=== PATIENT | male | born 1935 | race Caucasian/White ===

== ENCOUNTER → 2020-01-27 | Outpatient (CLI) | payer MEDICARE, OTHER ==
[~2020-01-27] MED LIST: ASPI81TA57 PO; HCT25T PO; HYDR-34 PO; HYDROCHLOROTHIAZIDE PO; METO25TA6 PO; QUIN40TA17 PO; ROSU10TA12 PO
--- NOTE | 2020-01-27 13:43 | Diagnostic Imaging Report ---
EXAMINATION: CT Abdomen/Pelvis without contrast. TECHNIQUE: Multiple contiguous axial images were obtained through the abdomen and pelvis without the use of intravenous contrast. All CT scans use one or more of the following dose optimizing techniques: automated exposure control, MA and/or KvP adjustment based on a patient size and exam type, or iterative reconstruction. HISTORY: Hematuria. COMPARISON: None available. FINDINGS: Limited views of the lower thorax show mitral annular calcifications and dilation of the heart. The liver is normal without focal lesion. There is no biliary ductal dilation. The gallbladder is normal. The pancreas is normal. The spleen is normal. The adrenal glands are normal. The kidneys are normal. There is no hydronephrosis. The urinary bladder is normal. No renal or ureteral stones are seen. The prostate is enlarged. The visualized bowel is normal in caliber without obstruction or inflammation. No free fluid or air. No abdominal or pelvic lymphadenopathy. The aorta is normal in caliber without aneurysm. There are no suspicious osseus lesions. IMPRESSION: No acute abnormality in the abdomen or pelvis. No renal or ureteral calculi. Dictated by: Dictated on workstation # [id number]
--- NOTE | 2020-01-27 13:50 | Diagnostic Imaging Report ---
INDICATION: Hematuria. TIME OF EXAM: 1:34 PM. FINDINGS: The bowel gas pattern is nonobstructed. No pathologic calcifications are seen. Pelvic calcification on the right likely represents a phlebolith. No free air is identified. IMPRESSION: No acute abnormality is detected. Dictated by: Dictated on workstation # [id number]
== END ==
LOC: RAD 13:12
PROVIDERS: ATTEND Urology
DX: R31.0 Gross hematuria (principal)
CPT/HCPCS: 74018; 74176

== ENCOUNTER 2020-08-23 05:32 | Outpatient (RCR) | payer MEDICARE, OTHER ==
[~2020-08-23] VITALS: Ht 175.3 cm; Wt 77.3 kg
[~2020-08-23 05:32] MED LIST changes: +AMLO-504 PO; +ASPI-999 PO; +METO-333 PO; +ROSU10TA28 PO
--- NOTE | 2020-08-23 18:48 | NUR ---
Notified patient of positive COVID test.
== END 2020-08-23 09:12 | disposition home or self-care (01) ==
LOC: PREOP 05:32
PROVIDERS: ATTEND Surgery
DX: Z01.818 Encounter for other preprocedural examination (principal); U07.1 COVID-19
CPT/HCPCS: 87635

== ENCOUNTER 2020-10-11 15:56 | Observation (INO) | payer MEDICARE, OTHER ==
[~2020-10-11] VITALS: Ht 182 cm; Wt 76.8 kg
[~2020-10-11 15:56] MED LIST changes: -AMLO1CAP5 PO; -APIX5TAB PO; -ASCO-262 PO; -BAMLANIVIMAB 700 MG in NS 200 ML IV ONE; -CHOL10007 PO; -DILT240C91 PO; -EPINEPHrine INJECTION 1 MG/ML AMP IM PRN; -FURO20TA4 PO; -diphenhydrAMINE 50 MG/ML INJ (BENADRYL) IV PRN
[2020-10-11] MEDS ORDERED: ACETAMINOPHEN 500 MG TAB (TYLENOL) ONE (16:12)
--- NOTE | 2020-10-11 16:21 | ED General ---
General Stated Complaint: SOB,COVID + Source of Information: Patient Exam Limitations: No Limitations History of Present Illness Date Seen by Provider: Oct 11, 2020 Time Seen by Provider: 16:20 Initial Comments This is an 85-year-old male who presents to the ER via EMS with elevated temperature, new onset afib RVR and shortness of air after receiving Bam lanivimab treatment around 0830 this morning. States he went to for increased swelling in his ankles for two weeks and increasing shortness of breath for two weeks. States he thought it was likely due to COVID, even though he just tested positive. At this time he is denying chest pain, cough, shortness of breath, nausea, vomiting, diarrhea, abdominal pain. Allergies and Home Medications Allergies Coded Allergies: Penicillins (Verified Allergy, Mild, RASH, 09/07/14) Home Medications Amlodipine Bes/Olmesartan Med 1 Each Tablet, 1 EACH PO DAILY, (Reported) Aspirin 81 Mg Tab.chew, 81 MG PO DAILY, (Reported) Metoprolol Tartrate 25 Mg Tablet, 25 MG PO BID, (Reported) Rosuvastatin Calcium 10 Mg Tablet, 10 MG PO HS, (Reported) Patient Home Medication List Home Medication List Reviewed: Yes Review of Systems Review of Systems Constitutional: see HPI EENTM: no symptoms reported Respiratory: see HPI Cardiovascular: see HPI Gastrointestinal: no symptoms reported Genitourinary: no symptoms reported Musculoskeletal: no symptoms reported Skin: no symptoms reported Psychiatric/Neurological: No Symptoms Reported Hematologic/Lymphatic: No Symptoms Reported Immunological/Allergic: no symptoms reported Past Pkfthlc-Jsqnje-Uypntj Hx Patient Social History Former Smoker, Quit: Aug 17, 1985 Recent Hopitalizations: No Immunizations Up To Date Date of Pneumonia Vaccine: Jun 09, 2013 Date of Influenza Vaccine: Jul 07, 2020 Seasonal Allergies Seasonal Allergies: No Past Medical History Surgeries: Yes (mitral value repaired, hammertoe sx, ) Respiratory: No Cardiac: No (mitral valve tear repaired robotic, 10/2013) Hypertension Neurological: No Genitourinary: No Gastrointestinal: No Musculoskeletal: Yes Arthritis Endocrine: No HEENT: Yes (dentures) Cancer: No Psychosocial: No Integumentary: No Blood Disorders: No Physical Exam Vital Signs Vital Signs - First Documented 10/11/20 10/11/20 10/11/20 16:00 20:50 22:50 Temp 39.0 Pulse 112 Resp 33 B/P (MAP) 148/96 (113) Pulse Ox 94 O2 Delivery Room Air FiO2 21 Capillary Refill : Height, Weight, BMI Height: 5'9.50" Weight: 180lbs. oz. 81.959885ly; 25.15 BMI Method: General Appearance: No Apparent Distress, WD/WN Eyes: Bilateral Eye Normal Inspection, Bilateral Eye PERRL, Bilateral Eye EOMI HEENT: PERRL/EOMI, Normal ENT Inspection Respiratory: Lungs Clear Cardiovascular: Normal Peripheral Pulses, Irregularly Irregular Neurologic/Psychiatric: Oriented x3, No Motor/Sensory Deficits, Normal Mood/Affect Skin: Normal Color, Warm/Dry Progress/Results/Core Measures Suspected Sepsis SIRS Temperature: Pulse: Respiratory Rate: Laboratory Tests 10/11/20 16:05: White Blood Count 4.6 Blood Pressure / Mean: Laboratory Tests 10/11/20 16:05: Creatinine 1.47H, Platelet Count 151, Total Bilirubin 0.8 Results/Orders Lab Results Laboratory Tests Test 10/11/20 16:05 10/11/20 16:54 Range/Units White Blood Count 4.6 4.3-11.0 10^3/uL Red Blood Count 3.97 L 4.30-5.52 10^6/uL Hemoglobin 12.2 L 13.3-17.7 g/dL Hematocrit 37 L 40-54 % Mean Corpuscular Volume 93 80-99 fL Mean Corpuscular Hemoglobin 31 25-34 pg Mean Corpuscular Hemoglobin Concent 33 32-36 g/dL Red Cell Distribution Width 12.3 10.0-14.5 % Platelet Count 151 130-400 10^3/uL Mean Platelet Volume 9.8 9.0-12.2 fL Immature Granulocyte % (Auto) 0 % Neutrophils (%) (Auto) 71 42-75 % Lymphocytes (%) (Auto) 16 12-44 % Monocytes (%) (Auto) 12 0-12 % Eosinophils (%) (Auto) 0 0-10 % Basophils (%) (Auto) 0 0-10 % Neutrophils # (Auto) 3.2 1.8-7.8 10^3/uL Lymphocytes # (Auto) 0.7 L 1.0-4.0 10^3/uL Monocytes # (Auto) 0.6 0.0-1.0 10^3/uL Eosinophils # (Auto) 0.0 0.0-0.3 10^3/uL Basophils # (Auto) 0.0 0.0-0.1 10^3/uL Immature Granulocyte # (Auto) 0.0 0.0-0.1 10^3/uL Sodium Level 134 L 135-145 MMOL/L Potassium Level 3.8 3.6-5.0 MMOL/L Chloride Level 102 98-107 MMOL/L Carbon Dioxide Level 20 L 21-32 MMOL/L Anion Gap 12 5-14 MMOL/L Blood Urea Nitrogen 20 H 7-18 MG/DL Creatinine 1.47 H 0.60-1.30 MG/DL Estimat Glomerular Filtration Rate 45 BUN/Creatinine Ratio 14 Glucose Level 109 H 70-105 MG/DL Calcium Level 8.8 8.5-10.1 MG/DL Corrected Calcium 8.9 8.5-10.1 MG/DL Total Bilirubin 0.8 0.1-1.0 MG/DL Aspartate Amino Transf (AST/SGOT) 25 5-34 U/L Alanine Aminotransferase (ALT/SGPT) 20 0-55 U/L Alkaline Phosphatase 90 40-136 U/L Troponin I 0.028 <0.028 NG/ML B-Type Natriuretic Peptide 903.9 H <100.0 PG/ML Total Protein 6.5 6.4-8.2 GM/DL Albumin 3.9 3.2-4.5 GM/DL Blood Gas Puncture Site RAD Blood Gas Patient Temperature 102.1 Arterial Blood pH 7.45 H 7.37-7.43 Arterial Blood Partial Pressure CO2 28 L 35-45 MMHG Arterial Blood Partial Pressure O2 93 79-93 MMHG Arterial Blood HCO3 19 L 23-27 MMOL/L Arterial Blood Total CO2 19.6 L 21.0-31.0 MMOL/L Arterial Blood Oxygen Saturation 97 94-100 % Arterial Blood Base Excess -4.2 L -2.5-2.5 MMOL/L Kevin Test NA Blood Gas Ventilator Setting NO Blood Gas Inspired Oxygen ROOM AIR My Orders Orders - KYLER ORTIZ APRN Acetaminophen Tablet (Tylenol Tablet) (10/11/20 16:12) Acetaminophen Tablet (Tylenol Tablet) (10/11/20 16:30) Cbc With Automated Diff (10/11/20 16:21) Comprehensive Metabolic Panel (10/11/20 16:21) Ekg Tracing (10/11/20 16:21) Troponin I (10/11/20 16:21) Chest 1 View, Ap/Pa Only (10/11/20 16:21) Arterial Blood Gas (10/11/20 16:54) Medications Given in ED Current Medications Medications Dose Ordered Sig/Moose Route Start Time Stop Time Status Last Admin Dose Admin Acetaminophen 1,000 mg ONCE ONCE PO 10/11/20 16:30 10/11/20 16:31 DC 10/11/20 16:20 1,000 MG Vital Signs/I&O 10/11/20 10/11/20 10/11/20 10/11/20 16:00 20:50 21:00 22:50 Temp 39.0 37.0 37.0 Pulse 112 100 100 Resp 33 18 B/P (MAP) 148/96 (113) 130/89 (103) Pulse Ox 94 97 94 94 O2 Delivery Room Air Room Air FiO2 21 Capillary Refill : Progress Note : Progress Note Temperature upon arrival was 102.2. Given Tylenol 1000mg PO x1 now. Telemetry shows A-fib, rate 104. RR 30. Reports increasing shortness of breath and bilateral lower extremity swelling over the past couple weeks. States he does sleep on 2 pillows at night. Elevated temperature could likely be from recent Bamlanivimab infusion. Temperature down to 97.9. Labs reviewed, Hgb stable-12.2, Plt-151, Na-134, K- 3.8, AG-12, BUN-20, Creat-1.47, BNP-903.9, Trop-0.028. CXR shows cardiomegaly with no evidence of failure. Donahue heart failure score 4 (cardiomegaly, orthopnea, ankle edema, and dyspnea on exertion). Plan to admit for observation to cardiac stepdown unit incase patient requires cardizem drip through hospital course. Patient noted to be COVID +, and this could also likely be a cause for his increased SOA. Plan of care discussed with Dr. Adam and Dr. Roberts. Patient to be monitored on telemetry, continue home Metoprolol and start on Eliquis 2.5 mg twice a day. Reviewed plan with patient and he is agreeable with plan. VSS for transfer to cardiac stepdown. ECG Initial ECG Impression Date: Oct 11, 2020 Initial ECG Impression Time: 16:25 Initial ECG Rate: 104 Initial ECG Rhythm: A Fib/Flutter Initial ECG Impression: Atrial Fibrillation Initial ECG Comparisson: Changed Diagnostic Imaging Diagonstic Imaging: Xray Plain Films/CT/US/NM/MRI: chest Comments NAME: [facility] REC#: [id number] PT STATUS: REG ER : 1935 PHYSICIAN: KYLER ORTIZ APRN ADMIT DATE: 10/11/20/ER Signed Date of Exam:10/11/20 CHEST 1 VIEW, AP/PA ONLY INDICATION: Shortness of breath, Covid positive. COMPARISON: None available. TECHNIQUE: Single radiograph of the chest dated October 11, 2020. FINDINGS: The cardiac silhouette is enlarged. Minimal central pulmonary vascular congestion. Patchy opacity is noted within the left upper lung. Otherwise, the lungs appear clear. No significant pleural effusion. No pneumothorax. No acute osseous abnormality. IMPRESSION: Focal opacity within the left upper lung is concerning for infiltrate, likely of an infectious etiology. Radiographic follow-up is recommended to ensure clearance. Mild cardiomegaly with minimal central pulmonary vascular congestion. No significant pleural effusion. Dictated by: Dictated on workstation # [id number] Dict: 10/11/20 1722 Trans: 10/11/20 172 [facility] [id number] Interpreted by: ZAYDA VITAL MD Electronically signed by: ZAYDA VITAL MD 10/11/20 172 Departure Communication (Admissions) Time/Spoke to Admitting Phy: 18:[address] Adam, agreeable with observation admission and cardiology consult. Time/Spoke to Consulting Phy: 18:[address] Roberts, agreeable with observation admission, patient to start Eliquis 2.5 mg twice a day. Impression Primary Impression: New onset a-fib Additional Impressions: Congestive heart failure COVID-19 Disposition: ADMITTED INPATIENT Condition: Stable Admissions Decision to Admit Reason: Admit from ER (General) Decision to Admit/Date: Oct 11, 2020 Time/Decision to Admit Time: 18:00 Departure-Patient Inst. Referrals: WILLIAM REICH MD (PCP/Family) Primary Care Physician KYLER ORTIZ APRN Oct 11, 2020 16:21
[2020-10-11 16:30] LABS: BASOPHILS % (AUTO) 0 % (0-10); EOSINOPHILS % (AUTO) 0 % (0-10); HEMATOCRIT 37 % (40-54); HEMOGLOBIN 12.2 g/dL (13.3-17.7); LYMPHOCYTES # (AUTO) 0.7 10^3/uL (1.0-4.0); LYMPHOCYTES % (AUTO) 16 % (12-44); MEAN CORPUSCULAR HEMOGLOBIN 31 pg (25-34); MEAN CORPUSCULAR HGB CONC 33 g/dL (32-36); MEAN CORPUSCULAR VOLUME 93 fL (80-99); MEAN PLATELET VOLUME 9.8 fL (9.0-12.2); MONOCYTES # (AUTO) 0.6 10^3/uL (0.0-1.0); MONOCYTES % (AUTO) 12 % (0-12); NEUTROPHILS # (AUTO) 3.2 10^3/uL (1.8-7.8); NEUTROPHILS % (AUTO) 71 % (42-75); PLATELET COUNT 151 10^3/uL (130-400); WHITE BLOOD COUNT 4.6 10^3/uL (4.3-11.0)
[2020-10-11] MEDS ORDERED: ACETAMINOPHEN 500 MG TAB (TYLENOL) PO ONE (16:30)
[2020-10-11 16:42] LABS: ALBUMIN 3.9 GM/DL (3.2-4.5); BILIRUBIN,TOTAL 0.8 MG/DL (0.1-1.0); CALCIUM 8.8 MG/DL (8.5-10.1); CREATININE SERUM 1.47 MG/DL (0.60-1.30); POTASSIUM 3.8 MMOL/L (3.6-5.0); TOTAL PROTEIN 6.5 GM/DL (6.4-8.2)
[2020-10-11 17:03] LABS: ABG BASE EXCESS -4.2 MMOL/L (-2.5-2.5); ABG OXYGEN SATURATION 97 % (94-100); ABG PCO2 28 MMHG (35-45); ABG PH 7.45 (7.37-7.43); ABG PO2 93 MMHG (79-93); ABG TCO2 19.6 MMOL/L (21.0-31.0)
[2020-10-11 17:05] LABS: INSPIRED O2 ROOM AIR; PATIENT TEMP 102.1; VENTILATOR NO
--- NOTE | 2020-10-11 17:24 | Diagnostic Imaging Report ---
INDICATION: Shortness of breath, Covid positive. COMPARISON: None available. TECHNIQUE: Single radiograph of the chest dated October 11, 2020. FINDINGS: The cardiac silhouette is enlarged. Minimal central pulmonary vascular congestion. Patchy opacity is noted within the left upper lung. Otherwise, the lungs appear clear. No significant pleural effusion. No pneumothorax. No acute osseous abnormality. IMPRESSION: Focal opacity within the left upper lung is concerning for infiltrate, likely of an infectious etiology. Radiographic follow-up is recommended to ensure clearance. Mild cardiomegaly with minimal central pulmonary vascular congestion. No significant pleural effusion. Dictated by: Dictated on workstation # [id number]
--- NOTE | 2020-10-11 19:22 | NUR ---
REPORT TO DEBORAH ÁLVAREZ
--- NOTE | 2020-10-11 19:35 | NUR ---
CONTACTED PT DAUGHTER, LUNA, REGARDING UPDATE ET ADMISSION TO CARDIAC STEP DOWN, ROOM 512. LUNA VOICES NO FURTHER QUESTIONS OR CONCERNS.
[2020-10-11] MEDS ORDERED: ONDANSETRON 4 MG/2 ML (SDV) Z0FRAN IV PRN (20:30)
[2020-10-11] MEDS ORDERED: ACETAMINOPHEN 325 MG TABLET PO PRN (20:30)
[2020-10-11] MEDS ORDERED: CATHETER FLUSH 10 ML SYR IV PRN (20:30)
--- NOTE | 2020-10-11 20:45 | NUR ---
PT RECEIVED FROM ER STAFF TO RM 512 AT THIS TIME. PT IS A&OX4, ON ROOM AIR, AND VERY PLEASANT. PLEASE SEE ASSESSMENT FOR FULL DETAILS. WILL ASSUME CARE OF PATIENT.
--- NOTE | 2020-10-11 21:30 | NUR ---
SIZE MEDIUM KNEE HIGH JADE HOSE APPLIED BLE.
[2020-10-11 22:50] VITALS: BP 130/89
[2020-10-12] MEDS: CATHETER FLUSH 10 ML SYR IV SCH ×3 (00:17→20:37)
[2020-10-12] MEDS: meTOprolol TARTRATE 25 MG (LOPRESSOR) TABLET PO SCH ×3 (00:17→20:37)
[2020-10-12] MEDS: APIXABAN 2.5 MG (ELIQUIS) TABLET PO SCH ×2 (00:17→08:27)
--- NOTE | 2020-10-12 00:30 | NUR ---
JADE SERRANO REMOVED PER PATIENT REQUEST.
[2020-10-12 03:55] LABS: ALBUMIN 3.4 GM/DL (3.2-4.5)
[2020-10-12 03:56] LABS: POTASSIUM 4.3 MMOL/L (3.6-5.0)
[2020-10-12 03:57] LABS: BASOPHILS % (AUTO) 1 % (0-10); CALCIUM 8.1 MG/DL (8.5-10.1); EOSINOPHILS % (AUTO) 0 % (0-10); HEMATOCRIT 35 % (40-54); HEMOGLOBIN 11.6 g/dL (13.3-17.7); LYMPHOCYTES # (AUTO) 1.4 10^3/uL (1.0-4.0); LYMPHOCYTES % (AUTO) 40 % (12-44); MEAN CORPUSCULAR HEMOGLOBIN 30 pg (25-34); MEAN CORPUSCULAR HGB CONC 33 g/dL (32-36); MEAN CORPUSCULAR VOLUME 93 fL (80-99); MONOCYTES # (AUTO) 0.5 10^3/uL (0.0-1.0); MONOCYTES % (AUTO) 14 % (0-12); NEUTROPHILS # (AUTO) 1.5 10^3/uL (1.8-7.8); NEUTROPHILS % (AUTO) 44 % (42-75); PLATELET COUNT 141 10^3/uL (130-400); WHITE BLOOD COUNT 3.5 10^3/uL (4.3-11.0)
[2020-10-12 03:58] LABS: TOTAL PROTEIN 5.7 GM/DL (6.4-8.2)
[2020-10-12 04:00] LABS: BILIRUBIN,TOTAL 0.8 MG/DL (0.1-1.0)
[2020-10-12 04:02] LABS: CREATININE SERUM 1.29 MG/DL (0.60-1.30)
--- NOTE | 2020-10-12 08:23 | Consultation-Cardiology ---
HPI-Cardiology Cardiology Consultation: Date of Consultation 10/12/20 Time Seen by a Provider: 08:25 Date of Admission 10-11-2020 Attending Physician Mallory Adam MD Admitting Physician Robert Ahumada MD Consulting Physician Sherly Roberts MD HPI: Chief Complaint: New onset a-fib with RVR Mr. Mcclendon is an 85 yr old male admitted to [facility] from the ED with new onset a-fib with RVR. He reports he was diagnosed with COVID earlier this week. He went to Urgent care where he received out pt bamlanivimab tx. He reports they were concerned with LE swelling following treatment and he was found to be in a-fib RVR. He reports SOB with exertion. He states he did feel that his HR maybe was a little fast. He reports starting around 3 weeks ago he began to have LE swelling, but he would go to bed and get up in the morning and the swelling would be gone. He also reports about 2 weeks ago he was climbing stairs at his house and by the time he made to the second step he felt very SOB and weak. He would rest for a few minutes and recover. No report of palpitations at that time. He denies any fever or chills, he was found to have a fever yesterday at time of admission. He denies any n/f/d. He states he follows with Dr. Vargas at [facility] for cardiac care. 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 He reports LE swelling is better today. He does not report any CP. Review of Systems-Cardiology Review of Systems Constitutional: No chills; fever, malaise Eyes: No vision change Ears/Nose/Throat: No epistaxis, No recent hearing loss Respiratory: As described under HPI Cardiovascular: As described under HPI Gastrointestinal: No constipation, No diarrhea, No nausea, No vomiting Genitourinary: No dysuria, No hematuria Musculoskeletal: no symptoms reported Skin: No rash on exposed areas, No ulcerations on exposed areas Psychiatric/Neurological: No anxiety, No depression, No focal weakness, No syncope Hematologic: No bleeding abnormalities NVI-Bsyerm-Yazqyn Hx Patient Social History Alcohol Use: Denies Use Recreational Drug Use: No Smoking Status: Former Smoker Recent Foreign Travel: No Recent Infectious Disease Expo: No Hospitalization with Isolation: Denies Immunizations Up To Date Date of Pneumonia Vaccine: Jul 11, 2020 Date of Influenza Vaccine: Aug 11, 2021 Past Medical History PMH As described under Assessment. Family Medical History Family Medical History: He reports he had a brother who passed from an MS at age 65. He reports his father had CAD. Allergies and Home Medications Allergies Coded Allergies: Penicillins (Verified Allergy, Mild, RASH, 09/07/14) Home Medications Amlodipine Besylate/Benazepril 1 Each Capsule, 1 EACH PO DAILY, (Reported) Ascorbate Calcium 500 Mg Tablet, 500 MG PO DAILY, (Reported) Aspirin 81 Mg Tab.chew, 81 MG PO DAILY, (Reported) Cholecalciferol (Vitamin D3) 25 Mcg Capsule, 25 MCG PO DAILY, (Reported) Furosemide 20 Mg Tablet, 20 MG PO DAILY, (Reported) Metoprolol Tartrate 25 Mg Tablet, 25 MG PO BID, (Reported) Rosuvastatin Calcium 10 Mg Tablet, 10 MG PO HS, (Reported) Patient Home Medication List Home Medication List Reviewed: Yes Physical Exam-Cardiology Physical Exam Vital Signs/I&O 10/12/20 10/12/20 10/12/20 10/12/20 07:02 08:00 08:34 09:00 Temp 36.3 Pulse 82 96 Resp 18 B/P (MAP) 126/73 (90) Pulse Ox 96 94 94 O2 Delivery Room Air Room Air Room Air 10/12/20 10/12/20 10/12/20 10/12/20 12:00 12:00 12:58 13:12 Temp 37.0 37.0 Pulse 63 77 63 Resp 18 18 B/P (MAP) 105/62 (76) 105/62 (76) Pulse Ox 94 94 94 O2 Delivery Room Air Room Air Room Air 10/12/20 15:45 Pulse Ox 93 O2 Delivery Room Air 10/12/20 00:00 Intake Total 0 ml Output Total 0 ml Balance 0 ml Capillary Refill : Less Than 3 Seconds Constitutional: AAO x 3, well-developed, well-nourished HEENT: PERRL, hearing is well preserved, oral hygience is good Neck: No carotid bruit; carotid pulses are 2 + bilaterally Respiratory: No accessory muscle use, No respiratory distress; chest expansion is symmetric, chest is bilaterally symmetric, other (diminished lower lobes) Cardiovascular: irregularly irregular; No JVD; S1 and S2, systolic murmur Gastrointestinal: No tender; soft, round, audible bowel sounds Extremities: no lower extremity edema bilateral Neurologic/Psychiatric: grossly intact (moves all extremities) Skin: No rash on exposed areas, No ulcerations on exposed areas Data Review Labs Laboratory Tests 10/11/20 16:54: Blood Gas Puncture Site RAD, Blood Gas Patient Temperature 102.1, Arterial Blood pH 7.45H, Arterial Blood Partial Pressure CO2 28L, Arterial Blood Partial Pressure O2 93, Arterial Blood HCO3 19L, Arterial Blood Total CO2 19.6L, Arterial Blood Oxygen Saturation 97, Arterial Blood Base Excess -4.2L, Kevin Test NA, Blood Gas Ventilator Setting NO, Blood Gas Inspired Oxygen ROOM AIR 10/12/20 03:40: White Blood Count 3.5L, Red Blood Count 3.81L, Hemoglobin 11.6L, Hematocrit 35L, Mean Corpuscular Volume 93, Mean Corpuscular Hemoglobin 30, Mean Corpuscular Hemoglobin Concent 33, Red Cell Distribution Width 12.4, Platelet Count 141, Mean Platelet Volume 10.0, Immature Granulocyte % (Auto) 0, Neutrophils (%) (Auto) 44, Lymphocytes (%) (Auto) 40, Monocytes (%) (Auto) 14H, Eosinophils (%) (Auto) 0, Basophils (%) (Auto) 1, Neutrophils # (Auto) 1.5L, Lymphocytes # (Auto) 1.4, Monocytes # (Auto) 0.5, Eosinophils # (Auto) 0.0, Basophils # (Auto) 0.0, Immature Granulocyte # (Auto) 0.0, Sodium Level 133L, Potassium Level 4.3, Chloride Level 105, Carbon Dioxide Level 19L, Anion Gap 9, Blood Urea Nitrogen 19H, Creatinine 1.29, Estimat Glomerular Filtration Rate 53, BUN/Creatinine Ratio 15, Glucose Level 91, Calcium Level 8.1L, Corrected Calcium 8.6, Total Bilirubin 0.8, Aspartate Amino Transf (AST/SGOT) 29, Alanine Aminotransferase (ALT/SGPT) 15, Alkaline Phosphatase 78, Total Protein 5.7L, Albumin 3.4, Procalcitonin 0.32H Radiology NAME: MAGO MCCLENDON [facility] REC#: [id number] PT STATUS: REG ER : 1935 PHYSICIAN: KYLER ORTIZ APRN ADMIT DATE: 10/11/20/ER Signed Date of Exam:10/11/20 CHEST 1 VIEW, AP/PA ONLY INDICATION: Shortness of breath, Covid positive. COMPARISON: None available. TECHNIQUE: Single radiograph of the chest dated October 11, 2020. FINDINGS: The cardiac silhouette is enlarged. Minimal central pulmonary vascular congestion. Patchy opacity is noted within the left upper lung. Otherwise, the lungs appear clear. No significant pleural effusion. No pneumothorax. No acute osseous abnormality. IMPRESSION: Focal opacity within the left upper lung is concerning for infiltrate, likely of an infectious etiology. Radiographic follow-up is recommended to ensure clearance. Mild cardiomegaly with minimal central pulmonary vascular congestion. No significant pleural effusion. Dictated by: Dictated on workstation # [id number] Dict: 10/11/201721 Trans: 10/11/20 172 [id number] Interpreted by: ZAYDA VITAL MD Electronically signed by: ZAYDA VITAL MD 10/11/20 172 ECG Impression ECG Initial ECG Impression: Atrial Fibrillation w/RVR A/P-Cardiology Assessment/Admission Diagnosis New onset a-fib with RVR first diagnosed Oct 11, 2019 COVID (+) H/O robotic mitral valve repair at [facility] in [address] Vargas Reports recent echo and stress test at [facility] in Jun 2020, which he reports as normal Cardiac cath of Jun 2013 showed non-obstructive dz. LVEF 60%. Normal LVEDP. Severe mitral regurg (4+). 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 Adam this morning regarding plan of care Management of COVID is per medical services We would like to thank Dr. 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
--- NOTE | 2020-10-12 09:12 | NUR ---
Initial visit; The patient is Oriental Orthodox and demonstrates positive coping through his humor, and compassion for others. He expresses trust is God through uncertainty and the burdens of poor health. This Sausage Cooker invited the patient to share openly by affirming the importance of his thoughts and feeling. The pt expressed relief that his has not been critically ill with COVID, and he expressed appreciation for the opportunity to engage in uplifting visit.
--- NOTE | 2020-10-12 09:24 | Pulmonary Consultation ---
History of Present Illness History of Present Illness Date Seen by Provider: Oct 12, 2020 Time Seen by Provider: 09:19 Date of Admission History of Present Illness 85-year old with recent COVID + testing presented to the ER via [facility] with elevated temperature, new onset afib RVR and shortness of air after receiving Bamlanivimab treatment around 0830 this morning. He has also had increased swelling in his ankles for two weeks and increasing shortness of breath for two weeks. Pt was admitted to cardiac step down. Allergies and Home Medications Allergies Coded Allergies: Penicillins (Verified Allergy, Mild, RASH, 09/07/14) Home Medications Amlodipine Bes/Olmesartan Med 1 Each Tablet, 1 EACH PO DAILY, (Reported) Aspirin 81 Mg Tab.chew, 81 MG PO DAILY, (Reported) Metoprolol Tartrate 25 Mg Tablet, 25 MG PO BID, (Reported) Rosuvastatin Calcium 10 Mg Tablet, 10 MG PO HS, (Reported) Past Kjwqdci-Seswgx-Xcttgf Hx Patient Social History Alcohol Use: Denies Use Recreational Drug Use: No Smoking Status: Former Smoker Former Smoker, Quit: Aug 17, 1985 Recent Foreign Travel: No Contact w/Someone Who Travel: No Recent Infectious Disease Expo: No Recent Hopitalizations: No Immunizations Up To Date Date of Pneumonia Vaccine: Jul 11, 2020 Date of Influenza Vaccine: Aug 11, 2021 Seasonal Allergies Seasonal Allergies: No Past Medical History Surgeries: Yes (mitral value repaired, hammertoe sx, ) Respiratory: No Cardiac: No (mitral valve tear repaired robotic, 10/2013) Hypertension Neurological: No Genitourinary: No Gastrointestinal: No Musculoskeletal: Yes Arthritis Endocrine: No HEENT: Yes (dentures) Cancer: No Psychosocial: No Integumentary: No Blood Disorders: No Review of Systems Time Seen by Provider: 09:24 Sepsis Event Evaluation Height, Weight, BMI Height: 5'9.50" Weight: 180lbs. oz. 81.024133il; 23.33 BMI Method: Exam Exam Vital Signs Date Time Temp Pulse Resp B/P (MAP) Pulse Ox O2 Delivery O2 Flow Rate FiO2 10/12/20 09:00 94 Room Air 10/12/20 08:34 36.3 96 18 126/73 (90) 94 Room Air 10/12/20 08:00 96 Room Air 10/12/20 07:02 82 10/12/20 04:00 93 Room Air 10/12/20 04:00 Room Air 10/12/20 03:51 36.0 90 14 100/52 (68) 93 Room Air 10/12/20 02:42 94 Room Air 10/12/20 01:00 93 10/12/20 00:02 95 Room Air 10/12/20 00:00 Room Air 10/11/20 23:55 36.2 92 18 112/72 (85) 96 Room Air 10/11/20 22:50 37.0 100 94 21 10/11/20 21:00 94 Room Air 10/11/20 21:00 94 Room Air 10/11/20 20:50 37.0 100 18 130/89 (103) 97 Room Air 10/11/20 20:47 95 10/11/20 16:00 39.0 112 33 148/96 (113) 94 I & O 10/12/20 07:00 Intake Total 240 ml Output Total 450 ml Balance -210 ml Height & Weight Height: 5'9.50" Weight: 180lbs. oz. 81.031518qh; 23.33 BMI Method: General Appearance: No Apparent Distress, WD/WN HEENT: PERRL/EOMI, Normal ENT Inspection Respiratory: Lungs Clear Cardiovascular: Normal Peripheral Pulses, Irregularly Irregular Capillary Refill: Less Than 3 Seconds Gastrointestinal: normal bowel sounds, non tender, soft, no organomegaly Extremity: Normal Capillary Refill, Normal Inspection, No Pedal Edema Neurologic/Psychiatric: Alert, Oriented x3, No Motor/Sensory Deficits, Normal Mood/Affect Skin: Normal Color, Warm/Dry Lymphatic: No Adenopathy Results Lab Laboratory Tests 10/11/20 16:05 10/12/20 03:40 Assessment/Plan Assessment/Plan COVID-19 PNA -Currently on RA -Check PCT -Repeat CXR -Pt received BAM infusion yesterday -I do not believe pt needs Remdesivir and he will probably be discharged over the next 24-48hrs. Afib RVR -Cardiology consulted H/O robotic mitral valve repair at [facility] in 2013 Cardiac cath of Jun 2013 showed non-obstructive dz. LVEF 60%. Normal LVEDP. Severe mitral regurg (4+). Mild to mod pulm HTN HTN HLD Pt is doing well will transfer to 4th floor with tele GERI TORRES DO Oct 12, 2020 09:24
--- NOTE | 2020-10-12 09:45 | NUR ---
conformed pt's approval for anointing and contacted Fr Villatoro.
--- NOTE | 2020-10-12 12:20 | Diagnostic Imaging Report ---
INDICATION: Shortness of breath, Covid positive patient. TECHNIQUE/COMPARISON: A frontal chest was obtained at 11:32 AM and compared to yesterday FINDINGS: Cardiomegaly is again noted. There is minimal central vascular prominence. There is no pneumothorax or pleural fluid. There is an ill-defined density in the left upper lobe which may represent an infiltrate or nodule. This appears essentially unchanged from yesterday. The remainder of the lung chow is clear. IMPRESSION: Ill-defined parenchymal opacity in the left upper lobe which may represent infiltrate or nodule. Recommend continued followup or chest CT as clinically warranted. There is cardiomegaly. The report was faxed to Infection Control by [email or web address]@12:20 PM. Dictated by: Dictated on workstation # [id number]
[2020-10-12] MEDS ORDERED: AMLO1CAP5 PO (13:52)
[2020-10-12] MEDS ORDERED: CHOL10007 PO (13:52)
[2020-10-12] MEDS ORDERED: FURO20TA4 PO (13:52)
[2020-10-12] MEDS ORDERED: ASCO-262 PO (13:52)
--- NOTE | 2020-10-12 13:53 | NUR ---
SPOKE WITH THE PT (CALLED THE ROOM PHONE) AND WENT THRU THE EXT MED HISTORY TO COMPLETE THE MED REC PT WAS ABLE TO NAME ALL HIS MEDICATIONS WELL WHEN/HOW HE TAKES EACH FUROSEMIDE 20MG WAS FILLED ON 08-10-2020 #7/7DS, BUT PRIOR TO THIS FILL THE PT DOES NOT REGULARLY TAKE THIS MED OTC MEDS: VIT D VIT C ASPIRIN 81MG
--- NOTE | 2020-10-12 14:26 | NUR ---
CM/SS following patient for discharge planning. CM/SS provided the patient's primary care nurse with the free-30-day trial offer for Eliflor. She verbalized understanding and will provide to patient at time of discharge. CM/SS will continue to follow for further discharge needs.
[2020-10-12] MEDS: RT-ALBUTEROL INHALER HFA (VENTOLIN HFA) 18 GM IH SCH ×2 (15:44→18:31)
--- NOTE | 2020-10-12 17:04 | History & Physical-Hospitalist ---
History of Present Illness HPI/Chief Complaint Oneil Mcclendon is an 85 year old male with PMH HTN, HLD, CAD, severe mitral valve regurgiation s/p repair, who presented with shortness of breath. He was recently diagnosed with COVID and received a BAM infusion as an outpatient. He reports dyspnea on exertion. He denies chest pain and palpitations. He denies fevers and chills. He denies cough. 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 He reports having an echocardiogram a few months ago which was apparently "normal". Source: patient Exam Limitations: no limitations Date Seen 10/12/20 Time Seen by a Provider: 16:00 Attending Physician Mallory Dia MD PCP Robert Ahumada MD Referring Physician Date of Admission Oct 11, 2020 at 18:58 Home Medications & Allergies Home Medications Reviewed patient Home Medication Reconciliation performed by pharmacy medication reconciliations body technician/painter and/or nursing. Patients Allergies have been reviewed. Allergies Allergies Coded Allergies Penicillins (Verified Allergy, Mild, RASH, 09/07/14) Past Tpkrfxf-Foprwa-Uhfzea Hx Past Med/Social Hx: Reviewed Nursing Past Med/Soc Hx Patient Social History Alcohol Use: Denies Use Recreational Drug Use: No Smoking Status: Former Smoker Former Smoker, Quit: Aug 17, 1985 Recent Foreign Travel: No Contact w/other who traveled: No Recent Hopitalizations: No Recent Infectious Disease Expo: No Immunizations Up To Date Date of Pneumonia Vaccine: Jul 11, 2020 Date of Influenza Vaccine: Aug 11, 2021 Seasonal Allergies Seasonal Allergies: No Past Medical History Cardiac: Hypertension Musculoskeletal: Arthritis History of Blood Disorders: No Review of Systems Constitutional: no symptoms reported EENTM: no symptoms reported Respiratory: dyspnea on exertion Cardiovascular: no symptoms reported Gastrointestinal: no symptoms reported Genitourinary: no symptoms reported Musculoskeletal: no symptoms reported Skin: no symptoms reported Psychiatric/Neurological: No Symptoms Reported Physical Exam Physical Exam Vital Signs Vital Signs - First Documented 10/11/20 10/11/20 10/11/20 16:00 20:50 22:50 Temp 39.0 Pulse 112 Resp 33 B/P (MAP) 148/96 (113) Pulse Ox 94 O2 Delivery Room Air FiO2 21 Capillary Refill : Less Than 3 Seconds Height, Weight, BMI Height: 5'9.50" Weight: 180lbs. oz. 81.647900dz; 23.33 BMI Method: General Appearance: No Apparent Distress, WD/WN HEENT: PERRL/EOMI, Pharynx Normal Neck: Normal Inspection, Supple Respiratory: Lungs Clear, Normal Breath Sounds, No Respiratory Distress Cardiovascular: Irregularly Irregular (regular rate) Gastrointestinal: Normal Bowel Sounds, Non Tender, Soft Extremity: Normal Inspection, Non Tender, Pedal Edema Neurologic/Psychiatric: Alert, Oriented x3, No Motor/Sensory Deficits, Normal Mood/Affect Results Results/Procedures Labs Laboratory Tests 10/11/20 16:05 10/12/20 03:40 Patient resulted labs reviewed. Imaging: Reviewed Imaging Report Assessment/Plan Admission Diagnosis New onset atrial fibrillation with rapid ventricular response Admission Status: Observation Assessment and Plan New onset AFib with RVR Cardiology consulted, appreciate assistance Started on Metoprolol Started on Eliquis Cardizem added this morning Echo ordered COVID-19 Received BAM infusion outpatient Asymptomatic No oxygen requirement Diagnosis/Problems Diagnosis/Problems (1) New onset a-fib Status: Acute (2) COVID-19 Status: Acute Clinical Quality Measures DVT/VTE Risk/Contraindication: Risk Factor Score Per Nursin RFS Level Per Nursing on Admit: 1=Low/No VTE PPX MALLORY DIA MD Oct 12, 2020 17:04
[2020-10-12] MEDS: APIXABAN 5 MG (ELIQUIS) TABLET PO SCH (20:37)
[2020-10-13] MEDS: RT-ALBUTEROL INHALER HFA (VENTOLIN HFA) 18 GM IH SCH ×2 (01:57→10:24)
[2020-10-13] MEDS: CATHETER FLUSH 10 ML SYR IV SCH (05:31)
[2020-10-13 08:21] VITALS: BP 116/74
[2020-10-13] MEDS: meTOprolol TARTRATE 25 MG (LOPRESSOR) TABLET PO SCH (08:33)
[2020-10-13] MEDS: APIXABAN 5 MG (ELIQUIS) TABLET PO SCH (08:33)
[2020-10-13] MEDS ORDERED: DILT240C91 PO (09:26)
[2020-10-13] MEDS ORDERED: APIX5TAB PO (09:26)
[2020-10-13] MEDS ORDERED: KCL 10 MEQ TAB (MICRO K) PO ONE (12:45)
[2020-10-13] MEDS ORDERED: FUROSEMIDE 20 MG (LASIX) TAB PO ONE (12:45)
--- NOTE | 2020-10-13 12:49 | Progress Note - Cardiology ---
Cardiology SOAP Progress Note Subjective: Shortness of breath better, but not resolved No cp or syncope Denies palp Leg swelling, mild to mod, for several weeks Denies n/v Objective: I&O/Vital Signs 10/13/20 10/13/20 10/13/20 10/13/20 01:40 01:58 04:02 04:40 Temp 36.6 Pulse 61 72 Resp 22 B/P (MAP) 112/70 (84) Pulse Ox 96 92 O2 Delivery Room Air Room Air Room Air 10/13/20 10/13/20 10/13/20 10/13/20 07:24 08:00 08:21 10:24 Temp 36.7 Pulse 70 84 Resp 22 B/P (MAP) 116/74 (88) Pulse Ox 97 96 O2 Delivery Room Air Room Air Room Air 10/13/20 12:34 B/P (MAP) 10/13/20 00:00 Intake Total 800 ml Output Total 650 ml Balance 150 ml Weight (Pounds): 180 Weight (Calculated Kilograms): 81.333066 Constitutional: AAO x 3, well-developed, well-nourished Respiratory: No accessory muscle use, No respiratory distress; chest expansion is symmetric, chest is bilaterally symmetric, other (diminished lower lobes) Cardiovascular: irregularly irregular; No JVD; S1 and S2, systolic murmur Gastrointestional: No tender; soft, round, audible bowel sounds Extremities: no lower extremity edema bilateral Neurologic/Psychiatric: grossly intact (moves all extremities) Skin: No rash on exposed areas, No ulcerations on exposed areas Results/Procedures: Labs Laboratory Tests 10/11/20 16:05 10/12/20 03:40 A/P: Assessment: New onset a-fib with RVR first diagnosed Oct 11, 2019 Mild, acute, diastolic CHF due to RVR COVID (+) H/O robotic mitral valve repair at [facility] [place] [address] Vargas Reports recent echo and stress test at [facility] in Jun 2020, which he reports as normal Cardiac cath of Jun 2013 showed non-obstructive dz. LVEF 60%. Normal LVEDP. Severe mitral regurg (4+). Mild to mod pulm HTN HTN HLD Plan: Continue bb and ccb and apixaban Add low-dose furosemide and supple K Ok for d/c from cardiac standpoint Close outpt f/u advised RASHEEDA LEMONS MD FACP FAC [facility] Oct 13, 2020 12:49
[2020-10-14] MEDS ORDERED: KCL 10 MEQ TAB (MICRO K) PO SCH (07:00)
[2020-10-14] MEDS ORDERED: FUROSEMIDE 20 MG (LASIX) TAB PO SCH (09:00)
--- NOTE | 2020-10-14 15:23 | NUR ---
Dr. Adam ordered a CT chest without contrast for the patient to be done as an outpatient. He would like it to be done before the patient f/u with Dr. Ahumada on 10/20/20 at 10 a.m. Talked with scheduling and it has been arranged for 10/19/20. F/U with Oneil et his to let them know to be here on 10/19/20 at noon. Order was sent to scheduling. No further interventions noted.
--- NOTE | 2020-10-18 11:58 | Physician Query-Final Dx ---
CINDI SEGURA 10/18/20 1158: Final Diagnosis Give Final Diagnosis Please give Final Diagnosis DEMETRIUS DIA MD 10/27/202025: Final Diagnosis Give Final Diagnosis AFib with RVR CINDI SEGURA Oct 18, 2020 11:58 DEMETRIUS DIA MD Oct 27, 2020 20:26
[2020-10-25] MEDS ORDERED: GUAI-813 PO (13:15)
[2020-10-25] MEDS ORDERED: DILT240C53 PO (13:15)
[2020-10-25] MEDS ORDERED: APIX5TAB PO (13:15)
--- NOTE | 2020-10-26 22:04 | Discharge Summary ---
Discharge Summary Hospital Course Was the Problem List Reviewed?: Yes Problems/Dx: (1) New onset a-fib Status: Acute (2) COVID-19 Status: Acute Hospital Course Date of Admission: Oct 11, 2020 at 20:45 Admission Diagnosis : AFib with RVR Family Physician/Provider: Robert Ahumada MD Date of Discharge: 10/13/20 Discharge Diagnosis: AFib with RVR Hospital Course: Oneil Mcclendon is an 85 year old male who was admitted with new onset AFib with RVR. Cardiology was consulted and assisted with his care. He was started on Metoprolol, Diltiazem, and Eliquis. He was set up with an Eliquis card for one free month. His course was complicated by COVID-19. He did not have any hypoxia. He had received a Bamlanivimab infusion prior to admission. He was discharged home in stable condition. He should follow up with cardiology and his PCP. Labs and Pending Lab Test: Home Meds Active Reported Eliquis (Apixaban) 5 Mg Tablet 5 Mg PO BID Cartia Xt (Diltiazem HCl) 240 Mg Cap.er.24h 240 Mg PO DAILY Virtussin AC Liquid (Guaifenesin/Codeine Phosphate) 118 Ml Liquid 5-10 Ml PO Q8H PRN Vitamin C (Ascorbate Calcium) 500 Mg Tablet 500 Mg PO DAILY Vitamin D3 (Cholecalciferol (Vitamin D3)) 25 Mcg Capsule 25 Mcg PO DAILY Furosemide 20 Mg Tablet 20 Mg PO DAILY Metoprolol Tartrate 25 Mg Tablet 25 Mg PO BID Rosuvastatin Calcium 10 Mg Tablet 10 Mg PO HS Assessment/Pt Instructions Take medications as prescribed. Follow up with your PCP. Discharge Planning: <30 minutes discharge planning Discharge Physical Examination Allergies: Coded Allergies: Penicillins (Verified Allergy, Mild, RASH, 09/07/14) Discharge Summary Date of Admission Oct 11, 2020 at 20:45 Date of Discharge Oct 13, 2020 at 12:34 Discharge Date: Oct 13, 2020 Discharge Time: 12:34 Admission Diagnosis New onset atrial fibrillation with rapid ventricular response Discharge Diagnosis New onset AFib with RVR, COVID-19 (1) New onset a-fib Status: Acute (2) COVID-19 Status: Acute Clinical Quality Measures DVT/VTE Risk/Contraindication: Risk Factor Score Per Nursin RFS Level Per Nursing on Admit: 1=Low/No VTE PPX DEMETRIUS DIA MD Oct 26, 2020 22:04
[2020-10-31] MEDS ORDERED: POTA20TA8 PO (08:37)
[2020-10-31] MEDS ORDERED: APIX2.5T PO (08:37)
[2020-10-31] MEDS ORDERED: DILT-27 PO (08:37)
== END 2020-10-13 12:34 | disposition home or self-care (01) ==
LOC: EDUNIT# 15:56 → ER 15:58 → CSD 18:58 → UNDOADMOB 18:58 → CSD 20:45 → 4TH 10-12 15:09 → UNDODISOB 10-13 13:30
PROVIDERS: ADMIT Internal Medicine; ATTEND Internal Medicine
DX: I48.91 Unspecified atrial fibrillation (principal); U07.1 COVID-19; I10 Essential (primary) hypertension; E78.5 Hyperlipidemia, unspecified; I25.10 Atherosclerotic heart disease of native coronary artery without angina pectoris; I34.0 Nonrheumatic mitral (valve) insufficiency; M19.90 Unspecified osteoarthritis, unspecified site; I27.20 Pulmonary hypertension, unspecified; Z79.01 Long term (current) use of anticoagulants; Z79.899 Other long term (current) drug therapy; Z79.82 Long term (current) use of aspirin; Z88.0 Allergy status to penicillin; Z87.891 Personal history of nicotine dependence
CPT/HCPCS: 71045 ×2; 80053 ×2; 82805; 83880; 84145; 84484; 85025 ×2; 93005; 94640 ×4; 94760 ×2; 99285; G0378; 36415

== ENCOUNTER → 2020-10-11 | Outpatient (CLI) | payer MEDICARE, OTHER ==
[~2020-10-11] VITALS: Ht 175 cm; Wt 78.0 kg
[~2020-10-11] MED LIST changes: +AMLO1CAP5 PO; +APIX5TAB PO; +ASCO-262 PO; +BAMLANIVIMAB 700 MG in NS 200 ML IV ONE; +CHOL10007 PO; +DILT240C91 PO; +EPINEPHrine INJECTION 1 MG/ML AMP IM PRN; +FURO20TA4 PO; +diphenhydrAMINE 50 MG/ML INJ (BENADRYL) IV PRN
[2020-10-11 07:56] VITALS: BP 139/94
[2020-10-11 10:16] VITALS: BP 115/73
== END ==
LOC: INFUSION 07:55
PROVIDERS: ATTEND Nurse Practitioner Family
DX: U07.1 COVID-19 (principal)

== ENCOUNTER → 2020-10-19 | Outpatient (CLI) | payer MEDICARE, OTHER ==
[~2020-10-19] MED LIST changes: +AMLO1CAP5 PO; +APIX5TAB PO; +ASCO-262 PO; +CHOL10007 PO; +DILT240C91 PO; +FURO20TA4 PO
--- NOTE | 2020-10-19 13:43 | Diagnostic Imaging Report ---
PROCEDURE: CT chest without contrast. TECHNIQUE: Multiple contiguous axial images were obtained through the chest without the use of intravenous contrast. Auto Exposure Controls were utilized during the CT exam to meet ALARA standards for radiation dose reduction. INDICATION: Lung nodule. There are no prior CT chest examinations available for comparison. The plain film examination of the chest performed on 10/12/2020 noted ill-defined parenchymal density in the left upper lobe. It is not certain whether this is related to an inflammatory/infectious process or to a neoplastic mass. On this study there is a persistent prominent poorly defined roughly 3.5 x 3.5 cm irregular parenchymal density in the left perihilar region. This would correspond to the finding of the plain film exam. There are a few air bronchograms present within this area of abnormal density and I suspect that this is due to pneumonia/atelectasis as opposed to neoplasm. There is also a similar appearing area of atelectasis/infiltrate in the right lung base. This too is more likely due to pneumonia/atelectasis than to neoplasm. However there are number of poorly defined small pleural and parenchymal nodules in both lungs. These nodules could be neoplastic in nature. They could also be related to an inflammatory/infectious process. I would recommend that a short-term (4-six-week) follow-up CT chest exam be obtained for further study. In addition to the parenchymal and pleural-based abnormalities there are small bilateral pleural effusions. There is also cardiomegaly and coronary artery disease. The aorta is not abnormally dilated. There are a few small nonspecific mediastinal and aorticopulmonary window nodes. The thyroid gland where visualized is unremarkable. There is no obvious breast mass. The sections through the upper abdomen failed to show any sign of an acute abnormality. The bone windows are unremarkable for a fracture or for a destructive lesion. IMPRESSION: 1. The abnormal parenchymal density in the left upper lung seen on the recent plain film exam is most likely due to pneumonia/atelectasis. There is a similar area of pneumonia/atelectasis in the right lung base. 2. The nodular densities in both lungs could be either due to an inflammatory/infectious process or to neoplasm. Recommendations as above. 3. There is cardiomegaly and coronary artery disease. Small bilateral pleural effusions are also noted. Dictated by: Dictated on workstation # [id number]
== END ==
LOC: RAD 12:02
PROVIDERS: ATTEND Internal Medicine
DX: I51.7 Cardiomegaly (principal); I25.10 Atherosclerotic heart disease of native coronary artery without angina pectoris; R91.8 Other nonspecific abnormal finding of lung field
CPT/HCPCS: 71250

== ENCOUNTER 2020-10-27 08:32 | Inpatient (IN) | payer MEDICARE, OTHER ==
[~2020-10-27] VITALS: Ht 152.4 cm; Wt 72.9 kg
[~2020-10-27 08:32] MED LIST changes: +DILT240C53 PO; +GUAI-813 PO; +cefTRIAXone FOR IV USE 1,000 MG in WATER (STERILE) FOR INJECTION 10 ML IV SCH
[2020-10-27] MEDS ORDERED: APIXABAN 5 MG (ELIQUIS) TABLET PO SCH (09:00)
[2020-10-27] MEDS ORDERED: dilTIAZem120 MG (CARDIZEM CD) CAP PO SCH (09:00)
--- NOTE | 2020-10-27 09:00 | NUR ---
RUSSELLMAGO Pruitt admitted to swing bed status to room 409-1, with an admitting diagnosis of SWB , on 10/27/20 from acute inpatient status. Therapy to evaluate patient for activity needs. MAGO WELLS and/or family introduced to surroundings, call light, bed controls, phone, TV, temperature control, lights, meal times, smoking policy, visitor policy, side rail policy, bathrooms, and showers. Patient rights given to patient in the handbook.. MAGO WELLS and/or family member verbalized understanding that [facility] is not responsible for the loss or damage to any personal effects or valuables that are kept in the patients possession during their hospitalization. The following care plans were discussed with MAGO WELLS: Discharge Planning. MAGO WELLS and/or family verbalizes understanding of the Interdisciplinary Patient Education. Patient and/or family were informed about the Rapid Response Team and its purpose. Call light with in reach and patient demonstrates understanding of how to use. MAGO WELLS reports no further needs at this time. This RN, completed physical assessment on other medical record. Please see previous acute inpatient record for this information. Will continue patient care on this medical record at this time.
--- NOTE | 2020-10-27 09:01 | NUR ---
Swing Bed Note: Qualifies for swing bed for continued need of IV abx (Bacterial Pneumonia) and continued strengthening with focus on increasing activity tolerance (S/P COVID 19, suspected PE, Diastolic dysfunction). Physical therapy, Occupational therapy, with continued monitoring and weaning oxygen as appropriate.
--- NOTE | 2020-10-27 09:18 | NUR ---
Admission Drug Regimen Review Completed: Date: 10/27/20 Time: 917 Physician Notified: WILLIAM REICH MD Date: 10/27/20 Time: 917 Issue Identified; Action Plan to Resolve and Any Action Taken: Lasix 40mg IV daily at 1700 did not carry across to the swing bed account. Contacted Dr. Reich and medication reordered on the swing bed account.
--- NOTE | 2020-10-27 09:54 | NUR ---
Pt is Baptism and recently anointed. Event Marketing Manager provided prayer and Communion.
--- NOTE | 2020-10-27 10:08 | Physical Therapy Evaluation ---
PT Evaluation-General Medical Diagnosis Admission Date Oct 27, 2020 at 08:32 Medical Diagnosis: respiratory failure/pneumonia Onset Date: Oct 23, 2020 Therapy Diagnosis Therapy Diagnosis: generalized weakness/debility Height/Weight Height (Feet): 5 Height (Inches): 9.50 Weight (Pounds): 180 Weight Bear Status Right Lower Extremity: Right Weight Bearing/Tolerated Left Lower Extremity: Left Weight Bearing/Tolerated Referral Physician: Brandyn Reason for Referral: Evaluation/Treatment Medical History Pertinent Medical History: Atrial Fib, HTN Additional Medical History 10/07/20 covid (+) Current History SWB status Reviewed History: Yes Social History Home: Single Level Current Living Status: Spouse Entry Into Home: Stairs With Railing PT Steps Into Home: 2 Prior Prior Level of Function SCALE: Activities may be completed with or without assistive devices. 6-Aeljyicsza-ugkfhgq completes the activity by him/herself with no assistance from a helper. 5-Set-up or Clean-up Assistance-helper sets up or cleans up; patient completes activity. [place] assists only prior to or following the activity. 4-Supervision or Touching Assistance-helper provides verbal cues and/or touching/steadying and/or contact guard assistance as patient completes activity. Assistance may be provided throughout the activity or intermittently. 3-Partial/Moderate Assistance-helper does LESS THAN HALF the effort. [place] lifts, holds or supports trunk or limbs, but provides less than half the effort. 2-Substantial/Maximal Assistance-helper does MORE THAN HALF the effort. [place] lifts or holds trunk or limbs and provides more than half the effort. 2-Tnqjihele-eczotw does ALL the effort. Patient does none of the effort to complete the activity. Or, the assistance of 2 or more helpers is required for the patient to complete the activity. If activity was not attempted, code reason: 7-Patient Refused. 9-Not Applicable-not attempted and the patient did not perform the activity before the current illness, exacerbation or injury. 10-Not Attempted due to Environmental Limitations-(lack of equipment, weather restraints, etc.). 88-Not Attempted due to Medical Conditions or Safety Concerns. Bed Mobility: 6 Transfers (B,C,W/C): 6 Gait: 6 Stairs: 6 Indoor Mobility (Ambulation): Independent Stairs: Independent Prior Devices Use: None PT Evaluation-Current Subjective Patient agrees to PT. Currently on 3L O2. Objective Patient Orientation: Normal For Age Attachments: Oxygen (3L) ROM/Strength ROM Lower Extremities bilateral LE wFL Strength Lower Extremities 4/5 grossly bilateral LE all planes Integumentary/Posture Integumentary refer to nursing notes Bowel Incontinence: No Bladder Incontinence: No Posture WFL Neuromuscular (Tone, Coordination, Reflexes) grossly intact with all Sensory Vision: Functional Hearing: Impaired Sensation Right Lower Extremit: Intact Sensation Left Lower Extremity: Intact Transfers Roll Left & Right (QC): 5 Sit to Lying (QC): 5 Lying to Sitting/Side of Bed(Q: 5 Sit to Stand (QC): 5 Chair/Epq-kg-Hplgh Xfer(QC): 5 Toilet Transfer (QC): 5 Car Transfer (QC): 5 Gait Does the Patient Walk?: Yes Mode of Locomotion: Walk Anticipated Mode of Locomotion: Walk Walk 10 feet (QC): 5 Walk 50 ft with 2 Turns(QC): 5 Walk 150 ft (QC): 5 Walking 10ft/uneven surface-QC: 5 Distance: 300' Gait Assistive Device: FWW Comments/Gait Description 3 standing recovery periods due to SOA with quick recovery Wheelchair Training Wheel 50 ft with 2 turns (QC): 9 Wheel 150 ft (QC): 9 Stairs 1 Step (curb) (QC): 5 4 Steps (QC): 88 12 Steps (QC): 88 Balance Sitting Static: Normal Sitting Dynamic: Normal Standing Static: Normal Standing Dynamic: Normal Picking up an Object (QC): 5 (seated position) Treatment Patient ambulated in room and performed negotiation of O2 tubing. Patient is safe to perform PRN in room ambulation to improve pulmonary function. Patient voices understanding and RN notified. Assessment/Needs 85 y.o. male, will benefit from skilled PT to address pulmonary function with functional mobility. Patient does display SOA with minimal activity, however, has quick recovery. Rehab Potential: Fair PT Photography Editor Goals Senior Care Goals PT Photography Editor Goals Time Frame: Nov 12, 2020 Roll Left & Right (QC): 6 Sit to Lying (QC): 6 Lying-Sitting on Side/Bed(QC): 6 Sit to Stand (QC): 6 Chair/Efa-fx-Wbzgv Xfer(QC): 6 Toilet Transfer (QC): 6 Car Transfer (QC): 6 Does the Patient Walk: Yes Walk 10 feet (QC): 6 Walk 50ft with 2 Turns (QC): 6 Walk 150 ft (QC): 6 Walking 10ft on Uneven Surface: 6 1 Step (curb) (QC): 6 4 Steps (QC): 6 12 Steps (QC): 6 Picking up an Object (QC): 6 Wheel 50 feet with 2 turns (QC: 9 Wheel 150 feet: 9 PT Plan Problem List Problem List: Activity Tolerance Treatment/Plan Treatment Plan: Continue Plan of Care Treatment Plan: Education, Functional Activity Carlos A, Functional Strength, Gait, Safety, Therapeutic Exercise, Transfers Treatment Duration: Nov 12, 2020 Frequency: 6 times per week Estimated Hrs Per Day: .25 hour per day Patient and/or Family Agrees t: Yes Discharge Recommendations Therapy Discharge Recommendati: Home & Family Time/GCodes Time In: 841 Time Out: 904 Total Billed Treatment Time: 23 Total Billed Treatment 1 visit EVModC 8 min FA 15 min MISA SUMNER PT Oct 27, 2020 10:08
--- NOTE | 2020-10-27 10:27 | Occupational Therapy Eval ---
OT Evaluation-General/PLF Medical Diagnosis Admission Date Oct 27, 2020 at 08:32 Medical Diagnosis: respiratory failure/pneumonia Onset Date: Oct 23, 2020 Therapy Diagnosis Therapy Diagnosis: decreased ADL status, weakness Height/Weight Height (Feet): 5 Height (Inches): 9.50 Weight (Pounds): 180 Referral Physician: Brandyn Cabrera Reason: Evaluation/Treatment Medical History Pertinent Medical History: Atrial Fib, HTN Current History COVID + 10/07/20. [place] [facility] due to dyspnea, bradycardia (40's), and hypoxia. A fib/ resp failure/ CHF. Social History Home: Single Level Current Living Status: Spouse Entry Into Home: Stairs With Railing Steps Into Home: 2 ADL-Prior Level of Function SCALE: Activities may be completed with or without assistive devices. 4-Irvvysowft-nmnwvji completes the activity by him/herself with no assistance from a helper. 5-Set-up or Clean-up Assistance-helper sets up or cleans up; patient completes activity. [place] assists only prior to or following the activity. 4-Supervision or Touching Assistance-helper provides verbal cues and/or touching/steadying and/or contact guard assistance as patient completes activity. Assistance may be provided throughout the activity or intermittently. 3-Partial/Moderate Assistance-helper does LESS THAN HALF the effort. [place] lifts, holds or supports trunk or limbs, but provides less than half the effort. 2-Substantial/Maximal Assistance-helper does MORE THAN HALF the effort. [place] lifts or holds trunk or limbs and provides more than half the effort. 9-Tiouqyymg-obbklt does ALL the effort. Patient does none of the effort to complete the activity. Or, the assistance of 2 or more helpers is required for the patient to complete the activity. If activity was not attempted, code reason: 7-Patient Refused. 9-Not Applicable-not attempted and the patient did not perform the activity before the current illness, exacerbation or injury. 10-Not Attempted due to Environmental Limitations-(lack of equipment, weather restraints, etc.). 88-Not Attempted due to Medical Conditions or Safety Concerns. ADL PLOF Comments Pt states independent with all ADLs and functional mobility at PLOF, no AD/AE. Pt's cooks dinner/ lunch most days but pt able to complete tasks if needed. Self Care: Independent Functional Cognition: Independent DME/Equipment: Bath Chair, Shower Drive Self: Yes OT Current Status Subjective Pt laying in bed, agreeable to OT Tx. Pt denied pain. Mental Status/Objective Patient Orientation: Person, Place, Time, Situation Attachments: Oxygen Current Hearing Aids: No Dentures/Partials: Yes Hand Dominance: Right Upper Extremity ROM WFL BUE Upper Extremity Coordination WFL BUE Upper Extremity Sensation WFL BUE Upper Extremity Strength grossly 4/5 ADL-Treatment Eating (QC): 6 Oral Hygiene (QC): 6 (IND seated at sink.) Shower/Bathe Self (QC): 3 (Min A with lower legs/feet. Pt able to wash all other parts.) Upper Body Dressing (QC): 5 (set up) Lower Body Dressing (QC): 4 (SBA, pt required verbal cue for O2 tubing while donning pants.) On/Off Footwear (QC): 6 (IND donning/doffing slip on shoes.) Toileting Hygiene (QC): 6 (Pt reports he has been up in room and taking himself to bathroom independently.) Other Treatments Pt laying in bed, transferred supine to sit EOB, then ambulated into bathroom using FWW independently. Pt sat at sink to complete oral care and shaving independently. Pt then completed sponge bath and dressing before returning to bed. Post tx, pt laying in bed, call light in reach and all needs met. Education OT Patient Education: Correct positioning, Energy conservation, Modified ADL techniques, Progress toward Goal/Update tx plan, Purpose of tx/functional activities, Rehab process Teaching Recipient: Patient Teaching Methods: Discussion Response to Teaching: Verbalize Understanding OT Long-Term Goals Long-Term Goals Time Frame: Nov 11, 2020 Eating (QC): 6 Oral Hygiene (QC): 6 Toileting Hygiene (QC): 6 Shower/Bathe Self (QC): 6 Upper Body Dressing (QC): 6 Lower Body Dressing (QC): 6 On/Off Footwear (QC): 6 Additional Goals: 1-Demonstrate ADL Tasks, 2-Verbalize Understanding, 3- ImproveStrength/Carlos A 1=Demonstrate adherence to instructed precautions during ADL tasks. 2=Patient will verbalize/demonstrate understanding of assistive devices/m odifications for ADL. 3=Patient will improve strength/tolerance for activity to enable patient to perform ADL's. OT Education/Plan Problem List/Assessment Assessment: Decreased Activ Tolerance, Decreased UE Strength, Impaired I ADL's, Impaired Self-Care Skills Discharge Recommendations Plan/Recommendations: Continue POC Treatment Plan/Plan of Care Treatment,Training & Education: Yes Patient would benefit from OT for education, treatment and training to promote independence in ADL's, mobility, safety and/or upper extremity function for ADL's. Plan of Care: ADL Retraining, Functional Mobility, UE Funct Exercise/Act Treatment Duration: Nov 11, 2020 Frequency: 5 times per week Estimated Hrs Per Day: .25 hour per day Rehab Potential: Fair Time/GCodes Start Time: 10:05 Stop Time: 10:40 Total Time Billed (hr/min): 35 Billed Treatment Time 1, EVL (15'), ADL (20') REINALDO SANCHEZ OT Oct 27, 2020 10:27
--- NOTE | 2020-10-27 15:37 | Progress Note - Cardiology ---
Cardiology SOAP Progress Note Subjective: Shortness of breath better but not resolved No cp or palp or syncope No leg swelling No n/v/d Objective: I&O/Vital Signs 10/27/20 09:36 O2 Delivery Nasal Cannula O2 Flow Rate 3.00 Weight (Pounds): 180 Weight (Calculated Kilograms): 81.426707 Constitutional: AAO x 3, well-developed, well-nourished Respiratory: No accessory muscle use; other (fair to good bilateral air entry) Cardiovascular: regular rate-rhythm, S1 and S2, systolic murmur (soft YVROSE at card base) Gastrointestional: No tender, No guarding, No rebound; audible bowel sounds Extremities: No clubbing, No cyanosis, No significant edema Neurologic/Psychiatric: oriented x 3, other (moves all limbs equally) Skin: No rash, No ulcerations A/P: Assessment: Multifactorial shortness of breath: pneumonia (possibly COVID-19 pneumonia) and mild, acute, diastolic CHF Suspect recent PE (see echo results below), probably at time of COVID-19 in early Oct 2019 A fib with a controlled ventricular response, first diagnosed Oct 11, 2019 Echo of 10/25/20: LVEF 65-70%, biatrial enlargement, RV enlargement, RV volume overload, PASP 40-45 mmHg Minimal troponin elevation: type 2 MT due mild hypoxemia at presentation CKD - 3 H/o robotic mitral valve repair at [facility] [place] [address] Vargas Reports recent echo and stress test at [facility] in Jun 2020, which he reports as normal Cardiac cath of Jun 2013 showed non-obstructive dz. LVEF 60%. Normal LVEDP. Severe mitral regurg (4+). Mild to mod pulm HTN HTN HLD Plan: Reduce diuretics because or worsening pre-renal azotemia Continue OAC Monitor labs closely RAS[facility]ED[facility]ONS [facility] Oct 27, 2020 15:37
[2020-10-27] MEDS: cefTRIAXone FOR IV USE 1,000 MG in WATER (STERILE) FOR INJECTION 10 ML IV SCH (15:41)
[2020-10-27 16:06] VITALS: BP 123/80
[2020-10-27] MEDS ORDERED: FUROSEMIDE 40 MG/4 ML INJ (LASIX) IVP SCH (17:00)
[2020-10-27 17:11] VITALS: BP 117/72
[2020-10-27] MEDS: KCL 20 MEQ TAB (K-DUR) PO SCH (17:32)
[2020-10-27] MEDS: APIXABAN 5 MG (ELIQUIS) TABLET PO SCH (20:41)
[2020-10-27] MEDS: AZITHROMYCIN 250 MG TAB (ZITHROMAX) PO SCH (20:41)
[2020-10-27] MEDS: guaiFENesin/CODEINE (ROBITUSSIN AC) 10ML UDC PO PRN (20:47)
[2020-10-28 06:00] VITALS: BP 90/63
[2020-10-28] MEDS ORDERED: FUROSEMIDE 40 MG/4 ML INJ (LASIX) IVP SCH (07:00)
--- NOTE | 2020-10-28 09:58 | Physical Therapy Daily Note ---
PT Daily Note-Current Subjective Patient states he up in his room without difficulty. Agrees to PT. Pain Numeric Pain Scale: 0-No Pain Location: No Pain Reported Mental Status Patient Orientation: Normal For Age Attachments: Oxygen (3L) Transfers SCALE: Activities may be completed with or without assistive devices. 8-Imaiexuvvd-hqtxnkf completes the activity by him/herself with no assistance from a helper. 5-Set-up or Clean-up Assistance-helper sets up or cleans up; patient completes activity. [place] assists only prior to or following the activity. 4-Supervision or Touching Assistance-helper provides verbal cues and/or touching/steadying and/or contact guard assistance as patient completes activity. Assistance may be provided throughout the activity or intermittently. 3-Partial/Moderate Assistance-helper does LESS THAN HALF the effort. [place] lifts, holds or supports trunk or limbs, but provides less than half the effort. 2-Substantial/Maximal Assistance-helper does MORE THAN HALF the effort. [place] lifts or holds trunk or limbs and provides more than half the effort. 1-Lykkefflh-hxhkfu does ALL the effort. Patient does none of the effort to complete the activity. Or, the assistance of 2 or more helpers is required for the patient to complete the activity. If activity was not attempted, code reason: 7-Patient Refused. 9-Not Applicable-not attempted and the patient did not perform the activity before the current illness, exacerbation or injury. 10-Not Attempted due to Environmental Limitations-(lack of equipment, weather restraints, etc.). 88-Not Attempted due to Medical Conditions or Safety Concerns. Lying to Sitting/Side of Bed(Q: 6 Sit to Stand (QC): 6 Chair/Opg-py-Cyiyz Xfer(QC): 6 Weight Bearing Right Lower Extremity: Right Weight Bearing/Tolerated Left Lower Extremity: Left Weight Bearing/Tolerated Gait Training Does the Patient Walk?: Yes Distance: 500' Walk 10 feet (QC): 5 Walk 50 ft with 2 Turns(QC): 5 Walk 150 ft (QC): 5 Gait Assistive Device: FWW FWW for energy conservation Assessment Patient pulmonary function improving with patient not requiring standing recovery periods due to SOA. Patient highly motivated with progress and desires to return to home [facility]AAK. PT Care Home Goals Cage Maker Machine Goals PT Cage Maker Machine Goals Time Frame: Nov 12, 2020 Roll Left & Right (QC): 6 Sit to Lying (QC): 6 Lying-Sitting on Side/Bed(QC): 6 Sit to Stand (QC): 6 Chair/Hgi-hy-Sjpxy Xfer(QC): 6 Toilet Transfer (QC): 6 Car Transfer (QC): 6 Does the Patient Walk: Yes Walk 10 feet (QC): 6 Walk 50ft with 2 Turns (QC): 6 Walk 150 ft (QC): 6 Walking 10ft on Uneven Surface: 6 1 Step (curb) (QC): 6 4 Steps (QC): 6 12 Steps (QC): 6 Picking up an Object (QC): 6 Wheel 50 feet with 2 turns (QC: 9 Wheel 150 feet: 9 PT Plan Treatment/Plan Treatment Plan: Continue Plan of Care Treatment Plan: Education, Functional Activity Carlos A, Functional Strength, Gait, Safety, Therapeutic Exercise, Transfers Treatment Duration: Nov 12, 2020 Frequency: 6 times per week Estimated Hrs Per Day: .25 hour per day Patient and/or Family Agrees t: Yes Time/GCodes Time In: 925 Time Out: 941 Total Billed Treatment Time: 16 Total Billed Treatment 1 visit FA 16 min MISA SUMNER PT Oct 28, 2020 09:58
--- NOTE | 2020-10-28 10:13 | NUR ---
provided prayer and Communion.
[2020-10-28] MEDS: KCL 20 MEQ TAB (K-DUR) PO SCH ×2 (10:31→18:37)
[2020-10-28] MEDS: dilTIAZem120 MG (CARDIZEM CD) CAP PO SCH (10:32)
[2020-10-28] MEDS: APIXABAN 5 MG (ELIQUIS) TABLET PO SCH ×2 (10:32→19:49)
--- NOTE | 2020-10-28 11:31 | Progress Note - Cardiology ---
Cardiology SOAP Progress Note Subjective: Gen malaise and poor stamina No shortness of breath at rest No cp or palp or syncope No n/v Objective: I&O/Vital Signs 10/28/20 10/28/20 10/28/20 10/28/20 01:00 06:00 07:00 10:34 Temp 36.3 Pulse 82 80 76 Resp 20 B/P (MAP) 90/63 (72) Pulse Ox 98 92 O2 Delivery Nasal Cannula Nasal Cannula O2 Flow Rate 3.00 3.00 10/28/20 00:00 Intake Total 1090 ml Balance 1090 ml Weight (Pounds): 180 Weight (Calculated Kilograms): 81.030093 Constitutional: AAO x 3, well-developed, well-nourished Respiratory: No accessory muscle use; other (fair to good bilateral air entry) Cardiovascular: regular rate-rhythm, S1 and S2, systolic murmur (soft YVROSE at card base) Gastrointestional: No tender, No guarding, No rebound; audible bowel sounds Extremities: No clubbing, No cyanosis, No significant edema Neurologic/Psychiatric: oriented x 3, other (moves all limbs equally) Skin: No rash, No ulcerations A/P: Assessment: Multifactorial shortness of breath: pneumonia (possibly COVID-19 pneumonia) and mild, acute, diastolic CHF Suspect recent PE (see echo results below), probably at time of COVID-19 in early Oct 2019 A fib with a controlled ventricular response, first diagnosed Oct 11, 2019 Echo of 10/25/20: LVEF 65-70%, biatrial enlargement, RV enlargement, RV volume overload, PASP 40-45 mmHg Minimal troponin elevation: type 2 PA due mild hypoxemia at presentation CKD - 3 H/o robotic mitral valve repair at [facility] [place] [address] Vargas Reports recent echo and stress test at [facility] in Jun 2020, which he reports as normal Cardiac cath of Jun 2013 showed non-obstructive dz. LVEF 60%. Normal LVEDP. Severe mitral regurg (4+). Mild to mod pulm HTN HTN HLD Plan: Reduced diuretics because or worsening pre-renal azotemia Continue OAC Monitor labs closely I spoke with his daughter on the phone in detail and answered her CV-related questions RAS[facility]ED[facility] LEMONS [facility] Oct 28, 2020 11:31
--- NOTE | 2020-10-28 11:31 | NUR ---
Notified Dr. Ahumada of pt report of painful Rt ingrown toenail, pt asked if Dr. Valdez could come look at it. ALso that pt hasn't had bm since Saturday, states not really uncomfortable yet.
--- NOTE | 2020-10-28 13:50 | Occupational Ther Daily Note ---
OT Current Status-Daily Note Subjective Pt AxO. Pt's food in front of pt, pt now in bed, agrees to sit upright in recliner. Pt denies pain, states has been taking self to bathroom/ no issues with wiping/ no nausea or episodes of tachycardia per pt. Mental Status/Objective Patient Orientation: Person, Place, Situation, Normal For Age Attachments: Oxygen ADL-Treatment Therapy Code Descriptions/Definitions Functional [place] Measure: 0=Not Assessed/NA 4=Minimal Assistance 1=Total Assistance 5=Supervision or Setup 2=Maximal Assistance 6=Modified [place] 3=Moderate Assistance 7=Complete IndependenceSCALE: Activities may be completed with or without assistive devices. 0-Fdtiwadlcy-zsavkro completes the activity by him/herself with no assistance from a helper. 5-Set-up or Clean-up Assistance-helper sets up or cleans up; patient completes activity. [place] assists only prior to or following the activity. 4-Supervision or Touching Assistance-helper provides verbal cues and/or touching/steadying and/or contact guard assistance as patient completes activity. Assistance may be provided throughout the activity or intermittently. 3-Partial/Moderate Assistance-helper does LESS THAN HALF the effort. [place] lifts, holds or supports trunk or limbs, but provides less than half the effort. 2-Substantial/Maximal Assistance-helper does MORE THAN HALF the effort. [place] lifts or holds trunk or limbs and provides more than half the effort. 2-Uruziclto-hhleug does ALL the effort. Patient does none of the effort to complete the activity. Or, the assistance of 2 or more helpers is required for the patient to complete the activity. If activity was not attempted, code reason: 7-Patient Refused. 9-Not Applicable-not attempted and the patient did not perform the activity before the current illness, exacerbation or injury. 10-Not Attempted due to Environmental Limitations-(lack of equipment, weather restraints, etc.). 88-Not Attempted due to Medical Conditions or Safety Concerns. Eating (QC): 6 Oral Hygiene (QC): 7 Toileting Hygiene (QC): 6 Toilet Transfer (QC): 6 Other Treatment Pt supine to sit from bed with SBA. Sit to stand and ambulate without walker with SUP. Pt use of 02 throughout. sits in recliner, pt's food placed in front of pt. Pt completes 5/5 exercises with 10 reps bilaterally (pain with elbow flexion in LUE due to picc line placement). Pt is educated to cease activity with increased SOB/ racing HR. Pt agrees, able to modify and adjust through session. Pt denies needs, call light in reach. Education OT Patient Education: Correct positioning, Exercise program, Home exercise program, Purpose of tx/functional activities Teaching Recipient: Patient Teaching Methods: Demonstration, Handout, Discussion Response to Teaching: Verbalize Understanding, Return Demonstration OT Minilab Operator Goals Minilab Operator Goals Time Frame: Nov 11, 2020 Eating (QC): 6 Oral Hygiene (QC): 6 Toileting Hygiene (QC): 6 Shower/Bathe Self (QC): 6 Upper Body Dressing (QC): 6 Lower Body Dressing (QC): 6 On/Off Footwear (QC): 6 Additional Goals: 1-Demonstrate ADL Tasks, 2-Verbalize Understanding, 3- ImproveStrength/Carlos A 1=Demonstrate adherence to instructed precautions during ADL tasks. 2=Patient will verbalize/demonstrate understanding of assistive devices/modifications for ADL. 3=Patient will improve strength/tolerance for activity to enable patient to perform ADL's. OT Education/Plan Problem List/Assessment Assessment: Decreased Activ Tolerance, Impaired I ADL's Discharge Recommendations Plan/Recommendations: Continue POC Therapy Discharge Recommendati: Home & Family Treatment Plan/Plan of Care Patient would benefit from OT for education, treatment and training to promote independence in ADL's, mobility, safety and/or upper extremity function for ADL's. Plan of Care: ADL Retraining, Functional Mobility, UE Funct Exercise/Act Treatment Duration: Nov 11, 2020 Frequency: 5 times per week Estimated Hrs Per Day: .25 hour per day Rehab Potential: Fair Time/GCodes Start Time: 13:15 Stop Time: 13:37 Total Time Billed (hr/min): 22 Billed Treatment Time 1, EX (22) SONIYA BETANCUR OTR Oct 28, 2020 13:50
--- NOTE | 2020-10-28 14:41 | NUR ---
"RD ASSESSMENT PMHx: HTN; PT INTERACTION: Pt was awake and pleasant during nutrition assessment. Pt states current appetite is not good. Note avg PO intake 38% x2meal, per chart review. Pt states following a regular diet at home, and has no issues with chewing/swallowing food. Pt states some recent issues with constipation, and that his last BM was 10/24. Note pt not currently on bowel regimen per chart review. Pt states recent 15# wt loss x6mon, per chart review. Note recent 10# wt loss x2mon, per chart review. Est. kcal needs: 6177-6884 kcal | 20-25 kcal/kg Est. Pro needs: 58-73 g Pro | 0.8-1.0 g Pro/kg PES STATEMENT: Inadequate oral intake (NI-2.1) related to loss of appetite, and constipation, as evidenced by pt interview, and avg PO intake 38% x2meal. INTERVENTION: Continue with current diet order of Heart Healthy diet. Add Ensure Enlive (strawberry) to meals TID, for increased kcal intake. Provides 350 kcal and 20 g Pro per serving. Will continue to follow and reassess as pt needs, intake, and status change. Jona MEDELLIN, MS RD LD [phone] cell"
--- NOTE | 2020-10-28 15:31 | Progress Note ---
Subjective Subjective Date Seen by Provider: Oct 28, 2020 Time Seen by Provider: 15:15 Changed to swb yesterday no overnight events Patient has not had a bowel movement for a few days and would like to have a stool softner. he also says he has an ingrown toenail and would like Dr. Valdez to take care of it. Review of Systems General: No Chills, No Night Sweats HEENT: No Head Aches, No Visual Changes Pulmonary: Dyspnea, Cough Cardiovascular: No: Chest Pain Gastrointestinal: No: Nausea, Vomiting Genitourinary: No Dysuria Neurological: Weakness; No: Confusion Objective Exam Vital Signs Vital Signs Date Time Temp Pulse Resp B/P (MAP) Pulse Ox O2 Delivery O2 Flow Rate FiO2 10/28/20 12:43 121 10/28/20 10:34 92 Nasal Cannula 3.00 10/28/20 07:00 76 10/28/20 06:00 36.3 80 20 90/63 (72) 98 Nasal Cannula 3.00 10/28/20 01:00 82 10/27/20 20:40 Nasal Cannula 2.00 10/27/20 19:00 90 10/27/20 17:11 36.2 89 18 117/72 (87) 98 Nasal Cannula 3.00 10/27/20 16:06 36.6 85 18 123/80 (94) 98 Nasal Cannula 3.00 I & O0 10/28/20 07:00 Intake Total 1340 ml Balance 1340 ml General Appearance: No Apparent Distress HEENT: PERRL/EOMI Neck: Non Tender, Supple Respiratory: Chest Non Tender, Crackles (improved), Decreased Breath Sounds Cardiovascular: Other (afib with regular rate) Gastrointestinal: Normal Bowel Sounds, Non Tender, Soft Extremity: Non Tender, No Calf Tenderness Neurologic/Psychiatric: Alert, Oriented x3 Skin: Warm/Dry Assessment/Plan Assessment/Plan Assessment and Plan Admission Dx acute respiratory failure with hypoxia acute on chronic kidney failure acute on chronic diastolic heart failure. Assessment and Plan 10/24/2020- admitted RT consulted- supplemental oxygen -continue rocephin for pneumonia --bumex 0.5mg iv daily- -rechecking creatinine in AM -Cardiology consult- 2D echocardiogram to be ordered. -holding on IVFs at this time due to diastolic CHF. on eliquis for DVT ppx. 10/25/20- echo to be done. continue bumex. Creatinine improving. -RT did oxygen requirement test- he requires 2L oxygen continuous and 3L with ambulation. -ordering PT- plan on discharging later in the week. PT evaluation will help guide discharge planning. 10/26/20- likely pulmonary embolism given Echo report with pulmonary hypertension- continue eliquis. He is doing better. Mentally he is near baseline. Still on 2L oxygen. on day 3 of rocephin, azithromycin for pneumonia coverage. 10/27/20- changed to swingbed. reduced lasix due to creatinine increase- will recheck Cr tomorrow. 10/28/20- checking Cr. will help with constipation with a stool softner. Continue on Swingbed. He has made progress with PT. Once he is stable enough with self care and ambulating may go home on oxygen- will need a repeat oxygen test- since the last one is only good for 48hours. Creatinine should start improving -if >1.7 tomorrow- need to hold lasix. --also will need to renally dose Eliquis to 2.5mg BID Dispo: slowly improving- reassess daily. He is not stable to go home and is benefitting PT/OT for safer return home. Problems: (1) Pneumonia (2) Atrial fibrillation (3) Acute on chronic kidney failure (4) Acute on chronic diastolic (congestive) heart failure (5) Acute respiratory failure with hypoxia WILLIAM REICH MD Oct 28, 2020 15:31
[2020-10-28] MEDS: cefTRIAXone FOR IV USE 1,000 MG in WATER (STERILE) FOR INJECTION 10 ML IV SCH (15:49)
[2020-10-28 16:19] LABS: ALBUMIN 3.2 GM/DL (3.2-4.5)
[2020-10-28 16:20] LABS: POTASSIUM 4.6 MMOL/L (3.6-5.0)
[2020-10-28 16:21] LABS: CALCIUM 8.9 MG/DL (8.5-10.1)
[2020-10-28 16:25] LABS: CREATININE SERUM 1.75 MG/DL (0.60-1.30)
[2020-10-28 18:00] VITALS: BP 117/77
--- NOTE | 2020-10-28 18:04 | NUR ---
This RN pulled from [facility], & administered prescribed dose of IV Lasix this morning after midline IV was placed. pellet post inspector RN scanned IV Lasix, but was unable to give because pt's IV came out.
[2020-10-28] MEDS: SENNA W/DOCUSATE (SENOKOT S) TABLET PO SCH (19:50)
[2020-10-28] MEDS: AZITHROMYCIN 250 MG TAB (ZITHROMAX) PO SCH (19:50)
[2020-10-28] MEDS: polyethylene glycoL POWDER 17 GM (MIRALAX) PACK PO SCH (19:50)
[2020-10-29] MEDS: ACETAMINOPHEN 325 MG TABLET PO PRN ×2 (03:57→15:11)
[2020-10-29 05:15] VITALS: BP 112/67
[2020-10-29 05:35] LABS: POTASSIUM 4.9 MMOL/L (3.6-5.0)
[2020-10-29 05:36] LABS: CALCIUM 8.9 MG/DL (8.5-10.1)
[2020-10-29 05:40] LABS: CREATININE SERUM 1.63 MG/DL (0.60-1.30)
[2020-10-29 05:42] LABS: MAGNESIUM 1.9 MG/DL (1.6-2.4)
[2020-10-29] MEDS: FUROSEMIDE 40 MG (LASIX) TAB PO SCH (08:01)
[2020-10-29] MEDS: SENNA W/DOCUSATE (SENOKOT S) TABLET PO SCH ×2 (08:01→19:09)
[2020-10-29] MEDS: dilTIAZem120 MG (CARDIZEM CD) CAP PO SCH (08:01)
[2020-10-29] MEDS: APIXABAN 2.5 MG (ELIQUIS) TABLET PO SCH ×2 (08:01→19:10)
[2020-10-29] MEDS: KCL 20 MEQ TAB (K-DUR) PO SCH ×2 (08:01→18:13)
--- NOTE | 2020-10-29 12:14 | Physical Therapy Daily Note ---
PT Daily Note-Current Subjective Pt in bed, agreeable. No c/o, up ad maggie in room. Mental Status Patient Orientation: Person, Place, Time, Situation Attachments: Oxygen Transfers SCALE: Activities may be completed with or without assistive devices. 5-Welwttlcoa-ikicdre completes the activity by him/herself with no assistance from a helper. 5-Set-up or Clean-up Assistance-helper sets up or cleans up; patient completes activity. [place] assists only prior to or following the activity. 4-Supervision or Touching Assistance-helper provides verbal cues and/or touching/steadying and/or contact guard assistance as patient completes activity. Assistance may be provided throughout the activity or intermittently. 3-Partial/Moderate Assistance-helper does LESS THAN HALF the effort. [place] lifts, holds or supports trunk or limbs, but provides less than half the effort. 2-Substantial/Maximal Assistance-helper does MORE THAN HALF the effort. [place] lifts or holds trunk or limbs and provides more than half the effort. 7-Olcrfbjfq-aiapvb does ALL the effort. Patient does none of the effort to complete the activity. Or, the assistance of 2 or more helpers is required for the patient to complete the activity. If activity was not attempted, code reason: 7-Patient Refused. 9-Not Applicable-not attempted and the patient did not perform the activity before the current illness, exacerbation or injury. 10-Not Attempted due to Environmental Limitations-(lack of equipment, weather restraints, etc.). 88-Not Attempted due to Medical Conditions or Safety Concerns. Roll Left & Right (QC): 6 Lying to Sitting/Side of Bed(Q: 6 Sit to Stand (QC): 6 Weight Bearing Right Lower Extremity: Right Weight Bearing/Tolerated Left Lower Extremity: Left Weight Bearing/Tolerated Gait Training Does the Patient Walk?: Yes Distance: 500 Walk 10 feet (QC): 6 Walk 50 ft with 2 Turns(QC): 6 Walk 150 ft (QC): 6 Gait Assistive Device: FWW Pt ambulated 500' x 1 with FWW with mod (I), assist with O2 only. On 3L O2 throughout, sats >90% throughout. Up in chair post treatment, O2 in situ, needs met. Treatments Ambulation with FWW. Assessment Current Status: Excellent Progress Pt maintain O2 sats with activity, safe and mod (I) with FWW PT Safety Inspector Goals Safety Inspector Goals PT Detention Goals Time Frame: Nov 12, 2020 Roll Left & Right (QC): 6 Sit to Lying (QC): 6 Lying-Sitting on Side/Bed(QC): 6 Sit to Stand (QC): 6 Chair/Ffi-xr-Bitpa Xfer(QC): 6 Toilet Transfer (QC): 6 Car Transfer (QC): 6 Does the Patient Walk: Yes Walk 10 feet (QC): 6 Walk 50ft with 2 Turns (QC): 6 Walk 150 ft (QC): 6 Walking 10ft on Uneven Surface: 6 1 Step (curb) (QC): 6 4 Steps (QC): 6 12 Steps (QC): 6 Picking up an Object (QC): 6 Wheel 50 feet with 2 turns (QC: 9 Wheel 150 feet: 9 PT Plan Problem List Problem List: Activity Tolerance, Gait Treatment/Plan Treatment Plan: Continue Plan of Care Treatment Plan: Education, Functional Activity Carlos A, Functional Strength, Gait, Safety, Therapeutic Exercise, Transfers Treatment Duration: Nov 12, 2020 Frequency: 6 times per week Estimated Hrs Per Day: .25 hour per day Patient and/or Family Agrees t: Yes Time/GCodes Time In: 0957 Time Out: 1013 Total Billed Treatment Time: 16 Total Billed Treatment 1, FA x 16' PERCY LOPEZ DPJazzy Oct 29, 2020 12:14
--- NOTE | 2020-10-29 13:52 | Progress Note - Cardiology ---
Cardiology SOAP Progress Note Subjective: Gen malaise and weakness No shortness of breath at rest No cp or palp or syncope No n/v/d Objective: I&O/Vital Signs 10/29/20 10/29/20 10/29/20 10/29/20 05:15 07:00 08:00 12:59 Temp 35.9 Pulse 71 71 80 Resp 18 B/P (MAP) 112/67 (82) Pulse Ox 98 O2 Delivery Nasal Cannula Nasal Cannula O2 Flow Rate 3.00 2.00 10/29/20 00:00 Intake Total 2040 ml Balance 2040 ml Weight (Pounds): 180 Weight (Calculated Kilograms): 81.962705 Constitutional: AAO x 3, well-developed, well-nourished Respiratory: No accessory muscle use; other (fair to good bilateral air entry) Cardiovascular: regular rate-rhythm, S1 and S2, systolic murmur (soft YVROSE at card base) Gastrointestional: No tender, No guarding, No rebound; audible bowel sounds Extremities: No clubbing, No cyanosis, No significant edema Neurologic/Psychiatric: oriented x 3, other (moves all limbs equally) Skin: No rash, No ulcerations Results/Procedures: Labs Laboratory Tests 10/28/20 15:48: Sodium Level 136, Potassium Level 4.6, Chloride Level 101, Carbon Dioxide Level 22, Anion Gap 13, Blood Urea Nitrogen 28H, Creatinine 1.75H, Estimat Glomerular Filtration Rate 37, BUN/Creatinine Ratio 16, Glucose Level 139H, Calcium Level 8.9, Phosphorus Level 3.0, Albumin 3.2 10/29/20 05:15: Sodium Level 135, Potassium Level 4.9, Chloride Level 101, Carbon Dioxide Level 23, Anion Gap 11, Blood Urea Nitrogen 29H, Creatinine 1.63H, Estimat Glomerular Filtration Rate 40, BUN/Creatinine Ratio 18, Glucose Level 91, Calcium Level 8.9, Magnesium Level 1.9 Laboratory Tests 10/28/20 15:48 10/29/20 05:15 A/P: Assessment: Multifactorial shortness of breath: pneumonia (possibly COVID-19 pneumonia) and mild, acute, diastolic CHF Suspect recent PE (see echo results below), probably at time of COVID-19 in early Oct 2019 A fib with a controlled ventricular response, first diagnosed Oct 11, 2019 Echo of 10/25/20: LVEF 65-70%, biatrial enlargement, RV enlargement, RV volume overload, PASP 40-45 mmHg Minimal troponin elevation: type 2 NE due mild hypoxemia at presentation CKD - 3 H/o robotic mitral valve repair at [facility] [place] [address] Vargas Reports recent echo and stress test at [facility] in Jun 2020, which he reports as normal Cardiac cath of Jun 2013 showed non-obstructive dz. LVEF 60%. Normal LVEDP. Severe mitral regurg (4+). Mild to mod pulm HTN HTN HLD Plan: Reduced diuretics because or worsening pre-renal azotemia Continue OAC Continue to monitor labs RASHEEDA LEMONS MD FACP [facility]S Oct 29, 2020 13:52
[2020-10-29] MEDS: cefTRIAXone FOR IV USE 1,000 MG in WATER (STERILE) FOR INJECTION 10 ML IV SCH (15:08)
[2020-10-29 18:00] VITALS: BP 117/78
[2020-10-29] MEDS: polyethylene glycoL POWDER 17 GM (MIRALAX) PACK PO SCH (19:09)
[2020-10-29] MEDS: guaiFENesin/CODEINE (ROBITUSSIN AC) 10ML UDC PO PRN (21:49)
[2020-10-30 08:00] VITALS: BP 139/83
[2020-10-30] MEDS: dilTIAZem120 MG (CARDIZEM CD) CAP PO SCH (08:28)
[2020-10-30] MEDS: FUROSEMIDE 40 MG (LASIX) TAB PO SCH (08:28)
[2020-10-30] MEDS: SENNA W/DOCUSATE (SENOKOT S) TABLET PO SCH ×2 (08:28→19:16)
[2020-10-30] MEDS: APIXABAN 2.5 MG (ELIQUIS) TABLET PO SCH ×2 (08:28→19:16)
[2020-10-30] MEDS: KCL 20 MEQ TAB (K-DUR) PO SCH (08:28)
--- NOTE | 2020-10-30 09:14 | NUR ---
PT STATES HE WOULD LIKE TO GO HOME TODAY IF POSSIBLE. THIS RN CALLS TO NOTIFY DR. REICH. NO ANSWER. WILL TRY AGAIN.
--- NOTE | 2020-10-30 09:20 | Progress Note ---
Subjective Subjective Date Seen by Provider: Oct 30, 2020 Time Seen by Provider: 09:20 MR. WELLS IS AN 85 Y/O MALE WHO IS A CLINIC PATIENT OF DR. REICH FOR WHOM I AM CODING VALIDATOR. HE HAS HX OF COVID 19 INFECTION, WITH POST-COVID PNEUMONIA, ACUTE DIASTOLIC CHF AND CHRONIC ATRIAL FIBRILLATION. TODAY MR. WELLS REPORTS THAT HE IS FEELING BETTER, WOULD LIKE TO BE DISCHARGED TO HOME TODAY OR TOMORROW. HE REPORTS NO PREVIOUS OXYGEN REQUIREMENT. HE DENIES CHEST PAIN, NAUSEA, ABDOMINAL PAIN. HE REPORTS THAT HIS APPETITE IS LOW DUE TO BEING A "PICKY EATER". Review of Systems General: No Chills, No Night Sweats; Fatigue, Appetite (DECREASED) HEENT: No Head Aches, No Visual Changes Pulmonary: Dyspnea, Cough Cardiovascular: No: Chest Pain, Palpitations Gastrointestinal: No: Nausea, Vomiting, Abdominal Pain, Diarrhea, Constipation Genitourinary: No Dysuria Neurological: Weakness; No: Confusion All Other Systems Reviewed All Other Systems Reviewed: Yes Objective Exam Vital Signs Vital Signs - First Documented 10/26/20 10/27/20 15:19 16:06 Temp 36.6 Pulse 85 Resp 18 B/P (MAP) 123/80 (94) Pulse Ox 98 O2 Delivery Nasal Cannula O2 Flow Rate 2.00 Capillary Refill : General Appearance: No Apparent Distress, WD/WN HEENT: PERRL/EOMI, Pharynx Normal Neck: Full Range of Motion, Non Tender, Supple Respiratory: Chest Non Tender, Crackles (FAINT IN BASE ON RIGHT GREATER THAN LEFT), Decreased Breath Sounds Cardiovascular: Irregularly Irregular Gastrointestinal: Normal Bowel Sounds, No Organomegaly, Non Tender, Soft Rectal: Deferred Extremity: Non Tender, No Calf Tenderness Neurologic/Psychiatric: Alert, Oriented x3, Normal Mood/Affect, director industrial II-XII Norm as Tested Skin: Normal Color, Warm/Dry Assessment/Plan Assessment/Plan Assessment and Plan POST-COVID 19 PNEUMONIA DIASTOLIC CHF ATRIAL FIBRILLATION STAGE 3 RENAL FAILURE HYPOXIA HYPERTENSION HYPERLIPIDEMIA ADVANCED AGE WEAKNESS POST-COVID 19 PNEUMONIA - PT ON ROCEPHIN, CONTINUES TO SHOW IMPROVEMENT - PT IS ON 3 LITERS OXYGEN VIA NC - - WILL ORDER AMBULATORY OXYGEN DIASTOLIC CHF - IMPROVED SYMPTOMATICALLY, PT ON 80MG LASIX IV, NOTE FROM YESTERDAY INDICATED NEED TO DECREASE LASIX DOSING, BUT NOT YET ORDERED, THEREFORE I HAVE DECREASED TO 20MG PO FOR 10/31/2020, WILL BE FOLLOW UP BY DR. REICH FOR SYMPTOMATIC IMPROVEMENT. ATRIAL FIBRILLATION - RATE CONTROLLED, CONTINUE WITH DILTIAZEM AND NOAC. STAGE 3 RENAL FAILURE - WITH SLIGHTLY WORSENED FUNCTION OVER BASELINE, WILL THEREFORE DECREASE FROM 80MG LASIX IV TO 20MG DAILY AND MONITOR RENAL FUNCTION AND POTASSIUM WELL. DOSING OF POTASSIUM DECREASED FROM 20MEQ BID TO 20MEQ DAILY. HYPOXIA - PT WITH OXYGEN REQUIREMENT - DID NOT PREVIOUSLY REQUIRE OXYGEN, WILL TH EREFORE HAVE RESPIRATORY THERAPY DO AN AMBULATORY OXYGEN TODAY IN ANTICIPATION OF DISCHARGE IN THE NEXT 48 HOURS. HYPERTENSION - STABLE ON CURRENT REGIMEN. HYPERLIPIDEMIA - CRESTOR CAN BE RESTARTED ON DISCHARGE. ADVANCED AGE AND WEAKNESS - WILL BENEFIT FROM OUTPT THERAPY OR HOME HEALTH ON DISCHARGE. Problems: (1) Pneumonia (2) Atrial fibrillation (3) Acute on chronic kidney failure (4) Acute on chronic diastolic (congestive) heart failure (5) Acute respiratory failure with hypoxia SALMA BLANCHARD MD Oct 30, 2020 09:20
[2020-10-30] MEDS: ACETAMINOPHEN 325 MG TABLET PO PRN (13:12)
[2020-10-30] MEDS: polyethylene glycoL POWDER 17 GM (MIRALAX) PACK PO SCH (19:16)
--- NOTE | 2020-10-30 19:17 | Progress Note - Cardiology ---
Cardiology SOAP Progress Note Subjective: Feels somewhat better than before No cp or palp or syncope or swelling Shortness of breath modestly improved No n/v/d Objective: I&O/Vital Signs 10/30/20 10/30/20 10/30/20 10/30/20 08:00 08:46 12:47 16:07 Temp 35.6 Pulse 84 78 Resp 16 B/P (MAP) 139/83 (101) Pulse Ox 99 O2 Delivery Nasal Cannula Nasal Cannula Nasal Cannula O2 Flow Rate 3.00 2.00 2.00 10/30/20 00:00 Intake Total 1870 ml Balance 1870 ml Weight (Pounds): 180 Weight (Calculated Kilograms): 81.141643 Constitutional: AAO x 3, well-developed, well-nourished Respiratory: No accessory muscle use; other (fair to good bilateral air entry) Cardiovascular: regular rate-rhythm, S1 and S2, systolic murmur (soft YVROSE at card base) Gastrointestional: No tender, No guarding, No rebound; audible bowel sounds Extremities: No clubbing, No cyanosis, No significant edema Neurologic/Psychiatric: oriented x 3, other (moves all limbs equally) Skin: No rash, No ulcerations Results/Procedures: Labs Laboratory Tests 10/29/20 05:15 A/P: Assessment: Multifactorial shortness of breath: pneumonia (possibly COVID-19 pneumonia) and mild, acute, diastolic CHF Suspect recent PE (see echo results below), probably at time of COVID-19 in early Oct 2019 A fib with a controlled ventricular response, first diagnosed Oct 11, 2019 Echo of 10/25/20: LVEF 65-70%, biatrial enlargement, RV enlargement, RV volume overload, PASP 40-45 mmHg Minimal troponin elevation: type 2 CA due mild hypoxemia at presentation CKD - 3 H/o robotic mitral valve repair at [facility] [place] [address] Vargas Reports recent echo and stress test at [facility] in Jun 2020, which he reports as normal Cardiac cath of Jun 2013 showed non-obstructive dz. LVEF 60%. Normal LVEDP. Severe mitral regurg (4+). Mild to mod pulm HTN HTN HLD Plan: We recently reduced diuretics because or worsening pre-renal azotemia Continue OAC Continue to monitor labs RASHEEDA LEMONS MD FACP [facility] CCDS Oct 30, 2020 19:17
[2020-10-30 19:54] VITALS: BP 110/73
[2020-10-31 05:49] LABS: HEMOGLOBIN 11.5 g/dL (13.3-17.7); MEAN PLATELET VOLUME 10.6 fL (9.0-12.2); WHITE BLOOD COUNT 5.9 10^3/uL (4.3-11.0)
[2020-10-31 05:55] LABS: ALBUMIN 3.1 GM/DL (3.2-4.5); POTASSIUM 4.9 MMOL/L (3.6-5.0)
[2020-10-31 05:57] LABS: CALCIUM 9.4 MG/DL (8.5-10.1)
[2020-10-31 05:58] LABS: TOTAL PROTEIN 5.7 GM/DL (6.4-8.2)
[2020-10-31 06:00] LABS: BILIRUBIN,TOTAL 0.7 MG/DL (0.1-1.0)
[2020-10-31 06:01] LABS: CREATININE SERUM 1.59 MG/DL (0.60-1.30)
--- NOTE | 2020-10-31 06:22 | NUR ---
SPO2 DROPPED TO 85% ON ROOM AIR @ REST. REPLACED O2 @ 3 LPM. SPO2 INCREASED TO 94%. Addendum: 10/31/20 at 0734 by RAJEEV ARROYO RT Amended: Links added.
[2020-10-31 08:00] VITALS: BP 134/82
[2020-10-31] MEDS: dilTIAZem120 MG (CARDIZEM CD) CAP PO SCH (08:18)
[2020-10-31] MEDS: SENNA W/DOCUSATE (SENOKOT S) TABLET PO SCH (08:18)
[2020-10-31] MEDS: APIXABAN 2.5 MG (ELIQUIS) TABLET PO SCH (08:18)
[2020-10-31] MEDS ORDERED: POTA20TA8 PO (08:37)
[2020-10-31] MEDS ORDERED: DILT-27 PO (08:37)
[2020-10-31] MEDS ORDERED: APIX2.5T PO (08:37)
--- NOTE | 2020-10-31 08:45 | Discharge Summary ---
Discharge Summary Hospital Course Problems/Dx: (1) Pneumonia Status: Resolved (2) Atrial fibrillation Status: Acute (3) Acute on chronic kidney failure (4) Acute on chronic diastolic (congestive) heart failure Status: Resolved (5) Acute respiratory failure with hypoxia Hospital Course Date of Admission: Oct 27, 2020 at 08:32 Admission Diagnosis : Family Physician/Provider: Robert Reich MD Date of Discharge: 10/31/20 Discharge Diagnosis: [ ] Hospital Course: [ ] Labs and Pending Lab Test: Laboratory Tests 10/31/20 05:30: White Blood Count 5.9, Red Blood Count 3.97L, Hemoglobin 11.5L, Hematocrit 36L, Mean Corpuscular Volume 90, Mean Corpuscular Hemoglobin 29, Mean Corpuscular Hemoglobin Concent 32, Red Cell Distribution Width 12.4, Platelet Count 276, Mean Platelet Volume 10.6, Sodium Level 136, Potassium Level 4.9, Chloride Level 100, Carbon Dioxide Level 26, Anion Gap 10, Blood Urea Nitrogen 37H, Creatinine 1.59H, Estimat Glomerular Filtration Rate 41, BUN/Creatinine Ratio 23, Glucose Level 88, Calcium Level 9.4, Corrected Calcium 10.1, Total Bilirubin 0.7, Aspartate Amino Transf (AST/SGOT) 31, Alanine Aminotransferase (ALT/SGPT) 14, Alkaline Phosphatase 80, Total Protein 5.7L, Albumin 3.1L Home Meds Active Eliquis (Apixaban) 2.5 Mg Tablet 2.5 Mg PO BID Diltiazem 24Hr ER (Diltiazem HCl) 120 Mg Cap.er.24h 120 Mg PO DAILY@0900 Klor-Con M20 (Potassium Chloride) 20 Meq Tab.er.prt 20 Meq PO DAILY@0900 Reported Eliquis (Apixaban) 5 Mg Tablet 5 Mg PO BID Cartia Xt (Diltiazem HCl) 240 Mg Cap.er.24h 240 Mg PO DAILY Virtussin AC Liquid (Guaifenesin/Codeine Phosphate) 118 Ml Liquid 5-10 Ml PO Q8H PRN Vitamin C (Ascorbate Calcium) 500 Mg Tablet 500 Mg PO DAILY Vitamin D3 (Cholecalciferol (Vitamin D3)) 25 Mcg Capsule 25 Mcg PO DAILY Furosemide 20 Mg Tablet 20 Mg PO DAILY Metoprolol Tartrate 25 Mg Tablet 25 Mg PO BID Rosuvastatin Calcium 10 Mg Tablet 10 Mg PO HS Assessment/Pt Instructions ---The remaining Eliquis 5mg break in half and take 2.5mg [id number]. --- Will plan on you being on Eliquis for 3 more months to treat your pulmonary embolism. -Follow up with Dr. Roberts in regards to your atrial fibrillation. Eliquis will also help manage your a.fib. ---Your diltiazem was changed from 240mg to 120mg daily. ---Continue metoprolol. ---You will be on lasix 20mg daily along with Potassium 20mEq daily- If we stop the lasix in the future you will be able to stop the potassium. -- You have completed your antibiotics and your pneumonia is treated. --- Your oxygen requirement is 3L- we will check your oxygen level in 10 days at [facility]. --Goal of treating the suspected clot in your lungs and allow your lungs to heal from the pneumonia. --Advance your daily routine as tolerated. Discharge Planning: >30 minutes discharge planning Discharge Instructions Discharge Diet: Eat Small Frequent Meals Activity as Tolerated: Yes Discharge Physical Examination Vital Signs Vital Signs Date Time Temp Pulse Resp B/P (MAP) Pulse Ox O2 Delivery O2 Flow Rate FiO2 10/31/20 07:15 96 Nasal Cannula 3.00 10/31/20 01:00 71 10/30/20 19:54 36.2 16 110/73 (85) General Appearance: No Apparent Distress HEENT: PERRL/EOMI Respiratory: Chest Non Tender, Lungs Clear, Normal Breath Sounds Cardiovascular: Other (regular rate, irregular rhythm (afib)) Gastrointestinal: Non Tender, Soft Extremity: Non Tender, No Calf Tenderness Skin: Warm/Dry Neurologic/Psychiatric: Alert, Oriented x3 Allergies: Coded Allergies: Penicillins (Verified Allergy, Mild, RASH, 09/07/14) Discharge Summary Date of Admission Oct 27, 2020 at 08:32 Date of Discharge Oct 31, 2020 Discharge Diagnosis (1) Pneumonia Status: Resolved (2) Atrial fibrillation Status: Acute (3) Acute on chronic kidney failure (4) Acute on chronic diastolic (congestive) heart failure Status: Resolved (5) Acute respiratory failure with hypoxia ROBERT REICH MD Oct 31, 2020 08:43
--- NOTE | 2020-10-31 08:53 | D/C HH Face to Face Order ---
D/C Face to Face Orders Instructions for Patient Via [facility], Patient Instructions/FollowUp: ---The remaining Eliquis 5mg break in half and take 2.5mg [id number]. --- Will plan on you being on Eliquis for 3 more months to treat your pulmonary embolism. -Follow up with Dr. Roberts in regards to your atrial fibrillation. Eliquis will also help manage your a.fib. ---Your diltiazem was changed from 240mg to 120mg daily. ---Continue metoprolol. ---You will be on lasix 20mg daily along with Potassium 20mEq daily- If we stop the lasix in the future you will be able to stop the potassium. -- You have completed your antibiotics and your pneumonia is treated. --- Your oxygen requirement is 3L- we will check your oxygen level in 10 days at [facility]. --Goal of treating the suspected clot in your lungs and allow your lungs to heal from the pneumonia. --Advance your daily routine as tolerated. Physician to follow Patient: Robert Reich MD Discharge Diet for Home: Regular Diet Patient Data-Allergies,Ht & Wt Patient Allergies: Coded Allergies: Penicillins (Verified Allergy, Mild, RASH, 09/07/14) Height (Feet): 5 Height (Inches): 9.50 Weight (Pounds): 180 Home Health Need/Face to Face Date of Face to Face: Oct 31, 2020 Clinical Findings: Shortness of breath I have seen Pt [id number]: Yes Discharged To: Home Diagnosis/Conditions: acute respiratory failure due to pneumonia history of COVID-19 October 07, 2020 acute on chronic diastolic heart failure Patient is Homebound due to: Shortness of breath/distress high fall risk- should not be getting out of his house much. Homebound Status Due to the above stated illness, injury or surgical procedure (medical condition or diagnosis) and associated clinical findings, the patient is homebound because of his/her inability to leave home except with aid of a supportive device and/or person AND leaving the home requires a considerable and taxing effort or is medically contraindicated. Pt req the following assistanc: [facility] Nursing Orders Home Health Services Order: Nursing Services monitor oxygen levels for 1 week he is to have follow up in 10 days at [facility] Home Health Infusion Therapy Line Start Date: Oct 28, 2020 Certify Stmt I certify that this patient is under my care and that I, a nurse practitioner or a physician; a reading assistant working with me, had a face to face encounter that - meets the physician face to face encounter requirements with this patient as dated. ROBERT REICH MD Oct 31, 2020 08:53
[2020-10-31] MEDS ORDERED: KCL 20 MEQ TAB (K-DUR) PO SCH (09:00)
[2020-10-31] MEDS ORDERED: FUROSEMIDE 20 MG (LASIX) TAB PO SCH (09:00)
--- NOTE | 2020-10-31 09:24 | NUR ---
provided prayer and Communion.
--- NOTE | 2020-10-31 10:01 | Therapy Team Discharge Summary ---
Therapy Discharge Summary Discharge Recommendations Date of Discharge Physical Therapy Patient dismissing to home on this date per physician. Patient is currently independent with all gross motor skills and has not concerns for home. Patient ambulates >500' with FWW in hallway with assist for O2. Per RT, patient qualifies for home O2 due to desaturation. Patient has attained checked functional goals set upon initial evaluation. Occupational Therapy Decreased Activ Tolerance, Impaired I ADL's PT [employer] Goals [facility] Goals PT [employer] Goals Time Frame: Nov 12, 2020 (goals checked met 10/29/20) Roll Left to Right (QC): 6 (met) Sit to Lying (QC): 6 (met) Lying-Sitting on Side/Bed(QC): 6 (met) Sit to Stand (QC): 6 (met) Chair/Tlm-hs-Ggxcs Xfer(QC): 6 (met) Car Transfer (QC): 6 Does the Patient Walk: Yes Walk 10 feet (QC): 6 (met) Walk 10ft-Uneven Surface(QC): 6 (met) Walk 50ft with 2 Turns (QC): 6 (met) Walk 150 ft (QC): 6 (met) Wheel 50 feet with 2 turns (QC: 9 1 Step (curb) (QC): 6 4 Steps (QC): 6 12 Steps (QC): 6 Picking up an Object (QC): 6 OT [facility] Goals [facility] Goals Time Frame: Nov 11, 2020 Eating (QC): 6 Oral Hygiene (QC): 6 Shower/Bathe Self (QC): 6 Upper Body Dressing (QC): 6 Lower Body Dressing (QC): 6 On/Off Footwear (QC): 6 Toileting Hygiene (QC): 6 Toilet/Commode Transfer (QC): 6 Additional Goals: 1-Demonstrate ADL Tasks, 2-Verbalize Understanding, 3- ImproveStrength/Carlos A 1=Demonstrate adherence to instructed precautions during ADL tasks. 2=Patient will verbalize/demonstrate understanding of assistive devices/modifications for ADL. 3=Patient will improve strength/tolerance for activity to enable patient to perform ADL's. MISA SUMNER PT Oct 31, 2020 10:01
--- NOTE | 2020-10-31 10:23 | NUR ---
CM FINALIZED DISCHARGE PLAN: Patient discharging to home today with new need of oxygen and home health care. Choices for medical equipment companies and home health care agencies presented to Sheree and he selected [facility] for his oxygen needs and [facility] for his home health care provider. [facility] indicated that they have a superintendent drivers in [place] that will be able to quickly deliver oxygen once they process his orders. He will need o2 at 3LPM continuous. Called and spoke with Rosibel at [facility] and spoke with Michelle at [facility]. ELIZABETH Carolina provided Eliquis discount information earlier in stay. No further interventions noted at this time.
--- NOTE | 2020-10-31 11:05 | Cardiology Progress Note ---
Subjective Date Seen by Provider: Oct 31, 2020 Time Seen by Provider: 10:00 Subjective/Events-last exam Patient sitting up at bedside, reports dyspnea has improved. Denies any chest pain Objective-Cardiology Exam Last Set of Vital Signs Vital Signs 10/31/20 08:00 Temp 35.5 Pulse 83 Resp 16 B/P (MAP) 134/82 (99) Pulse Ox 93 O2 Delivery Nasal Cannula O2 Flow Rate 3.00 Capillary Refill : I&O Intake and Output 10/31/20 00:00 Intake Total 1980 ml Balance 1980 ml Intake Oral 1970 ml IV Total 10 ml # Voids 10 # Bowel Movements 1 General: Alert, Oriented X3, Cooperative HEENT: Atraumatic, PERRLA Neck: Supple, No JVD, No Thyromegaly Lungs: Clear to Auscultation, Normal Air Movement Heart: Regular Rate, Normal S1, Normal S2, No Murmurs Abdomen: Normal Bowel Sounds, Soft, No Tenderness, No Hepatosplenomegaly, No Masses Extremities: No Clubbing, No Cyanosis, No Edema, Normal Pulses, No Tenderness/S welling Skin: No Rashes, No Breakdown, No Significant Lesion Neuro: Normal Gait, Normal Speech, Strength at 5/5 X4 Ext, Normal Tone, Sensation Intact Psych/Mental Status: Mental Status NL, Mood NL Results Lab Laboratory Tests 10/31/20 05:30 A/P-Cardiology Assessment/Plan Multifactorial shortness of breath: pneumonia (possibly COVID-19 pneumonia) and mild, acute, diastolic CHF Suspect recent PE (see echo results below), probably at time of COVID-19 in early Oct 2019 A fib with a controlled ventricular response, first diagnosed Oct 11, 2019, maintained on OAC Echo of 10/25/20: LVEF 65-70%, biatrial enlargement, RV enlargement, RV volume overload, PASP 40-45 mmHg Minimal troponin elevation: type 2 MD due mild hypoxemia at presentation CKD - 3 H/o robotic mitral valve repair at [facility] [address] Vargas Reports recent echo and stress test at [facility] in Jun 2020, which he reports as normal Cardiac cath of Jun 2013 showed non-obstructive dz. LVEF 60%. Normal LVEDP. Severe mitral regurg (4+). Mild to mod pulm HTN HTN, controlled HLD, continue to monitor as outpatient. OK for discharge from cardiology standpoint. F/u with Dr. Roberts next week EMMANUELLE HAIR Oct 31, 2020 11:05
--- NOTE | 2020-10-31 13:15 | NUR ---
Notice of Medicare Non Coverage presented, reviewed, signed and placed in patient chart. Patient voiced no intention to appeal and deny any needs or further questions at this time.
--- NOTE | 2020-11-01 15:22 | Therapy Team Discharge Summary ---
Therapy Discharge Summary Discharge Recommendations Date of Discharge Oct 31, 2020 at 14:55 Occupational Therapy At [facility], pt independent with all ADLS and functional mobility without AD/AE. Upon initial evaluation, pt was independent with eating and oral care, min A showering, set up upper body dressing, SBA lower body dressing, and independent with footwear and toileting. OT txs focus on increasing independence with ADLs and functional mobility as well as increasing BUE strength and functional endurance. Pt received 1 follow up visit prior to discharge where he was again independent with eating and toileting. Pt met LTGs of independent level with eating, oral care, footwear and toileting. Other LTGs not met. Pt discharged from facility, thus d/c from OT. Decreased Activ Tolerance, Impaired I ADL's PT End User Support Specialist Goals [facility] Goals PT End User Support Specialist Goals Time Frame: Nov 12, 2020 (goals checked met 10/29/20) Roll Left to Right (QC): 6 (met) Sit to Lying (QC): 6 (met) Lying-Sitting on Side/Bed(QC): 6 (met) Sit to Stand (QC): 6 (met) Chair/Usw-fe-Ajgfg Xfer(QC): 6 (met) Car Transfer (QC): 6 Does the Patient Walk: Yes Walk 10 feet (QC): 6 (met) Walk 10ft-Uneven Surface(QC): 6 (met) Walk 50ft with 2 Turns (QC): 6 (met) Walk 150 ft (QC): 6 (met) Wheel 50 feet with 2 turns (QC: 9 1 Step (curb) (QC): 6 4 Steps (QC): 6 12 Steps (QC): 6 Picking up an Object (QC): 6 OT [facility] Goals [facility] Goals Time Frame: Nov 11, 2020 Eating (QC): 6 (met) Oral Hygiene (QC): 6 (met) Shower/Bathe Self (QC): 6 (not met) Upper Body Dressing (QC): 6 (not met) Lower Body Dressing (QC): 6 (not met) On/Off Footwear (QC): 6 (met) Toileting Hygiene (QC): 6 (met) Toilet/Commode Transfer (QC): 6 (met) Additional Goals: 1-Demonstrate ADL Tasks, 2-Verbalize Understanding, 3- ImproveStrength/Carlos A 1=Demonstrate adherence to instructed precautions during ADL tasks. 2=Patient will verbalize/demonstrate understanding of assistive devices/modifications for ADL. 3=Patient will improve strength/tolerance for activity to enable patient to perform ADL's. REINALDO SANCHEZ OT Nov 01, 2020 15:22
--- NOTE | 2020-11-02 15:25 | Therapy Team Discharge Summary ---
Therapy Discharge Summary Discharge Recommendations Date of Discharge Oct 31, 2020 at 14:55 Physical Therapy This patient admitted to [facility] status post acute hospital stay due to respiratory failure/pneumonia post COVID. He was indep at [facility] and very active in the community. Upon initial evaluation, he was setup/supervision with bed mobility , transfers and gait with decreased functional activity tolerance. Treatment focused on functional strength and mobility and at discharge he was mod indep with all mobility and able to walk long distances. He made excellent progress and has achieved all goals set at evaluation. DC from PT. Occupational Therapy Decreased Activ Tolerance, Impaired I ADL's PT Aquatics Director Goals Aquatics Director Goals PT Aquatics Director Goals Time Frame: Nov 12, 2020 (goals checked met 10/29/20) Roll Left to Right (QC): 6 (met) Sit to Lying (QC): 6 (met) Lying-Sitting on Side/Bed(QC): 6 (met) Sit to Stand (QC): 6 (met) Chair/Qwo-ee-Avghr Xfer(QC): 6 (met) Car Transfer (QC): 6 Does the Patient Walk: Yes Walk 10 feet (QC): 6 (met) Walk 10ft-Uneven Surface(QC): 6 (met) Walk 50ft with 2 Turns (QC): 6 (met) Walk 150 ft (QC): 6 (met) Wheel 50 feet with 2 turns (QC: 9 1 Step (curb) (QC): 6 4 Steps (QC): 6 12 Steps (QC): 6 Picking up an Object (QC): 6 All goals met to a satisfactory level. OT Half-Way Goals Aquatics Director Goals Time Frame: Nov 11, 2020 Eating (QC): 6 (met) Oral Hygiene (QC): 6 (met) Shower/Bathe Self (QC): 6 (not met) Upper Body Dressing (QC): 6 (not met) Lower Body Dressing (QC): 6 (not met) On/Off Footwear (QC): 6 (met) Toileting Hygiene (QC): 6 (met) Toilet/Commode Transfer (QC): 6 (met) Additional Goals: 1-Demonstrate ADL Tasks, 2-Verbalize Understanding, 3-Improv eStrength/Carlos A 1=Demonstrate adherence to instructed precautions during ADL tasks. 2=Patient will verbalize/demonstrate understanding of assistive devices/modifications for ADL. 3=Patient will improve strength/tolerance for activity to enable patient to p erform ADL's. LUIS ENRIQUE LINO PT Nov 02, 2020 15:25
== END 2020-10-31 14:55 | disposition home health service (06) | DRG 175 ==
LOC: 4TH 08:32
PROVIDERS: ADMIT Family Medicine; ATTEND Family Medicine
DX: I26.99 Other pulmonary embolism without acute cor pulmonale (principal); I50.33 Acute on chronic diastolic (congestive) heart failure; I21.A1 Myocardial infarction type 2; J96.01 Acute respiratory failure with hypoxia; I13.0 Hypertensive heart and chronic kidney disease with heart failure and stage 1 through stage 4 chronic kidney disease, or unspecified chronic kidney disease; N17.9 Acute kidney failure, unspecified; I48.20 Chronic atrial fibrillation, unspecified; B94.8 Sequelae of other specified infectious and parasitic diseases; N18.30 Chronic kidney disease, stage 3 unspecified; I34.0 Nonrheumatic mitral (valve) insufficiency; I27.20 Pulmonary hypertension, unspecified; K59.00 Constipation, unspecified; Z79.01 Long term (current) use of anticoagulants
CPT/HCPCS: 36415; 76937; 80048; 80053; 80069; 83735; 85027; 94761

== ENCOUNTER 2021-01-26 05:30 | Outpatient (CLI) | payer MEDICARE, OTHER ==
[~2021-01-26] VITALS: Ht 175.3 cm; Wt 75.5 kg
[~2021-01-26 05:30] MED LIST changes: +APIX2.5T PO; +DILT-27 PO; +POTA20TA8 PO; -cefTRIAXone FOR IV USE 1,000 MG in WATER (STERILE) FOR INJECTION 10 ML IV SCH
[2021-01-26] MEDS ORDERED: APIX2.5T PO (11:03)
[2021-01-26] MEDS ORDERED: POTA-51 PO (11:03)
== END 2021-01-26 11:10 | disposition home or self-care (01) ==
LOC: PREOP 05:30
PROVIDERS: ATTEND Surgery
DX: Z01.818 Encounter for other preprocedural examination (principal)

== ENCOUNTER → 2021-02-13 | Outpatient (CLI) | payer MEDICARE, OTHER ==
[~2021-02-13] MED LIST changes: +POTA-51 PO
[2021-02-13 12:05] LABS: ALBUMIN 4.3 GM/DL (3.2-4.5)
[2021-02-13 12:06] LABS: POTASSIUM 4.9 MMOL/L (3.6-5.0)
[2021-02-13 12:07] LABS: CALCIUM 9.6 MG/DL (8.5-10.1)
[2021-02-13 12:08] LABS: TOTAL PROTEIN 7.2 GM/DL (6.4-8.2)
[2021-02-13 12:10] LABS: BILIRUBIN,TOTAL 1.2 MG/DL (0.1-1.0)
[2021-02-13 12:12] LABS: CREATININE SERUM 1.72 MG/DL (0.60-1.30)
[2021-02-13 12:37] LABS: FREE T4 (FREE THYROXINE) 1.02 NG/DL (0.70-1.48)
--- NOTE | 2021-02-13 12:47 | Diagnostic Imaging Report ---
INDICATION: Monitoring amiodarone therapy. TIME OF EXAM: 12:00 p.m. Correlation is made with prior study from 10/24/2020. FINDINGS: Heart size is stable. The areas of density left upper lobe and right upper and lower lobe have resolved since prior exam. No new opacities are seen. No definite interstitial lung disease is detected. Lungs do show some hyperinflation consistent with COPD. There is no effusion. No pneumothorax is identified. IMPRESSION: Resolution of previously noted opacities in both lungs when compared with exam from 10/24/2020. No new abnormality is detected. Dictated by: Dictated on workstation # [id number]
== END ==
LOC: RAD 11:34
PROVIDERS: ATTEND Internal Medicine Cardiovascular Disease
DX: Z51.81 Encounter for therapeutic drug level monitoring (principal); Z79.899 Other long term (current) drug therapy
CPT/HCPCS: 36415; 71046; 80053; 84439; 84443

== ENCOUNTER → 2021-02-24 | Outpatient (CLI) | payer MEDICARE, OTHER | LOC: RT 12:45 | PROVIDERS: ATTEND Internal Medicine Cardiovascular Disease | DX: Z51.81 Encounter for therapeutic drug level monitoring (principal); Z79.899 Other long term (current) drug therapy | CPT/HCPCS: 94010; 94726; 94729 ==

== ENCOUNTER → 2021-07-18 | Outpatient (CLI) | payer MEDICARE, OTHER ==
[~2021-07-18] MED LIST changes: +AMIO200T50 PO; +AMIO200T65 PO; +AMLO-250 PO; +POTA-169 PO; +POTA-179 PO; -POTA20TA8 PO
== END ==
LOC: CARD 14:45
PROVIDERS: ATTEND Internal Medicine Cardiovascular Disease
DX: I48.21 Permanent atrial fibrillation (principal); I08.0 Rheumatic disorders of both mitral and aortic valves; Z98.890 Other specified postprocedural states
CPT/HCPCS: 93306

== ENCOUNTER 2021-07-25 18:37 | Inpatient (IN) | payer MEDICARE, OTHER ==
[~2021-07-25] VITALS: Ht 175 cm; Wt 73.8 kg
[2021-07-25] VITALS (10 sets, daily range): BP systolic 147–181; BP diastolic 57–86
[~2021-07-25 18:37] MED LIST changes: -AMIO200T50 PO; -AMIO200T65 PO; -AMLO-250 PO; -POTA-169 PO; -POTA-179 PO; +POTA20TA8 PO
[2021-07-25] MEDS ORDERED: ASPIRIN 81 MG CHEW (CHILDREN'S ASA) PO ONE (18:45)
[2021-07-25] MEDS ORDERED: ASPIRIN 81 MG CHEW (CHILDREN'S ASA) ONE (18:46)
[2021-07-25 18:54] LABS: BASOPHILS # (AUTO) 0.1 10^3/uL (0.0-0.1); BASOPHILS % (AUTO) 1 % (0-10); EOSINOPHILS # (AUTO) 0.2 10^3/uL (0.0-0.3); EOSINOPHILS % (AUTO) 2 % (0-10); HEMATOCRIT 34 % (40-54); HEMOGLOBIN 10.4 g/dL (13.3-17.7); LYMPHOCYTES # (AUTO) 2.6 10^3/uL (1.0-4.0); LYMPHOCYTES % (AUTO) 24 % (12-44); MEAN CORPUSCULAR HEMOGLOBIN 33 pg (25-34); MEAN CORPUSCULAR HGB CONC 31 g/dL (32-36); MEAN CORPUSCULAR VOLUME 106 fL (80-99); MEAN PLATELET VOLUME 10.5 fL (9.0-12.2); MONOCYTES # (AUTO) 1.1 10^3/uL (0.0-1.0); MONOCYTES % (AUTO) 10 % (0-12); NEUTROPHILS # (AUTO) 6.9 10^3/uL (1.8-7.8); NEUTROPHILS % (AUTO) 63 % (42-75); PLATELET COUNT 207 10^3/uL (130-400)
[2021-07-25 19:04] LABS: ALBUMIN 4.3 GM/DL (3.2-4.5)
[2021-07-25 19:05] LABS: POTASSIUM 5.5 MMOL/L (3.6-5.0)
[2021-07-25 19:06] LABS: CALCIUM 9.6 MG/DL (8.5-10.1)
[2021-07-25 19:07] LABS: TOTAL PROTEIN 6.8 GM/DL (6.4-8.2)
[2021-07-25 19:08] LABS: INR 1.7 (0.8-1.4); PROTHROMBIN TIME PATIENT 19.9 SEC (12.2-14.7)
[2021-07-25 19:09] LABS: BILIRUBIN,TOTAL 2.1 MG/DL (0.1-1.0)
[2021-07-25 19:11] LABS: CREATININE SERUM 2.59 MG/DL (0.60-1.30)
[2021-07-25 19:13] LABS: MAGNESIUM 1.9 MG/DL (1.6-2.4)
--- NOTE | 2021-07-25 19:14 | ED Cardiac General ---
History of Present Illness General Chief Complaint: Cardiac/General Problems Stated Complaint: SOB/PULSE IN 30'S Nursing Triage Note: PT ARRIVES AMBULATORY TO ER WITH C/O LOW PULSE AFTER TAKING A BLOOD PRESSURE AT HOME. PTS DAUGHTER MANUALLY COUNTED PULSE AT HOME AT 31. PT IS NOT COMPLAINING OF ANY PAIN AT THIS TIME Source: patient Exam Limitations: no limitations History of Present Illness Date Seen by Provider: Jul 25, 2021 Time Seen by Provider: 18:44 Initial Comments Patient to the ER by private conveyance with daughter and chief complaint that the patient was having some shortness of air today even while sitting. He noted his pulse to be in the 30s consistently. He did recently restart some metoprolol for his atrial fibrillation with history of using amiodarone and Eliquis. He has a history of a mitral valve replacement at . Dr. Reid and Dr. Robert Reich are his primary care providers. He says he been having diff iculty with sleep and was started on Ambien and only take it for a couple days but quit it because he was having sleepwalking episodes. He has not had any falls or traumas. Is not having any chest pain. He did have Covid in October 2020 and did receive monoclonal antibodies. He did spend a total of about 11 days in the hospital and had a slow recovery with using oxygen for several weeks afterwards. Is not having any persistent lung problems or supplemental oxygen requirements. He does not smoke cigarettes. He has stage IV kidney disease and is following with Dr. Sabrina Kemp Nephrology at [place]. Echocardiogram from [address] Reid demonstrates an EF of 55 to 65% with mild to moderate mitral valve regurgitation. Cardiac catheterization 2013 de monstrated nonobstructive disease and an EF of 60% with severe mitral regurgitation. History of hypertension, hyperlipidemia. Echocardiogram in October 2020 showed a left ventricular ejection fraction of 65 to 70%. Allergies and Home Medications Allergies Coded Allergies: Penicillins (Verified Allergy, Mild, RASH, 09/07/14) Patient Home Medication List Home Medication List Reviewed: Yes Apixaban (Eliquis) 2.5 Mg Tablet, 2.5 MG PO BID, (Reported) Entered as Reported by: JUDY HARRY on 01/26/21 1103 Ascorbate Calcium (Vitamin C) 500 Mg Tablet, 500 MG PO DAILY, (Reported) Entered as Reported by: RAMA PATEL on 10/12/20 1352 Cholecalciferol (Vitamin D3) (Vitamin D3) 25 Mcg Capsule, 25 MCG PO DAILY, (Reported) Entered as Reported by: RAMA PATEL on 10/12/20 1352 Furosemide (Furosemide) 20 Mg Tablet, 20 MG PO DAILY, (Reported) Entered as Reported by: RAMA PATEL on 10/12/20 1352 Metoprolol Tartrate (Metoprolol Tartrate) 25 Mg Tablet, 25 MG PO BID, (Reported) Entered as Reported by: JUDY HARRY on 08/17/20 1437 Potassium Chloride (Potassium Chloride) 20 Meq Tablet.er, 20 MEQ PO DAILY, (Re ported) Entered as Reported by: JUDY HARRY on 01/26/21 1103 Rosuvastatin Calcium (Rosuvastatin Calcium) 10 Mg Tablet, 10 MG PO HS, (Reported) Entered as Reported by: JUDY HARRY on 08/17/20 1437 Review of Systems Review of Systems Constitutional: No chills, No diaphoresis EENTM: No Blurred Vision Respiratory: Denies Cough; Shortness of Air, SOA at Rest Cardiovascular: Denies Chest Pain; Irregular Heart Rate; Denies Lightheadedness, Denies Palpitations, Denies Syncope Gastrointestinal: Denies Constipated, Denies Diarrhea, Denies Nausea Genitourinary: Denies Burning, Denies Discharge Musculoskeletal: No back pain, No joint pain All Other Systems Reviewed Negative Unless Noted: Yes Past Efcamxw-Nehjkb-Kvyuzz Hx Patient Social History Tobacco Use?: No Substance use?: No Alcohol Use?: No Pt feels they are or have been: No Immunizations Up To Date Influenza Vaccine Up-to-Date: No; Not Current First/Initial COVID19 Vaccinat: JANUARY 2021 Second COVID19 Vaccination Marco Antonio: FEBRUARY 2021 COVID19 Vaccine Quilting Supervisor: MODERNSonal Seasonal Allergies Seasonal Allergies: No Past Medical History Surgeries: Yes (mitral value repaired 10/2013, angelique sx, ) Respiratory: No Cardiac: Yes (mitral valve tear repaired robotic, 10/2013) Atrial Fibrillation, Hypertension Neurological: No Genitourinary: No Gastrointestinal: No Musculoskeletal: Yes Arthritis Endocrine: No HEENT: Yes (dentures) Cancer: No Psychosocial: No Integumentary: No Blood Disorders: No Physical Exam Vital Signs Vital Signs - First Documented 07/25/21 18:40 Temp 36.5 Pulse 32 Resp 20 B/P (MAP) 158/72 (100) Pulse Ox 97 O2 Delivery Room Air Capillary Refill : Less Than 3 Seconds Height, Weight, BMI Height: 5'9.50" Weight: 180lbs. oz. 81.240886tb; 23.00 BMI Method: General Appearance: Chronically ill, Mild Distress HEENT: PERRL/EOMI, Pharynx Normal, Moist Mucous Membranes Neck: Full Range of Motion, Normal Inspection Respiratory: Chest Non Tender, Lungs Clear, Normal Breath Sounds, No Accessory Muscle Use, No Respiratory Distress Cardiovascular: Regular Rate, Rhythm, Bradycardia (30 bpm), Systolic Murmur Gastrointestinal: Non Tender, Soft Extremity: Normal Capillary Refill, Normal Inspection, Pedal Edema (Slight) Neurologic/Psychiatric: Alert, Oriented x3 Skin: Normal Color, Warm/Dry Progress/Results/Core Measures Results/Orders Lab Results Laboratory Tests Test 07/25/21 18:45 Range/Units White Blood Count 11.0 4.3-11.0 10^3/uL Red Blood Count 3.18 L 4.30-5.52 10^6/uL Hemoglobin 10.4 L 13.3-17.7 g/dL Hematocrit 34 L 40-54 % Mean Corpuscular Volume 106 H 80-99 fL Mean Corpuscular Hemoglobin 33 25-34 pg Mean Corpuscular Hemoglobin Concent 31 L 32-36 g/dL Red Cell Distribution Width 14.5 10.0-14.5 % Platelet Count 207 130-400 10^3/uL Mean Platelet Volume 10.5 9.0-12.2 fL Immature Granulocyte % (Auto) 1 % Neutrophils (%) (Auto) 63 42-75 % Lymphocytes (%) (Auto) 24 12-44 % Monocytes (%) (Auto) 10 0-12 % Eosinophils (%) (Auto) 2 0-10 % Basophils (%) (Auto) 1 0-10 % Neutrophils # (Auto) 6.9 1.8-7.8 10^3/uL Lymphocytes # (Auto) 2.6 1.0-4.0 10^3/uL Monocytes # (Auto) 1.1 H 0.0-1.0 10^3/uL Eosinophils # (Auto) 0.2 0.0-0.3 10^3/uL Basophils # (Auto) 0.1 0.0-0.1 10^3/uL Immature Granulocyte # (Auto) 0.1 0.0-0.1 10^3/uL Prothrombin Time 19.9 H 12.2-14.7 SEC INR Comment 1.7 H 0.8-1.4 Activated Partial Thromboplast Time 44 H 24-35 SEC Sodium Level 136 135-145 MMOL/L Potassium Level 5.5 H 3.6-5.0 MMOL/L Chloride Level 106 98-107 MMOL/L Carbon Dioxide Level 20 L 21-32 MMOL/L Anion Gap 10 5-14 MMOL/L Blood Urea Nitrogen 41 H 7-18 MG/DL Creatinine 2.59 H 0.60-1.30 MG/DL Estimat Glomerular Filtration Rate 24 BUN/Creatinine Ratio 16 Glucose Level 117 H 70-105 MG/DL Calcium Level 9.6 8.5-10.1 MG/DL Corrected Calcium 9.4 8.5-10.1 MG/DL Magnesium Level 1.9 1.6-2.4 MG/DL Total Bilirubin 2.1 H 0.1-1.0 MG/DL Aspartate Amino Transf (AST/SGOT) 60 H 5-34 U/L Alanine Aminotransferase (ALT/SGPT) 40 0-55 U/L Alkaline Phosphatase 123 40-136 U/L Myoglobin 81.8 10.0-92.0 NG/ML Troponin I 0.050 H <0.028 NG/ML B-Type Natriuretic Peptide 2947.4 H <100.0 PG/ML Total Protein 6.8 6.4-8.2 GM/DL Albumin 4.3 3.2-4.5 GM/DL My Orders Orders - ZAIN MALONE Aspirin Chewable Tablet (Baby Aspirin Ch (07/25/21 18:45) Cbc With Automated Diff (07/25/21 18:45) Magnesium (07/25/21 18:45) Chest 1 View, Ap/Pa Only (07/25/21 18:45) Ekg Tracing (07/25/21 18:45) Comprehensive Metabolic Panel (07/25/21 18:45) Myoglobin Serum (07/25/21 18:45) Protime With Inr (07/25/21 18:45) Partial Thromboplastin Time (07/25/21 18:45) O2 (07/25/21 18:45) Monitor-Rhythm Ecg Trace Only (07/25/21 18:45) Lipid Panel (07/26/21 06:00) Ed Iv/Invasive Line Start (07/25/21 18:45) BNP (07/25/21 18:45) Troponin I (07/25/21 18:45) Aspirin Chewable Tablet (Baby Aspirin Ch (07/25/21 18:46) Furosemide Injection (Lasix Injection) (07/25/21 19:45) Medications Given in ED Current Medications Medications Dose Ordered Sig/Moose Route Start Time Stop Time Status Last Admin Dose Admin Aspirin 324 mg ONCE ONCE PO 07/25/21 18:45 07/25/21 18:47 DC 07/25/21 18:48 324 MG Vital Signs/I&O 07/25/21 18:40 Temp 36.5 Pulse 32 Resp 20 B/P (MAP) 158/72 (100) Pulse Ox 97 O2 Delivery Room Air Blood Pressure Mean: 100 Progress Progress Note : Time: 19:15 Progress Note 324 mg aspirin chew and swallow. Possibility of a silent CO the took out his pacemaker versus iatrogenic from beta-blockers and amiodarone versus heart failure related to his kidney failure and history of heart failure and valvular disease. BNP ordered. We have discussed an observation with consultation to cardiology with the patient and he is okay with this plan if would not discover anything eminently pressing. Initial ECG Impression Date: Jul 25, 2021 Initial ECG Impression Time: 18:39 Initial ECG Rate: 35 Initial ECG Rhythm: S.Anurag Initial ECG Intervals: WY (249) Initial ECG Impression: Normal, Nonspecific Changes Initial ECG Comparisson: Changed Comment Sinus bradycardia with prolonged [place] interval. Diagnostic Imaging Diagonstic Imaging: Xray Plain Films/CT/US/NM/MRI: chest Comments [facility] [place] NAME: MAGO [facility]S [facility] REC#: [id number] PT STATUS: REG ER : 1935 PHYSICIAN: ZAIN MALONE MD ADMIT DATE: 07/25/21/ER Signed Date of Exam:07/25/21 CHEST 1 VIEW, AP/PA ONLY INDICATION: Shortness of breath and bradycardia. COMPARISON is made with a prior study from February 132020. FINDINGS: There are chronic interstitial changes present within the lungs as demonstrated on the previous examination. There is prior diaphragmatic flattening. The prominence of the basilar interstitial markings on today's examination slightly increased with some minimal blunting of the costophrenic angles. The findings suggest some possible mild interstitial edema and trace effusions. There is no dense alveolar consolidation or evidence of a pneumothorax. Enlargement of the cardiac silhouette is unchanged. There has been prior mitral valve annuloplasty. IMPRESSION: Enlarged cardiac silhouette with prior mitral valve repair. There is increased prominence of the basilar interstitial markings and new blunting of the costophrenic angles compared to the previous exam which suggests mild interstitial edema and possible trace effusions. No dense alveolar consolidation or air bronchograms evident. Dictated by: Dictated on workstation # [id number] Dict: 07/25/211915 Trans: 07/25/211932 [facility] [id number] Interpreted by: ROBINSON MACE MD Electronically signed by: ROBINSON MACE MD 07/25/211932 Reviewed: Reviewed by Me Departure Communication (Admissions) Time/Spoke to Admitting Phy: 19:55 Discussed the case, lab results and treatment plan with Dr. Reich and he agrees with consultation with cardiology. Time/Spoke to Consulting Phy: 19:45 Discussed the case with Dr. Baugh and he agrees with Lasix 40 twice daily and will consult on the case. Impression Primary Impression: Acute on chronic diastolic (congestive) heart failure Additional Impression: Symptomatic sinus bradycardia Disposition: ADMITTED INPATIENT Condition: Stable Admissions Decision to Admit Reason: Admit from ER (General) Decision to Admit/Date: Jul 25, 2021 Time/Decision to Admit Time: 19:42 Departure-Patient Inst. Referrals: ROBERT REICH MD (PCP/Family) Primary Care Physician ZAIN MALONE Jul 25, 2021 19:14
--- NOTE | 2021-07-25 19:30 | Diagnostic Imaging Report ---
INDICATION: Shortness of breath and bradycardia. COMPARISON is made with a prior study from February 132020. FINDINGS: There are chronic interstitial changes present within the lungs as demonstrated on the previous examination. There is prior diaphragmatic flattening. The prominence of the basilar interstitial markings on today's examination slightly increased with some minimal blunting of the costophrenic angles. The findings suggest some possible mild interstitial edema and trace effusions. There is no dense alveolar consolidation or evidence of a pneumothorax. Enlargement of the cardiac silhouette is unchanged. There has been prior mitral valve annuloplasty. IMPRESSION: Enlarged cardiac silhouette with prior mitral valve repair. There is increased prominence of the basilar interstitial markings and new blunting of the costophrenic angles compared to the previous exam which suggests mild interstitial edema and possible trace effusions. No dense alveolar consolidation or air bronchograms evident. Dictated by: Dictated on workstation # [id number]
[2021-07-25] MEDS ORDERED: FUROSEMIDE 40 MG/4 ML INJ (LASIX) IVP ONE (19:45)
[2021-07-25] MEDS: ROSUVASTATIN 10 MG (CRESTOR) TABLET PO SCH (21:37)
[2021-07-25] MEDS: APIXABAN 2.5 MG (ELIQUIS) TABLET PO SCH (21:37)
[2021-07-25] MEDS ORDERED: ACETAMINOPHEN 325 MG TABLET ONE (21:40)
[2021-07-25] MEDS ORDERED: CATHETER FLUSH 10 ML SYR IV PRN (21:45)
[2021-07-25] MEDS ORDERED: ACETAMINOPHEN 325 MG TABLET PO PRN (21:45)
[2021-07-25] MEDS: CATHETER FLUSH 10 ML SYR IV SCH (22:13)
[2021-07-26 04:11] VITALS: BP 129/66
[2021-07-26 05:22] LABS: BASOPHILS # (AUTO) 0.1 10^3/uL (0.0-0.1); BASOPHILS % (AUTO) 1 % (0-10); EOSINOPHILS # (AUTO) 0.3 10^3/uL (0.0-0.3); EOSINOPHILS % (AUTO) 3 % (0-10); HEMATOCRIT 30 % (40-54); HEMOGLOBIN 9.7 g/dL (13.3-17.7); LYMPHOCYTES # (AUTO) 2.5 10^3/uL (1.0-4.0); LYMPHOCYTES % (AUTO) 30 % (12-44); MEAN CORPUSCULAR HEMOGLOBIN 33 pg (25-34); MEAN CORPUSCULAR HGB CONC 32 g/dL (32-36); MEAN CORPUSCULAR VOLUME 103 fL (80-99); MEAN PLATELET VOLUME 10.2 fL (9.0-12.2); MONOCYTES # (AUTO) 0.8 10^3/uL (0.0-1.0); MONOCYTES % (AUTO) 9 % (0-12); NEUTROPHILS # (AUTO) 4.8 10^3/uL (1.8-7.8); NEUTROPHILS % (AUTO) 57 % (42-75); PLATELET COUNT 169 10^3/uL (130-400); WHITE BLOOD COUNT 8.4 10^3/uL (4.3-11.0)
[2021-07-26] MEDS: CATHETER FLUSH 10 ML SYR IV SCH ×3 (05:26→21:09)
[2021-07-26 05:41] LABS: POTASSIUM 4.2 MMOL/L (3.6-5.0)
[2021-07-26 05:42] LABS: CALCIUM 9.2 MG/DL (8.5-10.1)
[2021-07-26 05:46] LABS: CREATININE SERUM 2.48 MG/DL (0.60-1.30)
--- NOTE | 2021-07-26 06:57 | Diagnostic Imaging Report ---
INDICATION: Heart failure Upright portable chest shows cardiomegaly with no failure. The lungs are clear. There is no effusion or pneumothorax. IMPRESSION: There is cardiomegaly with no failure. The vascularity is decreased slightly since the 07/25/2021 study. Dictated by: Dictated on workstation # [id number]
[2021-07-26] MEDS ORDERED: FLU QUAD HIGH DOSE 240 MCG/0.7 ML 2021-22 (FLUZONE) IM ONE (07:15)
[2021-07-26 07:45] VITALS: BP 132/68
[2021-07-26] MEDS: FUROSEMIDE 40 MG/4 ML INJ (LASIX) IV SCH ×2 (08:31→15:52)
[2021-07-26] MEDS: APIXABAN 2.5 MG (ELIQUIS) TABLET PO SCH ×2 (08:31→21:09)
--- NOTE | 2021-07-26 10:13 | History & Physical ---
History of Present Illness History of Present Illness Reason for visit/HPI 86 yo M admitted for acute on chronic kidney failure, acute on chronic diastolic heart failure, and bradycardia. Patient came to ER because of low pulse rate. He was restarted on metoprolol. He has had weakness, shortness of breath that has been going on for about a month or so. He is taking 2.5mg eliquis BID for history of atrial fibrillation. I had him hold his lasix 2 weeks ago and use as needed for increased swelling in his legs. BNP >2000. Cr elevated. eGFR 20s. He has not been able to sleep well since having COVID October 2020. He feels like this has made his fatigue and shortness of breath with exertion worse. He has tried OTC medications including melatonin to no avail. He tried ambien 5mg a couple times recently but it did not help actually just made him loopy, goofy, weird acting. Patient this am reports feeling much better- urinating alot. He would like to see how he does when he gets up to walk and see if his shortness of breath occurs. Date of Admission Jul 25, 2021 at 20:00 Date Seen by a Provider: Jul 26, 2021 Time Seen by a Provider: 09:00 I consulted on this patient on 07/26/21 10:06 Attending Physician Robert Reich MD Admitting Physician Robert Reich MD Consult Allergies and Home Medications Allergies Coded Allergies: Penicillins (Verified Allergy, Mild, RASH, 09/07/14) Patient Home Medication List Home Medication List Reviewed: Yes Amiodarone HCl (Amiodarone HCl) 200 Mg Tablet, 100 MG PO DAILY Prescribed by: ROBERT REICH on 07/27/21 1252 Amlodipine Besylate (Amlodipine Besylate) 5 Mg Tablet, 5 MG PO DAILY Prescribed by: ROBERT REICH on 07/27/21 1252 Apixaban (Eliquis) 5 Mg Tablet, 2.5 MG PO BID, (Reported) Entered as Reported by: RAMA PATEL on 07/26/21 1109 Last Action: Held Cholecalciferol (Vitamin D3) (Vitamin D3) 25 Mcg Capsule, 25 MCG PO DAILY, (Reported) Entered as Reported by: RAMA PATEL on 10/12/20 1352 Last Action: Held Furosemide (Furosemide) 20 Mg Tablet, 20 MG PO DAILY, (Reported) Entered as Reported by: RAMA PATEL on 10/12/20 1352 Last Action: Held Potassium Chloride (Potassium Chloride) 20 Meq Tab.er.prt, 20 MEQ PO DAILY, (Reported) Entered as Reported by: RAMA PATEL on 07/26/211108 Last Action: Held Rosuvastatin Calcium (Rosuvastatin Calcium) 10 Mg Tablet, 10 MG PO DAILY, (Reported) Entered as Reported by: JUDY HARRY on 08/17/20 143 Last Action: Held Discontinued Medications Amiodarone HCl (Pacerone) 200 Mg Tablet, 200 MG PO DAILY, (Reported) Entered as Reported by: RAMA PATEL on 07/26/211108 Last Action: Held Apixaban (Eliquis) 2.5 Mg Tablet, 2.5 MG PO BID, (Reported) Discontinued Reason: Duplicate Order Entered as Reported by: JUDY HARRY on 01/26/211102 Last Action: Discontinued Ascorbate Calcium (Vitamin C) 500 Mg Tablet, 500 MG PO DAILY, (Reported) Discontinued Reason: No Longer Taking Entered as Reported by: RAMA PATEL on 10/12/20 135 Last Action: Discontinued Metoprolol Tartrate (Metoprolol Tartrate) 25 Mg Tablet, 25 MG PO BID, (Reported) Entered as Reported by: JUDY HARRY on 08/17/201436 Last Action: Held Potassium Chloride (Potassium Chloride) 20 Meq Tablet.er, 20 MEQ PO DAILY, ( Reported) Discontinued Reason: Duplicate Order Entered as Reported by: JUDY HARRY on 01/26/211102 Last Action: Discontinued Past Utpoyiv-Nascxh-Oghequ Hx Patient Social History Tobacco Use?: No Substance use?: No Alcohol Use?: No Pt feels they are or have been: No Immunizations Up To Date Date of Influenza Vaccine: Aug 08, 2020 First/Initial COVID19 Vaccinat: JANUARY 2021 Second COVID19 Vaccination Marco Antonio: FEBRUARY 2021 Tetanus Booster (TDap): Unknown Date of Pneumonia Vaccine: Jul 11, 2020 Seasonal Allergies Seasonal Allergies: No Current Status Communicates: Verbally Primary Language: Surinamese Preferred Spoken Language: Surinamese Is interpretation needed?: No Implanted or Applied Medical D: Heart mechanical device Past Medical History Atrial Fibrillation, Hypertension Arthritis Blood Disorders: No Review of Systems Review of Systems General: No Chills, No Night Sweats HEENT: No Head Aches, No Visual Changes Pulmonary: Dyspnea; No Cough Cardiovascular: No: Chest Pain, Palpitations Gastrointestinal: No: Nausea, Vomiting, Abdominal Pain Genitourinary: No Dysuria Musculoskeletal: back pain; No: neck pain Neurological: Weakness All Other Systems Reviewed All Other Systems Reviewed: Yes Physical Exam Vital Signs Vital Signs - First Documented 07/27/21 00:00 Temp 36.9 Pulse 54 Resp 22 B/P (MAP) 132/68 (89) Pulse Ox 98 O2 Delivery Room Air Capillary Refill : Less Than 3 Seconds Height, Weight, BMI Height: 5'9.50" Weight: 180lbs. oz. [id number]; 24.09 BMI Method: General Appearance: No Apparent Distress HEENT: PERRL/EOMI Neck: Normal Inspection, Non Tender, Supple Respiratory: Chest Non Tender, Lungs Clear, Normal Breath Sounds Cardiovascular: Other (trace edema in legs.) Gastrointestinal: Non Tender, Soft Rectal: Deferred Extremity: Normal Range of Motion, Non Tender, No Calf Tenderness Neurologic/Psychiatric: Alert, Oriented x3 Skin: Warm/Dry Assessment/Plan Assessment/Plan Admission Dx acute diastolic CHF acute on chronic renal failure Admission Status: Inpatient Order (span 2 midnights) Reason for Inpatient Admission: acute diastolic CHF acute on chronic renal failure He will require over 2 midnights to improve his congestive heart failure and renal failure enough to safely return home. Assessment and Plan - recommend stopping Eliquis as it is likely culprit in his anemia (slow gi trickle)- which with a hemoglobin of 9 his heart is having to work harder. -I did discuss stopping the eliquis with the patient and he did not give an answer - so we will let cardiology weigh in. -will order PT to assess his weakness/gait and likelihood he returns home in the next couple days. -continue diuresiing with lasix- monitor Cr trend and electrolytes. -echocardiogram ordered but cancelled because Dr. Roberts did one recently. -keep nephrology appt Saturday07/31/21. Dispo: plan to d/c to home in the next couple days if his kidneys and heart failure improve. Problems: (1) CKD (chronic kidney disease), stage IV (2) Paroxysmal A-fib (3) Acute on chronic kidney failure (4) Symptomatic sinus bradycardia (5) Acute on chronic diastolic (congestive) heart failure Clinical Quality Measures AMI/AHF: ASA po Prior to arrival: ROBERT Raymond MD Jul 26, 2021 10:13
[2021-07-26] MEDS: KCL 20 MEQ TAB (K-DUR) PO SCH (10:53)
[2021-07-26] MEDS ORDERED: APIX5TAB PO (11:09)
[2021-07-26] MEDS ORDERED: POTA20TA15 PO (11:09)
[2021-07-26] MEDS ORDERED: AMIO200T50 PO (11:09)
[2021-07-26 11:30] VITALS: BP 136/73
--- NOTE | 2021-07-26 15:28 | Physical Therapy Progress Note ---
Therapy Progress Note PT evaluation order received, attempted PT eval. Patient walking around the room sans Assistive device upon PT arrival. Reports he has been walking around the room without any physical help or assistive device. Patient able to safely pick object off the floor, get into and out of bed and go to the bathroom without any assistance. Patient I with all bed mobility, transfers, gait and ADLs. No PT needed at this time. Due to patients report of weakness from kendall HODGE in October 2020, patient may benefit from outpatient PT to improve overall function and strength. RICO FOSTER PT Jul 26, 2021 15:27
--- NOTE | 2021-07-26 15:53 | Consultation-Cardiology ---
HPI-Cardiology Cardiology Consultation: Date of Consultation 07/26/2021 Date of Admission 07/25/2021 Attending Physician Robert Ahumada MD Admitting Physician Robert Ahumada MD Consulting Physician ARLETTE ESPINOZA JR, MD HPI: Time Seen by a Provider: 15:53 Chief Complaint: Reason for consultation: Heart failure, acute, diastolic. I had the pleasure of seeing Oneil on a cardiac stepdown unit at [facility] in [place], [place] this afternoon. He has a history of paroxysmal atrial fibrillation, mild regurgitation status post robotic repair around 2013, hypertension, and hyperlipidemia. He had Covid earlier this year. Ever since having Covid, he feels as though his breathing has never completely recovered from the infection. Yesterday he noticed that his heart rate was going in the 30s and he was also somewhat dizzy and unsteady on his feet. He became concerned and came to the hospital for further evaluation. He was evaluated in the emergency room and felt to be in heart failure and was admitted for further treatment and evaluation. He has received 2 doses of intravenous Lasix and is breathing is starting to feel better but not completely back to normal. He denies chest discomfort, paroxysmal nocturnal dyspnea, apnea, palpitations, syncope, or ankle edema. Ever since he has Covid, he had also been having insomnia and he feels like this is contributing to his fatigue. Certain portions of this document may have been dictated utilizing voice recog nition technology. Inherent to this technology, typographical and grammatical errors may exist. As much as I am diligent to identify and correct these mistakes, some errors may remain in the document. Review of Systems-Cardiology Review of Systems Other comments Review of 10 organ systems is as per the history of present illness, otherwise negative. All Other Systems Reviewed Negative Unless Noted: Yes RGO-Ftarfd-Mvcchr Hx Patient Social History Marrital Status: 2nd Hand Smoke Exposure: No Have you traveled recently?: No Alcohol Use?: No Pt feels they are or have been: No Immunizations Up To Date Date of Pneumonia Vaccine: Jul 11, 2020 Date of Influenza Vaccine: Aug 08, 2020 Past Medical History PMH As described under Assessment. Family Medical History Family Medical History: He reports he had a brother who passed from an SC at age 65. He reports his father had CAD. Allergies and Home Medications Allergies Coded Allergies: Penicillins (Verified Allergy, Mild, RASH, 09/07/14) Patient Home Medication List Home Medication List Reviewed: Yes Amiodarone HCl (Pacerone) 200 Mg Tablet, 200 MG PO DAILY, (Reported) Entered as Reported by: RAMA PATEL on 07/26/211108 Last Action: Held Apixaban (Eliquis) 5 Mg Tablet, 2.5 MG PO BID, (Reported) Entered as Reported by: RAMA PATEL on 07/26/211108 Last Action: Held Cholecalciferol (Vitamin D3) (Vitamin D3) 25 Mcg Capsule, 25 MCG PO DAILY, (Reported) Entered as Reported by: RAMA PATEL on 10/12/201351 Last Action: Held Furosemide (Furosemide) 20 Mg Tablet, 20 MG PO DAILY, (Reported) Entered as Reported by: RAMA PTAEL on 10/12/201351 Last Action: Held Metoprolol Tartrate (Metoprolol Tartrate) 25 Mg Tablet, 25 MG PO BID, (Reported) Entered as Reported by: JUDY HARRY on 08/17/201436 Last Action: Held Potassium Chloride (Potassium Chloride) 20 Meq Tab.er.prt, 20 MEQ PO DAILY, (Reported) Entered as Reported by: RAMA PATEL on 07/26/211108 Last Action: Held Rosuvastatin Calcium (Rosuvastatin Calcium) 10 Mg Tablet, 10 MG PO DAILY, (Reported) Entered as Reported by: JUDY HARRY on 08/17/201436 Last Action: Held Discontinued Medications Apixaban (Eliquis) 2.5 Mg Tablet, 2.5 MG PO BID, (Reported) Discontinued Reason: Duplicate Order Entered as Reported by: JUDY HARRY on 01/26/211102 Last Action: Discontinued Ascorbate Calcium (Vitamin C) 500 Mg Tablet, 500 MG PO DAILY, (Reported) Discontinued Reason: No Longer Taking Entered as Reported by: RAMA PATEL on 10/12/201351 Last Action: Discontinued Potassium Chloride (Potassium Chloride) 20 Meq Tablet.er, 20 MEQ PO DAILY, (Reported) Discontinued Reason: Duplicate Order Entered as Reported by: JUDY HARRY on 01/26/211102 Last Action: Discontinued Exam Vital Signs Vital Signs Date Time Temp Pulse Resp B/P (MAP) Pulse Ox O2 Delivery O2 Flow Rate FiO2 07/26/21 15:56 36.5 59 18 136/73 (94) 95 Room Air 07/25/21 23:30 2.00 Physical Exam General: Alert. No acute distress. Well nourished and appears stated age. Eye: Extraocular movements are intact. Conjunctivae are clear. There are no xanthelasma. HENT: Normocephalic. Atraumatic. Carotid pulsations 2/2 without bruits. Neck: Jugular venous pressure does not appear elevated. No thyromegaly appreciated. Respiratory: Lungs are clear to auscultation. Respirations are non-labored. Breath sounds are equal. Symmetrical chest wall expansion. Cardiovascular: Normal rate. Regular rhythm. No murmur. No gallop. Point of maximal impulse is not appear displaced. Good pulses equal in all extremities. No edema. Gastrointestinal: Soft. Normal bowel sounds. Skin: Skin turgor is normal. There is no pallor. Musculoskeletal: No kyphosis or scoliosis appreciated. Neurologic: Alert and oriented to person, place, time. Cranial nerves 3-12 appear grossly intact. The patient has good motor tone strength in the upper and lower extremities bilaterally. Psychiatric: Cooperative. Appropriate mood & affect. Labs Laboratory Tests Test 07/25/21 18:45 07/25/21 23:59 07/26/21 05:14 Range/Units White Blood Count 11.0 8.4 4.3-11.0 10^3/uL Red Blood Count 3.18 L 2.91 L 4.30-5.52 10^6/uL Hemoglobin 10.4 L 9.7 L 13.3-17.7 g/dL Hematocrit 34 L 30 L 40-54 % Mean Corpuscular Volume 106 H 103 H 80-99 fL Mean Corpuscular Hemoglobin 33 33 25-34 pg Mean Corpuscular Hemoglobin Concent 31 L 32 32-36 g/dL Red Cell Distribution Width 14.5 14.3 10.0-14.5 % Platelet Count 207 169 130-400 10^3/uL Mean Platelet Volume 10.5 10.2 9.0-12.2 fL Immature Granulocyte % (Auto) 1 1 % Neutrophils (%) (Auto) 63 57 42-75 % Lymphocytes (%) (Auto) 24 30 12-44 % Monocytes (%) (Auto) 10 9 0-12 % Eosinophils (%) (Auto) 2 3 0-10 % Basophils (%) (Auto) 1 1 0-10 % Neutrophils # (Auto) 6.9 4.8 1.8-7.8 10^3/uL Lymphocytes # (Auto) 2.6 2.5 1.0-4.0 10^3/uL Monocytes # (Auto) 1.1 H 0.8 0.0-1.0 10^3/uL Eosinophils # (Auto) 0.2 0.3 0.0-0.3 10^3/uL Basophils # (Auto) 0.1 0.1 0.0-0.1 10^3/uL Immature Granulocyte # (Auto) 0.1 0.0 0.0-0.1 10^3/uL Prothrombin Time 19.9 H 12.2-14.7 SEC INR Comment 1.7 H 0.8-1.4 Activated Partial Thromboplast Time 44 H 24-35 SEC Sodium Level 136 136 135-145 MMOL/L Potassium Level 5.5 H 4.2 3.6-5.0 MMOL/L Chloride Level 106 106 98-107 MMOL/L Carbon Dioxide Level 20 L 17 L 21-32 MMOL/L Anion Gap 10 13 5-14 MMOL/L Blood Urea Nitrogen 41 H 41 H 7-18 MG/DL Creatinine 2.59 H 2.48 H 0.60-1.30 MG/DL Estimat Glomerular Filtration Rate 24 25 BUN/Creatinine Ratio 16 17 Glucose Level 117 H 122 H 70-105 MG/DL Calcium Level 9.6 9.2 8.5-10.1 MG/DL Corrected Calcium 9.4 8.5-10.1 MG/DL Magnesium Level 1.9 1.6-2.4 MG/DL Total Bilirubin 2.1 H 0.1-1.0 MG/DL Aspartate Amino Transf (AST/SGOT) 60 H 5-34 U/L Alanine Aminotransferase (ALT/SGPT) 40 0-55 U/L Alkaline Phosphatase 123 40-136 U/L Myoglobin 81.8 10.0-92.0 NG/ML Troponin I 0.050 H 0.049 H 0.050 H <0.028 NG/ML B-Type Natriuretic Peptide 2947.4 H <100.0 PG/ML Total Protein 6.8 6.4-8.2 GM/DL Albumin 4.3 3.2-4.5 GM/DL Triglycerides Level 55 <150 MG/DL Cholesterol Level 93 < 200 MG/DL LDL Cholesterol Direct 32 1-129 MG/DL VLDL Cholesterol 11 5-40 MG/DL HDL Cholesterol 49 40-60 MG/DL Diagnosis/Problems Diagnosis/Problems (1) Acute diastolic congestive heart failure Status: Acute Assessment & Plan: He appeared to be having shortness of breath and his BNP was elevated and also had evidence of pulmonary congestion on his chest x-ray. His breathing is improving with intravenous Lasix. We will need to watch his renal function closely. From what he tells me, this is his first diagnosis of heart failure. (2) Paroxysmal atrial fibrillation Assessment & Plan: He is on Eliquis for stroke prophylaxis. He is on the lower dose due to age over 79 and creatinine above 1.5. He is on beta-mars for rate control and amiodarone for rhythm management. His amiodarone is currently on hold. This may need to be resumed at some point in the future. If we do resume the amiodarone, I would suggest decreasing the dose to 100 mg daily to help reduce the risk of long-term side effects. (3) Mitral regurgitation Assessment & Plan: He had a recent echocardiogram showing normal left ventricular function with mild to moderate mitral regurgitation. This should not be causing symptoms but will need to be followed longitudinally. (4) Troponin level elevated Assessment & Plan: His troponin levels are elevated but flat. I suspect this is related to his stage IV chronic kidney disease and does not represent an acute myocardial infarction. (5) Primary hypertension Assessment & Plan: His blood pressure is reasonably well controlled with present medications. (6) Mixed hyperlipidemia Assessment & Plan: Continue statin medication. ARLETTE ESPINOZA JR, MD Jul 26, 2021 15:53
[2021-07-26 15:56] VITALS: BP 136/73
[2021-07-26 20:00] VITALS: BP 146/88
[2021-07-26] MEDS ORDERED: KCL 20 MEQ TAB (K-DUR) PO SCH (21:00)
[2021-07-26] MEDS: ROSUVASTATIN 10 MG (CRESTOR) TABLET PO SCH (21:09)
[2021-07-27] VITALS: BP 132/68
[2021-07-27 04:00] VITALS: BP 152/76
[2021-07-27 04:46] LABS: BASOPHILS # (AUTO) 0.1 10^3/uL (0.0-0.1); BASOPHILS % (AUTO) 1 % (0-10); EOSINOPHILS # (AUTO) 0.5 10^3/uL (0.0-0.3); EOSINOPHILS % (AUTO) 5 % (0-10); HEMATOCRIT 33 % (40-54); HEMOGLOBIN 10.8 g/dL (13.3-17.7); LYMPHOCYTES # (AUTO) 2.7 10^3/uL (1.0-4.0); LYMPHOCYTES % (AUTO) 29 % (12-44); MEAN CORPUSCULAR HEMOGLOBIN 33 pg (25-34); MEAN CORPUSCULAR HGB CONC 32 g/dL (32-36); MEAN CORPUSCULAR VOLUME 103 fL (80-99); MEAN PLATELET VOLUME 10.7 fL (9.0-12.2); MONOCYTES # (AUTO) 0.8 10^3/uL (0.0-1.0); MONOCYTES % (AUTO) 9 % (0-12); NEUTROPHILS # (AUTO) 5.1 10^3/uL (1.8-7.8); NEUTROPHILS % (AUTO) 56 % (42-75); PLATELET COUNT 198 10^3/uL (130-400); WHITE BLOOD COUNT 9.1 10^3/uL (4.3-11.0)
[2021-07-27 04:58] LABS: POTASSIUM 4.1 MMOL/L (3.6-5.0)
[2021-07-27 04:59] LABS: CALCIUM 9.1 MG/DL (8.5-10.1)
[2021-07-27 05:03] LABS: CREATININE SERUM 2.53 MG/DL (0.60-1.30)
[2021-07-27] MEDS: CATHETER FLUSH 10 ML SYR IV SCH (06:21)
[2021-07-27 08:00] VITALS: BP 143/85
[2021-07-27] MEDS: APIXABAN 2.5 MG (ELIQUIS) TABLET PO SCH (08:04)
[2021-07-27] MEDS: KCL 20 MEQ TAB (K-DUR) PO SCH (08:04)
[2021-07-27] MEDS: FUROSEMIDE 40 MG/4 ML INJ (LASIX) IV SCH (08:04)
[2021-07-27] MEDS ORDERED: AMIODARONE 200 MG (CORDARONE) TAB PO SCH (11:15)
[2021-07-27] MEDS ORDERED: amLODIPine 5 MG (NORVASC) TAB PO NR (11:20)
--- NOTE | 2021-07-27 11:24 | Cardiology Progress Note ---
Progress Note-Cardiology Events since last exam Date Seen by Provider: Jul 27, 2021 Time Seen by Provider: 11:19 Events since last exam I am following him due to heart failure and atrial fibrillation. He denies chest discomfort, dyspnea, palpitations, syncope, or ankle edema. The main reason he came in is because he noticed his heart rate was in the 30s but he seemed to be asymptomatic with this. He has had ongoing fatigue ever since having Covid infection in the first part of this year. He would like to go home today. Certain portions of this document may have been dictated utilizing voice recognition technology. Inherent to this technology, typographical and grammatical errors may exist. As much as I am diligent to identify and correct these mistakes, some errors may remain in the document. Vitals Last set of Vitals Signs Vital Signs 07/25/21 23:30 O2 Flow Rate 2.00 Labs Labs Laboratory Tests 07/27/21 04:33 Exam Vital Signs Vital Signs Date Time Temp Pulse Resp B/P (MAP) Pulse Ox O2 Delivery O2 Flow Rate FiO2 07/27/21 08:00 37.0 60 18 143/85 (104) 97 Room Air 07/25/21 23:30 2.00 Physical Exam General: Alert. No acute distress. Eye: No xanthelasma. HENT: Normocephalic. Neck: Jugular venous pressure does not appear elevated. Respiratory: Lungs are clear to auscultation. Respirations are non-labored. Breath sounds are equal. Symmetrical chest wall expansion. Cardiovascular: Normal rate. Regular rhythm. No murmur. No gallop. No edema. Gastrointestinal: Soft. Normal bowel sounds. Skin: Warm. Dry. Neurologic: Alert and oriented to person, place, time. Cranial nerves 3-11 grossly intact. Psychiatric: Cooperative. Appropriate mood & affect. Labs Laboratory Tests Test 07/27/21 04:33 Range/Units White Blood Count 9.1 4.3-11.0 10^3/uL Red Blood Count 3.26 L 4.30-5.52 10^6/uL Hemoglobin 10.8 L 13.3-17.7 g/dL Hematocrit 33 L 40-54 % Mean Corpuscular Volume 103 H 80-99 fL Mean Corpuscular Hemoglobin 33 25-34 pg Mean Corpuscular Hemoglobin Concent 32 32-36 g/dL Red Cell Distribution Width 14.2 10.0-14.5 % Platelet Count 198 130-400 10^3/uL Mean Platelet Volume 10.7 9.0-12.2 fL Immature Granulocyte % (Auto) 0 % Neutrophils (%) (Auto) 56 42-75 % Lymphocytes (%) (Auto) 29 12-44 % Monocytes (%) (Auto) 9 0-12 % Eosinophils (%) (Auto) 5 0-10 % Basophils (%) (Auto) 1 0-10 % Neutrophils # (Auto) 5.1 1.8-7.8 10^3/uL Lymphocytes # (Auto) 2.7 1.0-4.0 10^3/uL Monocytes # (Auto) 0.8 0.0-1.0 10^3/uL Eosinophils # (Auto) 0.5 H 0.0-0.3 10^3/uL Basophils # (Auto) 0.1 0.0-0.1 10^3/uL Immature Granulocyte # (Auto) 0.0 0.0-0.1 10^3/uL Sodium Level 140 135-145 MMOL/L Potassium Level 4.1 3.6-5.0 MMOL/L Chloride Level 106 98-107 MMOL/L Carbon Dioxide Level 19 L 21-32 MMOL/L Anion Gap 15 H 5-14 MMOL/L Blood Urea Nitrogen 42 H 7-18 MG/DL Creatinine 2.53 H 0.60-1.30 MG/DL Estimat Glomerular Filtration Rate 24 BUN/Creatinine Ratio 17 Glucose Level 83 70-105 MG/DL Calcium Level 9.1 8.5-10.1 MG/DL Diagnosis/Problems Diagnosis/Problems (1) Acute diastolic congestive heart failure Status: Acute Assessment & Plan: He appeared to be having shortness of breath and his BNP was elevated and also had evidence of pulmonary congestion on his chest x-ray. He denies any previous history of heart failure. His breathing is improving with intravenous Lasix. At this point, I would recommend stopping the intravenous Lasix and he is probably ready to discharged home. I would be hesitant to send him home with oral Lasix due to his poor renal function. He will be seeing a braider tender next week and we can wait and see what is their opinion. He is scheduled to see his regular felting machine operator, Dr. Roberts, in the near future. (2) Paroxysmal atrial fibrillation Assessment & Plan: He is on Eliquis for stroke prophylaxis. He is on the lower dose due to age over 79 and creatinine above 1.5. His beta-mars was held due to bradycardia. For the same reason, the amiodarone was held. For the most p art, he seems to be remaining in sinus rhythm here in the hospital but I did see some atrial fibrillation on his telemetry when I was speaking with him yesterday. I recommend we resume amiodarone but at a lower dose of 100 mg daily. This will help reduce the risk of potential long-term serious side effects. (3) Mitral regurgitation Assessment & Plan: He had a recent echocardiogram showing normal left ventricular function with mild to moderate mitral regurgitation. He had a previous mitral valve repair. This should not be causing symptoms but will need to be followed longitudinally. (4) Anemia Assessment & Plan: He has mild anemia but his hemoglobin has been essentially stable here in the hospital. This is not necessarily a contraindication to continue apixaban. However, this may need further evaluation as an outpatient. His primary provider is aware of the anemia. (5) Troponin level elevated Assessment & Plan: His troponin levels are elevated but flat. I suspect this is related to his stage IV chronic kidney disease and does not represent an ac nakul myocardial infarction. (6) Primary hypertension Assessment & Plan: His antihypertensive medications were held due to bradycardia and worsening renal function. I would suggest we start him on amlodipine 5 mg once a day with the first dose now. I would not resume metoprolol or he may have recurrent bradycardia. I would not resume losartan until he sees a braider tender next week. (7) Mixed hyperlipidemia Assessment & Plan: Continue statin medication. ARLETTE ESPINOZA JR, MD Jul 27, 2021 11:24
[2021-07-27 12:11] VITALS: BP 133/66
[2021-07-27] MEDS ORDERED: AMIO200T6 PO (12:52)
[2021-07-27] MEDS ORDERED: AMLO-250 PO (12:52)
--- NOTE | 2021-07-27 12:56 | Discharge Summary ---
Discharge Summary Hospital Course Problems/Dx: (1) Acute diastolic congestive heart failure Status: Acute (2) Paroxysmal atrial fibrillation (3) Mitral regurgitation (4) Anemia (5) Troponin level elevated (6) Primary hypertension (7) Mixed hyperlipidemia Hospital Course Date of Admission: Jul 25, 2021 at 20:00 Admission Diagnosis : (1) CKD (chronic kidney disease), stage IV (2) Paroxysmal A-fib (3) Acute on chronic kidney failure (4) Symptomatic sinus bradycardia (5) Acute on chronic diastolic (congestive) heart failure Family Physician/Provider: Robert Ahumada MD Date of Discharge: 07/27/21 Discharge Diagnosis: (1) CKD (chronic kidney disease), stage IV (2) Paroxysmal A-fib (3) Acute on chronic kidney failure (4) Symptomatic sinus bradycardia (5) Acute on chronic diastolic (congestive) heart failure Hospital Course: 86 yo M admitted for acute on chronic kidney failure, acute on chronic diastolic heart failure, and bradycardia. Patient came to ER because of low pulse rate. He was restarted on metoprolol. He has had weakness, shortness of breath that has been going on for about a month or so. He is taking 2.5mg eliquis BID for history of atrial fibrillation. I had him hold his lasix 2 weeks ago and use as needed for increased swelling in his legs. BNP >2000. Cr elevated. eGFR 20s. He has not been able to sleep well since having COVID October 2020. He feels like this has made his fatigue and shortness of breath with exertion worse. He has tried OTC medications including melatonin to no avail. He tried ambien 5mg a couple times recently but it did not help actually just made him loopy, goofy, weird acting. Patient this am reports feeling much better- urinating alot. He would like to see how he does when he gets up to walk and see if his shortness of breath occurs. The following morning he felt better; he was up and walking in the hallway- not having much issues. Hgb was stable. Cr remained around 2.5 which is likely his new baseline. Discharged to home on low dose lasix. He will follow up with cardiology and establish care with nephrology next week. Labs and Pending Lab Test: Laboratory Tests 07/27/21 04:33: White Blood Count 9.1, Red Blood Count 3.26L, Hemoglobin 10.8L, Hematocrit 33L, Mean Corpuscular Volume 103H, Mean Corpuscular Hemoglobin 33, Mean Corpuscular Hemoglobin Concent 32, Red Cell Distribution Width 14.2, Platelet Count 198, Mean Platelet Volume 10.7, Immature Granulocyte % (Auto) 0, Neutrophils (%) (Auto) 56, Lymphocytes (%) (Auto) 29, Monocytes (%) (Auto) 9, Eosinophils (%) (Auto) 5, Basophils (%) (Auto) 1, Neutrophils # (Auto) 5.1, Lymphocytes # (Auto) 2.7, Monocytes # (Auto) 0.8, Eosinophils # (Auto) 0.5H, Basophils # (Auto) 0.1, Immature Granulocyte # (Auto) 0.0, Sodium Level 140, Potassium Level 4.1, Chloride Level 106, Carbon Dioxide Level 19L, Anion Gap 15H, Blood Urea Nitrogen 42H, Creatinine 2.53H, Estimat Glomerular Filtration Rate 24, BUN/Creatinine Ratio 17, Glucose Level 83, Calcium Level 9.1 Home Meds Active Reported Pacerone (Amiodarone HCl) 200 Mg Tablet 200 Mg PO DAILY Eliquis (Apixaban) 5 Mg Tablet 2.5 Mg PO BID TAKES OF A 5MG TAB Potassium Chloride 20 Meq Tab.er.prt 20 Meq PO DAILY Vitamin D3 (Cholecalciferol (Vitamin D3)) 25 Mcg Capsule 25 Mcg PO DAILY Furosemide 20 Mg Tablet 20 Mg PO DAILY Metoprolol Tartrate 25 Mg Tablet 25 Mg PO BID Rosuvastatin Calcium 10 Mg Tablet 10 Mg PO DAILY Assessment/Pt Instructions Keep your nephrology appointment next week. -things to address with nephrology and cardiology 1. continue furosemide or switch to bumex for diuresis regarding congestive heart failure. 2. Discuss discontinuing Eliquis as your hemoglobin has went down from 15 last year to 10. Cardiology wants to continue Eliquis; See what the nephrology thinks. 3. stop metoprolol. 4. Start amlodipine 5. stop amiodarone 200mg; start amiodarone 100mg. Discharge Planning: >30 minutes discharge planning Discharge Physical Examination Vital Signs Vital Signs Date Time Temp Pulse Resp B/P (MAP) Pulse Ox O2 Delivery O2 Flow Rate FiO2 07/27/21 12:11 37.0 57 18 133/66 (88) 97 Room Air 07/25/21 23:30 2.00 General Appearance: No Apparent Distress HEENT: PERRL/EOMI Respiratory: Lungs Clear, Normal Breath Sounds Cardiovascular: Regular Rate, Rhythm Gastrointestinal: Non Tender Skin: Normal Color, Warm/Dry Neurologic/Psychiatric: Alert, Oriented x3 Allergies: Coded Allergies: Penicillins (Verified Allergy, Mild, RASH, 09/07/14) Discharge Summary Date of Admission Jul 25, 2021 at 20:00 Date of Discharge Discharge Diagnosis (1) Acute diastolic congestive heart failure Status: Acute Assessment & Plan: He appeared to be having shortness of breath and his BNP was elevated and also had evidence of pulmonary congestion on his chest x-ray. He denies any previous history of heart failure. His breathing is improving with intravenous Lasix. At this point, I would recommend stopping the intravenous Lasix and he is probably ready to discharged home. I would be hesitant to send him home with oral Lasix due to his poor renal function. He will be seeing a [facility] tm[facility] developer next week and we can wait and see what is their opinion. He is scheduled to see his regular weight loss sales consultant, Dr. Roberts, in the near future. (2) Paroxysmal atrial fibrillation Assessment & Plan: He is on Eliquis for stroke prophylaxis. He is on the lower dose due to age over 80 and creatinine above 1.5. His beta-mars was held due to bradycardia. For the same reason, the amiodarone was held. For the most part, he seems to be remaining in sinus rhythm here in the hospital but I did see some atrial fibrillation on his telemetry when I was speaking with him yesterday. I recommend we resume amiodarone but at a lower dose of 100 mg daily. This will help reduce the risk of potential long-term serious side effects. (3) Mitral regurgitation Assessment & Plan: He had a recent echocardiogram showing normal left ventricular function with mild to moderate mitral regurgitation. He had a previous mitral valve repair. This should not be causing symptoms but will need to be followed longitudinally. (4) Anemia Assessment & Plan: He has mild anemia but his hemoglobin has been essentially stable here in the hospital. This is not necessarily a contraindication to continue apixaban. However, this may need further evaluation as an outpatient. His primary provider is aware of the anemia. (5) Troponin level elevated Assessment & Plan: His troponin levels are elevated but flat. I suspect this is related to his stage IV chronic kidney disease and does not represent an acute myocardial infarction. (6) Primary hypertension Assessment & Plan: His antihypertensive medications were held due to bradycardia and worsening renal function. I would suggest we start him on amlodipine 5 mg once a day with the first dose now. I would not resume metoprolol or he may have recurrent bradycardia. I would not resume losartan until he sees a [facility] tm[facility] developer next week. (7) Mixed hyperlipidemia Assessment & Plan: Continue statin medication. Clinical Quality Measures AMI/AHF: ASA po Prior to arrival: ROBERT Raymond MD Jul 27, 2021 12:56
[2021-07-28] MEDS ORDERED: amLODIPine 5 MG (NORVASC) TAB PO SCH (09:00)
== END 2021-07-27 13:56 | disposition home or self-care (01) | DRG 291 ==
LOC: EDUNIT# 18:37 → ER 18:39 → CSD 20:00
PROVIDERS: ADMIT Family Medicine; ATTEND Family Medicine
DX: I13.0 Hypertensive heart and chronic kidney disease with heart failure and stage 1 through stage 4 chronic kidney disease, or unspecified chronic kidney disease (principal); I50.33 Acute on chronic diastolic (congestive) heart failure; N17.9 Acute kidney failure, unspecified; N18.4 Chronic kidney disease, stage 4 (severe); Z95.2 Presence of prosthetic heart valve; Z79.01 Long term (current) use of anticoagulants; Z79.899 Other long term (current) drug therapy; I48.0 Paroxysmal atrial fibrillation; M19.90 Unspecified osteoarthritis, unspecified site; I34.0 Nonrheumatic mitral (valve) insufficiency; D64.9 Anemia, unspecified; E78.2 Mixed hyperlipidemia; Z86.16 Personal history of COVID-19
CPT/HCPCS: 36415; 71045; 80048; 80053; 80061; 83735; 83874; 83880; 84484; 85025; 85610; 85730; 93005; 93041; 96374

== ENCOUNTER → 2021-08-07 | Outpatient (CLI) | payer MEDICARE, OTHER ==
[~2021-08-07] MED LIST changes: +AMIO200T50 PO; +AMIO200T6 PO; +AMLO-250 PO; +POTA20TA15 PO
--- NOTE | 2021-08-07 12:01 | Diagnostic Imaging Report ---
PROCEDURE: US Renal Bilateral. TECHNIQUE: Multiple real-time grayscale images were obtained over the kidneys in various projections bilaterally. INDICATION: Renal failure. COMPARISON: None. FINDINGS: Kidneys are borderline small in size, but are otherwise normal in shape and echogenicity. The right kidney measures 8.4 cm in length and the left is 9 cm. The cortical thickness and the cortical medullary differentiation is well maintained. There is no evidence of calculi, focal mass or hydronephrosis. Limited views of the pelvis demonstrate mildly distended urinary bladder. Prevoid bladder volume measures 87 mL. There is minimal post void residual measuring 10 mm. Bilateral ureteral jets are identified. No large intraluminal masses or calculi are present. There is no ascites. IMPRESSION: 1. Both kidneys are small or borderline small for size. Exam is otherwise unremarkable. 2. Mild residual bladder volume. Dictated by: Dictated on workstation # [id number]
== END ==
LOC: RAD 09:00
PROVIDERS: ATTEND Internal Medicine Nephrology
DX: N27.1 Small kidney, bilateral (principal); N17.9 Acute kidney failure, unspecified; N18.4 Chronic kidney disease, stage 4 (severe)
CPT/HCPCS: 76770

== ENCOUNTER → 2021-08-10 | Outpatient (CLI) | payer MEDICARE, OTHER | LOC: CARD 07-18 15:17 | PROVIDERS: ATTEND Internal Medicine Cardiovascular Disease | DX: I48.21 Permanent atrial fibrillation (principal); I08.0 Rheumatic disorders of both mitral and aortic valves; Z98.890 Other specified postprocedural states | CPT/HCPCS: 93225; 93226; 93306 ==

== ENCOUNTER → 2021-08-16 | Outpatient (CLI) | payer MEDICARE, OTHER ==
--- NOTE | 2021-08-16 10:59 | Diagnostic Imaging Report ---
PROCEDURE: CT head without contrast. TECHNIQUE: Multiple contiguous axial images were obtained through the brain without the use of intravenous contrast. Auto Exposure Controls were utilized during the CT exam to meet ALARA standards for radiation dose reduction. INDICATION: Left eye visual disturbance. No prior studies are available for comparison. FINDINGS: Ventricles and sulci are prominent consistent with cerebral atrophy. Moderate periventricular hypodensity is noted consistent with changes of chronic microvascular ischemia. There is low density left posterior parietal-occipital lobe which may be secondary to prior infarct. No sulcal effacement or midline shift is identified. No acute intra-axial or extra-axial hemorrhage is detected. Cisterns are patent. Bilateral orbits and globes are unremarkable. The visualized paranasal sinuses are clear. IMPRESSION: Cerebral atrophy and chronic changes, as described. No acute intracranial process is detected. Dictated by: Dictated on workstation # [id number]
== END ==
LOC: RAD 10:45
DX: G31.9 Degenerative disease of nervous system, unspecified (principal); H47.20 Unspecified optic atrophy
CPT/HCPCS: 70450

== ENCOUNTER → 2021-12-01 | Outpatient (CLI) | payer MEDICARE, OTHER ==
[~2021-12-01] MED LIST changes: -AMIO200T6 PO; +AMIO200T65 PO; +POTA-169 PO; +POTA-179 PO; -POTA20TA15 PO; -POTA20TA8 PO
--- NOTE | 2021-12-01 12:15 | Diagnostic Imaging Report ---
PROCEDURE: CT orbit without contrast. TECHNIQUE: Multiple contiguous axial images were obtained through the facial bones without the use of intravenous contrast. Auto Exposure Controls were utilized during the CT exam to meet ALARA standards for radiation dose reduction. INDICATION: Loss of vision left eye. Both globes appear to be symmetric. Extraocular muscles appear to be symmetric bilaterally. No intraconal or extraconal mass or fluid collection is identified. No orbital or periorbital inflammation is seen. Optic nerves appear to be symmetric. The visualized paranasal sinuses are clear. IMPRESSION: Unremarkable noncontrast CT of the orbits. Dictated by: Dictated on workstation # [id number]
== END ==
LOC: RAD 11:45
DX: H47.212 Primary optic atrophy, left eye (principal)
CPT/HCPCS: 70480

== ENCOUNTER 2022-04-16 20:58 | Inpatient (IN) | payer MEDICARE, OTHER ==
[~2022-04-16] VITALS: Ht 176 cm; Wt 71.9 kg
[~2022-04-16 20:58] MED LIST changes: +CODE118L3 PO; -GUAI-813 PO
--- NOTE | 2022-04-16 21:37 | ED Fall/Injury ---
General Chief Complaint: Trauma-Non Activation Stated Complaint: FALL/R HIP AND RIB PAIN Source: patient History of Present Illness Date Seen by Provider: Apr 16, 2022 Time Seen by Provider: 21:30 Initial Comments PT ARRIVES VIA POV FROM HOME, NEEDS WHEELCHAIR ON ARRIVAL STATES AROUND 1930 TONIGHT, HE LOST HIS BALANCE AND FELL ONTO CONCRETE, LANDING ON HIS RIGHT SIDE DID NOT HIT HIS HEAD AND NO LOSS OF CONSCIOUSNESS NO NECK OR BACK PAIN C/O RIGHT RIB PAIN C/O RIGHT HIP PAIN NO PARESTHESIAS OR MOTOR DEFICITS NO SHORTNESS OF BREATH NO ABDOMINAL PAIN NO NAUSEA/VOMITING NO HEADACHE OR DIZZINESS OR VISION CHANGES PT IS ON XARELTO FOR CHRONIC ATRIAL FIBRILLATION NO BLEEDING FROM ANYWHERE HAS NOT TAKEN ANYTHING FOR PAIN PT LIVES AT HOME WITH HIS . 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 DOES NOT NORMALLY REQUIRE ANY ASSISTIVE DEVICES FOR AMBULATION PCP: DR. WILLIAM REICH Allergies and Home Medications Allergies Coded Allergies: Penicillins (Verified Allergy, Mild, RASH, 09/07/14) Patient Home Medication List Home Medication List Reviewed: Yes Amiodarone HCl (Amiodarone HCl) 200 Mg Tablet, 100 MG PO DAILY Prescribed by: WILLIAM REICH on 07/27/21 1252 Amlodipine Besylate (Amlodipine Besylate) 5 Mg Tablet, 5 MG PO DAILY Prescribed by: WILLIAM REICH on 07/27/21 1252 Apixaban (Eliquis) 5 Mg Tablet, 2.5 MG PO BID, (Reported) Entered as Reported by: RAMA PATEL on 07/26/21 1109 Cholecalciferol (Vitamin D3) (Vitamin D3) 25 Mcg Capsule, 25 MCG PO DAILY, (Reported) Entered as Reported by: RAMA PATEL on 10/12/20 1352 Furosemide (Furosemide) 20 Mg Tablet, 20 MG PO DAILY, (Reported) Entered as Reported by: RAMA PATEL on 10/12/20 1352 Potassium Chloride (Potassium Chloride) 20 Meq Tab.er.prt, 20 MEQ PO DAILY, (Reported) Entered as Reported by: RAMA PATEL on 07/26/21 1109 Rosuvastatin Calcium (Rosuvastatin Calcium) 10 Mg Tablet, 10 MG PO DAILY, (Reported) Entered as Reported by: JUDY HARRY on 08/17/20 6587 Review of Systems Review of Systems Constitutional: no symptoms reported Eyes: No Symptoms Reported Ears, Nose, Mouth, Throat: no symptoms reported Respiratory: no symptoms reported; No short of breath Cardiovascular: see HPI Gastrointestinal: no symptoms reported; No abdominal pain Genitourinary: no symptoms reported Musculoskeletal: see HPI Skin: no symptoms reported Psychiatric/Neurological: No Symptoms Reported Past [id number]-[id number]-Vdjlzs Hx Patient Social History Tobacco Use?: No Substance use?: No Alcohol Use?: No Immunizations Up To Date First/Initial COVID19 Vaccinat: JANUARY 2021 Second COVID19 Vaccination Marco Antonio: FEBRUARY 2021 Third COVID19 Vaccination Date: JANUARY 2021 Seasonal Allergies Seasonal Allergies: No Past Medical History Surgeries: Yes (mitral value repaired 10/2013, hammertoe sx, ) Cardiac, Orthopedic Respiratory: No Cardiac: Yes (mitral valve tear repaired robotic, 10/2013) Atrial Fibrillation, High Cholesterol, Hypertension, Valvular Heart Disease Neurological: No Genitourinary: Yes (CHRONIC RENAL INSUFFICIENCY, NO DIALYSIS) Renal Failure Gastrointestinal: No Musculoskeletal: Yes Arthritis Endocrine: No HEENT: Yes (dentures) Cancer: No Psychosocial: No Integumentary: No Blood Disorders: No Physical Exam Vital Signs Vital Signs - First Documented 04/16/22 21:30 Temp 36.5 Pulse 57 Resp 16 B/P (MAP) 158/77 (104) Pulse Ox 97 Capillary Refill : Height, Weight, BMI Height: 5'9.50" Weight: 180lbs. oz. 81.878420ih; 24.09 BMI Method: General Appearance: WD/WN, no apparent distress HEENT: PERRL/EOMI, normal ENT inspection, TMs normal, other (NO EXTERNAL EVIDENCE OF TRAUMA TO HEAD) Neck: non-tender, full range of motion, supple, normal inspection Cardiovascular: no edema, no JVD, no murmur, systolic murmur (1-2/6 ), irregularly irregular Respiratory: normal breath sounds, no respiratory distress, no accessory muscle use, other (RIGHT MID AND LOWER ANTERIOR/POSTERIOR/LATERAL CHEST TENDERNESS, BUT NO EXTERNAL EVIDENCE OF TRAUMA, NO CREPITANCE OR SUB Q AIR. ) Gastrointestinal: normal bowel sounds, soft, no organomegaly, no pulsatile mass, tenderness (RIGHT CVA AND FLANK TENDERNESS, MILD RUQ TENDERNESS) Back: no vertebral tenderness, CVA tenderness (R) Extremities: no pedal edema, pelvis stable, other (NO TENDERNESS TO RIGHT HIP, BUT HAS MUCH PAIN TO HIP AND GROIN AREA ON WEIGHT BEARING ON RIGHT. NO EXTERNAL EVIDENCE OF TRAUMA TO RIGHT HIP AREA. ) Neurologic/Psychiatric: information services manager II-XII nml as tested, no motor/sensory deficits, alert, normal mood/affect, oriented x 3 Skin: normal color, warm/dry; No ecchymosis Buckley Coma Score Best Eye Response: (4) Open Spontaneously Best Verbal Response: (5) Oriented Best Motor Response: (6) Obeys Commands Fani Total: 15 Progress/Results/Core Measures Results/Orders Lab Results Laboratory Tests Test 04/16/22 21:45 04/16/22 22:04 Range/Units White Blood Count 9.6 4.3-11.0 10^3/uL Red Blood Count 3.94 L 4.30-5.52 10^6/uL Hemoglobin 12.3 L 13.3-17.7 g/dL Hematocrit 39 L 40-54 % Mean Corpuscular Volume 98 80-99 fL Mean Corpuscular Hemoglobin 31 25-34 pg Mean Corpuscular Hemoglobin Concent 32 32-36 g/dL Red Cell Distribution Width 14.1 10.0-14.5 % Platelet Count 194 130-400 10^3/uL Mean Platelet Volume 10.1 9.0-12.2 fL Immature Granulocyte % (Auto) 1 % Neutrophils (%) (Auto) 77 H 42-75 % Lymphocytes (%) (Auto) 13 12-44 % Monocytes (%) (Auto) 7 0-12 % Eosinophils (%) (Auto) 2 0-10 % Basophils (%) (Auto) 1 0-10 % Neutrophils # (Auto) 7.4 1.8-7.8 10^3/uL Lymphocytes # (Auto) 1.2 1.0-4.0 10^3/uL Monocytes # (Auto) 0.7 0.0-1.0 10^3/uL Eosinophils # (Auto) 0.1 0.0-0.3 10^3/uL Basophils # (Auto) 0.1 0.0-0.1 10^3/uL Immature Granulocyte # (Auto) 0.1 0.0-0.1 10^3/uL Prothrombin Time 18.6 H 12.2-14.7 SEC INR Comment 1.5 H 0.8-1.4 Activated Partial Thromboplast Time 49 H 24-35 SEC Sodium Level 138 135-145 MMOL/L Potassium Level 3.9 3.6-5.0 MMOL/L Chloride Level 104 98-107 MMOL/L Carbon Dioxide Level 22 21-32 MMOL/L Anion Gap 12 5-14 MMOL/L Blood Urea Nitrogen 32 H 7-18 MG/DL Creatinine 3.17 H 0.60-1.30 MG/DL Estimat Glomerular Filtration Rate 18 BUN/Creatinine Ratio 10 Glucose Level 114 H 70-105 MG/DL Calcium Level 9.7 8.5-10.1 MG/DL Corrected Calcium 8.5-10.1 MG/DL Total Bilirubin 1.3 H 0.1-1.0 MG/DL Aspartate Amino Transf (AST/SGOT) 45 H 5-34 U/L Alanine Aminotransferase (ALT/SGPT) 28 0-55 U/L Alkaline Phosphatase 90 40-136 U/L Total Protein 7.4 6.4-8.2 GM/DL Albumin 4.6 H 3.2-4.5 GM/DL Urine Color YELLOW Urine Clarity CLEAR Urine pH 5.5 5-9 Urine Specific Edison 1.025 H 1.016-1.022 Urine Protein TRACE H NEGATIVE Urine Glucose (UA) NEGATIVE NEGATIVE Urine Ketones TRACE H NEGATIVE Urine Nitrite NEGATIVE NEGATIVE Urine Bilirubin NEGATIVE NEGATIVE Urine Urobilinogen 1.0 < = 1.0 MG/DL Urine Leukocyte Esterase NEGATIVE NEGATIVE Urine RBC (Auto) TRACE-I H NEGATIVE Urine RBC 0-2 /HPF Urine WBC 2-5 /HPF Urine Squamous Epithelial Cells 0-2 /HPF Urine Crystals NONE /LPF Urine Bacteria MODERATE H /HPF Urine Casts PRESENT /LPF Urine Hyaline Casts >50 H /LPF Urine Granular Casts 0-2 H /LPF Urine Waxy Casts 2-5 H /LPF Urine Mucus NEGATIVE /LPF Urine Culture Indicated YES My Orders Orders - OFE ESTRADA DO Ed Iv/Invasive Line Start (04/16/22 21:32) Cbc With Automated Diff (04/16/22 21:32) Comprehensive Metabolic Panel (04/16/22 21:32) Protime With Inr (04/16/22 21:32) Partial Thromboplastin Time (04/16/22 21:32) Ua Culture If Indicated (04/16/22 21:32) Chest 1 View, Ap/Pa Only (04/16/22 21:32) Pelvis With Right Hip 2-3views (04/16/22 21:32) Ct Chest/Abdomen/Pelvis Wo (04/16/22 22:17) Urine Culture (04/16/22 22:04) Fentanyl Inj (Sublimaze Injection) (04/16/22 22:30) Medications Given in ED Current Medications Medications Dose Ordered Sig/Moose Route Start Time Stop Time Status Last Admin Dose Admin Fentanyl Citrate 50 mcg ONCE ONCE IVP 04/16/22 22:30 04/16/22 22:31 DC 04/16/22 22:28 50 MCG Vital Signs/I&O 04/16/22 21:30 Temp 36.5 Pulse 57 Resp 16 B/P (MAP) 158/77 (104) Pulse Ox 97 Progress Progress Note : Progress Note GIVEN FENTANYL WITH MUCH IMPROVEMENT IN PAIN NO DETERIORATION IN PT'S CONDITION DURING ER STAY Diagnostic Imaging Comments ALL PER RADIOLOGIST REPORTS AT 2323: CXR--FINDINGS: The lung volumes are normal. No focal consolidation is seen. No large pleural effusion or pneumothorax is seen. The cardiomediastinal silhouette is enlarged. No acute osseous abnormality is seen. IMPRESSION: 1. Cardiomegaly, similar to the prior exam. No overt pulmonary edema. PELVIS WITH RIGHT HIP--FINDINGS: There is subtle deformity of the superior and inferior pubic rami on the right. The pubic symphysis is intact. No evidence of fracture involving the right hip. IMPRESSION: 1. Likely nondisplaced fractures involving the right superior and inferior pubic rami. 2. No acute fractures identified in the right hip. CT CHEST/ABDOMEN/PELVIS-- CT chest: The heart size is enlarged. No pericardial effusion is present. There is calcified aortic and coronary atherosclerotic plaque. There is no mediastinal, hilar, or axillary lymphadenopathy. Stable nodule in the right lung apex. Dependent opacities are seen in the lung bases. No new suspicious pulmonary nodules. There are no focal areas of consolidation. No pneumothoraces are present. No central endobronchial obstructing lesions are identified. There are no pleural effusions. The osseous structures demonstrate degenerative changes without focal lytic or blastic lesions. CT abdomen and pelvis: The liver is dense, measuring 80 Hounsfield units. No focal hepatic lesion is seen. Dense material is layering within the gallbladder lumen. The spleen, pancreas, adrenal glands, and kidneys have a normal noncontrast CT appearance. There is no pathologically enlarged mesenteric or retroperitoneal adenopathy. The bowel loops are nondilated. The appendix is visualized in the right lower quadrant and has a normal appearance. There is no free fluid or free air. Acute minimally displaced fractures are seen involving the superior and inferior pubic rami on the right. Associated inflammatory changes are seen adjacent to the fracture. No acute fracture is seen in the lumbar spine. The bilateral hip joints demonstrate normal alignment. There is calcified aortic and iliac atherosclerotic plaque without aneurysm. The urinary bladder is decompressed with concentric bladder wall thickening. There is no free air, loculated collection, or adenopathy in the pelvis. IMPRESSION: 1. Acute minimally displaced fractures involving the superior and inferior pubic rami on the right. 2. Cardiomegaly. 3. Dense liver, which can be seen with amiodarone toxicity, hemosiderosis, Chris's disease, and glycogen storage diseases. Recommend correlation with patient history and LFTs. 4. Layering dense material within the gallbladder lumen, which may represent gallstones/gallbladder sludge. No CT evidence of acute cholecystitis. 5. Marked bladder wall thickening, which may be due to inadequate distention versus cystitis. Recommend correlation with UA. 6. Stable small nodule in the right lung apex. No new suspicious pulmonary nodules. Reviewed: Reviewed by Me Departure Communication (Admissions) [id number]--CALLED DIET CLERK FOR BED. WILL LIKELY HOLD PT IN ER UNTIL BED BECOMES AVAILABLE. SHE WILL CALL BACK [id number]--SPOKE WITH DR. DEJESUS, HOSPITALIST, ACCEPTS PT FOR ADMIT Impression Primary Impression: Fall from standing Additional Impressions: Fracture of right pelvis Contusion of right chest wall CHRONIC ATRIAL FIBRILLATION ON XARELTO Chronic kidney disease Disposition: ADMITTED INPATIENT Condition: Stable Admissions Decision to Admit Reason: Admit from ER (Trauma) Decision to Admit/Date: Apr 17, 2022 Time/Decision to Admit Time: 00:15 Departure-Patient Inst. Referrals: WILLIAM REICH MD (PCP/Family) Primary Care Physician OFE ESTRADA DO Apr 16, 2022 21:37
[2022-04-16 21:56] LABS: BASOPHILS # (AUTO) 0.1 10^3/uL (0.0-0.1); BASOPHILS % (AUTO) 1 % (0-10); EOSINOPHILS # (AUTO) 0.1 10^3/uL (0.0-0.3); EOSINOPHILS % (AUTO) 2 % (0-10); HEMATOCRIT 39 % (40-54); HEMOGLOBIN 12.3 g/dL (13.3-17.7); LYMPHOCYTES # (AUTO) 1.2 10^3/uL (1.0-4.0); LYMPHOCYTES % (AUTO) 13 % (12-44); MEAN CORPUSCULAR HEMOGLOBIN 31 pg (25-34); MEAN CORPUSCULAR HGB CONC 32 g/dL (32-36); MEAN CORPUSCULAR VOLUME 98 fL (80-99); MEAN PLATELET VOLUME 10.1 fL (9.0-12.2); MONOCYTES # (AUTO) 0.7 10^3/uL (0.0-1.0); MONOCYTES % (AUTO) 7 % (0-12); NEUTROPHILS # (AUTO) 7.4 10^3/uL (1.8-7.8); NEUTROPHILS % (AUTO) 77 % (42-75); PLATELET COUNT 194 10^3/uL (130-400); WHITE BLOOD COUNT 9.6 10^3/uL (4.3-11.0)
[2022-04-16 22:03] LABS: ALBUMIN 4.6 GM/DL (3.2-4.5); CHLORIDE 104 MMOL/L (98-107); POTASSIUM 3.9 MMOL/L (3.6-5.0); SODIUM 138 MMOL/L (135-145)
[2022-04-16 22:04] LABS: CALCIUM 9.7 MG/DL (8.5-10.1); INR 1.5 (0.8-1.4); PROTHROMBIN TIME PATIENT 18.6 SEC (12.2-14.7)
[2022-04-16 22:05] LABS: GLUCOSE 114 MG/DL (70-105); TOTAL PROTEIN 7.4 GM/DL (6.4-8.2)
[2022-04-16 22:07] LABS: BILIRUBIN,TOTAL 1.3 MG/DL (0.1-1.0); CARBON DIOXIDE 22 MMOL/L (21-32)
[2022-04-16 22:09] LABS: ALKALINE PHOSPHATASE 90 U/L (40-136); CREATININE SERUM 3.17 MG/DL (0.60-1.30); GFR ESTIMATED 18
[2022-04-16 22:10] LABS: BUN/CREATININE RATIO 10
[2022-04-16 22:11] LABS: BILIRUBIN,URINE NEGATIVE (NEGATIVE); CLARITY,URINE CLEAR; COLOR,URINE YELLOW; GLUCOSE, URINE (UA) NEGATIVE (NEGATIVE); KETONES,URINE TRACE (NEGATIVE); LEUKOCYTE ESTERASE ,URINE NEGATIVE (NEGATIVE); NITRITE,URINE NEGATIVE (NEGATIVE); PH,URINE 5.5 (5-9); PROTEIN,URINE TRACE (NEGATIVE)
[2022-04-16 22:12] LABS: ALANINE AMINOTRANSFERASE 28 U/L (0-55)
[2022-04-16 22:20] LABS: BACTERIA,URINE MODERATE /HPF; HYALINE CASTS, URINE >50 /LPF; RBC,URINE 0-2 /HPF; SQUAMOUS EPITHELIAL CELL,UR 0-2 /HPF
[2022-04-16 22:21] LABS: GRANULAR CASTS,URINE 0-2 /LPF
[2022-04-16] MEDS ORDERED: fentaNYL INJ 100 MCG/2 ML AMP IVP ONE (22:30)
--- NOTE | 2022-04-16 23:03 | Diagnostic Imaging Report ---
CLINICAL HISTORY: Fall. Pelvic and right hip pain. COMPARISON: None. TECHNIQUE: 3 views of the pelvis and right hip. FINDINGS: There is subtle deformity of the superior and inferior pubic rami on the right. The pubic symphysis is intact. No evidence of fracture involving the right hip. IMPRESSION: 1. Likely nondisplaced fractures involving the right superior and inferior pubic rami. 2. No acute fractures identified in the right hip. Dictated by: Dictated on workstation # [id number]
--- NOTE | 2022-04-16 23:04 | Diagnostic Imaging Report ---
EXAMINATION: Chest 1 view HISTORY: Fall. Chest pain. COMPARISON: 07/26/2021. FINDINGS: The lung volumes are normal. No focal consolidation is seen. No large pleural effusion or pneumothorax is seen. The cardiomediastinal silhouette is enlarged. No acute osseous abnormality is seen. IMPRESSION: 1. Cardiomegaly, similar to the prior exam. No overt pulmonary edema. Dictated by: Dictated on workstation # [id number]
--- NOTE | 2022-04-16 23:08 | Diagnostic Imaging Report ---
PROCEDURE: CT chest, abdomen, and pelvis without contrast. TECHNIQUE: Multiple contiguous axial images were obtained through the chest, abdomen, and pelvis without the use of intravenous contrast. Auto Exposure Controls were utilized during the CT exam to meet ALARA standards for radiation dose reduction. INDICATION: Fall. Chest and abdominal pain. Torso bruising. COMPARISON: 10/19/2020. CT chest: The heart size is enlarged. No pericardial effusion is present. There is calcified aortic and coronary atherosclerotic plaque. There is no mediastinal, hilar, or axillary lymphadenopathy. Stable nodule in the right lung apex. Dependent opacities are seen in the lung bases. No new suspicious pulmonary nodules. There are no focal areas of consolidation. No pneumothoraces are present. No central endobronchial obstructing lesions are identified. There are no pleural effusions. The osseous structures demonstrate degenerative changes without focal lytic or blastic lesions. CT abdomen and pelvis: The liver is dense, measuring 80 Hounsfield units. No focal hepatic lesion is seen. Dense material is layering within the gallbladder lumen. The spleen, pancreas, adrenal glands, and kidneys have a normal noncontrast CT appearance. There is no pathologically enlarged mesenteric or retroperitoneal adenopathy. The bowel loops are nondilated. The appendix is visualized in the right lower quadrant and has a normal appearance. There is no free fluid or free air. Acute minimally displaced fractures are seen involving the superior and inferior pubic rami on the right. Associated inflammatory changes are seen adjacent to the fracture. No acute fracture is seen in the lumbar spine. The bilateral hip joints demonstrate normal alignment. There is calcified aortic and iliac atherosclerotic plaque without aneurysm. The urinary bladder is decompressed with concentric bladder wall thickening. There is no free air, loculated collection, or adenopathy in the pelvis. IMPRESSION: 1. Acute minimally displaced fractures involving the superior and inferior pubic rami on the right. 2. Cardiomegaly. 3. Dense liver, which can be seen with amiodarone toxicity, hemosiderosis, Chris's disease, and glycogen storage diseases. Recommend correlation with patient history and LFTs. 4. Layering dense material within the gallbladder lumen, which may represent gallstones/gallbladder sludge. No CT evidence of acute cholecystitis. 5. Marked bladder wall thickening, which may be due to inadequate distention versus cystitis. Recommend correlation with UA. 6. Stable small nodule in the right lung apex. No new suspicious pulmonary nodules. Dictated by: Dictated on workstation # [id number]
[2022-04-17] VITALS (8 sets, daily range): BP systolic 124–171; BP diastolic 66–87
[2022-04-17] MEDS ORDERED: fentaNYL INJ 100 MCG/2 ML AMP IV PRN (01:15)
[2022-04-17] MEDS ORDERED: CATHETER FLUSH 10 ML SYR IVP PRN (01:15)
[2022-04-17] MEDS ORDERED: RT-ALBUTEROL SULF 2.5 MG/3 ML PRE-MIX VIAL INH PRN (03:15)
[2022-04-17] MEDS: CATHETER FLUSH 10 ML SYR IVP SCH ×3 (06:08→22:01)
--- NOTE | 2022-04-17 09:42 | Physical Therapy Evaluation ---
PT Evaluation-General Medical Diagnosis Admission Date Apr 17, 2022 at 00:15 Medical Diagnosis: pelvic fracture right Onset Date: Apr 16, 2022 Therapy Diagnosis Therapy Diagnosis: debility/weakness Height/Weight Height (Feet): 5 Height (Inches): 9.50 Weight (Pounds): 180 Precautions Precautions/Isolations: Fall Prevention, Standard Precautions Weight Bear Status Right Lower Extremity: Right Weight Bearing/Tolerated Left Lower Extremity: Left Full Weight Bearing Referral Physician: Savannah Reason for Referral: Evaluation/Treatment Medical History Pertinent Medical History: Atrial Fib, HTN Current History tripped over parking curb, falling resulting in right pelvic and rib fractures Reviewed History: Yes Social History Home: Single Level Current Living Status: Spouse Entry Into Home: Ramp Prior Prior Level of Function SCALE: Activities may be completed with or without assistive devices. 2-Kdkhcdvrel-dgbdsba completes the activity by him/herself with no assistance from a helper. 5-Set-up or Clean-up Assistance-helper sets up or cleans up; patient completes activity. Elizabeth assists only prior to or following the activity. 4-Supervision or Touching Assistance-helper provides verbal cues and/or touching/steadying and/or contact guard assistance as patient completes activity. Assistance may be provided throughout the activity or intermittently. 3-Partial/Moderate Assistance-helper does LESS THAN HALF the effort. Elizabeth lifts, holds or supports trunk or limbs, but provides less than half the effort. 2-Substantial/Maximal Assistance-helper does MORE THAN HALF the effort. Elizabeth lifts or holds trunk or limbs and provides more than half the effort. 8-Vpuvaxkjm-hgzwra does ALL the effort. Patient does none of the effort to com plete the activity. Or, the assistance of 2 or more helpers is required for the patient to complete the activity. If activity was not attempted, code reason: 7-Patient Refused. 9-Not Applicable-not attempted and the patient did not perform the activity before the current illness, exacerbation or injury. 10-Not Attempted due to Environmental Limitations-(lack of equipment, weather restraints, etc.). 88-Not Attempted due to Medical Conditions or Safety Concerns. Bed Mobility: 6 Transfers (B,C,W/C): 6 Gait: 6 Stairs: 6 Indoor Mobility (Ambulation): Independent Stairs: Independent Prior Devices Use: None PT Evaluation-Current Subjective Patient agrees to PT. Dr. Herr in room consulting on POC. Pain Numeric Pain Scale: 8 Location: Right Location Body Site: Pelvic Pain Description: Acute Comment: meds requested Objective Patient Orientation: Normal For Age ROM/Strength ROM Lower Extremities bilateral LE WFL Strength Lower Extremities left LE 4/5; right LE NT due to pain Integumentary/Posture Bowel Incontinence: No Bladder Incontinence: No Posture WFL Neuromuscular (Tone, Coordination, Reflexes) grossly intact Sensory Vision: Functional Hearing: Functional Sensation Right Lower Extremit: Intact Sensation Left Lower Extremity: Intact Transfers Lying to Sitting/Side of Bed(Q: 3 Sit to Stand (QC): 3 Chair/Fgh-fg-Unauf Xfer(QC): 3 Gait Does the Patient Walk?: Yes Mode of Locomotion: Walk Anticipated Mode of Locomotion: Walk Walk 10 feet (QC): 3 Walk 50 ft with 2 Turns(QC): 3 Walk 150 ft (QC): 88 Distance: 75' Gait Assistive Device: FWW Comments/Gait Description slow, step to/antalgic gait sequence Balance Sitting Static: Normal Sitting Dynamic: Normal Standing Static: Fair Standing Dynamic: Fair Assessment/Needs 87 y.o. male, will benefit from skilled PT to address functional strength and mobility to improve current LOF to safely return to home with spouse at maximum LOF. Rehab Potential: Fair PT Half-Way Goals Half-Way Goals PT Skin Piler Goals Time Frame: Apr 28, 2022 Roll Left & Right (QC): 6 Sit to Lying (QC): 6 Lying-Sitting on Side/Bed(QC): 6 Sit to Stand (QC): 6 Chair/Lbs-jg-Ccqds Xfer(QC): 6 Toilet Transfer (QC): 6 Walk 10 feet (QC): 6 Walk 50ft with 2 Turns (QC): 6 Walk 150 ft (QC): 6 PT Plan Problem List Problem List: Activity Tolerance, Functional Strength, Balance, Gait, Transfer, Bed Mobility, ROM Treatment/Plan Treatment Plan: Continue Plan of Care Treatment Plan: Bed Mobility, Education, Functional Activity Carlos A, Functional Strength, Gait, Safety, Therapeutic Exercise, Transfers Treatment Duration: Apr 28, 2022 Frequency: 11 times per week Estimated Hrs Per Day: .5 hour per day Patient and/or Family Agrees t: Yes Time/GCodes Time In: 811 Time Out: 826 Total Billed Treatment Time: 15 Total Billed Treatment 1 visit EVModC 15 min TAISHA,MISA PT Apr 17, 2022 09:42
--- NOTE | 2022-04-17 11:53 | Consultation-Cardiology ---
HPI-Cardiology Cardiology Consultation: Date of Consultation 04/17/22 Time Seen by a Provider: 11:50 Date of Admission 04-16-22 Attending Physician Robert Reich MD Admitting Physician Admitting Physician: Cristobal Nuñez MD Attending Physician: Mallory Adam MD Consulting Physician Sherly Roberts MD HPI: Chief Complaint: S/P non-syncopal fall Mr. Mcclendon is an 87 yr old male admitted to 425 from the ED. He reports he was on his way to a meeting when he tripped over a parking block resulting in a fall. He has a pelvic fracture. He denies any syncope, near syncope. No c/o p alpitations, CP, SOB. He denies hitting his head. He reports he is bruised on his right side. He does report some discomfort with movement. Review of Systems-Cardiology Review of Systems Constitutional: No chills, No fever, No lightheadedness, No malaise Eyes: No vision change Ears/Nose/Throat: No epistaxis, No recent hearing loss Respiratory: As described under HPI Cardiovascular: As described under HPI Gastrointestinal: No constipation, No diarrhea, No nausea, No vomiting Genitourinary: No dysuria, No hematuria Skin: other (bruising to right side of hip/thigh); No rash on exposed areas, No ulcerations on exposed areas Psychiatric/Neurological: No anxiety, No depression, No seizure, No focal weakness, No syncope Hematologic: easy bruising; No bleeding abnormalities WPI-Lnxwzv-Dzgwoa Hx Patient Social History Smoking Status: Former Smoker 2nd Hand Smoke Exposure: No Have you traveled recently?: No Alcohol Use?: No Pt feels they are or have been: No Immunizations Up To Date Date of Pneumonia Vaccine: Jul 11, 2020 Date of Influenza Vaccine: Aug 08, 2020 Past Medical History PMH As described under Assessment. Family Medical History Family Medical History: He reports he had a brother who passed from an MA at age 65. He reports his father had CAD. Allergies and Home Medications Allergies Coded Allergies: Penicillins (Verified Allergy, Mild, RASH, 09/07/14) Patient Home Medication List Amiodarone HCl (Amiodarone HCl) 200 Mg Tablet, 100 MG PO DAILY Prescribed by: ROBERT REICH on 07/27/21 1252 Amlodipine Besylate (Amlodipine Besylate) 5 Mg Tablet, 5 MG PO DAILY Prescribed by: ROBERT REICH on 07/27/21 1252 Apixaban (Eliquis) 5 Mg Tablet, 2.5 MG PO BID, (Reported) Entered as Reported by: RAMA PATEL on 07/26/21 1109 Cholecalciferol (Vitamin D3) (Vitamin D3) 25 Mcg Capsule, 25 MCG PO DAILY, (Reported) Entered as Reported by: RAMA PATEL on 10/12/20 1352 Furosemide (Furosemide) 20 Mg Tablet, 20 MG PO DAILY, (Reported) Entered as Reported by: RAMA PATEL on 10/12/20 1352 Potassium Chloride (Potassium Chloride) 20 Meq Tab.er.prt, 20 MEQ PO DAILY, (Reported) Entered as Reported by: RAMA PATEL on 07/26/21 1109 Rosuvastatin Calcium (Rosuvastatin Calcium) 10 Mg Tablet, 10 MG PO DAILY, (Reported) Entered as Reported by: JUDY HARRY on 08/17/20 1437 Physical Exam-Cardiology Physical Exam Vital Signs/I&O 04/17/22 04/17/22 04/17/22 04/17/22 00:48 00:55 00:55 02:53 Temp 36.8 36.8 Pulse 59 75 75 Resp 20 B/P (MAP) 151/77 170/84 (112) Pulse Ox 96 99 95 99 O2 Delivery Room Air Room Air FiO2 21 04/17/22 04/17/22 04/17/22 03:40 08:10 08:19 Temp 36.4 37.1 Pulse 54 74 Resp 18 17 B/P (MAP) 124/66 (85) 168/87 (114) Pulse Ox 97 95 96 O2 Delivery Room Air Room Air Room Air Capillary Refill : Constitutional: AAO x 3, well-developed, well-nourished HEENT: PERRL, hearing is well preserved, oral hygience is good Neck: No carotid bruit; carotid pulses are 2 + bilaterally Respiratory: No accessory muscle use, No respiratory distress; chest expansion is symmetric, chest is bilaterally symmetric, lungs clear to auscultation Cardiovascular: regular rate-rhythm; No JVD; S1 and S2, systolic murmur Gastrointestinal: No tender; soft, round, audible bowel sounds Extremities: no lower extremity edema bilateral Neurologic/Psychiatric: grossly intact (moves all extremities) Skin: other (bruising to right hip/pelvis) Data Review Labs Laboratory Tests 04/16/22 21:45: White Blood Count 9.6, Red Blood Count 3.94L, Hemoglobin 12.3L, Hematocrit 39L, Mean Corpuscular Volume 98, Mean Corpuscular Hemoglobin 31, Mean Corpuscular Hemoglobin Concent 32, Red Cell Distribution Width 14.1, Platelet Count 194, Mean Platelet Volume 10.1, Immature Granulocyte % (Auto) 1, Neutrophils (%) (Auto) 77H, Lymphocytes (%) (Auto) 13, Monocytes (%) (Auto) 7, Eosinophils (%) (Auto) 2, Basophils (%) (Auto) 1, Neutrophils # (Auto) 7.4, Lymphocytes # (Auto) 1.2, Monocytes # (Auto) 0.7, Eosinophils # (Auto) 0.1, Basophils # (Auto) 0.1, Immature Granulocyte # (Auto) 0.1, Prothrombin Time 18.6H, INR Comment 1.5H, Activated Partial Thromboplast Time 49H, Sodium Level 138, Potassium Level 3.9, Chloride Level 104, Carbon Dioxide Level 22, Anion Gap 12, Blood Urea Nitrogen 32H, Creatinine 3.17H, Estimat Glomerular Filtration Rate 18, BUN/Creatinine Ratio 10, Glucose Level 114H, Calcium Level 9.7, Corrected Calcium , Total Bilirubin 1.3H, Aspartate Amino Transf (AST/SGOT) 45H, Alanine Aminotransferase (ALT/SGPT) 28, Alkaline Phosphatase 90, Total Protein 7.4, Albumin 4.6H 04/16/22 22:04: Urine Color YELLOW, Urine Clarity CLEAR, Urine pH 5.5, Urine Specific [place] 1.025H, Urine Protein TRACEH, Urine Glucose (UA) NEGATIVE, Urine Ketones TRACEH, Urine Nitrite NEGATIVE, Urine Bilirubin NEGATIVE, Urine Urobilinogen 1.0, Urine Leukocyte Esterase NEGATIVE, Urine RBC (Auto) TRACE-IH, Urine RBC 0-2, Urine WBC 2-5, Urine Squamous Epithelial Cells 0-2, Urine Crystals NONE, Urine Bacteria MODERATEH, Urine Casts PRESENT, Urine Hyaline Casts >50H, Urine Granular Casts 0-2H, Urine Waxy Casts 2-5H, Urine Mucus NEGATIVE, Urine Culture Indicated YES Radiology NAME: MAGO MCCLENDON Sonal [facility] REC#: [id number] PT STATUS: REG ER : 1935 PHYSICIAN: OFE ESTRADA DO ADMIT DATE: 04/16/22/ER Signed Date of Exam:04/16/22 CHEST 1 VIEW, AP/PA ONLY EXAMINATION: Chest 1 view HISTORY: Fall. Chest pain. COMPARISON: 07/26/2021. FINDINGS: The lung volumes are normal. No focal consolidation is seen. No large pleural effusion or pneumothorax is seen. The cardiomediastinal silhouette is enlarged. No acute osseous abnormality is seen. IMPRESSION: 1. Cardiomegaly, similar to the prior exam. No overt pulmonary edema. Dictated by: Dictated on workstation # [id number] Dict: 04/16/222301 Trans: 04/16/222302 ELVIA [id number] Interpreted by: ALLYSSA SUBRAMANIAN DO Electronically signed by: ALLYSSA SUBRAMANIAN DO 04/16/222302 NAME: MAGO MCCLENDON MED REC#: [id number] PT STATUS: REG ER : 1935 PHYSICIAN: OFE ESTRADA DO ADMIT DATE: 04/16/22/ER Signed Date of Exam:04/16/22 PELVIS WITH RIGHT HIP 2-3VIEWS CLINICAL HISTORY: Fall. Pelvic and right hip pain. COMPARISON: None. TECHNIQUE: 3 views of the pelvis and right hip. FINDINGS: There is subtle deformity of the superior and inferior pubic rami on the right. The pubic symphysis is intact. No evidence of fracture involving the right hip. IMPRESSION: 1. Likely nondisplaced fractures involving the right superior and inferior pubic rami. 2. No acute fractures identified in the right hip. Dictated by: Dictated on workstation # [id number] Dict: 04/16/222299 Trans: 04/16/222302 ELVIA [id number] Interpreted by: ALLYSSA SUBRAMANIAN DO Electronically signed by: ALLYSSA SUBRAMANIAN DO 04/16/222302 NAME: MAGO MCCLENDON MED REC#: [id number] PT STATUS: REG ER : 1935 PHYSICIAN: OFE ESTRADA DO ADMIT DATE: 04/16/22/ER Signed Date of Exam:04/16/22 CT CHEST/ABDOMEN/PELVIS WO PROCEDURE: CT chest, abdomen, and pelvis without contrast. TECHNIQUE: Multiple contiguous axial images were obtained through the chest, abdomen, and pelvis without the use of intravenous contrast. Auto Exposure Controls were utilized during the CT exam to meet ALARA standards for radiation dose reduction. INDICATION: Fall. Chest and abdominal pain. Torso bruising. COMPARISON: 10/19/2020. CT chest: The heart size is enlarged. No pericardial effusion is present. There is calcified aortic and coronary atherosclerotic plaque. There is no mediastinal, hilar, or axillary lymphadenopathy. Stable nodule in the right lung apex. Dependent opacities are seen in the lung bases. No new suspicious pulmonary nodules. There are no focal areas of consolidation. No pneumothoraces are present. No central endobronchial obstructing lesions are identified. There are no pleural effusions. The osseous structures demonstrate degenerative changes without focal lytic or blastic lesions. CT abdomen and pelvis: The liver is dense, measuring 80 Hounsfield units. No focal hepatic lesion is seen. Dense material is layering within the gallbladder lumen. The spleen, pancreas, adrenal glands, and kidneys have a normal noncontrast CT appearance. There is no pathologically enlarged mesenteric or retroperitoneal adenopathy. The bowel loops are nondilated. The appendix is visualized in the right lower quadrant and has a normal appearance. There is no free fluid or free air. Acute minimally displaced fractures are seen involving the superior and inferior pubic rami on the right. Associated inflammatory changes are seen adjacent to the fracture. No acute fracture is seen in the lumbar spine. The bilateral hip joints demonstrate normal alignment. There is calcified aortic and iliac atherosclerotic plaque without aneurysm. The urinary bladder is decompressed with concentric bladder wall thickening. There is no free air, loculated collection, or adenopathy in the pelvis. IMPRESSION: 1. Acute minimally displaced fractures involving the superior and inferior pubic rami on the right. 2. Cardiomegaly. 3. Dense liver, which can be seen with amiodarone toxicity, hemosiderosis, Chris's disease, and glycogen storage diseases. Recommend correlation with patient history and LFTs. 4. Layering dense material within the gallbladder lumen, which may represent gallstones/gallbladder sludge. No CT evidence of acute cholecystitis. 5. Marked bladder wall thickening, which may be due to inadequate distention versus cystitis. Recommend correlation with UA. 6. Stable small nodule in the right lung apex. No new suspicious pulmonary nodules. Dictated by: Dictated on workstation # [id number] Dict: 04/16/222251 Trans: 04/16/222309 ELVIA [id number] Interpreted by: ALLYSSA SUBRAMANIAN DO Electronically signed by: ALLYSSA SUBRAMANIAN DO 04/16/221 A/P-Cardiology Assessment/Admission Diagnosis S/P non-syncopal fall - Likely nondisplaced fractures involving the right superior and inferior pubic rami. Per hip and pelvis x-ray on 04-16-22 - managed by orthopedic services ?Amiodarone toxicity - CT of abd/pelvis on 04-16-22: Dense liver, which can be seen with amiodarone toxicity, hemosiderosis, Chris's disease, and glycogen storage diseases. Recommend correlation with patient history and LFTs. H/O multifactorial shortness of breath, currently stable: - pneumonia (possibly COVID-19 pneumonia) and mild, acute, diastolic CHF in early 2020 and probable PE at time of COVID-19 in early Oct 2020 - Reports echo and stress test at [facility] in Jun 2020 were normal - Echocardiogram of 07-18-21 showed LVEF 55-65%. LA and RA mildly dilated. Mod calcification of mitral valve with mild to mod regurg. Mild to mod AoV regurg. PASP 50-55 mmHg A fib - with a controlled ventricular response, first diagnosed Oct 11, 2019 - maintained on Amiodarone - OAC with Eliquis - Sinus marlon on ECG of 07/06/21 - 24 HR Holter of 08-10-21 showed NSR with av HR 52 bpm. One 3.5 sec pause without symptoms. 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 LVEF 60%. Normal LVEDP. Severe mitral regurg (4+). 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
--- NOTE | 2022-04-17 11:55 | Occupational Therapy Eval ---
OT Evaluation-General/PLF Medical Diagnosis Admission Date Apr 17, 2022 at 00:15 Medical Diagnosis: pelvic fracture right Onset Date: Apr 16, 2022 Therapy Diagnosis Therapy Diagnosis: decreased ADL status and weakness Height/Weight Height (Feet): 5 Height (Inches): 9.50 Weight (Pounds): 180 Precautions Precautions/Isolations: Fall Prevention, Standard Precautions Referral Physician: [place] Referral Reason: Evaluation/Treatment Medical History Pertinent Medical History: Atrial Fib, HTN Additional Medical History A-fib, high cholesterol, HTN, valvular heart disease, and renal failure Current History Pt tripped on the curb, lost balance, fell on concrete, and landed on R side. Social History Home: Single Level Current Living Status: Spouse Entry Into Home: Ramp ADL-Prior Level of Function SCALE: Activities may be completed with or without assistive devices. 1-Tmvqttjxnx-ivxpfnh completes the activity by him/herself with no assistance from a helper. 5-Set-up or Clean-up Assistance-helper sets up or cleans up; patient completes activity. [place] assists only prior to or following the activity. 4-Supervision or Touching Assistance-helper provides verbal cues and/or to uching/steadying and/or contact guard assistance as patient completes activity. Assistance may be provided throughout the activity or intermittently. 3-Partial/Moderate Assistance-helper does LESS THAN HALF the effort. [place] lifts, holds or supports trunk or limbs, but provides less than half the effort. 2-Substantial/Maximal Assistance-helper does MORE THAN HALF the effort. [place] lifts or holds trunk or limbs and provides more than half the effort. 8-Bsrqyjptb-yqoklz does ALL the effort. Patient does none of the effort to complete the activity. Or, the assistance of 2 or more helpers is required for the patient to complete the activity. If activity was not attempted, code reason: 7-Patient Refused. 9-Not Applicable-not attempted and the patient did not perform the activity before the current illness, exacerbation or injury. 10-Not Attempted due to Environmental Limitations-(lack of equipment, weather restraints, etc.). 88-Not Attempted due to Medical Conditions or Safety Concerns. ADL PLOF Comments Pt reports being IND in all ADLs without DME, AE, or AD at PLOF. He says that he "has always enjoyed good health until now." His uses a 4WW, so he already has a SC and grab bars in place for her, but he can also use them upon d/c. Pt also has choice between tub/shower and walk-in shower at home. Self Care: Independent Functional Cognition: Independent DME/Equipment: Bath Bench, Grab Bars, Shower (walk-in), Tub/Shower Occupation: Part-time at [email or web address] [address] Self: Yes OT Current Status Subjective Pt seated in recliner upon OT arrival, agreeable to eval/tx. Pt politely insinuated that he is not medically ready for therapy, OT assured him that therapy received orders from and his is medically appropriate for therapy. Mental Status/Objective Patient Orientation: Person, Place, Situation Current Hand Dominance: Right Upper Extremity ROM ~100 degrees of shoulder flexion in RUE; ~150 degrees in LUE Upper Extremity Sensation Pt reports no numbness or tingling in BUE ADL-Treatment Eating (QC): 6 (Per nursing report) Upper Body Dressing (QC): 3 (Min A to thread R side and don over back per clinical judgement due to rib pain) Lower Body Dressing (QC): 3 (Min A to thread R leg per clinical judgement) On/Off Footwear (QC): 3 (Min A to hike R gripper sock) Other Treatments Pt remained in recliner throughout duration of tx. He provided information about PLOF and living situation, participated in BUE screen, and demonstrated footwear. Pt was self-limiting d/t pain and required mod encouragement to attempt footwear. Pt declined any further ADLs at this time. He was educated on the purpose and benefits of skilled OT services, and he was agreeable to receive services. Post tx, pt left in recliner with call light in reach and all needs met. Education OT Patient Education: Correct positioning, Energy conservation, Exercise program, Modified ADL techniques, Progress toward Goal/Update tx plan, Purpose of tx/functional activities, Rehab process, Safety issues Teaching Recipient: Patient Teaching Methods: Discussion Response to Teaching: Verbalize Understanding OT Washery Boss Goals Detention Goals Time Frame: May 04, 2022 Upper Body Dressing (QC): 6 Lower Body Dressing (QC): 6 On/Off Footwear (QC): 6 Additional Goals: 1-Demonstrate ADL Tasks, 2-Verbalize Understanding, 3-Impro veStrength/Carlos A 1=Demonstrate adherence to instructed precautions during ADL tasks. 2=Patient will verbalize/demonstrate understanding of assistive devices/modifications for ADL. 3=Patient will improve strength/tolerance for activity to enable patient to perform ADL's. OT Education/Plan Problem List/Assessment Assessment: Decreased Activ Tolerance, Decreased UE Strength, Impaired I ADL's, Impaired Self-Care Skills, Restricted Funct UE ROM Discharge Recommendations Plan/Recommendations: Continue POC Treatment Plan/Plan of Care Patient would benefit from OT for education, treatment and training to promote independence in ADL's, mobility, safety and/or upper extremity function for ADL's. Plan of Care: ADL Retraining, Functional Mobility, Group Exercise/Act as Ind, UE Funct Exercise/Act Treatment Duration: May 04, 2022 Frequency: 3 times per week (3-5x/wk) Estimated Hrs Per Day: .25 hour per day Rehab Potential: Fair Time/GCodes Start Time: 11:01 Stop Time: 11:12 Total Time Billed (hr/min): 11 Billed Treatment Time 1, REINALDO FORD OT Apr 17, 2022 11:55
--- NOTE | 2022-04-17 12:55 | Consultation - Ortho ---
Consult - Ortho Subjective Date of Exam 04/17/22 Chief Complaint Fall on right side HPI/Events since last exam had fall from standing height, seen in ER and diagnosed with right sided pelvic ring injury, I was asked to evaluate the injury Medical, Surgical History not obtained Social History not obtained Family History not obtained Review of Systems - Allergies: Coded Allergies: Penicillins (Verified Allergy, Mild, RASH, 09/07/14) Home Meds Active Scripts Amlodipine Besylate (Amlodipine Besylate) 5 Mg Tablet, 5 MG PO DAILY, #30 TAB 6 Refills Prov:WILLIAM REICH MD 07/27/21 Amiodarone HCl (Amiodarone HCl) 200 Mg Tablet, 100 MG PO DAILY, #30 TAB 6 Refills Prov:WILLIAM REICH MD 07/27/21 Reported Medications Apixaban (Eliquis) 5 Mg Tablet, 2.5 MG PO BID, TAB TAKES OF A 5MG TAB 07/26/21 Potassium Chloride (Potassium Chloride) 20 Meq Tab.er.prt, 20 MEQ PO DAILY, TAB 07/26/21 Cholecalciferol (Vitamin D3) (Vitamin D3) 25 Mcg Capsule, 25 MCG PO DAILY, CAP 10/12/20 Furosemide (Furosemide) 20 Mg Tablet, 20 MG PO DAILY, TAB 10/12/20 Rosuvastatin Calcium (Rosuvastatin Calcium) 10 Mg Tablet, 10 MG PO DAILY, TAB 08/17/20 Objective Exam Awake, alert Vital Signs Vital Signs Date Time Temp Pulse Resp B/P (MAP) Pulse Ox O2 Delivery O2 Flow Rate FiO2 04/17/22 11:57 36.4 52 19 137/73 (94) 98 Room Air 04/17/22 08:19 37.1 74 17 168/87 (114) 96 Room Air 04/17/22 08:10 95 Room Air 04/17/22 03:40 36.4 54 18 124/66 (85) 97 Room Air 04/17/22 02:53 36.8 75 99 21 04/17/22 00:55 95 Room Air 04/17/22 00:55 36.8 75 20 170/84 (112) 99 Room Air 04/17/22 00:48 59 151/77 96 04/16/22 21:30 36.5 57 16 158/77 (104) 97 I & O 04/17/22 07:00 Intake Total 100 ml Output Total 425 ml Balance -325 ml Lab Results Laboratory Tests 04/16/22 21:45: White Blood Count 9.6, Red Blood Count 3.94L, Hemoglobin 12.3L, Hematocrit 39L, Mean Corpuscular Volume 98, Mean Corpuscular Hemoglobin 31, Mean Corpuscular Hemoglobin Concent 32, Red Cell Distribution Width 14.1, Platelet Count 194, Mean Platelet Volume 10.1, Immature Granulocyte % (Auto) 1, Neutrophils (%) (Auto) 77H, Lymphocytes (%) (Auto) 13, Monocytes (%) (Auto) 7, Eosinophils (%) (Auto) 2, Basophils (%) (Auto) 1, Neutrophils # (Auto) 7.4, Lymphocytes # (Auto) 1.2, Monocytes # (Auto) 0.7, Eosinophils # (Auto) 0.1, Basophils # (Auto) 0.1, Immature Granulocyte # (Auto) 0.1, Prothrombin Time 18.6H, INR Comment 1.5H, Activated Partial Thromboplast Time 49H, Sodium Level 138, Potassium Level 3.9, Chloride Level 104, Carbon Dioxide Level 22, Anion Gap 12, Blood Urea Nitrogen 32H, Creatinine 3.17H, Estimat Glomerular Filtration Rate 18, BUN/Creatinine Ratio 10, Glucose Level 114H, Calcium Level 9.7, Corrected Calcium , Total Bilirubin 1.3H, Aspartate Amino Transf (AST/SGOT) 45H, Alanine Aminotransferase (ALT/SGPT) 28, Alkaline Phosphatase 90, Total Protein 7.4, Albumin 4.6H 04/16/22 22:04: Urine Color YELLOW, Urine Clarity CLEAR, Urine pH 5.5, Urine Specific [place] 1.025H, Urine Protein TRACEH, Urine Glucose (UA) NEGATIVE, Urine Ketones TRACEH, Urine Nitrite NEGATIVE, Urine Bilirubin NEGATIVE, Urine Urobilinogen 1.0, Urine Leukocyte Esterase NEGATIVE, Urine RBC (Auto) TRACE-IH, Urine RBC 0-2, Urine WBC 2-5, Urine Squamous Epithelial Cells 0-2, Urine Crystals NONE, Urine Bacteria MODERATEH, Urine Casts PRESENT, Urine Hyaline Casts >50H, Urine Granular Casts 0-2H, Urine Waxy Casts 2-5H, Urine Mucus NEGATIVE, Urine Culture Indicated YES Imaging Plain radiographs and CT reviewed and demonstrated minimally displaced right r ami fractures Assessment and Plan Assessment Right Superior and Inferior Pubic Rami Fractures Problem List Right Superior and Inferior Pubic Rami Fractures Plan WBAT PT Recommend repeat x-ray with follow up in 1 month in my office Final Diagonsis Right Superior and Inferior Pubic Rami Fractures Level of the visit: Level 3 GEORGIE ARCHER MD Apr 17, 2022 12:55
[2022-04-17] MEDS ORDERED: ONDANSETRON 4 MG/2 ML (SDV) Z0FRAN IVP PRN (13:15)
[2022-04-17] MEDS ORDERED: TMSL.4C PO (13:52)
[2022-04-17] MEDS ORDERED: CALC0.253 PO (13:52)
[2022-04-17] MEDS ORDERED: AMIO200T65 PO (13:52)
[2022-04-17] MEDS ORDERED: AMLO-250 PO (13:52)
[2022-04-17] MEDS ORDERED: LATA2.5D19 OU (13:52)
--- NOTE | 2022-04-17 14:04 | Physical Therapy Daily Note ---
PT Daily Note-Current Subjective Patient rates pain 10/10 with activity with meds issued. Pain Numeric Pain Scale: 10-Worst Possible Pain Location: Right Location Body Site: Pelvic Pain Description: Acute, Sharp Mental Status Patient Orientation: Normal For Age Transfers SCALE: Activities may be completed with or without assistive devices. 7-Wjeonrwwsj-zrfexcm completes the activity by him/herself with no assistance from a helper. 5-Set-up or Clean-up Assistance-helper sets up or cleans up; patient completes activity. [place] assists only prior to or following the activity. 4-Supervision or Touching Assistance-helper provides verbal cues and/or touching/steadying and/or contact guard assistance as patient completes activity. Assistance may be provided throughout the activity or intermittently. 3-Partial/Moderate Assistance-helper does LESS THAN HALF the effort. [place] lifts, holds or supports trunk or limbs, but provides less than half the effort. 2-Substantial/Maximal Assistance-helper does MORE THAN HALF the effort. [place] lifts or holds trunk or limbs and provides more than half the effort. 4-Jwgcntfdx-psuuvl does ALL the effort. Patient does none of the effort to complete the activity. Or, the assistance of 2 or more helpers is required for the patient to complete the activity. If activity was not attempted, code reason: 7-Patient Refused. 9-Not Applicable-not attempted and the patient did not perform the activity before the current illness, exacerbation or injury. 10-Not Attempted due to Environmental Limitations-(lack of equipment, weather restraints, etc.). 88-Not Attempted due to Medical Conditions or Safety Concerns. Sit to Lying (QC): 3 Sit to Stand (QC): 3 Chair/Cxi-nl-Karet Xfer(QC): 3 Weight Bearing Right Lower Extremity: Right Weight Bearing/Tolerated Left Lower Extremity: Left Full Weight Bearing Gait Training Distance: 20' Walk 10 feet (QC): 3 Gait Assistive Device: FWW step to gait sequence Assessment Patient had episode of nausea and lightheadedness requiring assist to sit and recover. Patient tolerates minimal activity due to uncontrolled pain. PT Latex Caster Goals [facility] Goals PT [facility] Goals Time Frame: Apr 28, 2022 Roll Left & Right (QC): 6 Sit to Lying (QC): 6 Lying-Sitting on Side/Bed(QC): 6 Sit to Stand (QC): 6 Chair/Ivr-hp-Pswcl Xfer(QC): 6 Toilet Transfer (QC): 6 Walk 10 feet (QC): 6 Walk 50ft with 2 Turns (QC): 6 Walk 150 ft (QC): 6 PT Plan Treatment/Plan Treatment Plan: Continue Plan of Care Treatment Plan: Bed Mobility, Education, Functional Activity Carlos A, Functional Strength, Gait, Safety, Therapeutic Exercise, Transfers Treatment Duration: Apr 28, 2022 Frequency: 11 times per week Estimated Hrs Per Day: .5 hour per day Patient and/or Family Agrees t: Yes Time/GCodes Time In: 1300 Time Out: 1318 Total Billed Treatment Time: 18 Total Billed Treatment 1 visit FA 18 min MISA SUMNER PT Apr 17, 2022 14:04
[2022-04-17] MEDS ORDERED: RIVA15TA PO (14:10)
--- NOTE | 2022-04-17 17:27 | History & Physical-Hospitalist ---
History of Present Illness HPI/Chief Complaint Oneil Mcclendon is an 87 year old male with PMH HTN, HLD, CKD4, AFib, who presented after a ground level fall. He was found to have a pelvic fracture. He is having some right sided rib pain from his fall. He denies fevers and chills. He denies chest pain and shortness of breath. He denies abdominal pain, nausea, vomiting, and diarrhea. Source: patient Exam Limitations: no limitations Date Seen 04/17/22 Time Seen by a Provider: 11:30 Attending Physician Robert Ahumada MD PCP Admitting Physician: Cristobal Nuñez MD Attending Physician: Demetrius Dia MD Referring Physician Date of Admission Apr 17, 2022 at 00:15 Home Medications & Allergies Home Medications Reviewed patient Home Medication Reconciliation performed by pharmacy medication reconciliations biometrics technician and/or nursing. Patients Allergies have been reviewed. Allergies Allergies Coded Allergies Penicillins (Verified Allergy, Mild, RASH, 09/07/14) Past Xnpccws-Tordup-Jabqae Hx Patient Social History Tobacco Use?: No Smoking Status: Former Smoker Use of E-Cig and/or Vaping dev: No Substance use?: No Alcohol Use?: No Pt feels they are or have been: No Immunizations Up To Date Date of Influenza Vaccine: Aug 08, 2020 First/Initial COVID19 Vaccinat: JANUARY 2021 Second COVID19 Vaccination Marco Antonio: FEBRUARY 2021 Tetanus Booster (TDap): Unknown Date of Pneumonia Vaccine: Jul 11, 2020 Seasonal Allergies Seasonal Allergies: No Current Status Advance Directives: Yes Advance Directive Location: Home Communicates: Verbally Primary Language: [place] Preferred Spoken Language: [place] Is interpretation needed?: No Past Medical History Surgeries: Cardiac, Orthopedic Atrial Fibrillation, High Cholesterol, Hypertension, Valvular Heart Disease Renal Failure Arthritis Blood Disorders: No Family Medical History No Pertinent Family Hx Review of Systems Constitutional: no symptoms reported EENTM: no symptoms reported Respiratory: no symptoms reported Cardiovascular: no symptoms reported Gastrointestinal: no symptoms reported Physical Exam Physical Exam Vital Signs Vital Signs - First Documented 04/16/22 04/17/22 21:30 02:53 Temp 36.5 Pulse 57 Resp 16 B/P (MAP) 158/77 (104) Pulse Ox 97 FiO2 21 Capillary Refill : Height, Weight, BMI Height: 5'9.50" Weight: 180lbs. oz. 81.724924kl; 23.21 BMI Method: General Appearance: No Apparent Distress, WD/WN HEENT: PERRL/EOMI, Pharynx Normal Neck: Normal Inspection, Supple Respiratory: No Chest Non Tender (rib pain); Lungs Clear, Normal Breath Sounds, No Respiratory Distress Cardiovascular: Regular Rate, Rhythm, No Murmur Gastrointestinal: Normal Bowel Sounds, Non Tender, Soft Extremity: Normal Inspection, Non Tender, No Pedal Edema Neurologic/Psychiatric: Alert, Oriented x3, Normal Mood/Affect Skin: Normal Color, Warm/Dry Results Results/Procedures Labs Laboratory Tests 04/16/22 21:45 04/17/22 17:20 Patient resulted labs reviewed. 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 Hold amiodarone Continue Xarelto Cardiology consulted HTN HLD Continue home meds Diagnosis/Problems Diagnosis/Problems (1) Fracture of right pelvis Status: Acute Qualifiers: Encounter type: initial encounter Pelvic bone location: pubis Fracture type: closed Fracture alignment: nondisplaced Qualified Codes: S32.501A - Unspecified fracture of right pubis, initial encounter for closed fracture (2) Fall from standing Status: Acute (3) Primary hypertension Status: Chronic (4) Mixed hyperlipidemia Status: Chronic (5) Paroxysmal atrial fibrillation Status: Chronic (6) Acute on chronic kidney failure Status: Acute Qualifiers: Acute renal failure type: unspecified Chronic kidney disease stage: stage 4 (severe) Qualified Codes: N17.9 - Acute kidney failure, unspecified; N18.4 - Chronic kidney disease, stage 4 (severe) DEMETRIUS DIA MD Apr 17, 2022 17:27
[2022-04-17 17:28] LABS: BASOPHILS % (AUTO) 0 % (0-10); EOSINOPHILS # (AUTO) 0.1 10^3/uL (0.0-0.3); EOSINOPHILS % (AUTO) 1 % (0-10); HEMATOCRIT 38 % (40-54); HEMOGLOBIN 12.6 g/dL (13.3-17.7); LYMPHOCYTES # (AUTO) 1.4 10^3/uL (1.0-4.0); LYMPHOCYTES % (AUTO) 14 % (12-44); MEAN CORPUSCULAR HEMOGLOBIN 31 pg (25-34); MEAN CORPUSCULAR HGB CONC 33 g/dL (32-36); MEAN CORPUSCULAR VOLUME 95 fL (80-99); MEAN PLATELET VOLUME 10.4 fL (9.0-12.2); MONOCYTES # (AUTO) 0.9 10^3/uL (0.0-1.0); MONOCYTES % (AUTO) 9 % (0-12); NEUTROPHILS # (AUTO) 7.5 10^3/uL (1.8-7.8); NEUTROPHILS % (AUTO) 76 % (42-75); PLATELET COUNT 157 10^3/uL (130-400)
[2022-04-17 17:53] LABS: BILIRUBIN,TOTAL 1.7 MG/DL (0.1-1.0); CALCIUM 9.3 MG/DL (8.5-10.1); CREATININE SERUM 2.56 MG/DL (0.60-1.30); POTASSIUM 4.6 MMOL/L (3.6-5.0); TOTAL PROTEIN 6.3 GM/DL (6.4-8.2)
--- NOTE | 2022-04-17 19:24 | Consultation-Cardiology ---
HPI-Cardiology Cardiology Consultation: Date of Consultation 04/17/22 Time Seen by a Provider: 19:00 Date of Admission Attending Physician Robert Reich MD Admitting Physician Admitting Physician: Cristobal Nuñez MD Attending Physician: Mallory Adam MD Consulting Physician RASHEEDA LEMONS MD, MA, FACP, FACC, FSCAI, CCDS HPI: Chief Complaint: S/P non-syncopal fall Mr. Mcclendon is an 87 yr old male admitted to [facility] from the ED. He reports he was on his way to a meeting when he tripped over a parking block resulting in a fall. He has a pelvic fracture. He denies any syncope, near syncope. No c/o palpitations, CP, SOB. He denies hitting his head. He reports he is bruised on his right side. He does report some discomfort with movement. Review of Systems-Cardiology Review of Systems Constitutional: No chills, No fever, No lightheadedness, No malaise Eyes: No vision change Ears/Nose/Throat: No epistaxis, No recent hearing loss Respiratory: As described under HPI Cardiovascular: As described under HPI Gastrointestinal: No constipation, No diarrhea, No nausea, No vomiting Genitourinary: No dysuria, No hematuria Skin: other (bruising to right side of hip/thigh); No rash on exposed areas, No ulcerations on exposed areas Psychiatric/Neurological: No anxiety, No depression, No seizure, No focal weakness, No syncope Hematologic: easy bruising; No bleeding abnormalities ONH-Dpunat-Jwivpn Hx Patient Social History Smoking Status: Former Smoker 2nd Hand Smoke Exposure: No Have you traveled recently?: No Alcohol Use?: No Pt feels they are or have been: No Immunizations Up To Date Date of Pneumonia Vaccine: Jul 11, 2020 Date of Influenza Vaccine: Aug 08, 2020 Past Medical History PMH As described under Assessment. Family Medical History Family Medical History: He reports he had a brother who passed from an UT at age 65. He reports his father had CAD. Allergies and Home Medications Allergies Coded Allergies: Penicillins (Verified Allergy, Mild, RASH, 09/07/14) Patient Home Medication List Home Medication List Reviewed: Yes Amiodarone HCl (Amiodarone HCl) 200 Mg Tablet, 200 MG PO DAILY, (Reported) Entered as Reported by: RAMA PATEL on 7/09/27 1352 Last Action: Reviewed Amlodipine Besylate (Amlodipine Besylate) 5 Mg Tablet, 5 MG PO DAILY, (Reported) Entered as Reported by: RAMA PATEL on 04/17/22 135 Last Action: Reviewed Calcitriol (Calcitriol) 0.25 Mcg Capsule, 0.25 MCG PO HS, (Reported) Entered as Reported by: RAMA PATEL on 04/17/221351 Last Action: Reviewed Furosemide (Furosemide) 20 Mg Tablet, 20 MG PO DAILY, (Reported) Entered as Reported by: RAMA PATEL on 10/12/20 135 Last Action: Reviewed Latanoprost (Xalatan) 0.005 % Drops, 1 DROP OU HS, (Reported) Entered as Reported by: RAMA PATEL on 04/17/221351 Last Action: Reviewed Rivaroxaban (Xarelto) 15 Mg Tablet, 15 MG PO HS, (Reported) Entered as Reported by: RAMA PATEL on 04/17/22 1410 Last Action: Reviewed Rosuvastatin Calcium (Rosuvastatin Calcium) 10 Mg Tablet, 10 MG PO HS, (Reported) Entered as Reported by: JUDY HARRY on 08/17/20 1437 Last Action: Reviewed Tamsulosin HCl (Flomax) 0.4 Mg Cap, 0.4 MG PO HS, (Reported) Entered as Reported by: RAMA PATEL on 04/17/221351 Last Action: Reviewed Discontinued Medications Amiodarone HCl (Amiodarone HCl) 200 Mg Tablet, 100 MG PO DAILY Discontinued Reason: Duplicate Order Prescribed by: ROBERT REICH on 07/27/21 125 Last Action: Discontinued Amlodipine Besylate (Amlodipine Besylate) 5 Mg Tablet, 5 MG PO DAILY Discontinued Reason: Duplicate Order Prescribed by: ROBERT REICH on 07/27/21 125 Last Action: Discontinued Apixaban (Eliquis) 5 Mg Tablet, 2.5 MG PO BID, (Reported) Discontinued Reason: Duplicate Order Entered as Reported by: RAMA PATEL on 07/26/21 1109 Last Action: Discontinued Cholecalciferol (Vitamin D3) (Vitamin D3) 25 Mcg Capsule, 25 MCG PO DAILY, (Reported) Discontinued Reason: No Longer Taking Entered as Reported by: RAMA PATEL on 10/12/20 135 Last Action: Discontinued Potassium Chloride (Potassium Chloride) 20 Meq Tab.er.prt, 20 MEQ PO DAILY, (Reported) Discontinued Reason: No Longer Taking Entered as Reported by: RAMA PATEL on 07/26/21 110 Last Action: Discontinued Physical Exam-Cardiology Physical Exam Vital Signs/I&O 04/17/22 04/17/22 04/17/22 04/17/22 08:10 08:19 11:57 15:49 Temp 37.1 36.4 37.0 Pulse 74 52 59 Resp 17 19 18 B/P (MAP) 168/87 (114) 137/73 (94) 171/74 (106) Pulse Ox 95 96 98 97 O2 Delivery Room Air Room Air Room Air Room Air Capillary Refill : Constitutional: AAO x 3, well-developed, well-nourished HEENT: PERRL, hearing is well preserved, oral hygience is good Neck: No carotid bruit; carotid pulses are 2 + bilaterally Respiratory: No accessory muscle use, No respiratory distress; chest expansion is symmetric, chest is bilaterally symmetric, lungs clear to auscultation Cardiovascular: regular rate-rhythm; No JVD; S1 and S2, systolic murmur Gastrointestinal: No tender; soft, round, audible bowel sounds Extremities: no lower extremity edema bilateral Neurologic/Psychiatric: grossly intact (moves all extremities) Skin: other (bruising to right hip/pelvis) Data Review Labs Laboratory Tests 04/16/22 21:45: White Blood Count 9.6, Red Blood Count 3.94L, Hemoglobin 12.3L, Hematocrit 39L, Mean Corpuscular Volume 98, Mean Corpuscular Hemoglobin 31, Mean Corpuscular Hemoglobin Concent 32, Red Cell Distribution Width 14.1, Platelet Count 194, Mean Platelet Volume 10.1, Immature Granulocyte % (Auto) 1, Neutrophils (%) (Auto) 77H, Lymphocytes (%) (Auto) 13, Monocytes (%) (Auto) 7, Eosinophils (%) (Auto) 2, Basophils (%) (Auto) 1, Neutrophils # (Auto) 7.4, Lymphocytes # (Auto) 1.2, Monocytes # (Auto) 0.7, Eosinophils # (Auto) 0.1, Basophils # (Auto) 0.1, Immature Granulocyte # (Auto) 0.1, Prothrombin Time 18.6H, INR Comment 1.5H, Activated Partial Thromboplast Time 49H, Sodium Level 138, Potassium Level 3.9, Chloride Level 104, Carbon Dioxide Level 22, Anion Gap 12, Blood Urea Nitrogen 32H, Creatinine 3.17H, Estimat Glomerular Filtration Rate 18, BUN/Creatinine Ra aileen 10, Glucose Level 114H, Calcium Level 9.7, Corrected Calcium , Total Bilirubin 1.3H, Aspartate Amino Transf (AST/SGOT) 45H, Alanine Aminotransferase (ALT/SGPT) 28, Alkaline Phosphatase 90, Total Protein 7.4, Albumin 4.6H 04/16/22 22:04: Urine Color YELLOW, Urine Clarity CLEAR, Urine pH 5.5, Urine Specific [place] 1.025H, Urine Protein TRACEH, Urine Glucose (UA) NEGATIVE, Urine Ketones TRACEH, Urine Nitrite NEGATIVE, Urine Bilirubin NEGATIVE, Urine Urobilinogen 1.0, Urine Leukocyte Esterase NEGATIVE, Urine RBC (Auto) TRACE-IH, Urine RBC 0-2, Urine WBC 2-5, Urine Squamous Epithelial Cells 0-2, Urine Crystals NONE, Urine Bacteria MODERATEH, Urine Casts PRESENT, Urine Hyaline Casts >50H, Urine Granular Casts 0-2H, Urine Waxy Casts 2-5H, Urine Mucus NEGATIVE, Urine Culture Indicated YES 04/17/22 17:20: White Blood Count 10.0, Red Blood Count 4.03L, Hemoglobin 12.6L, Hematocrit 38L, Mean Corpuscular Volume 95, Mean Corpuscular Hemoglobin 31, Mean Corpuscular Hemoglobin Concent 33, Red Cell Distribution Width 13.9, Platelet Count 157, Mean Platelet Volume 10.4, Immature Granulocyte % (Auto) 0, Neutrophils (%) (Auto) 76H, Lymphocytes (%) (Auto) 14, Monocytes (%) (Auto) 9, Eosinophils (%) (Auto) 1, Basophils (%) (Auto) 0, Neutrophils # (Auto) 7.5, Lymphocytes # (Auto) 1.4, Monocytes # (Auto) 0.9, Eosinophils # (Auto) 0.1, Basophils # (Auto) 0.0, Immature Granulocyte # (Auto) 0.0, Sodium Level 139, Potassium Level 4.6, Chloride Level 106, Carbon Dioxide Level 17L, Anion Gap 16H, Blood Urea Nitrogen 29H, Creatinine 2.56#H, Estimat Glomerular Filtration Rate 23, BUN/Creatinine Ratio 11, Glucose Level 111H, Calcium Level 9.3, Corrected Calcium 9.3, Total Bilirubin 1.7H, Aspartate Amino Transf (AST/SGOT) 46H, Alanine Aminotransferase (ALT/SGPT) 31, Alkaline Phosphatase 80, Total Protein 6.3L, Albumin 4.0 Microbiology 04/16/22 Urine Culture - Preliminary, Resulted NO GROWTH A/P-Cardiology Assessment/Admission Diagnosis S/P non-syncopal fall - Likely nondisplaced fractures involving the right superior and inferior pubic rami. Per hip and pelvis x-ray on 04-16-22 - managed by orthopedic services ?Amiodarone toxicity - CT of abd/pelvis on 04-16-22: Dense liver, which can be seen with amiodarone toxicity, hemosiderosis, Chris's disease, and glycogen storage diseases. Recommend correlation with patient history and LFTs. H/O multifactorial shortness of breath, currently stable: - pneumonia (possibly COVID-19 pneumonia) and mild, acute, diastolic CHF in early 2020 and probable PE at time of COVID-19 in early Oct 2020 - Reports echo and stress test at [facility] in Jun 2020 were normal - Echocardiogram of 07-18-21 showed LVEF 55-65%. LA and RA mildly dilated. Mod calcification of mitral valve with mild to mod regurg. Mild to mod AoV regurg. PASP 50-55 mmHg A fib - with a controlled ventricular response, first diagnosed Oct 11, 2019 - maintained on Amiodarone - OAC with Eliquis - Sinus marlon on ECG of 07/06/21 - 24 HR Holter of 08-10-21 showed NSR with av HR 52 bpm. One 3.5 sec pause without symptoms. 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 LVEF 60%. Normal LVEDP. Severe mitral regurg (4+). 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
[2022-04-17] MEDS ORDERED: ROSUVASTATIN 10 MG (CRESTOR) TABLET PO SCH (21:00)
[2022-04-17] MEDS ORDERED: RIVAROXABAN 15 MG TABLET (XARELTO) PO SCH (21:00)
[2022-04-17] MEDS ORDERED: amLODIPine 5 MG (NORVASC) TAB ONE (21:55)
[2022-04-17] MEDS: amLODIPine 5 MG (NORVASC) TAB PO SCH (22:00)
[2022-04-18 04:06] VITALS: BP 148/72
[2022-04-18] MEDS: CATHETER FLUSH 10 ML SYR IVP SCH (05:16)
[2022-04-18 07:08] LABS: BASOPHILS # (AUTO) 0.1 10^3/uL (0.0-0.1); BASOPHILS % (AUTO) 1 % (0-10); EOSINOPHILS # (AUTO) 0.2 10^3/uL (0.0-0.3); EOSINOPHILS % (AUTO) 3 % (0-10); HEMATOCRIT 37 % (40-54); LYMPHOCYTES # (AUTO) 1.6 10^3/uL (1.0-4.0); LYMPHOCYTES % (AUTO) 17 % (12-44); MEAN CORPUSCULAR HEMOGLOBIN 31 pg (25-34); MEAN CORPUSCULAR HGB CONC 32 g/dL (32-36); MEAN CORPUSCULAR VOLUME 96 fL (80-99); MONOCYTES # (AUTO) 0.9 10^3/uL (0.0-1.0); MONOCYTES % (AUTO) 10 % (0-12); NEUTROPHILS # (AUTO) 6.5 10^3/uL (1.8-7.8); NEUTROPHILS % (AUTO) 70 % (42-75); PLATELET COUNT 169 10^3/uL (130-400); WHITE BLOOD COUNT 9.3 10^3/uL (4.3-11.0)
[2022-04-18 07:37] LABS: ALBUMIN 3.6 GM/DL (3.2-4.5); BILIRUBIN,TOTAL 1.5 MG/DL (0.1-1.0); CREATININE SERUM 2.34 MG/DL (0.60-1.30); TOTAL PROTEIN 6.2 GM/DL (6.4-8.2)
[2022-04-18 08:08] VITALS: BP 156/86
[2022-04-18] MEDS: amLODIPine 5 MG (NORVASC) TAB PO SCH (09:51)
--- NOTE | 2022-04-18 22:12 | Discharge Summary ---
Discharge Summary Hospital Course Problems/Dx: (1) Fracture of right pelvis Status: Acute Qualifiers: Qualified Codes: S32.501A - Unspecified fracture of right pubis, initial encounter for closed fracture (2) Fall from standing Status: Acute (3) Primary hypertension Status: Chronic (4) Mixed hyperlipidemia Status: Chronic (5) Paroxysmal atrial fibrillation Status: Chronic (6) Acute on chronic kidney failure Status: Acute Qualifiers: Qualified Codes: N17.9 - Acute kidney failure, unspecified; N18.4 - Chronic kidney disease, stage 4 (severe) Hospital Course Date of Admission: Apr 17, 2022 at 00:15 Admission Diagnosis: Pelvic fracture Family Physician/Provider: Robert Reich MD Date of Discharge: 04/18/22 Discharge Diagnosis: Pelvic fracture, fall, debility Hospital Course: Oneil Mcclendon is an 87 year old male who was admitted after a fall with a pelvic fracture. His fracture did not require surgical intervention but it did cause some acute debility. 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 Cardiology was consulted. His amiodarone was discontinued. He also had a lung nodule which was stable from previous imaging. He worked with PT/OT and was evaluated by inpatient rehab and subsequently transferred down for ongoing therapy needs. Labs and Pending Lab Test: Laboratory Tests 04/18/22 05:52: White Blood Count 9.3, Red Blood Count 3.87L, Hemoglobin 12.0L, Hematocrit 37L, Mean Corpuscular Volume 96, Mean Corpuscular Hemoglobin 31, Mean Corpuscular Hemoglobin Concent 32, Red Cell Distribution Width 13.9, Platelet Count 169, Mean Platelet Volume 11.0, Immature Granulocyte % (Auto) 0, Neutrophils (%) (Auto) 70, Lymphocytes (%) (Auto) 17, Monocytes (%) (Auto) 10, Eosinophils (%) (Auto) 3, Basophils (%) (Auto) 1, Neutrophils # (Auto) 6.5, Lymphocytes # (Auto) 1.6, Monocytes # (Auto) 0.9, Eosinophils # (Auto) 0.2, Basophils # (Auto) 0.1, Immature Granulocyte # (Auto) 0.0, Sodium Level 138, Potassium Level 4.0, Chloride Level 105, Carbon Dioxide Level 20L, Anion Gap 13, Blood Urea Nitrogen 28H, Creatinine 2.34H, Estimat Glomerular Filtration Rate 26, BUN/Creatinine Ratio 12, Glucose Level 109H, Calcium Level 9.0, Corrected Calcium 9.3, Total Bilirubin 1.5H, Aspartate Amino Transf (AST/SGOT) 42H, Alanine Aminotransferase (ALT/SGPT) 28, Alkaline Phosphatase 87, Total Protein 6.2L, Albumin 3.6 Microbiology 04/16/22 Urine Culture - Final, Complete NO GROWTH Home Meds Active Reported Xarelto (Rivaroxaban) 15 Mg Tablet 15 Mg PO HS Flomax (Tamsulosin HCl) 0.4 Mg Cap 0.4 Mg PO HS Calcitriol 0.25 Mcg Capsule 0.25 Mcg PO HS Amiodarone HCl 200 Mg Tablet 200 Mg PO DAILY Xalatan (Latanoprost) 0.005 % Drops 1 Drop OU HS Amlodipine Besylate 5 Mg Tablet 5 Mg PO DAILY Furosemide 20 Mg Tablet 20 Mg PO DAILY Rosuvastatin Calcium 10 Mg Tablet 10 Mg PO HS Assessment/Pt Instructions Transferred to inpatient rehab unit Discharge Planning: >30 minutes discharge planning Discharge Instructions Discharge Diet: Low Sodium Diet Activity as Tolerated: Yes Consultations CArdiology Discharge Physical Examination Vital Signs Vital Signs Date Time Temp Pulse Resp B/P (MAP) Pulse Ox O2 Delivery O2 Flow Rate FiO2 04/18/22 08:22 Room Air 04/18/22 08:08 37.2 79 17 156/86 (109) 95 04/17/22 02:53 21 General Appearance: No Apparent Distress, WD/WN Respiratory: Lungs Clear, No Respiratory Distress Cardiovascular: Regular Rate, Rhythm, No Murmur Gastrointestinal: Normal Bowel Sounds, Soft Extremity: Normal Inspection, No Pedal Edema Skin: Normal Color, Warm/Dry Neurologic/Psychiatric: Alert, Normal Mood/Affect Allergies: Coded Allergies: Penicillins (Verified Allergy, Mild, RASH, 09/07/14) Copy Copies To 1: ROBERT REICH MD Discharge Summary Date of Admission Apr 17, 2022 at 00:15 Date of Discharge Apr 18, 2022 at 10:02 Discharge Date: Apr 18, 2022 Discharge Time: 10:02 Admission Diagnosis Pelvic fracture Consults/Procedures Consulations Cardiology Discharge Diagnosis Pelvic fracture Fall AFib Amiodarone toxicity (1) Fracture of right pelvis Status: Acute Qualifiers: Qualified Codes: S32.501A - Unspecified fracture of right pubis, initial encounter for closed fracture (2) Fall from standing Status: Acute (3) Primary hypertension Status: Chronic (4) Mixed hyperlipidemia Status: Chronic (5) Paroxysmal atrial fibrillation Status: Chronic (6) Acute on chronic kidney failure Status: Acute Qualifiers: Qualified Codes: N17.9 - Acute kidney failure, unspecified; N18.4 - Chronic kidney disease, stage 4 (severe) DEMETRIUS DIA MD Apr 18, 2022 22:12
== END 2022-04-18 10:02 | DRG 536 ==
LOC: EDUNIT# 20:58 → ER 20:59 → 4TH 04-17 00:15
PROVIDERS: ADMIT Internal Medicine; ATTEND Internal Medicine
DX: S32.591A Other specified fracture of right pubis, initial encounter for closed fracture (principal); N18.4 Chronic kidney disease, stage 4 (severe); N17.9 Acute kidney failure, unspecified; I48.20 Chronic atrial fibrillation, unspecified; S20.211A Contusion of right front wall of thorax, initial encounter; I12.9 Hypertensive chronic kidney disease with stage 1 through stage 4 chronic kidney disease, or unspecified chronic kidney disease; E78.2 Mixed hyperlipidemia; I48.0 Paroxysmal atrial fibrillation; D63.1 Anemia in chronic kidney disease; I34.0 Nonrheumatic mitral (valve) insufficiency; I27.20 Pulmonary hypertension, unspecified; R91.1 Solitary pulmonary nodule; M19.91 Primary osteoarthritis, unspecified site; Z79.01 Long term (current) use of anticoagulants; Z88.0 Allergy status to penicillin; W01.0XXA Fall on same level from slipping, tripping and stumbling without subsequent striking against object, initial encounter
CPT/HCPCS: 36415; 71045; 71250; 74176; 80053; 81000; 85025; 85610; 85730; 87088

== ENCOUNTER 2022-04-18 09:55 | Inpatient (IN) | payer MEDICARE, OTHER ==
[~2022-04-18] VITALS: Ht 179 cm; Wt 73.8 kg
[2022-04-18] MEDS: polyethylene glycoL POWDER 17 GM (MIRALAX) PACK PO SCH ×2 (09:00→19:36)
[2022-04-18] MEDS: DOCUSATE SODIUM 100 MG (COLACE) CAP PO SCH ×2 (09:00→20:14)
[2022-04-18] MEDS: SENNA W/DOCUSATE (SENOKOT S) TABLET PO SCH ×2 (09:00→20:14)
[~2022-04-18 09:55] MED LIST changes: +ALPRAZolam 0.25 MG (XANAX) TAB PO PRN; +CALC0.253 PO; +CALCIUM CARBONATE 500 MG (TUMS) TAB.CHEW PO PRN; +DOCUSATE SODIUM 100 MG (COLACE) CAP PO PRN; +FLEET ENEMA ADULT 1 EA BTL PR PRN; +LACTULOSE SYRUP 10GM/15ML (ENULOSE) 30ML UDC PO PRN; +LATA2.5D19 OU; +LOPERAMIDE 2 MG (IMODIUM) TABLET PO PRN; +MELATONIN 3 MG TABLET PO PRN; +ONDANSETRON 4 MG (ZOFRAN) ORAL DISSOLVE TAB PO PRN; +RIVA15TA PO; +TMSL.4C PO; +diphenhydrAMINE 25 MG TAB (BENADRYL) PO PRN; +guaiFENesin/CODEINE (ROBITUSSIN AC) 10ML UDC PO PRN
[2022-04-18 10:25] VITALS: BP 178/84
--- NOTE | 2022-04-18 10:32 | Occupational Therapy Eval ---
OT Evaluation-General/PLF Medical Diagnosis Admission Date Apr 18, 2022 at 09:55 Medical Diagnosis: Pelvic Fx Onset Date: Apr 16, 2022 Therapy Diagnosis Therapy Diagnosis: decreased ADL status Height/Weight Height (Feet): 5 Height (Inches): 9.50 Weight (Pounds): 180 Referral Physician: Becky Cabrera Reason: Evaluation/Treatment Medical History Pertinent Medical History: Atrial Fib, HTN Additional Medical History A-fib, high cholesterol, HTN, valvular heart disease, and renal failure Current History Pt tripped on the curb, lost balance, fell on concrete, and landed on R side. Social History Home: Single Level Current Living Status: Spouse Entry Into Home: Stairs With Railing Steps Into Home: 1 ADL-Prior Level of Function SCALE: Activities may be completed with or without assistive devices. 1-Gzidkbidxg-xkcfxib completes the activity by him/herself with no assistance from a helper. 5-Set-up or Clean-up Assistance-helper sets up or cleans up; patient completes activity. [place] assists only prior to or following the activity. 4-Supervision or Touching Assistance-helper provides verbal cues and/or touching/steadying and/or contact guard assistance as patient completes activit y. Assistance may be provided throughout the activity or intermittently. 3-Partial/Moderate Assistance-helper does LESS THAN HALF the effort. [place] lifts, holds or supports trunk or limbs, but provides less than half the effort. 2-Substantial/Maximal Assistance-helper does MORE THAN HALF the effort. [place] lifts or holds trunk or limbs and provides more than half the effort. 0-Qvdyqihek-obdwex does ALL the effort. Patient does none of the effort to complete the activity. Or, the assistance of 2 or more helpers is required for the patient to complete the activity. If activity was not attempted, code reason: 7-Patient Refused. 9-Not Applicable-not attempted and the patient did not perform the activity before the current illness, exacerbation or injury. 10-Not Attempted due to Environmental Limitations-(lack of equipment, weather restraints, etc.). 88-Not Attempted due to Medical Conditions or Safety Concerns. ADL PLOF Comments Pt reports being IND in all ADLs without DME, AE, or AD at PLOF. He says that he "has always enjoyed good health until now." His uses a 4WW, so he already has a SC and grab bars in place for her, but he can also use them upon d/c. Pt also has choice between tub/shower and walk-in shower at home. 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 9/10 pain reported in R hip Mental Status/Objective Patient Orientation: Person, Place, Situation Current Glasses/Contacts: Yes Dentures/Partials: Yes Hand Dominance: Right Upper Extremity ROM WFL, BUE grossly 130 degrees shoulder flexion Upper Extremity Coordination WFL Upper Extremity Sensation Pt reports no tingling/numbness Upper Extremity Strength Not formally tested due to R rib pain, grossly 4-/5 per clinical judgment. ADL-Treatment Eating (QC): 6 (Per pt report.) Oral Hygiene (QC): 6 (IND seated at sink.) Shower/Bathe Self (QC): 3 (Min A for R foot and buttocks) Upper Body Dressing (QC): 5 Lower Body Dressing (QC): 3 (Min A to hike pants up, SBA-CGA for standing balance) On/Off Footwear (QC): 3 (Min-Mod A to thread and hike R gripper sock) Toileting Hygiene (QC): 3 (Min A to hike pants and wiping buttocks, SBA-CGA for standing balance) Other Treatments OT evaluation complete. OT/PT cotreat due to skill of 2 clinicians required which a rehab trainer could not perform in order to coordinate UE/LEs, decrease fall risk, and due to pt's limitations in strength, mobility, pain, and transfers. Pt completed functional mobility and transfers including w/c mobility, car transfer, amublation with FWW, uneven surface. Pt required rest breaks due to c/o nausea. Pt returned to room, completed self care tasks at sink. Pt required v/c's to take RBs PRN throughout self-care tasks. Pt wheeled back to recliner, SPT with FWW at [facility]. Pt educated on the purpose and benefit of skilled OT services at [facility] to increase IND in ADLs, BUE strength and endurance, functional mobility, and activity tolerance, pt verbalized understanding. Post tx, pt left with call light in reach and all needs met. Min A with rolling, mod A supine to/from sit, min A sit to/from stand, CGA transfers, min A car transfer. CGA with using FWW, 10' (slow gait and difficulty advancing RLE) Education OT Patient Education: Correct positioning, Energy conservation, Exercise program, Modified ADL techniques, Progress toward Goal/Update tx plan, Purpose of tx/functional activities, Rehab process Teaching Recipient: Patient Teaching Methods: Discussion Response to Teaching: Verbalize Understanding OT Short Term Goals Short Term Goals Time Frame: May 02, 2022 Toileting hygiene: 4 Shower/bathe self: 4 Lower body dressin OT Ball Worker Goals Ball Worker Goals Time Frame: May 18, 2022 Eating (QC): 6 Oral Hygiene (QC): 6 Toileting Hygiene (QC): 6 Shower/Bathe Self (QC): 6 Upper Body Dressing (QC): 6 Lower Body Dressing (QC): 6 On/Off Footwear (QC): 6 Additional Goals: 1-Demonstrate ADL Tasks, 2-Verbalize Understanding, 3- ImproveStrength/Carlos A 1=Demonstrate adherence to instructed precautions during ADL tasks. 2=Patient will verbalize/demonstrate understanding of assistive devic es/modifications for ADL. 3=Patient will improve strength/tolerance for activity to enable patient to perform ADL's. OT Education/Plan Problem List/Assessment Assessment: Decreased Activ Tolerance, Decreased UE Strength, Impaired Funct Balance, Impaired I ADL's, Impaired Self-Care Skills Discharge Recommendations Plan/Recommendations: Continue POC Treatment Plan/Plan of Care Patient would benefit from OT for education, treatment and training to promote independence in ADL's, mobility, safety and/or upper extremity function for ADL's. Plan of Care: ADL Retraining, Functional Mobility, Group Exercise/Act as Ind, UE Funct Exercise/Act Treatment Duration: May 18, 2022 Frequency: At least 5 of 7 days/Wk (IRF) Estimated Hrs Per Day: 1.5 hours per day Agreement: Yes Rehab Potential: Good Time/GCodes Start Time: 10:05 Stop Time: 11:20 Total Time Billed (hr/min): 75 Billed Treatment Time OT eval x10', Cotreat x65' 1, EVM (10'), FA 2 (30'), ADL 2 (35') REINALDO SANCHEZ OT Apr 18, 2022 10:32
--- NOTE | 2022-04-18 11:10 | Progress Note ---
ASHU BLANC A MED STUDENT 04/18/22 1110: Progress Note Oneil is an 87 yo male who came to inpatient rehab following a fall with right sided pelvic fracture on 04/16. Pt was getting out of his car and fell on the curb hitting his right side. Pt was found to have right superior and inferior pubic rami fractures in the ED on Xray and CT. Ortho was consulted for pelvic fracture and recommended against surgical fixation at this time. 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 Pt's amiodarone was held. Pts Xarelto was continued as he was in Afib. Pt had uncomplicated hospital course with labs and vitals remaining stable. Pt underwent physical therapy during hospital stay. Inpatient rehab facility was determined the best option for pt upon d/c from general medical floor. Upon examination on the inpatient rehab floor, the pt was pleasant and comfortable sitting in his chair. He denies pain at baseline, but reports his pain worsens when he moves, especially during PT. Pt reports he has paroxysmal Afib, but is unaware of when he is having an episode. Pt denies fever, chills, CP, palpitations, SOA, cough, abdominal pain, N/V/D, numbness or weakness. Past Medical Hx: HTN, HLD, CKD4, Afib Medications: Amiodarone 100mg once daily Amlodipine 5mg once daily Eliquis 2.5mg twice daily Lasix 20mg once daily KCl 20meq once daily Rosuvastatin 10 mg once daily Surgical Hx: Mitral valve repair in 2013 Family Hx: No pertinent family hx Social Hx: Tobacco use- none Allergies: Penicillin UTD on Covid vaccine and booster Physical Exam: General: WN/WD male in NAD HEENT: PERRLA/EOMI, Pharynx normal Cardiac: RRR, diastolic murmur with an opening click Pulmonary: CTAB, no wheezes or ronchi Extremities: 1+ pitting edema bilaterally Skin: No lesions or rashes Neurological: A/o x3, normal affect Assessment & Plan: Pelvic fracture secondary to fall Afib HTN HLD Pelvic fracture secondary to fall -No surgical intervention at this time according to ortho -Physical and occupational therapy in inpatient rehab facility -Pain management with oxycodone and fentanyl Afib -Possible amiodarone toxicity -Continue to hold amiodarone -Continue xarelto HTN -Amlodipine from home meds HLD -Rosuvastatin from home meds DELLA SONI DO 04/18/222114: Supervisory-Addendum Brief Verification & Attestation Participated in pt care: history, MDM, physical Personally performed: exam, history, MDM, supervision of care Care discussed with: Medical Student Procedures: n/a Results interpretation: Verified all documentation Verification and Attestation of Medical Student E/M Service A medical student performed and documented this service in my presence. I reviewed and verified all information documented by the medical student and made modifications to such information, when appropriate. I personally performed the physical exam and medical decision making. Della Soni, Apr 18, 2022,21:15 ASHU BLANC MED STUDENT Apr 18, 2022 11:10 DELLA SONI DO Apr 18, 2022 21:15
--- NOTE | 2022-04-18 12:21 | PM&R Post Admission Assessment ---
PM&R HP Date of Visit: Apr 18, 2022 Time of Visit: 12:00 History of Present Illness CC: Debility HPI: This is an 87 yr old male. 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 He presents following a fall. He suffered a chest contusion and right pelvis fracture after a fall from standing position. He has been admitted to rehab for pain control, PT, and OT in order to return back to independent living. At this current time pt needs a bowel movement but otherwise has no complaints. Pain is controlled on Oxycodone. Oneil is an 87 yo male who came to inpatient rehab following a fall with right sided pelvic fracture on 04/16. Pt was getting out of his car and fell on the curb hitting his right side. Pt was found to have right superior and inferior pubic rami fractures in the ED on Xray and CT. Ortho was consulted for pelvic fracture and recommended against surgical fixation at this time. 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 Pt's amiodarone was held. Pts Xarelto was continued as he was in Afib. Pt had uncomplicated hospital course with labs and vitals remaining stable. Pt underwent physical therapy during hospital stay. Inpatient rehab facility was determined the best option for pt upon d/c from general medical floor. Upon examination on the inpatient rehab floor, the pt was pleasant and comfortable sitting in his chair. He denies pain at baseline, but reports his pain worsens when he moves, especially during PT. Pt reports he has paroxysmal Afib, but is unaware of when he is having an episode. Pt denies fever, chills, CP, palpitations, SOA, cough, abdominal pain, N/V/D, numbness or weakness. Past Medical Hx: HTN, HLD, CKD4, Afib Medications: Amiodarone 100mg once daily Amlodipine 5mg once daily Eliquis 2.5mg twice daily Lasix 20mg once daily KCl 20meq once daily Rosuvastatin 10 mg once daily Surgical Hx: Mitral valve repair in 2013 Family Hx: No pertinent family hx Social Hx: Tobacco use- none Allergies: Penicillin UTD on Covid vaccine and booster Physical Exam: General: WN/WD male in NAD HEENT: PERRLA/EOMI, Pharynx normal Cardiac: RRR, diastolic murmur with an opening click Pulmonary: CTAB, no wheezes or ronchi Extremities: 1+ pitting edema bilaterally Skin: No lesions or rashes Neurological: A/o x3, normal affect Assessment & Plan: Pelvic fracture secondary to fall Afib HTN HLD Pelvic fracture secondary to fall -No surgical intervention at this time according to ortho -Physical and occupational therapy in inpatient rehab facility -Pain management with oxycodone and fentanyl Afib -Possible amiodarone toxicity -Continue to hold amiodarone -Continue xarelto HTN -Amlodipine from home meds HLD -Rosuvastatin from home meds ASHU BLANC STUDENT Apr 18, 2022 11:10 <Created by ASHU BLANC > Past Vdjqltb-Zyubao-Nznweg Hx Past Med/Social Hx: Reviewed Nursing Past Med/Soc Hx, Reviewed and Corrections made Patient Social History Marrital Status: Employed/Student: employed Alcohol Use: Occasionally Uses Smoking Status: Never a Smoker Former Smoker, Quit: Aug 17, 1985 2nd Hand Smoke Exposure: No Recent Hopitalizations: No Immunizations Up To Date Date of Pneumonia Vaccine: Jul 11, 2020 Date of Influenza Vaccine: Aug 08, 2020 Seasonal Allergies Seasonal Allergies: No Past Medical History Surgeries: Cardiac, Orthopedic Cardiac: Atrial Fibrillation, High Cholesterol, Hypertension, Valvular Heart Disease Genitourinary: Renal Failure Musculoskeletal: Arthritis History of Blood Disorders: No Self Care: Independent Functional Cognition: Independent 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 Drive Self: Yes Eatin (Per pt report.) Oral Hygiene: 6 (IND seated at sink.) Shower/Bathe Self: 3 (Min A for R foot and buttocks) Upper Body Dressin Lower Body Dressin (Min A to hike pants up, SBA-CGA for standing balance) On/Off Footwear: 3 (Min-Mod A to thread and hike R gripper sock) Toileting Hygiene: 3 (Min A to hike pants and wiping buttocks, SBA-CGA for standing balance) PM&R Allergy/Meds/Data Review Allergies Coded Allergies: Penicillins (Verified Allergy, Mild, RASH, 09/07/14) Home Medications Scheduled Amiodarone HCl (Amiodarone HCl), 200 MG PO DAILY, (Reported) Amlodipine Besylate (Amlodipine Besylate), 5 MG PO DAILY, (Reported) Calcitriol (Calcitriol), 0.25 MCG PO HS, (Reported) Furosemide (Furosemide), 20 MG PO DAILY, (Reported) Latanoprost (Xalatan), 1 DROP OU HS, (Reported) Rivaroxaban (Xarelto), 15 MG PO HS, (Reported) Rosuvastatin Calcium (Rosuvastatin Calcium), 10 MG PO HS, (Reported) Tamsulosin HCl (Flomax), 0.4 MG PO HS, (Reported) Discontinued Medications Amiodarone HCl (Amiodarone HCl), 100 MG PO DAILY Discontinued Reason: Duplicate Order Amlodipine Besylate (Amlodipine Besylate), 5 MG PO DAILY Discontinued Reason: Duplicate Order Apixaban (Eliquis), 2.5 MG PO BID, (Reported) Discontinued Reason: Duplicate Order Cholecalciferol (Vitamin D3) (Vitamin D3), 25 MCG PO DAILY, (Reported) Discontinued Reason: No Longer Taking Potassium Chloride (Potassium Chloride), 20 MEQ PO DAILY, (Reported) Discontinued Reason: No Longer Taking Current Medications Current Medications Reviewed Review of Systems Constitutional: see HPI, malaise, weakness EENTM: no symptoms reported Respiratory: no symptoms reported Cardiovascular: no symptoms reported Gastrointestinal: constipation Genitourinary: no symptoms reported Musculoskeletal: back pain Skin: no symptoms reported Psychiatric/Neurological: No Symptoms Reported All Other Systems Reviewed Negative Unless Noted: Yes Physical Exam Physical Exam Vital Signs Vital Signs - First Documented 04/18/22 10:25 Temp 36.6 Pulse 72 Resp 20 B/P (MAP) 178/84 (115) Pulse Ox 98 O2 Delivery Room Air Capillary Refill : Height, Weight, BMI Height: 5'9.50" Weight: 180lbs. oz. 81.612565ym; 23.08 BMI Method: General Appearance: No Apparent Distress, WD/WN, Chronically ill Eyes: Bilateral Eye Normal Inspection, Bilateral Eye PERRL HEENT: PERRL/EOMI, Normal ENT Inspection, Pharynx Normal Neck: Full Range of Motion, Normal Inspection, Non Tender, Supple, Carotid Bruit Respiratory: Chest Non Tender, Lungs Clear, Normal Breath Sounds, No Accessory Muscle Use, No Respiratory Distress Cardiovascular: Regular Rate, Rhythm, No Edema, No Gallop, No JVD, No Murmur, Normal Peripheral Pulses Gastrointestinal: Normal Bowel Sounds, No Organomegaly, No Pulsatile Mass, Non Tender, Soft Back: Normal Inspection, No CVA Tenderness, No Vertebral Tenderness Extremity: Normal Capillary Refill, Normal Inspection, Normal Range of Motion, Non Tender, No Calf Tenderness, No Pedal Edema Neurologic/Psychiatric: Alert, Oriented x3, Normal Mood/Affect, Abnormal Gait, Motor Weakness (lower extremities due to pain) Skin: Normal Color, Warm/Dry Lymphatic: No Adenopathy PM&R Medical Assessment & Plan REHAB/MEDICAL ASSESSMENT AND PLAN: REHAB IMPAIRMENT GROUP: Pelvic fracture ETIOLOGIC DIAGNOSIS: Pelvic fracture The comorbidities that impact the patients function and/or functional outcome by: advanced age, lives alone, fall risk, narcotic bowel risk REHAB PLAN: The patient is being admitted to our comprehensive inpatient rehabilitation facility and can tolerate the intensity of service consisting of at least: 180 minutes of therapy a day, 5 out of 7 days a week Rehab treatment will consist of: PT OT will focus on regaining independence with use of assistive devices in order to regain enough function to return to independent living The patient/family has a good understanding of our discharge process and will benefit from an interdisciplinary inpatient rehabilitation program. The patient has potential to make improvement and is in need of at least two of the following multidisciplinary therapies including but not limited to physical, occupational, speech, and prosthetics and orthotics. Additionally the patient w ill need services from respiratory, nutritional services, wound care, psychology, etc. (Customize this to each patient). Given the patients complex condition and risk of further medical complications, rehabilitation services cannot be safely or effectively provided at a lower level of care such as a shelter facility. BARRIERS TO DISCHARGE: Advanced age and fall risk ESTIMATED LOS: 7 days DISPOSITION: Home RELEVANT CHANGES SINCE PREADMISSION SCREENING: I have compared the patients medical and functional status at the time of the preadmission screening and there are: no changes PROGNOSIS: Good REHABILITATION GOALS: 1. PT OT will focus on regaining independence with use of assistive devices in order to regain enough function to return to independent living All the above goals were reviewed with the patient and he/she is in agreement. By signing this document, I acknowledge that I have personally performed a full physical examination on this patient within 24 hours of admission to this in patient rehabilitation facility and have determined the patient to be able to tolerate the above course of treatment at an intensive level for a reasonable period of time. I will be completing a detailed individualized Plan of Care for this patient by day #4 of the patients stay based upon the Preadmission Screen, the Post-Admission Evaluation, and the therapy evaluations. Admission Dx/Comorbidities: (1) Fall from standing Status: Acute ICD Codes: W19.XXXA - Unspecified fall, initial encounter (2) Fracture of right pelvis Status: Acute ICD Codes: S32.9XXA - Fracture of unspecified parts of lumbosacral spine and pelvis, initial encounter for closed fracture (3) Contusion of right chest wall Status: Acute ICD Codes: S20.211A - Contusion of right front wall of thorax, initial encounter (4) Chronic kidney disease Status: Acute ICD Codes: N18.9 - Chronic kidney disease, unspecified (5) Congestive heart failure Status: Acute ICD Codes: I50.9 - Heart failure, unspecified (6) Atrial fibrillation Status: Acute ICD Codes: I48.91 - Unspecified atrial fibrillation (7) Acute on chronic diastolic (congestive) heart failure Status: Resolved ICD Codes: I50.33 - Acute on chronic diastolic (congestive) heart failure (8) CKD (chronic kidney disease), stage IV ICD Codes: N18.4 - Chronic kidney disease, stage 4 (severe) (9) Primary hypertension Status: Chronic ICD Codes: I10 - Essential (primary) hypertension (10) Mixed hyperlipidemia Status: Chronic ICD Codes: E78.2 - Mixed hyperlipidemia (11) Mitral regurgitation ICD Codes: I34.0 - Nonrheumatic mitral (valve) insufficiency Assessment/Plan Assessment and Plan Assess & Plan/Chief Complaint Assessment: Fall from standing Right side pelvic fracture Chest wall hematoma PAF Valvular heart disease OAC HTN CKD Advanced age HLP Plan: PT OT protocol Monitor BP Fall risk Monitor creatinine ROSALINDA SONI DO Apr 18, 2022 12:21
[2022-04-18] MEDS ORDERED: RT-ALBUTEROL SULF 2.5 MG/3 ML PRE-MIX VIAL INH PRN (12:30)
[2022-04-18] MEDS ORDERED: fentaNYL INJ 100 MCG/2 ML AMP IV PRN (12:30)
[2022-04-18] MEDS ORDERED: ONDANSETRON 4 MG/2 ML (SDV) Z0FRAN IVP PRN (12:30)
--- NOTE | 2022-04-18 12:52 | Physical Therapy Evaluation ---
PT Evaluation-General Medical Diagnosis Admission Date Apr 18, 2022 at 09:55 Medical Diagnosis: Pelvic Fx Onset Date: Apr 16, 2022 Therapy Diagnosis Therapy Diagnosis: impaired mobility Height/Weight Height (Feet): 5 Height (Inches): 9.50 Weight (Pounds): 180 Precautions Precautions/Isolations: Fall Prevention, Standard Precautions Weight Bear Status Right Lower Extremity: Right Weight Bearing/Tolerated Referral Physician: Della Pean DO Reason for Referral: Evaluation/Treatment Medical History Pertinent Medical History: Atrial Fib, HTN Current History tripped over parking curb, falling resulting in right pelvic and rib fractures Reviewed History: Yes Social History Home: Single Level Current Living Status: Spouse Entry Into Home: Stairs With Railing PT Steps Into Home: 1 Prior Prior Level of Function SCALE: Activities may be completed with or without assistive devices. 4-Rvnogzckfx-zghmhnd completes the activity by him/herself with no assistance from a helper. 5-Set-up or Clean-up Assistance-helper sets up or cleans up; patient completes activity. Custer assists only prior to or following the activity. 4-Supervision or Touching Assistance-helper provides verbal cues and/or touching/steadying and/or contact guard assistance as patient completes activity. Assistance may be provided throughout the activity or intermittently. 3-Partial/Moderate Assistance-helper does LESS THAN HALF the effort. Custer lifts, holds or supports trunk or limbs, but provides less than half the effort. 2-Substantial/Maximal Assistance-helper does MORE THAN HALF the effort. Custer lifts or holds trunk or limbs and provides more than half the effort. 3-Eojitxcvk-vbxdcy does ALL the effort. Patient does none of the effort to complete the activity. Or, the assistance of 2 or more helpers is required for the patient to complete the activity. If activity was not attempted, code reason: 7-Patient Refused. 9-Not Applicable-not attempted and the patient did not perform the activity before the current illness, exacerbation or injury. 10-Not Attempted due to Environmental Limitations-(lack of equipment, weather restraints, etc.). 88-Not Attempted due to Medical Conditions or Safety Concerns. Bed Mobility: 6 Transfers (B,C,W/C): 6 Gait: 6 Stairs: 6 Indoor Mobility (Ambulation): Independent Stairs: Independent PT Evaluation-Current Subjective Patient in bed pre tx, agrees to PT, has 7/10 pain in right hip. Will be co- treating with OT due to poor patient mobility, strength, endurance, severe pain with activity, coordinate UE and LE with activity, safety and reduce risk of falls. Pt/Family Goals to be independent at home Objective Patient Orientation: Person, Place, Situation Sensory Hearing: Functional Hand Dominance: Right Sensation Right Lower Extremit: Intact Sensation Left Lower Extremity: Intact Transfers Roll Left & Right (QC): 3 Sit to Lying (QC): 3 Lying to Sitting/Side of Bed(Q: 3 Sit to Stand (QC): 3 Chair/Wdb-or-Jxlij Xfer(QC): 4 Toilet Transfer (QC): 4 Car Transfer (QC): 3 Patient performs rolling with min assist, supine <-> sit mod assist, sit <-> stand min assist, transfers CGA, car transfer min assist. Patient moves slowly due to pain, needs cues for positioning and safety. Gait Does the Patient Walk?: Yes Mode of Locomotion: Walk Anticipated Mode of Locomotion: Walk Walk 10 feet (QC): 4 Walk 50 ft with 2 Turns(QC): 88 Walk 150 ft (QC): 88 Walking 10ft/uneven surface-QC: 4 Distance: 10'x2 Gait Assistive Device: FWW Comments/Gait Description Patient can ambulate 10' with a rolling walker with CGA (including 10' over an uneven surface), gait is antalgic, very slow, has a hard time advancing his right leg Wheelchair Training Does the Pt Use a Wheelchair?: Yes Distance: 50' Wheel 50 ft with 2 turns (QC): 4 Wheel 150 ft (QC): 88 Stairs 1 Step (curb) (QC): 88 4 Steps (QC): 88 12 Steps (QC): 88 Balance Sitting Static: Fair Sitting Dynamic: Fair Standing Static: Fair Standing Dynamic: Fair Picking up an Object (QC): 4 (CGA with a architect internship) Treatment Patient also performed bathing, dressing, and ADL's. PT performed bed mobility and transfers, ambulation, WC mobility, standing and positioning during bathing and dressing and ADL's, OT performed bathing, dressing, ADL's, UE positioning and safety during activity. Assessment/Needs Patient in recliner post tx with nurse call, phone, tray, all needs met. Patient has impaired mobility and severe pain with activity. 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 Time Frame: May 09, 2022 Roll Left & Right (QC): 6 Sit to Lying (QC): 4 (SBA) Lying-Sitting on Side/Bed(QC): 4 (SBA) Sit to Stand (QC): 6 Chair/Ieh-rm-Bqbeg Xfer(QC): 6 Toilet Transfer (QC): 6 Car Transfer (QC): 4 (SBA) Does the Patient Walk: Yes Walk 10 feet (QC): 6 Walk 50ft with 2 Turns (QC): 6 Walk 150 ft (QC): 6 Walking 10ft on Uneven Surface: 6 1 Step (curb) (QC): 4 (CGA) 4 Steps (QC): 4 (CGA) 12 Steps (QC): 88 Picking up an Object (QC): 4 (SBA with architect internship) Wheel 50 feet with 2 turns (QC: 9 Wheel 150 feet: 9 PT Plan Problem List Problem List: Activity Tolerance, Functional Strength, Safety, Balance, Gait, Transfer, Bed Mobility, ROM Treatment/Plan Treatment Plan: Continue Plan of Care Treatment Plan: Bed Mobility, Concurrent Therapy, Education, Functional Activity Carlos A, Functional Strength, Group Therapy, Gait, Safety, Therapeutic Exercise, Transfers Treatment Duration: May 09, 2022 Frequency: At least 5 of 7 days/Wk (IRF) Estimated Hrs Per Day: 1.5 hours per day Patient and/or Family Agrees t: Yes Safety Risks/Education Patient Education: Gait Training, Transfer Techniques, Correct Positioning, W/C Management, Safety Issues Teaching Recipient: Patient Teaching Methods: Demonstration, Discussion Response to Teaching: Reinforcement Needed Discharge Recommendations Plan Patient will perform bed mobility and transfer training, balance and endurance training, functional strengthening, stair training, gait training, and education, to improve functional mobility and independence at home. Therapy Discharge Recommendati: Home & Family, Post Acute PT Time/GCodes Time In: 0955 Time Out: 1120 Total Billed Treatment Time: 75 Total Billed Treatment 1 visit EVM 10' FA 65' PT eval from [id number], OT eval from [id number], co-treat from [id number] MARCO SCHWARTZ PT Apr 18, 2022 12:52
--- NOTE | 2022-04-18 13:42 | ST Cognitive Linguistic Eval ---
Speech Evaluation-General Medical Diagnosis Pelvic Fx Onset Date: Apr 16, 2022 Therapy Diagnosis Therapy Diagnosis: Intact Cognitive Linguistic Skills Precautions Precautions: Fall Precautions/Isolations: Fall Prevention, Standard Precautions Referral Referring Physician: Dr. Pena Reason for Referral: Evaluation/Treatment Medical History Pertinent Medical History: Atrial Fib, HTN Current History The patient is an 87 year-old male with a past medical history significant for A-fib, high cholesterol, HTN, valvular heart disease, and renal failure, who tripped on a curb, lost his balance and fell on concrete. Reviewed History: Yes Social History Current Living Status: Spouse Speech PLF-Current Status Prior Level of Function The patient denied prior or current challenges with his speech, language, cognition, or swallowing. Subjective The patient was seated upright in his recliner, awake and alert upon entrance to his room by the clinician. The patient greeted the clinician appropriately and was agreeable to participation in the cognitive linguistic evaluation. Language Eval: Auditory Comprehends Simple Yes/No Ques: Functional Indent/Objects Multiple Singh: Functional Ident/Pics in Multiple Singh: Functional Follows 1-Step Commands: Functional Follows Complex Directions: Functional Follows General Conversations: Functional Language Eval: Verbal Language Completes Spontaneous Greeting: Functional Produces Auto, Serial Info: Functional Imitates Simple Words/Phrases: Functional Word Finding: Functional Requests Basic Needs: Functional States Basic Personal Info: Functional Expresses Complex Ideas: Functional Cognitive Patient Orientation The patient was independently oriented to self, location, month, day of week, date, and year. Objective Cognitive Domain Attention: WNL Memory: WNL Problem Solving: Functional Executive Functions: WNL Composite Severity Rating: WNL Objective Formal/Standardized Tests [facility] Status Examination ([facility]) Results The patient demonstrated a result of +24/24 on the SLUMS correlating to cognitive linguistic skills within normal limits. Due to time constraints, the clinician was unable to complete clock drawing or shape identification with the patient. The patient denied changes or concerns with his visuospatial skills. Oral Motor/Speech Production The patient does not display dysarthria or apraxia of speech. The patient is 100% intelligible in known and unknown contexts. Impression The patient displays cognitive linguistic skills within normal limits. Speech Patient Assess Expression of Ideas/Wants: Expression (4) Understanding Verbal Content: Understands (4) Brief Interview-Mental Status: Yes Repetition of Three Words: Three (3) Temporal Orientation: Year: Correct (3) Temporal Orientation: Month: Accurate within 5 days(2) Temporal Orientation: Day: Correct (1) Recall : Wear to say "Sock": Yes, no cue required (2) Recall : Color: Yes, no cue required (2) Recall : Bed: Yes, no cue required (2) Memory/Recall Ability: Current season, Location of own room, Staff names and faces, That he or she is in a hsp/hsp unit Speech-Plan Treatment Plan Speech Therapy Treatment Plan: Discontinue ST Treatment Duration: Apr 18, 2022 Frequency: 1 time per week Estimated Hrs Per Day: .5 hour per day Rehab Potential: Fair Pt/Family Agrees to Plan: Yes Safety Risks/Education Teaching Recipient: Patient Teaching Methods: Discussion Response to Teaching: Verbalize Understanding Education Topics Provided: Results, Recommendations, Plan of Care Time Speech Therapy Time In: 13:00 Speech Therapy Time Out: 13:30 Total Billed Time: 30 Billed Treatment Time 1, GISELLE GÓMEZ [facility] Apr 18, 2022 13:42
[2022-04-18] MEDS: CATHETER FLUSH 10 ML SYR IVP SCH ×2 (13:54→20:14)
[2022-04-18 20:00] VITALS: BP 118/60
[2022-04-18] MEDS: ROSUVASTATIN 10 MG (CRESTOR) TABLET PO SCH (20:14)
[2022-04-18] MEDS: RIVAROXABAN 15 MG TABLET (XARELTO) PO SCH (20:14)
[2022-04-19] MEDS: CATHETER FLUSH 10 ML SYR IVP SCH ×3 (05:01→20:26)
[2022-04-19 06:23] LABS: BASOPHILS # (AUTO) 0.1 10^3/uL (0.0-0.1); BASOPHILS % (AUTO) 1 % (0-10); EOSINOPHILS # (AUTO) 0.2 10^3/uL (0.0-0.3); EOSINOPHILS % (AUTO) 1 % (0-10); HEMATOCRIT 35 % (40-54); HEMOGLOBIN 11.3 g/dL (13.3-17.7); LYMPHOCYTES # (AUTO) 1.9 10^3/uL (1.0-4.0); LYMPHOCYTES % (AUTO) 17 % (12-44); MEAN CORPUSCULAR HEMOGLOBIN 31 pg (25-34); MEAN CORPUSCULAR HGB CONC 32 g/dL (32-36); MEAN CORPUSCULAR VOLUME 98 fL (80-99); MEAN PLATELET VOLUME 10.7 fL (9.0-12.2); MONOCYTES # (AUTO) 1.2 10^3/uL (0.0-1.0); MONOCYTES % (AUTO) 11 % (0-12); NEUTROPHILS # (AUTO) 7.8 10^3/uL (1.8-7.8); NEUTROPHILS % (AUTO) 70 % (42-75); PLATELET COUNT 172 10^3/uL (130-400); WHITE BLOOD COUNT 11.1 10^3/uL (4.3-11.0)
[2022-04-19 06:29] LABS: ALBUMIN 3.6 GM/DL (3.2-4.5); POTASSIUM 4.8 MMOL/L (3.6-5.0)
[2022-04-19 06:30] LABS: CALCIUM 9.1 MG/DL (8.5-10.1)
[2022-04-19 06:32] LABS: TOTAL PROTEIN 6.2 GM/DL (6.4-8.2)
[2022-04-19 06:33] LABS: BILIRUBIN,TOTAL 1.6 MG/DL (0.1-1.0)
[2022-04-19 06:35] LABS: CREATININE SERUM 2.67 MG/DL (0.60-1.30)
[2022-04-19 07:34] VITALS: BP 133/62
[2022-04-19 08:00] VITALS: BP 133/62
--- NOTE | 2022-04-19 08:32 | Occupational Ther Daily Note ---
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 Pt agreeable to tx. Rated pain 8/10 with transfer, nurse notified, but pain subsided to 4/10 after sitting in recliner for a few minutes. Pt expressed pain anytime he moved his BLEs throughout session. Mental Status/Objective Patient Orientation: Person, Place, Situation ADL-Treatment Therapy Code Descriptions/Definitions Functional [place] Measure: 0=Not Assessed/NA 4=Minimal Assistance 1=Total Assistance 5=Supervision or Setup 2=Maximal Assistance 6=Modified [place] 3=Moderate Assistance 7=Complete IndependenceSCALE: Activities may be completed with or without assistive devices. 5-Dvtjpucici-xgigphf completes the activity by him/herself with no assistance from a helper. 5-Set-up or Clean-up Assistance-helper sets up or cleans up; patient completes activity. [place] assists only prior to or following the activity. 4-Supervision or Touching Assistance-helper provides verbal cues and/or touching/steadying and/or contact guard assistance as patient completes a ctivity. Assistance may be provided throughout the activity or intermittently. 3-Partial/Moderate Assistance-helper does LESS THAN HALF the effort. [place] lifts, holds or supports trunk or limbs, but provides less than half the effort. 2-Substantial/Maximal Assistance-helper does MORE THAN HALF the effort. [place] lifts or holds trunk or limbs and provides more than half the effort. 1-Lzockijzv-kuzjrx does ALL the effort. Patient does none of the effort to complete the activity. Or, the assistance of 2 or more helpers is required for the patient to complete the activity. If activity was not attempted, code reason: 7-Patient Refused. 9-Not Applicable-not attempted and the patient did not perform the activity before the current illness, exacerbation or injury. 10-Not Attempted due to Environmental Limitations-(lack of equipment, weather restraints, etc.). 88-Not Attempted due to Medical Conditions or Safety Concerns. Eating (QC): 6 (Per pt report) Oral Hygiene (QC): 5 (Set up, seated in recliner) Toileting Hygiene (QC): 5 (With urinal) Other Treatment Pt was mid transfer upon OT arrival, requesting to rest over FWW d/t pain. He required Min A x2 to maintain upright position during transfer and max encouragement to complete transfer. Pt remained in recliner throughout rest of session d/t pain in R hip and BLE. He completed oral hygiene and grooming tasks seated in recliner, but he declined any further ADLs d/t pain. He participated in functional activities and UE exercises to increase UE strength and endurance and activity tolerance. He completed the nuts and bolts activity with RBs as needed, pt's hands were noticeably shaky during this activity but pt reports that this is not new to his condition. To address fine motor coordination, he completed green Theraputty (mod-heavy resistance) with beads. Pt completed 2x15 the following UE exercises with 2lb dumbbells: bicep curls, alternating punches, and shoulder flexion. Pt did not report any pain in ribs during exercises, but he required v/c's to breath throughout exercises. Post tx, pt left in recliner with call light in reach and all needs met. Education OT Patient Education: Correct positioning, Energy conservation, Exercise program, Modified ADL techniques, Progress toward Goal/Update tx plan, Purpose of tx/functional activities, Rehab process, Safety issues, Transfer techniques Teaching Recipient: Patient Teaching Methods: Demonstration, Discussion Response to Teaching: Verbalize Understanding, Return Demonstration OT Short Term Goals Short Term Goals Time Frame: May 02, 2022 Toileting hygiene: 4 Shower/bathe self: 4 Lower body dressin OT Detention Goals Detention Goals Time Frame: May 18, 2022 Eating (QC): 6 Oral Hygiene (QC): 6 Toileting Hygiene (QC): 6 Shower/Bathe Self (QC): 6 Upper Body Dressing (QC): 6 Lower Body Dressing (QC): 6 On/Off Footwear (QC): 6 Additional Goals: 1-Demonstrate ADL Tasks, 2-Verbalize Understanding, 3- ImproveStrength/Carlos A 1=Demonstrate adherence to instructed precautions during ADL tasks. 2=Patient will verbalize/demonstrate understanding of assistive devices/modifications for ADL. 3=Patient will improve strength/tolerance for activity to enable patient to perform ADL's. OT Education/Plan Problem List/Assessment Assessment: Decreased Activ Tolerance, Decreased UE Strength, Impaired Funct Balance, Impaired I ADL's, Impaired Self-Care Skills Discharge Recommendations Plan/Recommendations: Continue POC Treatment Plan/Plan of Care Patient would benefit from OT for education, treatment and training to promote independence in ADL's, mobility, safety and/or upper extremity function for ADL's. Plan of Care: ADL Retraining, Functional Mobility, Group Exercise/Act as Ind, UE Funct Exercise/Act Treatment Duration: May 18, 2022 Frequency: At least 5 of 7 days/Wk (IRF) Estimated Hrs Per Day: 1.5 hours per day Agreement: Yes Rehab Potential: Fair Time/GCodes Start Time: 08:00 Stop Time: 09:30 Total Time Billed (hr/min): 90 Billed Treatment Time 1, ADL 2 (30'), FA 3 (45'), Ex 1 (15') REINALDO SANCHEZ OT Apr 19, 2022 08:32
[2022-04-19] MEDS: amLODIPine 5 MG (NORVASC) TAB PO SCH (08:33)
[2022-04-19] MEDS: DOCUSATE SODIUM 100 MG (COLACE) CAP PO SCH ×2 (08:33→20:25)
[2022-04-19] MEDS: SENNA W/DOCUSATE (SENOKOT S) TABLET PO SCH ×2 (08:33→20:25)
[2022-04-19] MEDS: polyethylene glycoL POWDER 17 GM (MIRALAX) PACK PO SCH ×2 (09:37→20:25)
--- NOTE | 2022-04-19 10:04 | PM&R Progress Note ---
Subjective HPI/CC On Admission Date Seen by Provider: Apr 19, 2022 Time Seen by Provider: 09:00 Subjective/Events-last exam 04/19/2022: Pt is doing a lot better Pain is well controlled but hates to use pain pills Bowels moved 3 days ago so we'll get aggressive with that Creatinine is 2.6, that is his baseline Review of Systems General: Fatigue, Malaise Musculoskeletal: back pain Objective Exam Vital Signs Vital Signs Date Time Temp Pulse Resp B/P (MAP) Pulse Ox O2 Delivery O2 Flow Rate FiO2 04/19/22 20:19 Room Air 04/19/22 20:18 37.6 83 20 151/80 (103) 91 04/19/22 08:04 0.00 Capillary Refill : General Appearance: No Apparent Distress, WD/WN, Chronically ill HEENT: PERRL/EOMI, Normal ENT Inspection, Pharynx Normal Neck: Full Range of Motion, Normal Inspection, Non Tender, Supple, Carotid Bruit Respiratory: Chest Non Tender, Lungs Clear, Normal Breath Sounds, No Accessory Muscle Use, No Respiratory Distress Cardiovascular: Regular Rate, Rhythm, No Edema, No Gallop, No JVD, No Murmur, Normal Peripheral Pulses Gastrointestinal: Normal Bowel Sounds, No Organomegaly, No Pulsatile Mass, Non Tender, Soft Back: Normal Inspection, No CVA Tenderness, No Vertebral Tenderness Extremity: Normal Capillary Refill, Normal Inspection, Normal Range of Motion, Non Tender, No Calf Tenderness, No Pedal Edema Neurologic/Psychiatric: Alert, Oriented x3, Normal Mood/Affect, Abnormal Gait, Motor Weakness (lower extremities due to pain) Skin: Normal Color, Warm/Dry Lymphatic: No Adenopathy Results/Procedures Lab Laboratory Tests 04/19/22 06:11 Patient resulted labs reviewed. FIM Transfers Therapy Code Descriptions/Definitions Functional [place] Measure: 0=Not Assessed/NA 4=Minimal Assistance 1=Total Assistance 5=Supervision or Setup 2=Maximal Assistance 6=Modified [place] 3=Moderate Assistance 7=Complete IndependenceSCALE: Activities may be completed with or without assistive devices. 9-Arxqrrpylz-jgkatdr completes the activity by him/herself with no assistance from a helper. 5-Set-up or Clean-up Assistance-helper sets up or cleans up; patient completes activity. [place] assists only prior to or following the activity. 4-Supervision or Touching Assistance-helper provides verbal cues and/or touching/steadying and/or contact guard assistance as patient completes activity. Assistance may be provided throughout the activity or intermittently. 3-Partial/Moderate Assistance-helper does LESS THAN HALF the effort. [place] lifts, holds or supports trunk or limbs, but provides less than half the effort. 2-Substantial/Maximal Assistance-helper does MORE THAN HALF the effort. [place] lifts or holds trunk or limbs and provides more than half the effort. 0-Vztotnkev-klongf does ALL the effort. Patient does none of the effort to comp lete the activity. Or, the assistance of 2 or more helpers is required for the patient to complete the activity. If activity was not attempted, code reason: 7-Patient Refused. 9-Not Applicable-not attempted and the patient did not perform the activity before the current illness, exacerbation or injury. 10-Not Attempted due to Environmental Limitations-(lack of equipment, weather restraints, etc.). 88-Not Attempted due to Medical Conditions or Safety Concerns. Roll Left to Right (QC): 3 Sit to Lying (QC): 3 Sit to Stand (QC): 3 Chair/Vtd-gw-Uqnwg Xfer(QC): 4 Car Transfer (QC): 3 Gait Training Does the Patient Walk?: Yes Walk 10 feet (QC): 4 Walk 50 ft with 2 Turns(QC): 88 Walk 150 ft (QC): 88 Walking 10ft/uneven surface-QC: 4 Gait Assistive Device: FWW Wheelchair Training Does the Pt Use a Wheelchair?: Yes Distance: 50' Wheel 50 ft with 2 turns (QC): 4 Wheel 150 ft (QC): 88 Stair Training 1 Step (curb) (QC): 88 4 Steps (QC): 88 12 Steps (QC): 88 Balance Picking up an Object (QC): 4 (CGA with a flight test data acquisition technician) ADL-Treatment Eating (QC): 6 (Per pt report) Oral Hygiene (QC): 5 (Set up, seated in recliner) Shower/Bathe Self (QC): 3 (Min A for R foot and buttocks) Upper Body Dressing (QC): 5 Lower Body Dressing (QC): 3 (Min A to hike pants up, SBA-CGA for standing balance) On/Off Footwear (QC): 3 (Min-Mod A to thread and hike R gripper sock) Toileting Hygiene (QC): 5 (With urinal) Assessment/Plan Assessment and Plan Assess & Plan/Chief Complaint Assessment: Fall from standing Right side pelvic fracture Chest wall hematoma PAF Valvular heart disease OAC HTN CKD Advanced age HLP Plan: PT OT protocol Monitor BP Fall risk Monitor creatinine 04/19/2022: Monitor pain (1) Fall from standing Status: Acute (2) Fracture of right pelvis Status: Acute (3) Contusion of right chest wall Status: Acute (4) Chronic kidney disease Status: Acute (5) Congestive heart failure Status: Acute (6) Atrial fibrillation Status: Acute (7) Acute on chronic diastolic (congestive) heart failure Status: Resolved Resolution Date/Time: 10/31/20 @ 08:38 (8) CKD (chronic kidney disease), stage IV (9) Primary hypertension Status: Chronic (10) Mixed hyperlipidemia Status: Chronic (11) Mitral regurgitation ROSALINDA SONI DO Apr 19, 2022 10:04
--- NOTE | 2022-04-19 10:04 | Individualized Plan of Care ---
Individualized Plan of Care Rehab Nursing IPOC Order Admission Date Apr 18, 2022 at 09:55 Current Orders Orders Admission Order(Inpt,Obs,Sdc) (04/18/22 06:13) Vital Signs: Per Unit Policy ( 08,16,00 (04/18/22 06:13) Андрей Reardon (04/18/22 06:13) Sequential Compression Device (04/18/22 06:13) Supplier Specialist-Inpt Rehab Con (04/18/22 06:13) Rehab Nursing Orders-Ipoc (04/18/22 06:13) Physical Therapy Rehab Orders (04/18/22 06:13) Occupational Therapy Rehab Ord (04/18/22 06:13) Speech Therapy Rehab Orders (04/18/22 06:13) Cbc With Automated Diff (04/19/22 06:00) Comprehensive Metabolic Panel (04/19/22 06:00) Precautions (Aru) (04/18/22 06:13) Weekly Weight WEEK (04/18/22 06:13) Rehab-Intensity Of Therapy (04/18/22 06:13) Initiate Admission Nursing Pro .admission (04/18/22 06:13) Alprazolam Tablet (Xanax Tablet) (04/18/22 06:15) Calcium Carbonate Chew Tablet (Antacid C (04/18/22 06:15) Diphenhydramine Tablet (Benadryl Tablet) (04/18/22 06:15) Docusate Sodium Capsule (Colace Capsule) (04/18/22 09:00) Docusate Sodium Capsule (Colace Capsule) (04/18/22 06:15) Bisacodyl Suppository (Dulcolax Supposit (04/18/22 06:15) Lactulose Oral Solution (Enulose Oral So (04/18/22 06:15) Na Phos/Na Biphos Enema (Fleet Enema Aakash (04/18/22 06:15) Guaifenesin/Codeine Syrup (Robitussin Ac (04/18/22 06:15) Loperamide Tablet (Imodium Tablet) (04/18/22 06:15) Melatonin Tablet (Melatonin Tablet) (04/18/22 06:15) Polyethylene Glycol Powder Pkt (Miralax (04/18/22 09:00) Ondansetron Oral Dissolve Tab (Zofran (04/18/22 06:15) Senna S Tablet (Senokot S Tablet) (04/18/22 09:00) Acetaminophen Tablet/Caplet (Tylenol T (04/18/22 06:15) Initiate Admission Nursing Pro .admission (04/18/22 06:13) Admission Arrival Bed Request (04/18/22 10:06) Sodium 2g (2000 Mg) (04/18/22 Lunch) Code/Resuscitation (04/18/22 12:21) Incentive Spirometry (Nursing) Q2H (04/18/22 12:21) Albuterol Pre-Mix Nebs (Rt) (Proventil (04/18/22 12:30) Ondansetron Injection (Zofran Injectio (04/18/22 12:30) Rivaroxaban Tablet (Xarelto Tablet) (04/18/22 21:00) Rosuvastatin Tablet (Crestor Tablet) (04/18/22 21:00) Sodium Chloride Flush (Catheter Flush Sy (04/18/22 14:00) Amlodipine Tablet (Norvasc Tablet) (04/19/22 09:00) Fentanyl Inj (Sublimaze Injection) (04/18/22 12:30) Oxycodone Immediate Rel Tablet (Oxyir Ta (04/18/22 12:30) Consult Cardiology (04/18/22 12:21) Incentive Spirometry Initial (04/18/22 12:21) Mat Initiate Protocol (04/18/22 12:21) Iv Convert To [place] (Order) (04/18/22 12:21) Weight Bearing As Tolerated (04/18/22 12:21) Svn Small Volume Nebulizer (04/18/22 12:21) Incentive Spirometry (Nursing) Q2H (04/18/22 12:21) Patient Visit (04/18/22 ) Speech Sound Lang Comp (04/18/22 ) Treat. Speech/Lang/Voice (04/18/22 ) Patient Visit (04/18/22 ) Pt Eval Moderate Complexity (04/18/22 ) Functional Activities, Ea 15 (04/18/22 ) Oxycodone Immediate Rel Tablet (Oxyir Ta (04/19/22 16:30) Tramadol Tablet (Ultram Tablet) (04/19/22 14:45) Patient Visit (04/19/22 ) Exercise Therap, Ea 15 Min (04/19/22 ) Functional Activities, Ea 15 (04/19/22 ) Gait Training, Ea 15 Min (04/19/22 ) Rehab Nursing Orders: Ongoing Assess. of Cognitive Status, Ongoing Assess. of Function Status, Bladder Management, Bladder Scan, Bladder Training, Bowel Management, Bowel Training, Disease Management & Educaiton, DVT Prophylaxis, Fall Prevention, Fluid/Electrolyte/Nutrition Mgmt, Infection Prevention, Medication Management & Education, Management of Risks & Complications, Management of Skin Intergrity, Nutrition Management, Pain Management, Patient/Family Support, Safety Management Intensity of Therapy to be met Patient to be seen: Min.3h per day/5 of 7d PT IPOC Problem List: Activity Tolerance, Functional Strength, Safety, Balance, Gait, Transfer, Bed Mobility, ROM Treatment Plan: Continue Plan of Care Bed Mobility, Concurrent Therapy, Education, Functional Activity Carlos A, Functional Strength, Group Therapy, Gait, Safety, Therapeutic Exercise, Transfers Treatment Duration: May 09, 2022 Frequency: At least 5 of 7 days/Wk (IRF) Estimated Hrs Per Day: 1.5 hours per day OT IPOC Problems: Decreased Activ Tolerance, Decreased UE Strength, Impaired Funct Balance, Impaired I ADL's, Impaired Self-Care Skills OT Treatment, Training and Edu: Yes Plan of Care: ADL Retraining, Functional Mobility, Group Exercise/Act as Ind, UE Funct Exercise/Act Treatment Duration: May 18, 2022 Frequency: At least 5 of 7 days/Wk (IRF) Estimated Hrs Per Day: 1.[address] IPOC Speech Therapy Treatment Plan: Discontinue ST Treatment Duration: Apr 18, 2022 Frequency: 1 time per week Estimated Hrs Per Day: .5 hour per day Supplier Specialist/Case Mgmt Supplier Specialist/Case Managemen: Discharge Planning Dietitian/Oncology Rn Dietitian/Oncology Rn to monitor nutritional status and make changes and/or recommendations as needed and work with speech pathology on dietary upgrades as the occur. Physician IPOC Medical Issues being managed closely and that require the 24 hour availability of a physician: Recent fall with pelvic fracture and chest hematoma will require close monitoring for fall risk and management of cardiac dysfunction and CKD since high risk for decompensation Medical Issues: Bowel/Bladder Function, DVT Prophylaxis, Falls Precautions, Fluid/Electrolyte/Nutrition Balance, Infection Protection, Pain Management, Weight Bearing Precautions Brief Synthesis of Preadmission Screen, Post-Admission Evaluation, and Therapy Evaluations: PT OT will focus on regaining function in order to manage pelvic fracture pain and ultimately increase independence in order to DC home Medical Prognosis: Good Anticipated Length of Stay: 7 days ROSALINDA SONI DO Apr 19, 2022 10:04
--- NOTE | 2022-04-19 11:00 | Physical Therapy Daily Note ---
PT Daily Note-Current Subjective Pt. up in recliner, agrees to Rx, states he is in 7/10 pain right ribs, right hip and back area. Pt.expresses that he is distraught and feels he isnt handling this very well. At end of rx thanks this [employer] INFORMATION CLERK repeatedly stating he feels he might be a little improved Pain Numeric Pain Scale: 7 Location: Right Location Body Site: Hip Pain Description: Stabbing Appearance whinces, eyes closed, Mental Status Patient Orientation: Normal For Age Transfers SCALE: Activities may be completed with or without assistive devices. 3-Yqwwngzlxe-mzddnwt completes the activity by him/herself with no assistance from a helper. 5-Set-up or Clean-up Assistance-helper sets up or cleans up; patient completes activity. [place] assists only prior to or following the activity. 4-Supervision or Touching Assistance-helper provides verbal cues and/or touching/steadying and/or contact guard assistance as patient completes activity. Assistance may be provided throughout the activity or intermittently. 3-Partial/Moderate Assistance-helper does LESS THAN HALF the effort. [place] lifts, holds or supports trunk or limbs, but provides less than half the effort. 2-Substantial/Maximal Assistance-helper does MORE THAN HALF the effort. [place] lifts or holds trunk or limbs and provides more than half the effort. 5-Tuyecpbht-qkikmb does ALL the effort. Patient does none of the effort to complete the activity. Or, the assistance of 2 or more helpers is required for the patient to complete the activity. If activity was not attempted, code reason: 7-Patient Refused. 9-Not Applicable-not attempted and the patient did not perform the activity befo re the current illness, exacerbation or injury. 10-Not Attempted due to Environmental Limitations-(lack of equipment, weather re straints, etc.). 88-Not Attempted due to Medical Conditions or Safety Concerns. Sit to Stand (QC): 4 Weight Bearing Right Lower Extremity: Right Weight Bearing/Tolerated Gait Training Gait Assistive Device: FWW 3 steps forward, 3 steps back FWW slow with many instruction for wt bearing through UEs and managing pain and safe movement Exercises Supine Ex: Ankle pumps, Quad Set, Glut sets, Heel Slides, Scooting (up in reclined recliner), Straight leg raise (L only, indep), Hip abd/add (assisted) Treatments instruction in positioning lift recline chair for comfort and for supine position for therex, sit to stand with recliner slightly elevated, supine ex as above, pregait for and back with emphasis on wt bearing on FWW to help manage pain, breathing and relaxation techniques were shared as well as pt. left in near zero grav position with warmed blankets for relaxation Assessment pain limits function PT Short Term Goals Short Term Goals Time Frame: Apr 25, 2022 Roll Left & Right: 4 (SBA) Sit to lyin (Yenny) Lying to sitting on side of be: 3 (Yenny) Sit to stand: 4 (CGA) Chair/qiv-ac-ccntx transfer: 4 (SBA) Walk 10 feet: 4 (CGA) Walk 50 feet with two turns: 4 (CGA) PT Penitentiary Goals Penitentiary Goals PT Penitentiary Goals Time Frame: May 09, 2022 Roll Left & Right (QC): 6 Sit to Lying (QC): 4 (SBA) Lying-Sitting on Side/Bed(QC): 4 (SBA) Sit to Stand (QC): 6 Chair/Zbu-fv-Fbtvp Xfer(QC): 6 Toilet Transfer (QC): 6 Car Transfer (QC): 4 (SBA) Does the Patient Walk: Yes Walk 10 feet (QC): 6 Walk 50ft with 2 Turns (QC): 6 Walk 150 ft (QC): 6 Walking 10ft on Uneven Surface: 6 1 Step (curb) (QC): 4 (CGA) 4 Steps (QC): 4 (CGA) 12 Steps (QC): 88 Picking up an Object (QC): 4 (SBA with anthropology and archeology instructor) Wheel 50 feet with 2 turns (QC: 9 Wheel 150 feet: 9 PT Plan Treatment/Plan Treatment Plan: Continue Plan of Care Treatment Plan: Bed Mobility, Concurrent Therapy, Education, Functional Activity Carlos A, Functional Strength, Group Therapy, Gait, Safety, Therapeutic Exercise, Transfers Treatment Duration: May 09, 2022 Frequency: At least 5 of 7 days/Wk (IRF) Estimated Hrs Per Day: 1.5 hours per day Patient and/or Family Agrees t: Yes Safety Risks/Education Patient Education: Gait Training, Transfer Techniques, Correct Positioning, Disease Process, Safety Issues Teaching Recipient: Patient Teaching Methods: Demonstration, Discussion Response to Teaching: Verbalize Understanding, Return Demonstration, Reinforcement Needed Time/GCodes Time In: 1030 Time Out: 1100 Total Billed Treatment Time: 30 Total Billed Treatment 1,EX15m,FA15m ANNELIESE MAY [employer] INFORMATION CLERK Apr 19, 2022 11:00
--- NOTE | 2022-04-19 13:31 | Physical Therapy Daily Note ---
PT Daily Note-Current Subjective Pt. in recliner, this STUDIO OPERATION ENGINEER offered to assist him in changing soiled pj bottoms and tshirt, pt declines appearing embarrassed a bit perhaps as he is previously known to this STUDIO OPERATION ENGINEER on a community basis. Pt. c/o throughout Rx of pain in pelvic region at 8/10 gee with TRFs sit to stand and with gait. Pain Numeric Pain Scale: 8 Location: Medial Location Body Site: Pelvic Pain Description: Stabbing Mental Status Patient Orientation: Confused Transfers SCALE: Activities may be completed with or without assistive devices. 9-Arzmnzrlwn-bfngbfi completes the activity by him/herself with no assistance from a helper. 5-Set-up or Clean-up Assistance-helper sets up or cleans up; patient completes activity. [place] assists only prior to or following the activity. 4-Supervision or Touching Assistance-helper provides verbal cues and/or touching/steadying and/or contact guard assistance as patient completes activity. Assistance may be provided throughout the activity or intermittently. 3-Partial/Moderate Assistance-helper does LESS THAN HALF the effort. [place] lifts, holds or supports trunk or limbs, but provides less than half the effort. 2-Substantial/Maximal Assistance-helper does MORE THAN HALF the effort. [place] lifts or holds trunk or limbs and provides more than half the effort. 2-Rnocohibh-eknkvh does ALL the effort. Patient does none of the effort to complete the activity. Or, the assistance of 2 or more helpers is required for the patient to complete the activity. If activity was not attempted, code reason: 7-Patient Refused. 9-Not Applicable-not attempted and the patient did not perform the activity before the current illness, exacerbation or injury. 10-Not Attempted due to Environmental Limitations-(lack of equipment, weather restraints, etc.). 88-Not Attempted due to Medical Conditions or Safety Concerns. Sit to Stand (QC): 3 Chair/Sua-tt-Rbtkb Xfer(QC): 3 pt. needs instruction each trial of sit to stand as well as for positioning and gait for every steps as well as repeated instruction as he appears confused and does not retain direction from previous Rx. wt shift, to reach with hands etc Weight Bearing Right Lower Extremity: Right Weight Bearing/Tolerated Gait Training Does the Patient Walk?: Yes Walk 10 feet (QC): 3 Gait Persons Needed: 1 (and w/c close behind) Gait Assistive Device: FWW pt. ambulated 25 ft, 30 ft ,12 ft with FWW with constant cues and assist for stability , advancing FWW and wt bearing and positioning etc.pain and fatigue halts gait each trial Wheelchair Training Does the Pt Use a Wheelchair?: Yes Wheel 50 ft with 2 turns (QC): 3 Type of Wheelchair: Manual pt. needed repeated instruction as to how to brake w/c, propel w/c and to move his LEs etc Exercises Seated Therapy Exercises: Ankle pumps, Sit to stand, Long arc quads, Hip flexion Seated Reps: 12 Treatments pt. premedicated for Rx but still c/o pain in pelvis at 8/10 but when at rest pt falls asleep, eyes closed etc, sit to stands from w/c, recliner all mod A, gait as recorded with pt slumping at trunk and knees melting into flexion requiring near constant instruction, pt. with poor ability to retain info and follow. Had planned to attempt nustep but pt not keeping eyes open so back to room to TRF back to recliner mod asst, LEs elevated, blanket , phone and call greene at hand Assessment Current Status: Fair Progress pt. struggling to follow commands as well as pain c/o . Dependent for all PT Short Term Goals Short Term Goals Time Frame: Apr 25, 2022 Roll Left & Right: 4 (SBA) Sit to lyin (Yenny) Lying to sitting on side of be: 3 (Yenny) Sit to stand: 4 (CGA) Chair/waq-ua-ojywb transfer: 4 (SBA) Walk 10 feet: 4 (CGA) Walk 50 feet with two turns: 4 (CGA) PT Motor Bus Driver Goals Motor Bus Driver Goals PT Shelter Goals Time Frame: May 09, 2022 Roll Left & Right (QC): 6 Sit to Lying (QC): 4 (SBA) Lying-Sitting on Side/Bed(QC): 4 (SBA) Sit to Stand (QC): 6 Chair/Lms-xr-Xyuio Xfer(QC): 6 Toilet Transfer (QC): 6 Car Transfer (QC): 4 (SBA) Does the Patient Walk: Yes Walk 10 feet (QC): 6 Walk 50ft with 2 Turns (QC): 6 Walk 150 ft (QC): 6 Walking 10ft on Uneven Surface: 6 1 Step (curb) (QC): 4 (CGA) 4 Steps (QC): 4 (CGA) 12 Steps (QC): 88 Picking up an Object (QC): 4 (SBA with lead java programmer) Wheel 50 feet with 2 turns (QC: 9 Wheel 150 feet: 9 PT Plan Treatment/Plan Treatment Plan: Continue Plan of Care Treatment Plan: Bed Mobility, Concurrent Therapy, Education, Functional Activity Carlos A, Functional Strength, Group Therapy, Gait, Safety, Therapeutic Exercise, Transfers Treatment Duration: May 09, 2022 Frequency: At least 5 of 7 days/Wk (IRF) Estimated Hrs Per Day: 1.5 hours per day Patient and/or Family Agrees t: Yes Safety Risks/Education Patient Education: Gait Training, Transfer Techniques, Correct Positioning, W/C Management, Disease Process, Safety Issues Teaching Recipient: Patient Teaching Methods: Demonstration, Discussion Response to Teaching: Verbalize Understanding, Return Demonstration, Reinforcement Needed Time/GCodes Time In: 1235 Time Out: 1335 Total Billed Treatment Time: 60 Total Billed Treatment 1,FA35m,GT15m,EX10m ANNELIESE MAY STUDIO OPERATION ENGINEER Apr 19, 2022 13:30
--- NOTE | 2022-04-19 18:16 | Progress Note - Cardiology ---
Cardiology SOAP Progress Note Subjective: No cp or palp or syncope or shortness of breath No n/v/d Gen weakness Objective: I&O/Vital Signs 04/19/22 04/19/22 04/19/22 04/19/22 07:34 08:00 08:04 09:29 Temp 37.5 37.5 Pulse 69 69 Resp 18 18 B/P (MAP) 133/62 (85) 133/62 (85) Pulse Ox 91 91 O2 Delivery Room Air Room Air Room Air Room Air O2 Flow Rate 0.00 Weight (Pounds): 180 Weight (Calculated Kilograms): 81.461102 Constitutional: AAO x 3, well-developed Respiratory: No accessory muscle use; other (fair to good, bilat air entry) Cardiovascular: regular rate-rhythm, S1 and S2, systolic murmur (2/6 HSM) Gastrointestional: No tender; soft; No guarding, No rebound; audible bowel sounds Extremities: No clubbing, No cyanosis, No significant edema Neurologic/Psychiatric: oriented x 3, other (moves all limbs equally) Skin: No rash on exposed areas, No ulcerations on exposed areas Results/Procedures: Labs Laboratory Tests 04/19/22 06:11: White Blood Count 11.1H, Red Blood Count 3.60L, Hemoglobin 11.3L, Hematocrit 35L , Mean Corpuscular Volume 98, Mean Corpuscular Hemoglobin 31, Mean Corpuscular Hemoglobin Concent 32, Red Cell Distribution Width 13.9, Platelet Count 172, Mean Platelet Volume 10.7, Immature Granulocyte % (Auto) 1, Neutrophils (%) (Auto) 70, Lymphocytes (%) (Auto) 17, Monocytes (%) (Auto) 11, Eosinophils (%) (Auto) 1, Basophils (%) (Auto) 1, Neutrophils # (Auto) 7.8, Lymphocytes # (Auto) 1.9, Monocytes # (Auto) 1.2H, Eosinophils # (Auto) 0.2, Basophils # (Auto) 0.1, Immature Granulocyte # (Auto) 0.1, Sodium Level 135, Potassium Level 4.8, Chloride Level 101, Carbon Dioxide Level 24, Anion Gap 10, Blood Urea Nitrogen 32H, Creatinine 2.67H, Estimat Glomerular Filtration Rate 22, BUN/Creatinine Ratio 12, Glucose Level 98, Calcium Level 9.1, Corrected Calcium 9.4, Total Bilirubin 1.6H, Aspartate Amino Transf (AST/SGOT) 36H, Alanine Aminotransferase (ALT/SGPT) 23, Alkaline Phosphatase 87, Total Protein 6.2L, Albumin 3.6 Laboratory Tests 04/19/22 06:11 A/P: Assessment: S/P non-syncopal fall - Likely nondisplaced fractures involving the right superior and inferior pubic rami. Per hip and pelvis x-ray on 04-16-22 - managed by orthopedic services ?Amiodarone toxicity - CT of abd/pelvis on 04-16-22: Dense liver, which can be seen with amiodarone toxicity, hemosiderosis, Chris's disease, and glycogen storage diseases. Recommend correlation with patient history and LFTs. A fib - with a controlled ventricular response, first diagnosed Oct 11, 2019 - maintained on Amiodarone - OAC with Eliquis - Sinus marlon on ECG of 07/06/21 - 24 HR Holter of 08-10-21 showed NSR with av HR 52 bpm. One 3.5 sec pause without symptoms. 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 LVEF 60%. Normal LVEDP. Severe mitral regurg (4+). 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 Vargas - Echo in Oct 2020: LVEF 65-70%, RV and biatrial enlargement, RV vol overload, PASP 40-45 mmHg - Echocardiogram of 07-18-21 showed LVEF 55-65%. LA and RA mildly dilated. Mod calcification of mitral valve with mild to mod regurg. Mild to mod AoV regurg. 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
[2022-04-19] MEDS: BISACODYL 10 MG SUPP (DULCOLAX) PR PRN (18:47)
[2022-04-19 20:18] VITALS: BP 151/80
[2022-04-19] MEDS: RIVAROXABAN 15 MG TABLET (XARELTO) PO SCH (20:25)
[2022-04-19] MEDS: ROSUVASTATIN 10 MG (CRESTOR) TABLET PO SCH (20:25)
[2022-04-20] MEDS: CATHETER FLUSH 10 ML SYR IVP SCH ×3 (05:20→21:30)
--- NOTE | 2022-04-20 06:57 | PM&R Progress Note ---
Subjective HPI/CC On Admission Date Seen by Provider: Apr 20, 2022 Time Seen by Provider: 09:00 Subjective/Events-last exam 04/20/2022: Pt a bit hypoxic today due to narcotics decreasing respiratory drive Oxygen maintained Suppository will be given today, no bowel movement for 4 days 04/19/2022: Pt is doing a lot better Pain is well controlled but hates to use pain pills Bowels moved 3 days ago so we'll get aggressive with that Creatinine is 2.6, that is his baseline Review of Systems General: Fatigue, Malaise Musculoskeletal: back pain Objective Exam Vital Signs Vital Signs Date Time Temp Pulse Resp B/P (MAP) Pulse Ox O2 Delivery O2 Flow Rate FiO2 04/20/22 20:40 35.8 75 20 142/76 (98) 92 Nasal Cannula 2.00 Capillary Refill : General Appearance: No Apparent Distress, WD/WN, Chronically ill HEENT: PERRL/EOMI, Normal ENT Inspection, Pharynx Normal Neck: Full Range of Motion, Normal Inspection, Non Tender, Supple, Carotid Bruit Respiratory: Chest Non Tender, Lungs Clear, Normal Breath Sounds, No Accessory Muscle Use, No Respiratory Distress Cardiovascular: Regular Rate, Rhythm, No Edema, No Gallop, No JVD, No Murmur, Normal Peripheral Pulses Gastrointestinal: Normal Bowel Sounds, No Organomegaly, No Pulsatile Mass, Non Tender, Soft Back: Normal Inspection, No CVA Tenderness, No Vertebral Tenderness Extremity: Normal Capillary Refill, Normal Inspection, Normal Range of Motion, Non Tender, No Calf Tenderness, No Pedal Edema Neurologic/Psychiatric: Alert, Oriented x3, Normal Mood/Affect, Abnormal Gait, Motor Weakness (lower extremities due to pain) Skin: Normal Color, Warm/Dry Lymphatic: No Adenopathy Results/Procedures Lab Patient resulted labs reviewed. FIM Transfers Therapy Code Descriptions/Definitions Functional [place] Measure: 0=Not Assessed/NA 4=Minimal Assistance 1=Total Assistance 5=Supervision or Setup 2=Maximal Assistance 6=Modified [place] 3=Moderate Assistance 7=Complete IndependenceSCALE: Activities may be completed with or without assistive devices. 1-Ezayomntpr-makvyms completes the activity by him/herself with no assistance from a helper. 5-Set-up or Clean-up Assistance-helper sets up or cleans up; patient completes activity. [place] assists only prior to or following the activity. 4-Supervision or Touching Assistance-helper provides verbal cues and/or touching/steadying and/or contact guard assistance as patient completes activity. Assistance may be provided throughout the activity or intermittently. 3-Partial/Moderate Assistance-helper does LESS THAN HALF the effort. [place] lifts, holds or supports trunk or limbs, but provides less than half the effort. 2-Substantial/Maximal Assistance-helper does MORE THAN HALF the effort. [place] lifts or holds trunk or limbs and provides more than half the effort. 0-Cfvipgtlw-wsgufy does ALL the effort. Patient does none of the effort to complete the activity. Or, the assistance of 2 or more helpers is required for the patient to complete the activity. If activity was not attempted, code reason: 7-Patient Refused. 9-Not Applicable-not attempted and the patient did not perform the activity before the current illness, exacerbation or injury. 10-Not Attempted due to Environmental Limitations-(lack of equipment, weather restraints, etc.). 88-Not Attempted due to Medical Conditions or Safety Concerns. Roll Left to Right (QC): 3 Sit to Lying (QC): 3 Sit to Stand (QC): 3 Chair/Fyi-zp-Cdpqk Xfer(QC): 3 Car Transfer (QC): 3 Gait Training Does the Patient Walk?: Yes Walk 10 feet (QC): 3 Walk 50 ft with 2 Turns(QC): 88 Walk 150 ft (QC): 88 Walking 10ft/uneven surface-QC: 4 Gait Persons Needed: 1 (and w/c close behind) Gait Assistive Device: FWW Wheelchair Training Does the Pt Use a Wheelchair?: Yes Distance: 50' Wheel 50 ft with 2 turns (QC): 3 Wheel 150 ft (QC): 88 Type of Wheelchair: Manual Stair Training 1 Step (curb) (QC): 88 4 Steps (QC): 88 12 Steps (QC): 88 Balance Picking up an Object (QC): 4 (CGA with a family mediator) ADL-Treatment Eating (QC): 6 (Per pt report) Oral Hygiene (QC): 5 (Set up, seated in recliner) Shower/Bathe Self (QC): 3 (Min A for R foot and buttocks) Upper Body Dressing (QC): 5 Lower Body Dressing (QC): 3 (Min A to hike pants up, SBA-CGA for standing balance) On/Off Footwear (QC): 3 (Min-Mod A to thread and hike R gripper sock) Toileting Hygiene (QC): 5 (With urinal) Assessment/Plan Assessment and Plan Assess & Plan/Chief Complaint Assessment: Fall from standing Right side pelvic fracture Chest wall hematoma PAF Valvular heart disease OAC HTN CKD Advanced age HLP Hypoxia 04/20/22 Plan: PT OT protocol Monitor BP Fall risk Monitor creatinine 04/19/2022: Monitor pain 04/20/2022: O2 Monitor closely Limit narcs (1) Fall from standing Status: Acute (2) Fracture of right pelvis Status: Acute (3) Contusion of right chest wall Status: Acute (4) Chronic kidney disease Status: Acute (5) Congestive heart failure Status: Acute (6) Atrial fibrillation Status: Acute (7) Acute on chronic diastolic (congestive) heart failure Status: Resolved Resolution Date/Time: 10/31/20 @ 08:38 (8) CKD (chronic kidney disease), stage IV (9) Primary hypertension Status: Chronic (10) Mixed hyperlipidemia Status: Chronic (11) Mitral regurgitation ROSALINDA SONI DO Apr 20, 2022 06:57
[2022-04-20 07:34] VITALS: BP 125/59
[2022-04-20] MEDS: amLODIPine 5 MG (NORVASC) TAB PO SCH (08:07)
[2022-04-20] MEDS: DOCUSATE SODIUM 100 MG (COLACE) CAP PO SCH ×2 (08:07→20:55)
[2022-04-20] MEDS: polyethylene glycoL POWDER 17 GM (MIRALAX) PACK PO SCH ×2 (08:07→20:55)
[2022-04-20] MEDS: SENNA W/DOCUSATE (SENOKOT S) TABLET PO SCH ×2 (08:07→20:55)
[2022-04-20] MEDS ORDERED: MAGNESIUM CITRATE 300 ML BTL PO ONE (09:15)
--- NOTE | 2022-04-20 09:33 | Occupational Ther Daily Note ---
OT Current Status-Daily Note Subjective Pt sitting in bed upon OT arrival, agreeable to tx. He rated his pain 2/10 at the beginning of session, and he said he is experiencing slightly more pain in his ribs today. Pt had a drop in SPO2 overnight according to nursing, so he was placed on 2L O2 via NC. Mental Status/Objective Patient Orientation: Person, Place, Situation Attachments: Oxygen (2L via NC) ADL-Treatment Therapy Code Descriptions/Definitions Functional [place] Measure: 0=Not Assessed/NA 4=Minimal Assistance 1=Total Assistance 5=Supervision or Setup 2=Maximal Assistance 6=Modified [place] 3=Moderate Assistance 7=Complete IndependenceSCALE: Activities may be completed with or without assistive devices. 0-Swuqsqevbx-makrqxc completes the activity by him/herself with no assistance from a helper. 5-Set-up or Clean-up Assistance-helper sets up or cleans up; patient completes activity. [place] assists only prior to or following the activity. 4-Supervision or Touching Assistance-helper provides verbal cues and/or touching/steadying and/or contact guard assistance as patient completes activity. Assistance may be provided throughout the activity or intermittently. 3-Partial/Moderate Assistance-helper does LESS THAN HALF the effort. [place] lifts, holds or supports trunk or limbs, but provides less than half the effort. 2-Substantial/Maximal Assistance-helper does MORE THAN HALF the effort. [place] lifts or holds trunk or limbs and provides more than half the effort. 4-Kgavwtznu-dqbrpr does ALL the effort. Patient does none of the effort to complete the activity. Or, the assistance of 2 or more helpers is required for the patient to complete the activity. If activity was not attempted, code reason: 7-Patient Refused. 9-Not Applicable-not attempted and the patient did not perform the activity before the current illness, exacerbation or injury. 10-Not Attempted due to Environmental Limitations-(lack of equipment, weather restraints, etc.). 88-Not Attempted due to Medical Conditions or Safety Concerns. Eating (QC): 6 (Per pt report) Oral Hygiene (QC): 6 (Seated at sink) Shower/Bathe Self (QC): 4 (SBA for standing balance, v/c's for sequencing) Upper Body Dressing (QC): 4 (V/c's for sequencing with O2 tubing.) Lower Body Dressing (QC): 3 (Min A to thread LLE, v/c's for sequencing) On/Off Footwear: 3 (Mod A to thread and hike socks on BLE) Toileting Hygiene (QC): 5 (with urinal) Other Treatment Pt required min-mod assist with legs and trunk to transfer supine to seated EOB. He SPT with FWW to w/c with [facility] and wheeled to bathroom to complete toileting, showering, dressing, footwear, and oral hygiene/grooming tasks. Pt was educated on energy conservation techniques to use while showering and was introduced to S, pt verbalized understanding. He completed showering and dressing while seated on SC, then transferred to w/c, [facility], to complete oral hygiene/grooming tasks seated at sink. Pt required frequent v/c's throughout session to take RBs PRN, and he reported feeling dizzy and SOB while dressing after shower. SPO2 levels were checked, pt was at 90, but it increased to 94-95 after encouragement for pursed breathing. Following self-care activities, pt was wheeled back to recliner, SPT with FWW to [facility]. Post tx, pt left in recliner with call light in reach and all needs met. Education OT Patient Education: Correct positioning, Energy conservation, Modified ADL techniques, Progress toward Goal/Update tx plan, Purpose of tx/functional activities, Rehab process, Safety issues, Transfer techniques, Use of adapted equipment Teaching Recipient: Patient Teaching Methods: Discussion Response to Teaching: Verbalize Understanding, Return Demonstration OT Short Term Goals Short Term Goals Time Frame: May 02, 2022 Toileting hygiene: 4 Shower/bathe self: 4 Lower body dressin OT Communications Department Chairperson Goals Communications Department Chairperson Goals Time Frame: May 18, 2022 Eating (QC): 6 Oral Hygiene (QC): 6 Toileting Hygiene (QC): 6 Shower/Bathe Self (QC): 6 Upper Body Dressing (QC): 6 Lower Body Dressing (QC): 6 On/Off Footwear (QC): 6 Additional Goals: 1-Demonstrate ADL Tasks, 2-Verbalize Understanding, 3-ImproveStrength/Carlos A 1=Demonstrate adherence to instructed precautions during ADL tasks. 2=Patient will verbalize/demonstrate understanding of assistive devices/modifications for ADL. 3=Patient will improve strength/tolerance for activity to enable patient to perform ADL's. OT Education/Plan Problem List/Assessment Assessment: Decreased Activ Tolerance, Decreased UE Strength, Impaired Funct Balance, Impaired I ADL's, Impaired Self-Care Skills Discharge Recommendations Plan/Recommendations: Continue POC Treatment Plan/Plan of Care Patient would benefit from OT for education, treatment and training to promote independence in ADL's, mobility, safety and/or upper extremity function for ADL's. Plan of Care: ADL Retraining, Functional Mobility, Group Exercise/Act as Ind, UE Funct Exercise/Act Treatment Duration: May 18, 2022 Frequency: At least 5 of 7 days/Wk (IRF) Estimated Hrs Per Day: 1.5 hours per day Agreement: Yes Rehab Potential: Fair Time/GCodes Start Time: 08:00 Stop Time: 09:30 Total Time Billed (hr/min): 90 Billed Treatment Time 1, ADL 6 (90') REINALDO SANCHEZ OT Apr 20, 2022 09:32
--- NOTE | 2022-04-20 11:07 | Physical Therapy Daily Note ---
PT Daily Note-Current Subjective Pt. and daughter present. Pt. on O2 at 2 L, Pt. states he feels better after having showered. Dtr shares her concern for pts. decreased cognition yseterday Pain Numeric Pain Scale: 4 Location: Right Location Body Site: Hip Pain Description: Ache Mental Status Patient Orientation: Normal For Age Attachments: Oxygen (2L) sats dropped with full supine position and flexed at trunk during sitting to attemtpt to deepti shoes indep, 80% increased to 95% with deep breathing and repositioning Transfers SCALE: Activities may be completed with or without assistive devices. 5-Adjtnsczhu-hqohznl completes the activity by him/herself with no assistance from a helper. 5-Set-up or Clean-up Assistance-helper sets up or cleans up; patient completes activity. [place] assists only prior to or following the activity. 4-Supervision or Touching Assistance-helper provides verbal cues and/or touching/steadying and/or contact guard assistance as patient completes activity. Assistance may be provided throughout the activity or intermittently. 3-Partial/Moderate Assistance-helper does LESS THAN HALF the effort. [place] lifts, holds or supports trunk or limbs, but provides less than half the effort. 2-Substantial/Maximal Assistance-helper does MORE THAN HALF the effort. [place] lifts or holds trunk or limbs and provides more than half the effort. 7-Osteudxdz-fsxndy does ALL the effort. Patient does none of the effort to complete the activity. Or, the assistance of 2 or more helpers is required for the patient to complete the activity. If activity was not attempted, code reason: 7-Patient Refused. 9-Not Applicable-not attempted and the patient did not perform the activity before the current illness, exacerbation or injury. 10-Not Attempted due to Environmental Limitations-(lack of equipment, weather restraints, etc.). 88-Not Attempted due to Medical Conditions or Safety Concerns. Sit to Stand (QC): 4 Weight Bearing Right Lower Extremity: Right Weight Bearing/Tolerated Gait Training Does the Patient Walk?: Yes Walk 50 ft with 2 Turns(QC): 4 Exercises Supine Ex: Ankle pumps, Quad Set, Rolling, Glut sets, Heel Slides, Scooting, Straight leg raise, Hip abd/add Supine Reps: 15 Treatments therex supine, gait, sit to stands, monitoring O2, Assessment Current Status: Good Progress PT Short Term Goals Short Term Goals Time Frame: Apr 25, 2022 Roll Left & Right: 4 (SBA) Sit to lyin (Yenny) Lying to sitting on side of be: 3 (Yenny) Sit to stand: 4 (CGA) Chair/lod-ri-stbnw transfer: 4 (SBA) Walk 10 feet: 4 (CGA) Walk 50 feet with two turns: 4 (CGA) PT Bacteriology Professor Goals Bacteriology Professor Goals PT Jail Goals Time Frame: May 09, 2022 Roll Left & Right (QC): 6 Sit to Lying (QC): 4 (SBA) Lying-Sitting on Side/Bed(QC): 4 (SBA) Sit to Stand (QC): 6 Chair/Chw-lk-Prxwl Xfer(QC): 6 Toilet Transfer (QC): 6 Car Transfer (QC): 4 (SBA) Does the Patient Walk: Yes Walk 10 feet (QC): 6 Walk 50ft with 2 Turns (QC): 6 Walk 150 ft (QC): 6 Walking 10ft on Uneven Surface: 6 1 Step (curb) (QC): 4 (CGA) 4 Steps (QC): 4 (CGA) 12 Steps (QC): 88 Picking up an Object (QC): 4 (SBA with information systems director) Wheel 50 feet with 2 turns (QC: 9 Wheel 150 feet: 9 PT Plan Treatment/Plan Treatment Plan: Continue Plan of Care Treatment Plan: Bed Mobility, Concurrent Therapy, Education, Functional Activity Carlos A, Functional Strength, Group Therapy, Gait, Safety, Therapeutic Exercise, Transfers Treatment Duration: May 09, 2022 Frequency: At least 5 of 7 days/Wk (IRF) Estimated Hrs Per Day: 1.5 hours per day Patient and/or Family Agrees t: Yes Safety Risks/Education Patient Education: Gait Training, Transfer Techniques, Correct Positioning, Disease Process, Safety Issues Teaching Recipient: Patient Teaching Methods: Demonstration, Discussion Response to Teaching: Verbalize Understanding, Return Demonstration, Reinforcement Needed Time/GCodes Time In: 1000 Time Out: 1100 Total Billed Treatment Time: 60 Total Billed Treatment 1,GT20m,FA25m,EX15m ANNELIESE MAY CAR RETARDER OPERATOR Apr 20, 2022 11:07
--- NOTE | 2022-04-20 12:58 | Physical Therapy Daily Note ---
PT Daily Note-Current Subjective Pt. up in recliner, O2 cannula on floor, pt. agrees to rx. Comments on how much less pain and discomfort he is in and how much more functional he is Pain Location: No Pain Reported Mental Status Patient Orientation: Normal For Age Attachments: Oxygen (2L) sats 89 to 95% during Rx with sats increasing with activity and encouragement of deep breathing etc Transfers SCALE: Activities may be completed with or without assistive devices. 1-Dxsdshidai-zupgxsd completes the activity by him/herself with no assistance from a helper. 5-Set-up or Clean-up Assistance-helper sets up or cleans up; patient completes activity. [place] assists only prior to or following the activity. 4-Supervision or Touching Assistance-helper provides verbal cues and/or touching/steadying and/or contact guard assistance as patient completes activity. Assistance may be provided throughout the activity or intermittently. 3-Partial/Moderate Assistance-helper does LESS THAN HALF the effort. [place] lifts, holds or supports trunk or limbs, but provides less than half the effort. 2-Substantial/Maximal Assistance-helper does MORE THAN HALF the effort. [place] lifts or holds trunk or limbs and provides more than half the effort. 8-Pykkamohm-ktusne does ALL the effort. Patient does none of the effort to complete the activity. Or, the assistance of 2 or more helpers is required for the patient to complete the activity. If activity was not attempted, code reason: 7-Patient Refused. 9-Not Applicable-not attempted and the patient did not perform the activity before the current illness, exacerbation or injury. 10-Not Attempted due to Environmental Limitations-(lack of equipment, weather restraints, etc.). 88-Not Attempted due to Medical Conditions or Safety Concerns. Sit to Stand (QC): 4 Weight Bearing Right Lower Extremity: Right Weight Bearing/Tolerated Gait Training Does the Patient Walk?: Yes Walk 150 ft (QC): 4 Gait Persons Needed: 1 Gait Assistive Device: FWW much improved gait pattern and alignment , good safer use of AD and no LOB, 150ft, 100ft, 50 ft Exercises Seated Therapy Exercises: Ankle pumps, Sit to stand, Long arc quads, Hip abd/add Seated Reps: 10 Assessment Current Status: Good Progress marked improvement in cognition and function today. decreased pain PT Short Term Goals Short Term Goals Time Frame: Apr 25, 2022 Roll Left & Right: 4 (SBA) Sit to lyin (Yenny) Lying to sitting on side of be: 3 (Yenny) Sit to stand: 4 (CGA) Chair/zte-tn-nzndm transfer: 4 (SBA) Walk 10 feet: 4 (CGA) Walk 50 feet with two turns: 4 (CGA) PT Special Class Welder Goals Fdc Goals PT Special Class Welder Goals Time Frame: May 09, 2022 Roll Left & Right (QC): 6 Sit to Lying (QC): 4 (SBA) Lying-Sitting on Side/Bed(QC): 4 (SBA) Sit to Stand (QC): 6 Chair/Vsm-sp-Eugqt Xfer(QC): 6 Toilet Transfer (QC): 6 Car Transfer (QC): 4 (SBA) Does the Patient Walk: Yes Walk 10 feet (QC): 6 Walk 50ft with 2 Turns (QC): 6 Walk 150 ft (QC): 6 Walking 10ft on Uneven Surface: 6 1 Step (curb) (QC): 4 (CGA) 4 Steps (QC): 4 (CGA) 12 Steps (QC): 88 Picking up an Object (QC): 4 (SBA with express manager) Wheel 50 feet with 2 turns (QC: 9 Wheel 150 feet: 9 PT Plan Treatment/Plan Treatment Plan: Continue Plan of Care Treatment Plan: Bed Mobility, Concurrent Therapy, Education, Functional Activity Carlos A, Functional Strength, Group Therapy, Gait, Safety, Therapeutic Exercise, Transfers Treatment Duration: May 09, 2022 Frequency: At least 5 of 7 days/Wk (IRF) Estimated Hrs Per Day: 1.5 hours per day Patient and/or Family Agrees t: Yes Safety Risks/Education Patient Education: Gait Training, Transfer Techniques, Correct Positioning, Disease Process, Safety Issues Teaching Recipient: Patient Teaching Methods: Demonstration, Discussion Response to Teaching: Verbalize Understanding, Return Demonstration, Reinforcement Needed Time/GCodes Time In: 1230 Time Out: 1300 Total Billed Treatment Time: 30 Total Billed Treatment 1,GT30m ANNELIESE MAY IT SALES REPRESENTATIVE Apr 20, 2022 12:58
[2022-04-20] MEDS: BISACODYL 10 MG SUPP (DULCOLAX) PR PRN (18:42)
[2022-04-20 20:40] VITALS: BP 142/76
[2022-04-20] MEDS: RIVAROXABAN 15 MG TABLET (XARELTO) PO SCH (20:55)
[2022-04-20] MEDS: ROSUVASTATIN 10 MG (CRESTOR) TABLET PO SCH (20:55)
[2022-04-21] MEDS: ACETAMINOPHEN 325 MG TABLET PO PRN (02:23)
[2022-04-21] MEDS: CATHETER FLUSH 10 ML SYR IVP SCH ×3 (06:55→23:33)
[2022-04-21 07:30] VITALS: BP 144/65
--- NOTE | 2022-04-21 08:44 | Physical Therapy Daily Note ---
PT Daily Note-Current Subjective States that he is feeling okay. Transfers SCALE: Activities may be completed with or without assistive devices. 9-Immrdbtsfb-dknktmd completes the activity by him/herself with no assistance from a helper. 5-Set-up or Clean-up Assistance-helper sets up or cleans up; patient completes activity. [place] assists only prior to or following the activity. 4-Supervision or Touching Assistance-helper provides verbal cues and/or touching/steadying and/or contact guard assistance as patient completes activity. Assistance may be provided throughout the activity or intermittently. 3-Partial/Moderate Assistance-helper does LESS THAN HALF the effort. [place] lifts, holds or supports trunk or limbs, but provides less than half the effort. 2-Substantial/Maximal Assistance-helper does MORE THAN HALF the effort. [place] lifts or holds trunk or limbs and provides more than half the effort. 0-Ndndymvsb-dytoes does ALL the effort. Patient does none of the effort to complete the activity. Or, the assistance of 2 or more helpers is required for the patient to complete the activity. If activity was not attempted, code reason: 7-Patient Refused. 9-Not Applicable-not attempted and the patient did not perform the activity before the current illness, exacerbation or injury. 10-Not Attempted due to Environmental Limitations-(lack of equipment, weather restraints, etc.). 88-Not Attempted due to Medical Conditions or Safety Concerns. Sit to Stand (QC): 4 Weight Bearing Right Lower Extremity: Right Weight Bearing/Tolerated Gait Training Distance: 150' x 2 Walk 10 feet (QC): 5 Walk 50 ft with 2 Turns(QC): 5 Walk 150 ft (QC): 5 Gait Persons Needed: 1 Gait Assistive Device: FWW Exercises Seated Therapy Exercises: Ankle pumps, Long arc quads, Hip abd/add Seated Reps: 20 PT Short Term Goals Short Term Goals Time Frame: Apr 25, 2022 Roll Left & Right: 4 (SBA) Sit to lyin (Yenny) Lying to sitting on side of be: 3 (Yenny) Sit to stand: 4 (CGA) Chair/nvs-pi-shfsv transfer: 4 (SBA) Walk 10 feet: 4 (CGA) Walk 50 feet with two turns: 4 (CGA) PT Snf Goals Senior Sql Server Dba Goals PT Senior Sql Server Dba Goals Time Frame: May 09, 2022 Roll Left & Right (QC): 6 Sit to Lying (QC): 4 (SBA) Lying-Sitting on Side/Bed(QC): 4 (SBA) Sit to Stand (QC): 6 Chair/Fdd-jb-Gedll Xfer(QC): 6 Toilet Transfer (QC): 6 Car Transfer (QC): 4 (SBA) Does the Patient Walk: Yes Walk 10 feet (QC): 6 Walk 50ft with 2 Turns (QC): 6 Walk 150 ft (QC): 6 Walking 10ft on Uneven Surface: 6 1 Step (curb) (QC): 4 (CGA) 4 Steps (QC): 4 (CGA) 12 Steps (QC): 88 Picking up an Object (QC): 4 (SBA with insurance underwriter sales) Wheel 50 feet with 2 turns (QC: 9 Wheel 150 feet: 9 PT Plan Treatment/Plan Treatment Plan: Continue Plan of Care Treatment Plan: Bed Mobility, Concurrent Therapy, Education, Functional Activity Carlos A, Functional Strength, Group Therapy, Gait, Safety, Therapeutic Exercise, Transfers Treatment Duration: May 09, 2022 Frequency: At least 5 of 7 days/Wk (IRF) Estimated Hrs Per Day: 1.5 hours per day Patient and/or Family Agrees t: Yes Time/GCodes Time In: 15 Time Out: 08 Total Billed Treatment Time: 25 Total Billed Treatment 1, EX x 10, GT x 15 CRISTINA GILES PT Apr 21, 2022 08:44
[2022-04-21] MEDS: amLODIPine 5 MG (NORVASC) TAB PO SCH (09:49)
[2022-04-21] MEDS: SENNA W/DOCUSATE (SENOKOT S) TABLET PO SCH ×2 (09:58→20:16)
[2022-04-21] MEDS: DOCUSATE SODIUM 100 MG (COLACE) CAP PO SCH ×2 (09:58→20:16)
[2022-04-21] MEDS: polyethylene glycoL POWDER 17 GM (MIRALAX) PACK PO SCH ×2 (09:59→20:16)
--- NOTE | 2022-04-21 13:12 | PM&R Progress Note ---
Subjective HPI/CC On Admission Date Seen by Provider: Apr 21, 2022 Time Seen by Provider: 13:15 Subjective/Events-last exam 04/21/2022: Doing well Repeats himself O2 will be weaned Pain controlled 04/20/2022: Pt a bit hypoxic today due to narcotics decreasing respiratory drive Oxygen maintained Suppository will be given today, no bowel movement for 4 days 04/19/2022: Pt is doing a lot better Pain is well controlled but hates to use pain pills Bowels moved 3 days ago so we'll get aggressive with that Creatinine is 2.6, that is his baseline Review of Systems General: Fatigue, Malaise Musculoskeletal: back pain, leg pain Objective Exam Vital Signs Vital Signs Date Time Temp Pulse Resp B/P (MAP) Pulse Ox O2 Delivery O2 Flow Rate FiO2 04/22/22 00:10 72 20 88 Room Air 04/21/22 19:55 36.7 107/62 (77) 04/21/22 09:45 1.00 Capillary Refill : General Appearance: No Apparent Distress, WD/WN, Chronically ill HEENT: PERRL/EOMI, Normal ENT Inspection, Pharynx Normal Neck: Full Range of Motion, Normal Inspection, Non Tender, Supple, Carotid Bruit Respiratory: Chest Non Tender, Lungs Clear, Normal Breath Sounds, No Accessory Muscle Use, No Respiratory Distress Cardiovascular: Regular Rate, Rhythm, No Edema, No Gallop, No JVD, No Murmur, Normal Peripheral Pulses Gastrointestinal: Normal Bowel Sounds, No Organomegaly, No Pulsatile Mass, Non Tender, Soft Back: Normal Inspection, No CVA Tenderness, No Vertebral Tenderness Extremity: Normal Capillary Refill, Normal Inspection, Normal Range of Motion, Non Tender, No Calf Tenderness, No Pedal Edema Neurologic/Psychiatric: Alert, Oriented x3, Normal Mood/Affect, Abnormal Gait, Motor Weakness Skin: Normal Color, Warm/Dry Lymphatic: No Adenopathy Results/Procedures Lab Patient resulted labs reviewed. FIM Transfers Therapy Code Descriptions/Definitions Functional [place] Measure: 0=Not Assessed/NA 4=Minimal Assistance 1=Total Assistance 5=Supervision or Setup 2=Maximal Assistance 6=Modified [place] 3=Moderate Assistance 7=Complete IndependenceSCALE: Activities may be completed with or without assistive devices. 4-Gskwxwpdws-fhzlrum completes the activity by him/herself with no assistance from a helper. 5-Set-up or Clean-up Assistance-helper sets up or cleans up; patient completes activity. [place] assists only prior to or following the activity. 4-Supervision or Touching Assistance-helper provides verbal cues and/or touching/steadying and/or contact guard assistance as patient completes activity. Assistance may be provided throughout the activity or intermittently. 3-Partial/Moderate Assistance-helper does LESS THAN HALF the effort. [place] lifts, holds or supports trunk or limbs, but provides less than half the effort. 2-Substantial/Maximal Assistance-helper does MORE THAN HALF the effort. [place] lifts or holds trunk or limbs and provides more than half the effort. 6-Olhywlzsb-byqxde does ALL the effort. Patient does none of the effort to complete the activity. Or, the assistance of 2 or more helpers is required for the patient to complete the activity. If activity was not attempted, code reason: 7-Patient Refused. 9-Not Applicable-not attempted and the patient did not perform the activity before the current illness, exacerbation or injury. 10-Not Attempted due to Environmental Limitations-(lack of equipment, weather restraints, etc.). 88-Not Attempted due to Medical Conditions or Safety Concerns. Roll Left to Right (QC): 3 Sit to Lying (QC): 3 Sit to Stand (QC): 4 Chair/Wmk-yn-Ahjjw Xfer(QC): 3 Car Transfer (QC): 3 Gait Training Does the Patient Walk?: Yes Distance: 150' x 2 Walk 10 feet (QC): 5 Walk 50 ft with 2 Turns(QC): 5 Walk 150 ft (QC): 5 Walking 10ft/uneven surface-QC: 4 Gait Persons Needed: 1 Gait Assistive Device: FWW Wheelchair Training Does the Pt Use a Wheelchair?: Yes Distance: 50' Wheel 50 ft with 2 turns (QC): 3 Wheel 150 ft (QC): 88 Type of Wheelchair: Manual Stair Training 1 Step (curb) (QC): 88 4 Steps (QC): 88 12 Steps (QC): 88 Balance Picking up an Object (QC): 4 (CGA with a administrative nursing supervisor) ADL-Treatment Eating (QC): 6 (Per pt report) Oral Hygiene (QC): 6 (Seated at sink) Shower/Bathe Self (QC): 4 (SBA for standing balance, v/c's for sequencing) Upper Body Dressing (QC): 4 (V/c's for sequencing with O2 tubing.) Lower Body Dressing (QC): 3 (Min A to thread LLE, v/c's for sequencing) On/Off Footwear (QC): 3 (Mod A to thread and hike socks on BLE) Toileting Hygiene (QC): 5 (with urinal) Assessment/Plan Assessment and Plan Assess & Plan/Chief Complaint Assessment: Fall from standing Right side pelvic fracture Chest wall hematoma PAF Valvular heart disease OAC HTN CKD Advanced age HLP Hypoxia 04/20/22 Plan: PT OT protocol Monitor BP Fall risk Monitor creatinine 04/19/2022: Monitor pain 04/20/2022: O2 Monitor closely Limit narcs 04/21/2022: Wean O2 Pain control (1) Fall from standing Status: Acute (2) Fracture of right pelvis Status: Acute (3) Contusion of right chest wall Status: Acute (4) Chronic kidney disease Status: Acute (5) Congestive heart failure Status: Acute (6) Atrial fibrillation Status: Acute (7) Acute on chronic diastolic (congestive) heart failure Status: Resolved Resolution Date/Time: 10/31/20 @ 08:38 (8) CKD (chronic kidney disease), stage IV (9) Primary hypertension Status: Chronic (10) Mixed hyperlipidemia Status: Chronic (11) Mitral regurgitation ROSALINDA SONI DO Apr 21, 2022 13:11
--- NOTE | 2022-04-21 14:50 | Progress Note - Cardiology ---
Cardiology SOAP Progress Note Subjective: No cp or palp or syncope or shortness of breath at rest No n/v/d No focal weakness Gen weakness and malaise present Objective: I&O/Vital Signs 04/21/22 04/21/22 04/21/22 04/21/22 07:30 07:56 09:43 09:45 Temp 36.8 Pulse 63 Resp 20 B/P (MAP) 144/65 (91) Pulse Ox 92 93 91 97 O2 Delivery Nasal Cannula Nasal Cannula Nasal Cannula Nasal Cannula O2 Flow Rate 2.00 1.00 1.00 1.00 Weight (Pounds): 180 Weight (Calculated Kilograms): [id number] Constitutional: AAO x 3, well-developed Respiratory: No accessory muscle use; other (fair to good, bilat air entry) Cardiovascular: regular rate-rhythm, S1 and S2, systolic murmur (2/6 HSM) Gastrointestional: No tender; soft; No guarding, No rebound; audible bowel sounds Extremities: No clubbing, No cyanosis, No significant edema Neurologic/Psychiatric: oriented x 3, other (moves all limbs equally) Skin: No rash on exposed areas, No ulcerations on exposed areas A/P: Assessment: S/P non-syncopal fall - Likely nondisplaced fractures involving the right superior and inferior pubic rami. Per hip and pelvis x-ray on 04-16-22 - managed by orthopedic services ?Amiodarone toxicity - CT of abd/pelvis on 04-16-22: Dense liver, which can be seen with amiodarone toxicity, hemosiderosis, Chris's disease, and glycogen storage diseases. Recommend correlation with patient history and LFTs. A fib - with a controlled ventricular response, first diagnosed Oct 11, 2019 - maintained on Amiodarone that was stopped on 04/17/22 because of the suspicion that it may be causing hepatotoxicity - OAC with Eliquis - Sinus marlon on ECG of 07/06/21 - 24 HR Holter of 08-10-21 showed NSR with av HR 52 bpm. One 3.5 sec pause without symptoms. 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 LVEF 60%. Normal LVEDP. Severe mitral regurg (4+). 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 Vargas - Echo in Oct 2020: LVEF 65-70%, RV and biatrial enlargement, RV vol overload, PASP 40-45 mmHg - Echocardiogram of 07-18-21 showed LVEF 55-65%. LA and RA mildly dilated. Mod calcification of mitral valve with mild to mod regurg. Mild to mod AoV regurg. 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 Add low dose bb to control vent rate if he goes in A Fib * Monitor labs from time to time RASHEEDA LEMONS MD FACP [facility] CCDS Apr 21, 2022 14:50
[2022-04-21 17:09] VITALS: BP 158/70
[2022-04-21 19:55] VITALS: BP 107/62
[2022-04-21] MEDS: ROSUVASTATIN 10 MG (CRESTOR) TABLET PO SCH (20:16)
[2022-04-21] MEDS: RIVAROXABAN 15 MG TABLET (XARELTO) PO SCH (20:16)
[2022-04-22] MEDS: CATHETER FLUSH 10 ML SYR IVP SCH (06:46)
--- NOTE | 2022-04-22 06:55 | PM&R Progress Note ---
Subjective HPI/CC On Admission Date Seen by Provider: Apr 22, 2022 Time Seen by Provider: 13:00 Subjective/Events-last exam 04/22/2022: Patient doing well Daughter at bedside and she works in [employer] as a nurse No pain Weaned off O2 04/21/2022: Doing well Repeats himself O2 will be weaned Pain controlled 04/20/2022: Pt a bit hypoxic today due to narcotics decreasing respiratory drive Oxygen maintained Suppository will be given today, no bowel movement for 4 days 04/19/2022: Pt is doing a lot better Pain is well controlled but hates to use pain pills Bowels moved 3 days ago so we'll get aggressive with that Creatinine is 2.6, that is his baseline Review of Systems General: Fatigue, Malaise Objective Exam Vital Signs Vital Signs Date Time Temp Pulse Resp B/P (MAP) Pulse Ox O2 Delivery O2 Flow Rate FiO2 04/22/22 09:05 58 20 128/62 (84) 94 Room Air 04/22/22 08:24 1.50 04/22/22 07:27 36.8 Capillary Refill : General Appearance: No Apparent Distress, WD/WN, Chronically ill HEENT: PERRL/EOMI, Normal ENT Inspection, Pharynx Normal Neck: Full Range of Motion, Normal Inspection, Non Tender, Supple, Carotid Bruit Respiratory: Chest Non Tender, Lungs Clear, Normal Breath Sounds, No Accessory Muscle Use, No Respiratory Distress Cardiovascular: Regular Rate, Rhythm, No Edema, No Gallop, No JVD, No Murmur, Normal Peripheral Pulses Gastrointestinal: Normal Bowel Sounds, No Organomegaly, No Pulsatile Mass, Non Tender, Soft Back: Normal Inspection, No CVA Tenderness, No Vertebral Tenderness Extremity: Normal Capillary Refill, Normal Inspection, Normal Range of Motion, Non Tender, No Calf Tenderness, No Pedal Edema Neurologic/Psychiatric: Alert, Oriented x3, Normal Mood/Affect, Abnormal Gait, Motor Weakness Skin: Normal Color, Warm/Dry Lymphatic: No Adenopathy Results/Procedures Lab Patient resulted labs reviewed. FIM Transfers Therapy Code Descriptions/Definitions Functional [place] Measure: 0=Not Assessed/NA 4=Minimal Assistance 1=Total Assistance 5=Supervision or Setup 2=Maximal Assistance 6=Modified [place] 3=Moderate Assistance 7=Complete IndependenceSCALE: Activities may be completed with or without assistive devices. 4-Yychmdlsup-ozgeeoh completes the activity by him/herself with no assistance from a helper. 5-Set-up or Clean-up Assistance-helper sets up or cleans up; patient completes activity. [place] assists only prior to or following the activity. 4-Supervision or Touching Assistance-helper provides verbal cues and/or touching/steadying and/or contact guard assistance as patient completes activity. Assistance may be provided throughout the activity or intermittently. 3-Partial/Moderate Assistance-helper does LESS THAN HALF the effort. [place] lifts, holds or supports trunk or limbs, but provides less than half the effort. 2-Substantial/Maximal Assistance-helper does MORE THAN HALF the effort. [place] lifts or holds trunk or limbs and provides more than half the effort. 2-Bjwrigdhg-jslgzy does ALL the effort. Patient does none of the effort to complete the activity. Or, the assistance of 2 or more helpers is required for the patient to complete the activity. If activity was not attempted, code reason: 7-Patient Refused. 9-Not Applicable-not attempted and the patient did not perform the activity before the current illness, exacerbation or injury. 10-Not Attempted due to Environmental Limitations-(lack of equipment, weather restraints, etc.). 88-Not Attempted due to Medical Conditions or Safety Concerns. Roll Left to Right (QC): 3 Sit to Lying (QC): 3 Sit to Stand (QC): 4 Chair/Gsr-gu-Nzemi Xfer(QC): 3 Car Transfer (QC): 3 Gait Training Does the Patient Walk?: Yes Distance: 150' x 2 Walk 10 feet (QC): 5 Walk 50 ft with 2 Turns(QC): 5 Walk 150 ft (QC): 5 Walking 10ft/uneven surface-QC: 4 Gait Persons Needed: 1 Gait Assistive Device: FWW Wheelchair Training Does the Pt Use a Wheelchair?: Yes Distance: 50' Wheel 50 ft with 2 turns (QC): 3 Wheel 150 ft (QC): 88 Type of Wheelchair: Manual Stair Training 1 Step (curb) (QC): 88 4 Steps (QC): 88 12 Steps (QC): 88 Balance Picking up an Object (QC): 4 (CGA with a safety deposit boxes custodian) ADL-Treatment Eating (QC): 6 (Per pt report) Oral Hygiene (QC): 6 (Seated at sink) Shower/Bathe Self (QC): 4 (SBA for standing balance, v/c's for sequencing) Upper Body Dressing (QC): 4 (V/c's for sequencing with O2 tubing.) Lower Body Dressing (QC): 3 (Min A to thread LLE, v/c's for sequencing) On/Off Footwear (QC): 3 (Mod A to thread and hike socks on BLE) Toileting Hygiene (QC): 5 (with urinal) Assessment/Plan Assessment and Plan Assess & Plan/Chief Complaint Assessment: Fall from standing Right side pelvic fracture Chest wall hematoma PAF Valvular heart disease OAC HTN CKD Advanced age HLP Hypoxia 04/20/22 Plan: PT OT protocol Monitor BP Fall risk Monitor creatinine 04/19/2022: Monitor pain 04/20/2022: O2 Monitor closely Limit narcs 04/21/2022: Wean O2 Pain control 04/22/2022: Weaned O2 (1) Fall from standing Status: Acute (2) Fracture of right pelvis Status: Acute (3) Contusion of right chest wall Status: Acute (4) Chronic kidney disease Status: Acute (5) Congestive heart failure Status: Acute (6) Atrial fibrillation Status: Acute (7) Acute on chronic diastolic (congestive) heart failure Status: Resolved Resolution Date/Time: 10/31/20 @ 08:38 (8) CKD (chronic kidney disease), stage IV (9) Primary hypertension Status: Chronic (10) Mixed hyperlipidemia Status: Chronic (11) Mitral regurgitation ROSALINDA SONI DO Apr 22, 2022 06:55
[2022-04-22 07:27] VITALS: BP 163/78
[2022-04-22 09:05] VITALS: BP 128/62
[2022-04-22] MEDS: DOCUSATE SODIUM 100 MG (COLACE) CAP PO SCH ×2 (09:06→20:01)
[2022-04-22] MEDS: amLODIPine 5 MG (NORVASC) TAB PO SCH (09:07)
[2022-04-22] MEDS: polyethylene glycoL POWDER 17 GM (MIRALAX) PACK PO SCH ×2 (09:07→20:01)
[2022-04-22] MEDS: SENNA W/DOCUSATE (SENOKOT S) TABLET PO SCH ×2 (09:07→20:01)
[2022-04-22 19:47] VITALS: BP 139/66
[2022-04-22] MEDS: RIVAROXABAN 15 MG TABLET (XARELTO) PO SCH (20:00)
[2022-04-22] MEDS: ROSUVASTATIN 10 MG (CRESTOR) TABLET PO SCH (20:01)
[2022-04-23 06:08] LABS: BASOPHILS % (AUTO) 1 % (0-10); EOSINOPHILS # (AUTO) 0.3 10^3/uL (0.0-0.3); EOSINOPHILS % (AUTO) 4 % (0-10); HEMATOCRIT 32 % (40-54); HEMOGLOBIN 10.4 g/dL (13.3-17.7); LYMPHOCYTES # (AUTO) 1.9 10^3/uL (1.0-4.0); LYMPHOCYTES % (AUTO) 27 % (12-44); MEAN CORPUSCULAR HEMOGLOBIN 31 pg (25-34); MEAN CORPUSCULAR HGB CONC 33 g/dL (32-36); MEAN CORPUSCULAR VOLUME 96 fL (80-99); MONOCYTES # (AUTO) 0.6 10^3/uL (0.0-1.0); MONOCYTES % (AUTO) 9 % (0-12); NEUTROPHILS # (AUTO) 4.2 10^3/uL (1.8-7.8); NEUTROPHILS % (AUTO) 59 % (42-75); PLATELET COUNT 244 10^3/uL (130-400); WHITE BLOOD COUNT 7.1 10^3/uL (4.3-11.0)
[2022-04-23 06:25] LABS: ALBUMIN 3.3 GM/DL (3.2-4.5); POTASSIUM 4.2 MMOL/L (3.6-5.0)
[2022-04-23 06:26] LABS: CALCIUM 9.5 MG/DL (8.5-10.1)
[2022-04-23 06:29] LABS: BILIRUBIN,TOTAL 1.4 MG/DL (0.1-1.0)
[2022-04-23 06:31] LABS: CREATININE SERUM 2.66 MG/DL (0.60-1.30)
--- NOTE | 2022-04-23 06:42 | PM&R Progress Note ---
Subjective HPI/CC On Admission Date Seen by Provider: Apr 23, 2022 Subjective/Events-last exam 04/23/2022: Patient doing well Labs reviewed Pain is pretty well controlled Daughter concerned about confusion but does have advanced age having a significant decompensation Later in the evening started a fever of 102 so we will perform septic work-up 04/22/2022: Patient doing well Daughter at bedside and she works in [employer] as a nurse No pain Weaned off O2 04/21/2022: Doing well Repeats himself O2 will be weaned Pain controlled 04/20/2022: Pt a bit hypoxic today due to narcotics decreasing respiratory drive Oxygen maintained Suppository will be given today, no bowel movement for 4 days 04/19/2022: Pt is doing a lot better Pain is well controlled but hates to use pain pills Bowels moved 3 days ago so we'll get aggressive with that Creatinine is 2.6, that is his baseline Review of Systems General: Fatigue, Malaise Musculoskeletal: back pain Focused Exam Lactate Level 04/23/22 20:53: Lactic Acid Level 1.34 Objective Exam Vital Signs Vital Signs Date Time Temp Pulse Resp B/P (MAP) Pulse Ox O2 Delivery O2 Flow Rate FiO2 04/24/22 07:23 37.9 58 20 135/64 (87) 92 Nasal Cannula 2.00 Capillary Refill : General Appearance: No Apparent Distress, WD/WN, Chronically ill HEENT: PERRL/EOMI, Normal ENT Inspection, Pharynx Normal Neck: Full Range of Motion, Normal Inspection, Non Tender, Supple, Carotid Bruit Respiratory: Chest Non Tender, Lungs Clear, Normal Breath Sounds, No Accessory Muscle Use, No Respiratory Distress Cardiovascular: Regular Rate, Rhythm, No Edema, No Gallop, No JVD, No Murmur, Normal Peripheral Pulses Gastrointestinal: Normal Bowel Sounds, No Organomegaly, No Pulsatile Mass, Non Tender, Soft Back: Normal Inspection, No CVA Tenderness, No Vertebral Tenderness Extremity: Normal Capillary Refill, Normal Inspection, Normal Range of Motion, Non Tender, No Calf Tenderness, No Pedal Edema Neurologic/Psychiatric: Alert, Oriented x3, Normal Mood/Affect, Abnormal Gait, Motor Weakness Skin: Normal Color, Warm/Dry Lymphatic: No Adenopathy Results/Procedures Lab Laboratory Tests 04/23/22 20:53 04/24/22 05:28 Patient resulted labs reviewed. FIM Transfers Therapy Code Descriptions/Definitions Functional [place] Measure: 0=Not Assessed/NA 4=Minimal Assistance 1=Total Assistance 5=Supervision or Setup 2=Maximal Assistance 6=Modified [place] 3=Moderate Assistance 7=Complete IndependenceSCALE: Activities may be completed with or without assistive devices. 7-Vzkptrkpqt-haxkxmq completes the activity by him/herself with no assistance from a helper. 5-Set-up or Clean-up Assistance-helper sets up or cleans up; patient completes activity. [place] assists only prior to or following the activity. 4-Supervision or Touching Assistance-helper provides verbal cues and/or touching/steadying and/or contact guard assistance as patient completes activity. Assistance may be provided throughout the activity or intermittently. 3-Partial/Moderate Assistance-helper does LESS THAN HALF the effort. [place] l ifts, holds or supports trunk or limbs, but provides less than half the effort. 2-Substantial/Maximal Assistance-helper does MORE THAN HALF the effort. [place] lifts or holds trunk or limbs and provides more than half the effort. 6-Dgtzqznpo-nliohx does ALL the effort. Patient does none of the effort to complete the activity. Or, the assistance of 2 or more helpers is required for the patient to complete the activity. If activity was not attempted, code reason: 7-Patient Refused. 9-Not Applicable-not attempted and the patient did not perform the activity before the current illness, exacerbation or injury. 10-Not Attempted due to Environmental Limitations-(lack of equipment, weather restraints, etc.). 88-Not Attempted due to Medical Conditions or Safety Concerns. Roll Left to Right (QC): 3 Sit to Lying (QC): 3 Sit to Stand (QC): 4 Chair/Len-op-Gorpi Xfer(QC): 3 Car Transfer (QC): 3 Gait Training Does the Patient Walk?: Yes Distance: 150' x 2 Walk 10 feet (QC): 5 Walk 50 ft with 2 Turns(QC): 5 Walk 150 ft (QC): 5 Walking 10ft/uneven surface-QC: 4 Gait Persons Needed: 1 Gait Assistive Device: FWW Wheelchair Training Does the Pt Use a Wheelchair?: Yes Distance: 50' Wheel 50 ft with 2 turns (QC): 3 Wheel 150 ft (QC): 88 Type of Wheelchair: Manual Stair Training 1 Step (curb) (QC): 88 4 Steps (QC): 88 12 Steps (QC): 88 Balance Picking up an Object (QC): 4 (CGA with a salt operator) ADL-Treatment Eating (QC): 6 (Per pt report) Oral Hygiene (QC): 6 (Seated at sink) Shower/Bathe Self (QC): 4 (SBA for standing balance, v/c's for sequencing) Upper Body Dressing (QC): 4 (V/c's for sequencing with O2 tubing.) Lower Body Dressing (QC): 3 (Min A to thread LLE, v/c's for sequencing) On/Off Footwear (QC): 3 (Mod A to thread and hike socks on BLE) Toileting Hygiene (QC): 5 (with urinal) Assessment/Plan Assessment and Plan Assess & Plan/Chief Complaint Assessment: Fall from standing Right side pelvic fracture Chest wall hematoma PAF Valvular heart disease OAC HTN CKD Advanced age HLP Hypoxia 04/20/22 Fever 04/23/2022 Plan: PT OT protocol Monitor BP Fall risk Monitor creatinine 04/19/2022: Monitor pain 04/20/2022: O2 Monitor closely Limit narcs 04/21/2022: Wean O2 Pain control 04/22/2022: Weaned O2 04/23/2022: Continue supportive care Monitor fever (1) Fall from standing Status: Acute (2) Fracture of right pelvis Status: Acute (3) Contusion of right chest wall Status: Acute (4) Chronic kidney disease Status: Acute (5) Congestive heart failure Status: Acute (6) Atrial fibrillation Status: Acute (7) Acute on chronic diastolic (congestive) heart failure Status: Resolved Resolution Date/Time: 10/31/20 @ 08:38 (8) CKD (chronic kidney disease), stage IV (9) Primary hypertension Status: Chronic (10) Mixed hyperlipidemia Status: Chronic (11) Mitral regurgitation ROSALINDA SONI DO Apr 23, 2022 06:42
[2022-04-23 07:34] VITALS: BP 170/81
[2022-04-23] MEDS: amLODIPine 5 MG (NORVASC) TAB PO SCH (08:18)
[2022-04-23] MEDS: polyethylene glycoL POWDER 17 GM (MIRALAX) PACK PO SCH ×2 (09:00→21:42)
[2022-04-23] MEDS: DOCUSATE SODIUM 100 MG (COLACE) CAP PO SCH ×2 (09:00→21:42)
[2022-04-23] MEDS: SENNA W/DOCUSATE (SENOKOT S) TABLET PO SCH ×2 (09:00→21:42)
--- NOTE | 2022-04-23 09:31 | Occupational Ther Daily Note ---
OT Current Status-Daily Note Subjective Pt resting in bed upon OT arrival, agreeable to tx. Pt appears to be moving around better today, and he said showering is "easier today than it was the other day." Mental Status/Objective Patient Orientation: Person, Place, Situation ADL-Treatment Therapy Code Descriptions/Definitions Functional [place] Measure: 0=Not Assessed/NA 4=Minimal Assistance 1=Total Assistance 5=Supervision or Setup 2=Maximal Assistance 6=Modified [place] 3=Moderate Assistance 7=Complete IndependenceSCALE: Activities may be completed with or without assistive devices. 5-Rkymqpcrxr-lipvelt completes the activity by him/herself with no assistance from a helper. 5-Set-up or Clean-up Assistance-helper sets up or cleans up; patient completes activity. [place] assists only prior to or following the activity. 4-Supervision or Touching Assistance-helper provides verbal cues and/or touching/steadying and/or contact guard assistance as patient completes activity. Assistance may be provided throughout the activity or intermittently. 3-Partial/Moderate Assistance-helper does LESS THAN HALF the effort. [place] lifts, holds or supports trunk or limbs, but provides less than half the effort. 2-Substantial/Maximal Assistance-helper does MORE THAN HALF the effort. [place] lifts or holds trunk or limbs and provides more than half the effort. 9-Jwdfkzuub-zfbrsv does ALL the effort. Patient does none of the effort to complete the activity. Or, the assistance of 2 or more helpers is required for the patient to complete the activity. If activity was not attempted, code reason: 7-Patient Refused. 9-Not Applicable-not attempted and the patient did not perform the activity before the current illness, exacerbation or injury. 10-Not Attempted due to Environmental Limitations-(lack of equipment, weather restraints, etc.). 88-Not Attempted due to Medical Conditions or Safety Concerns. Oral Hygiene (QC): 4 (CGA standing at sink) Shower/Bathe Self (QC): 4 (SBA for standing balance) Upper Body Dressing (QC): 3 (Min A overall. Able to doff/don tshirt but required assistance to don dress shirt.) Lower Body Dressing (QC): 5 On/Off Footwear: 3 (Min A to thread B feet and tie shoes) Toileting Hygiene (QC): 5 (with urinal) Other Treatment Pt required Min A to transfer supine to EOB. He used the FWW to walk to the bathroom, [facility], to complete showering, dressing, and oral hygiene/grooming tasks. He completed dressing while seated in shower, and he become noticeably SOB during task, so SPO2 levels checked. He dropped down to 85, was encouraged to take deep breaths, and his SPO2 levels returned to 95%. Pt was educated on energy conservation techniques and safety awareness, he verbalized understanding but required reinforcement to use strategies throughout session. Pt fixed hair and shaved face at sink seated in w/c, then he stood with FWW to brush teeth. He walked back to recliner with FWW, [facility]. Pt's SPO2 levels checked again once in recliner, levels dropped to 85, but returned to 94 after taking deep breaths. Post tx, pt left in recliner with call light in reach and all needs met. Education OT Patient Education: Correct positioning, Energy conservation, Modified ADL techniques, Progress toward Goal/Update tx plan, Purpose of tx/functional activities, Rehab process, Safety issues, Transfer techniques Teaching Recipient: Patient Teaching Methods: Discussion Response to Teaching: Verbalize Understanding, Reinforcement Needed OT Short Term Goals Short Term Goals Time Frame: May 02, 2022 Toileting hygiene: 4 Shower/bathe self: 4 Lower body dressin OT Digital Media Planner Goals Halfway Goals Time Frame: May 18, 2022 Eating (QC): 6 Oral Hygiene (QC): 6 Toileting Hygiene (QC): 6 Shower/Bathe Self (QC): 6 Upper Body Dressing (QC): 6 Lower Body Dressing (QC): 6 On/Off Footwear (QC): 6 Additional Goals: 1-Demonstrate ADL Tasks, 2-Verbalize Understanding, 3- ImproveStrength/Carlos A 1=Demonstrate adherence to instructed precautions during ADL tasks. 2=Patient will verbalize/demonstrate understanding of assistive devices/modifications for ADL. 3=Patient will improve strength/tolerance for activity to enable patient to perform ADL's. OT Education/Plan Problem List/Assessment Assessment: Decreased Activ Tolerance, Decreased Safety Aware, Decreased UE S trength, Impaired Funct Balance, Impaired I ADL's, Impaired Self-Care Skills Discharge Recommendations Plan/Recommendations: Continue POC Treatment Plan/Plan of Care Patient would benefit from OT for education, treatment and training to promote independence in ADL's, mobility, safety and/or upper extremity function for ADL's. Plan of Care: ADL Retraining, Functional Mobility, Group Exercise/Act as Ind, UE Funct Exercise/Act Treatment Duration: May 18, 2022 Frequency: At least 5 of 7 days/Wk (IRF) Estimated Hrs Per Day: 1.5 hours per day Agreement: Yes Rehab Potential: Fair Time/GCodes Start Time: 08:00 Stop Time: 09:30 Total Time Billed (hr/min): 90 Billed Treatment Time 1, ADL 6 (90') REINALDO SANCHEZ OT Apr 23, 2022 09:31
[2022-04-23] MEDS: RT-ALBUTEROL SULF 2.5 MG/3 ML PRE-MIX VIAL INH SCH ×4 (10:32→20:19)
--- NOTE | 2022-04-23 10:45 | Diagnostic Imaging Report ---
INDICATION: Rales. Time of Exam: 9:57 AM Correlation is made with prior chest from 04/16/2022. The heart is enlarged. The lungs appear to be fairly clear. No significant infiltrate is seen. There is no effusion or pneumothorax. IMPRESSION: Cardiomegaly. No other significant abnormality is detected. Dictated by: Dictated on workstation # [id number]
--- NOTE | 2022-04-23 11:51 | Progress Note - Cardiology ---
Cardiology SOAP Progress Note Objective: I&O/Vital Signs 04/24/22 04/24/22 04/24/22 04/24/22 07:23 09:00 09:03 09:08 Temp 37.9 Pulse 58 Resp 20 B/P (MAP) 135/64 (87) Pulse Ox 92 92 96 95 O2 Delivery Nasal Cannula Nasal Cannula Nasal Cannula Room Air O2 Flow Rate 2.00 2.50 2.00 0.00 Weight (Pounds): 180 Weight (Calculated Kilograms): 81.092613 Constitutional: AAO x 3, well-developed Respiratory: No accessory muscle use; other (fair to good, bilat air entry) Cardiovascular: regular rate-rhythm, S1 and S2, systolic murmur (2/6 HSM) Gastrointestional: No tender; soft; No guarding, No rebound; audible bowel sounds Extremities: No clubbing, No cyanosis, No significant edema Neurologic/Psychiatric: oriented x 3, other (moves all limbs equally) Skin: No rash on exposed areas, No ulcerations on exposed areas Results/Procedures: Labs Laboratory Tests 04/23/22 20:53: White Blood Count 13.4H, Red Blood Count 3.53L, Hemoglobin 11.1L, Hematocrit 34L , Mean Corpuscular Volume 95, Mean Corpuscular Hemoglobin 31, Mean Corpuscular Hemoglobin Concent 33, Red Cell Distribution Width 13.9, Platelet Count 274, Mean Platelet Volume 9.9, Immature Granulocyte % (Auto) 0, Neutrophils (%) (Auto) 85H, Lymphocytes (%) (Auto) 6L, Monocytes (%) (Auto) 8, Eosinophils (%) (Auto) 0, Basophils (%) (Auto) 0, Neutrophils # (Auto) 11.4H, Lymphocytes # (Auto) 0.8L, Monocytes # (Auto) 1.0, Eosinophils # (Auto) 0.0, Basophils # (Auto) 0.0, Immature Granulocyte # (Auto) 0.1, Neutrophils % (Manual) 87, Lymphocytes % (Manual) 7, Monocytes % (Manual) 6, Polychromasia MODERATE, [place] Cells MARKED, Elliptocytes MARKED, Acanthocytes MARKED, Sodium Level 135, Potassium Level 4.2, Chloride Level 101, Carbon Dioxide Level 18L, Anion Gap 16H , Blood Urea Nitrogen 42H, Creatinine 2.53H, Estimat Glomerular Filtration Rate 24, BUN/Creatinine Ratio 17, Glucose Level 104, Lactic Acid Level 1.34, Calcium Level 9.2, Corrected Calcium 9.4, Total Bilirubin 1.8H, Aspartate Amino Transf (AST/SGOT) 47H, Alanine Aminotransferase (ALT/SGPT) 38, Alkaline Phosphatase 133, Total Protein 6.7, Albumin 3.8, Procalcitonin 0.41H 04/23/22 21:14: Urine Color YELLOW, Urine Clarity CLEAR, Urine pH 6.5, Urine Specific Serafina 1.010L, Urine Protein TRACEH, Urine Glucose (UA) NEGATIVE, Urine Ketones NEGATIVE, Urine Nitrite NEGATIVE, Urine Bilirubin NEGATIVE, Urine Urobilinogen 4.0, Urine Leukocyte Esterase NEGATIVE, Urine RBC (Auto) 1+H, Urine RBC NONE, Urine WBC 2-5, Urine Squamous Epithelial Cells 0-2, Urine Renal Epithelial Cells NONE, Urine Crystals NONE, Urine Bacteria FEWH, Urine Casts NONE, Urine Mucus NEGATIVE, Urine Culture Indicated NO 04/23/22 21:20: Influenza Type A (RT-PCR) Not Detected, Influenza Type B (RT-PCR) Not Detected, SARS-CoV-2 RNA (RT-PCR) Not Detected 04/24/22 05:28: White Blood Count 13.3H, Red Blood Count 3.17L, Hemoglobin 9.7L, Hematocrit 30L, Mean Corpuscular Volume 95, Mean Corpuscular Hemoglobin 31, Mean Corpuscular Hemoglobin Concent 32, Red Cell Distribution Width 13.8, Platelet Count 239, Mean Platelet Volume 9.7, Immature Granulocyte % (Auto) 1, Neutrophils (%) (Auto) 84H, Lymphocytes (%) (Auto) 8L, Monocytes (%) (Auto) 7, Eosinophils (%) (Auto) 0, Basophils (%) (Auto) 0, Neutrophils # (Auto) 11.2H, Lymphocytes # (Auto) 1.1, Monocytes # (Auto) 1.0, Eosinophils # (Auto) 0.0, Basophils # (Auto) 0.0, Immature Granulocyte # (Auto) 0.1, Sodium Level 134L, Potassium Level 4.4, Chloride Level 105, Carbon Dioxide Level 19L, Anion Gap 10, Blood Urea Nitrogen 40H, Creatinine 2.49H, Estimat Glomerular Filtration Rate 24, BUN/Creatinine Rat io 16, Glucose Level 94, Calcium Level 8.5, Corrected Calcium 9.3, Total Bilirubin 1.3H, Aspartate Amino Transf (AST/SGOT) 33, Alanine Aminotransferase (ALT/SGPT) 31, Alkaline Phosphatase 100, Total Protein 5.5L, Albumin 3.0L Procedures NAME: [facility] REC#: [id number] PT STATUS: ADM IN : 1935 PHYSICIAN: ROSALINDA SONI DO ADMIT DATE: 04/18/22/IRF Draft Date of Exam:04/23/22 CHEST 1 VIEW, AP/PA ONLY INDICATION: Rales. Time of Exam: 9:57 AM Correlation is made with prior chest from 04/16/2022. The heart is enlarged. The lungs appear to be fairly clear. No significant infiltrate is seen. There is no effusion or pneumothorax. IMPRESSION: Cardiomegaly. No other significant abnormality is detected. Dictated on workstation # [id number] Dict: 04/23/22 1020 Trans: 04/23/22 1044 [id number] Interpreted by: YENI BLEVINS MD Electronically signed by: A/P: Assessment: S/P non-syncopal fall - Likely nondisplaced fractures involving the right superior and inferior pubic rami. Per hip and pelvis x-ray on 04-16-22 - managed by orthopedic services ?Amiodarone toxicity - CT of abd/pelvis on 04-16-22: Dense liver, which can be seen with amiodarone toxicity, hemosiderosis, Chris's disease, and glycogen storage diseases. Juan mmend correlation with patient history and LFTs. A fib - with a controlled ventricular response, first diagnosed Oct 11, 2019 - maintained on Amiodarone that was stopped on 04/17/22 because of the suspicion that it may be causing hepatotoxicity - OAC with Eliquis - Sinus marlon on ECG of 07/06/21 - 24 HR Holter of 08-10-21 showed NSR with av HR 52 bpm. One 3.5 sec pause without symptoms. 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 LVEF 60%. Normal LVEDP. Severe mitral regurg (4+). Mild to mod pulm HTN - H/o robotic mitral valve repair at [facility] [place] [address] Vargas - Echo in Oct 2020: LVEF 65-70%, RV and biatrial enlargement, RV vol overload, PASP 40-45 mmHg - Echocardiogram of 07-18-21 showed LVEF 55-65%. LA and RA mildly dilated. Mod calcification of mitral valve with mild to mod regurg. Mild to mod AoV regurg. 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 Add low dose bb to control vent rate if he goes in A Fib * Monitor labs from time to time TORY MAXWELL Apr 23, 2022 11:51
--- NOTE | 2022-04-23 12:14 | Physical Therapy Daily Note ---
PT Daily Note-Current Subjective Pt sitting in recliner upon arrival. Pt agrees to PT. Pain Location: Right, Upper Location Body Site: Thigh Pain Description: Sharp Mental Status Patient Orientation: Person, Place, Time, Situation Transfers SCALE: Activities may be completed with or without assistive devices. 7-Cafawhvyhf-qsdwhbx completes the activity by him/herself with no assistance from a helper. 5-Set-up or Clean-up Assistance-helper sets up or cleans up; patient completes activity. [place] assists only prior to or following the activity. 4-Supervision or Touching Assistance-helper provides verbal cues and/or touching/steadying and/or contact guard assistance as patient completes activity. Assistance may be provided throughout the activity or intermittently. 3-Partial/Moderate Assistance-helper does LESS THAN HALF the effort. [place] lifts, holds or supports trunk or limbs, but provides less than half the effort. 2-Substantial/Maximal Assistance-helper does MORE THAN HALF the effort. [place] lifts or holds trunk or limbs and provides more than half the effort. 7-Ukjsboixt-leepch does ALL the effort. Patient does none of the effort to complete the activity. Or, the assistance of 2 or more helpers is required for the patient to complete the activity. If activity was not attempted, code reason: 7-Patient Refused. 9-Not Applicable-not attempted and the patient did not perform the activity before the current illness, exacerbation or injury. 10-Not Attempted due to Environmental Limitations-(lack of equipment, weather restraints, etc.). 88-Not Attempted due to Medical Conditions or Safety Concerns. Sit to Stand (QC): 4 Weight Bearing Right Lower Extremity: Right Weight Bearing/Tolerated Gait Training Does the Patient Walk?: Yes Distance: 150' x2 Walk 10 feet (QC): 5 Walk 50 ft with 2 Turns(QC): 5 Walk 150 ft (QC): 5 Gait Assistive Device: FWW Exercises NuStep Minutes: 15 NuStep Workload: 5 Treatments TF to standing and declines need for BR. Pt amb. in hallway before using NuStep. After RB, pt completes Seated Ex then amb. in hallway returning to room. Pt returns to recliner to rest. All needs met, call light in hand. Assessment Current Status: Good Progress Pt reports pain/discomfort w/advancing R LE but better after NuStep. PT Short Term Goals Short Term Goals Time Frame: Apr 25, 2022 Roll Left & Right: 4 (SBA) Sit to lyin (Yenny) Lying to sitting on side of be: 3 (Yenny) Sit to stand: 4 (CGA) Chair/wtf-gx-gnxxp transfer: 4 (SBA) Walk 10 feet: 4 (CGA) Walk 50 feet with two turns: 4 (CGA) PT Prison Goals Technical Administrative Assistant Goals PT Prison Goals Time Frame: May 09, 2022 Roll Left & Right (QC): 6 Sit to Lying (QC): 4 (SBA) Lying-Sitting on Side/Bed(QC): 4 (SBA) Sit to Stand (QC): 6 Chair/Mmf-jn-Yyxgp Xfer(QC): 6 Toilet Transfer (QC): 6 Car Transfer (QC): 4 (SBA) Does the Patient Walk: Yes Walk 10 feet (QC): 6 Walk 50ft with 2 Turns (QC): 6 Walk 150 ft (QC): 6 Walking 10ft on Uneven Surface: 6 1 Step (curb) (QC): 4 (CGA) 4 Steps (QC): 4 (CGA) 12 Steps (QC): 88 Picking up an Object (QC): 4 (SBA with provider service representative) Wheel 50 feet with 2 turns (QC: 9 Wheel 150 feet: 9 PT Plan Problem List Problem List: Activity Tolerance Treatment/Plan Treatment Plan: Continue Plan of Care Treatment Plan: Bed Mobility, Concurrent Therapy, Education, Functional Activity Carlos A, Functional Strength, Group Therapy, Gait, Safety, Therapeutic Exercise, Transfers Treatment Duration: May 09, 2022 Frequency: At least 5 of 7 days/Wk (IRF) Estimated Hrs Per Day: 1.5 hours per day Patient and/or Family Agrees t: Yes Safety Risks/Education Patient Education: Gait Training, Transfer Techniques, Correct Positioning, Safety Issues Teaching Recipient: Patient Teaching Methods: Discussion Response to Teaching: Verbalize Understanding Time/GCodes Time In: 1000 Time Out: 1100 Total Billed Treatment Time: 60 Total Billed Treatment 1, EX x2 (30m) & GT x2 (30m) CHERIE ASTUDILLO RESERVATIONS AND TICKETING AGENT Apr 23, 2022 12:14
--- NOTE | 2022-04-23 15:23 | Physical Therapy Daily Note ---
PT Daily Note-Current Subjective Pt sitting in recliner upon arrival. Pt agrees to PT. Pain Numeric Pain Scale: 7 Location: Right Location Body Site: Pelvic Pain Description: Sharp Mental Status Patient Orientation: Person, Place, Situation Transfers SCALE: Activities may be completed with or without assistive devices. 8-Bxgzxbwjti-rvfbghr completes the activity by him/herself with no assistance from a helper. 5-Set-up or Clean-up Assistance-helper sets up or cleans up; patient completes activity. [place] assists only prior to or following the activity. 4-Supervision or Touching Assistance-helper provides verbal cues and/or touching/steadying and/or contact guard assistance as patient completes activity. Assistance may be provided throughout the activity or intermittently. 3-Partial/Moderate Assistance-helper does LESS THAN HALF the effort. [place] lifts, holds or supports trunk or limbs, but provides less than half the effort. 2-Substantial/Maximal Assistance-helper does MORE THAN HALF the effort. [place] lifts or holds trunk or limbs and provides more than half the effort. 4-Gazgovoxn-jbnljv does ALL the effort. Patient does none of the effort to complete the activity. Or, the assistance of 2 or more helpers is required for the patient to complete the activity. If activity was not attempted, code reason: 7-Patient Refused. 9-Not Applicable-not attempted and the patient did not perform the activity before the current illness, exacerbation or injury. 10-Not Attempted due to Environmental Limitations-(lack of equipment, weather restraints, etc.). 88-Not Attempted due to Medical Conditions or Safety Concerns. Sit to Stand (QC): 4 Weight Bearing Right Lower Extremity: Right Weight Bearing/Tolerated Gait Training Does the Patient Walk?: Yes Distance: 225' Walk 10 feet (QC): 4 Walk 50 ft with 2 Turns(QC): 4 Walk 150 ft (QC): 4 Gait Persons Needed: 1 Gait Assistive Device: FWW Exercises NuStep Minutes: 15 NuStep Workload: 6 Treatments TF to standing, declines need for BR. Pt amb. in hallway before asking to use NuStep again. After using NuStep, pt amb. back to room to rest Supine in bed. All needs met, call light in hand & urinal given to pt as requested. Assessment Current Status: Good Progress Pt is moving more functionally although still reporting pain in pelvis when advancing R LE. PT Short Term Goals Short Term Goals Time Frame: Apr 25, 2022 Roll Left & Right: 4 (SBA) Sit to lyin (Yenny) Lying to sitting on side of be: 3 (Yenny) Sit to stand: 4 (CGA) Chair/yed-hb-alarc transfer: 4 (SBA) Walk 10 feet: 4 (CGA) Walk 50 feet with two turns: 4 (CGA) PT Senior Care Goals Senior Care Goals PT Appraiser Personal Property Goals Time Frame: May 09, 2022 Roll Left & Right (QC): 6 Sit to Lying (QC): 4 (SBA) Lying-Sitting on Side/Bed(QC): 4 (SBA) Sit to Stand (QC): 6 Chair/Uro-yn-Vkekn Xfer(QC): 6 Toilet Transfer (QC): 6 Car Transfer (QC): 4 (SBA) Does the Patient Walk: Yes Walk 10 feet (QC): 6 Walk 50ft with 2 Turns (QC): 6 Walk 150 ft (QC): 6 Walking 10ft on Uneven Surface: 6 1 Step (curb) (QC): 4 (CGA) 4 Steps (QC): 4 (CGA) 12 Steps (QC): 88 Picking up an Object (QC): 4 (SBA with longwall machine operator helper) Wheel 50 feet with 2 turns (QC: 9 Wheel 150 feet: 9 PT Plan Problem List Problem List: Activity Tolerance, Gait Treatment/Plan Treatment Plan: Continue Plan of Care Treatment Plan: Bed Mobility, Concurrent Therapy, Education, Functional Activity Carlos A, Functional Strength, Group Therapy, Gait, Safety, Therapeutic Exercise, Transfers Treatment Duration: May 09, 2022 Frequency: At least 5 of 7 days/Wk (IRF) Estimated Hrs Per Day: 1.5 hours per day Patient and/or Family Agrees t: Yes Safety Risks/Education Patient Education: Gait Training Teaching Recipient: Patient Teaching Methods: Discussion Response to Teaching: Verbalize Understanding Time/GCodes Time In: 1400 Time Out: 1440 Total Billed Treatment Time: 40 Total Billed Treatment 1, GT x2 (25m) & EX (20m) CHERIE ASTUDILLO LIEUTENANT/DEPUTY Apr 23, 2022 15:23
--- NOTE | 2022-04-23 18:54 | Progress Note - Cardiology ---
Cardiology SOAP Progress Note Subjective: No cp or palp or syncope or shortness of breath at rest No n/v/d/ No focal weakness Gen weakness present Objective: I&O/Vital Signs 04/23/22 04/23/22 04/23/22 07:34 09:00 14:52 Temp 36.5 Pulse 57 Resp 18 B/P (MAP) 170/81 (110) Pulse Ox 92 96 O2 Delivery Room Air Room Air Room Air Weight (Pounds): 180 Weight (Calculated Kilograms): 81.078076 Constitutional: AAO x 3, well-developed Respiratory: No accessory muscle use; other (fair to good, bilat air entry) Cardiovascular: regular rate-rhythm, S1 and S2, systolic murmur (2/6 HSM) Gastrointestional: No tender; soft; No guarding, No rebound; audible bowel sounds Extremities: No clubbing, No cyanosis, No significant edema Neurologic/Psychiatric: oriented x 3, other (moves all limbs equally) Skin: No rash on exposed areas, No ulcerations on exposed areas Results/Procedures: Labs Laboratory Tests 04/23/22 06:02: White Blood Count 7.1, Red Blood Count 3.35L, Hemoglobin 10.4L, Hematocrit 32L, Mean Corpuscular Volume 96, Mean Corpuscular Hemoglobin 31, Mean Corpuscular Hemoglobin Concent 33, Red Cell Distribution Width 13.7, Platelet Count 244, Mean Platelet Volume 10.0, Immature Granulocyte % (Auto) 1, Neutrophils (%) (Auto) 59, Lymphocytes (%) (Auto) 27, Monocytes (%) (Auto) 9, Eosinophils (%) (Auto) 4, Basophils (%) (Auto) 1, Neutrophils # (Auto) 4.2, Lymphocytes # (Auto) 1.9, Monocytes # (Auto) 0.6, Eosinophils # (Auto) 0.3, Basophils # (Auto) 0.0, Immature Granulocyte # (Auto) 0.1, Sodium Level 133L, Potassium Level 4.2, Chloride Level 102, Carbon Dioxide Level 20L, Anion Gap 11, Blood Urea Nitrogen 45H, Creatinine 2.66H, Estimat Glomerular Filtration Rate 22, BUN/Creatinine Ratio 17, Glucose Level 92, Calcium Level 9.5, Corrected Calcium 10.1, Total Bilirubin 1.4H, Aspartate Amino Transf (AST/SGOT) 37H, Alanine Aminotransferase (ALT/SGPT) 34, Alkaline Phosphatase 121, Total Protein 6.0L, Albumin 3.3 Laboratory Tests 04/23/22 06:02 A/P: Assessment: S/P non-syncopal fall - Likely nondisplaced fractures involving the right superior and inferior pubic rami. Per hip and pelvis x-ray on 04-16-22 - managed by orthopedic services ?Amiodarone toxicity - CT of abd/pelvis on 04-16-22: Dense liver, which can be seen with amiodarone toxicity, hemosiderosis, Chris's disease, and glycogen storage diseases. Recommend correlation with patient history and LFTs. A fib - with a controlled ventricular response, first diagnosed Oct 11, 2019 - maintained on Amiodarone that was stopped on 04/17/22 because of the suspicion that it may be causing hepatotoxicity - OAC with Eliquis - Sinus marlon on ECG of 07/06/21 - 24 HR Holter of 08-10-21 showed NSR with av HR 52 bpm. One 3.5 sec pause without symptoms. 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 LVEF 60%. Normal LVEDP. Severe mitral regurg (4+). Mild to mod pulm HTN - H/o robotic mitral valve repair at [facility] [place] [address] Vargas - Echo in Oct 2020: LVEF 65-70%, RV and biatrial enlargement, RV vol overload, PASP 40-45 mmHg - Echocardiogram of 07-18-21 showed LVEF 55-65%. LA and RA mildly dilated. Mod calcification of mitral valve with mild to mod regurg. Mild to mod AoV regurg. 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 Tolerating low-dose bb * Monitor labs from time to time RASHEEDA LEMONS MD FACP [facility] Apr 23, 2022 18:54
[2022-04-23 20:00] VITALS: BP 160/74
[2022-04-23] MEDS: ACETAMINOPHEN 325 MG TABLET PO PRN (21:03)
[2022-04-23] MEDS: RIVAROXABAN 15 MG TABLET (XARELTO) PO SCH (21:03)
[2022-04-23] MEDS: ROSUVASTATIN 10 MG (CRESTOR) TABLET PO SCH (21:03)
[2022-04-23 21:14] LABS: BASOPHILS % (AUTO) 0 % (0-10); EOSINOPHILS % (AUTO) 0 % (0-10); HEMATOCRIT 34 % (40-54); HEMOGLOBIN 11.1 g/dL (13.3-17.7); LYMPHOCYTES # (AUTO) 0.8 10^3/uL (1.0-4.0); LYMPHOCYTES % (AUTO) 6 % (12-44); MEAN CORPUSCULAR HEMOGLOBIN 31 pg (25-34); MEAN CORPUSCULAR HGB CONC 33 g/dL (32-36); MEAN CORPUSCULAR VOLUME 95 fL (80-99); MEAN PLATELET VOLUME 9.9 fL (9.0-12.2); MONOCYTES % (AUTO) 8 % (0-12); NEUTROPHILS # (AUTO) 11.4 10^3/uL (1.8-7.8); NEUTROPHILS % (AUTO) 85 % (42-75); PLATELET COUNT 274 10^3/uL (130-400); WHITE BLOOD COUNT 13.4 10^3/uL (4.3-11.0)
[2022-04-23 21:23] LABS: ALBUMIN 3.8 GM/DL (3.2-4.5)
[2022-04-23 21:24] LABS: POTASSIUM 4.2 MMOL/L (3.6-5.0)
[2022-04-23 21:25] LABS: CALCIUM 9.2 MG/DL (8.5-10.1)
[2022-04-23 21:26] LABS: TOTAL PROTEIN 6.7 GM/DL (6.4-8.2)
[2022-04-23 21:28] LABS: BILIRUBIN,URINE NEGATIVE (NEGATIVE); CLARITY,URINE CLEAR; COLOR,URINE YELLOW; GLUCOSE, URINE (UA) NEGATIVE (NEGATIVE); KETONES,URINE NEGATIVE (NEGATIVE); LEUKOCYTE ESTERASE ,URINE NEGATIVE (NEGATIVE); NITRITE,URINE NEGATIVE (NEGATIVE); PH,URINE 6.5 (5-9); PROTEIN,URINE TRACE (NEGATIVE)
[2022-04-23 21:28] LABS: ACANTHOCYTES MARKED; BILIRUBIN,TOTAL 1.8 MG/DL (0.1-1.0); BURR CELLS MARKED; ELLIPT/OVALOCYTES MARKED; LYMPHOCYTES % (MANUAL) 7 %; MONOCYTES % (MANUAL) 6 %; NEUTROPHILS % (MANUAL) 87 %; POLYCHROMASIA MODERATE
[2022-04-23 21:30] LABS: CREATININE SERUM 2.53 MG/DL (0.60-1.30)
[2022-04-23 21:37] LABS: BACTERIA,URINE FEW /HPF; SQUAMOUS EPITHELIAL CELL,UR 0-2 /HPF
[2022-04-23] MEDS ORDERED: ALPRAZolam 1 MG (XANAX) TAB PO PRN (21:45)
[2022-04-23] MEDS ORDERED: NS IV 1000 ML 1,000 ML IV SCH (21:45)
[2022-04-23 23:39] VITALS: BP 123/58
[2022-04-24 05:51] LABS: BASOPHILS % (AUTO) 0 % (0-10); EOSINOPHILS % (AUTO) 0 % (0-10); HEMATOCRIT 30 % (40-54); HEMOGLOBIN 9.7 g/dL (13.3-17.7); LYMPHOCYTES # (AUTO) 1.1 10^3/uL (1.0-4.0); LYMPHOCYTES % (AUTO) 8 % (12-44); MEAN CORPUSCULAR HEMOGLOBIN 31 pg (25-34); MEAN CORPUSCULAR HGB CONC 32 g/dL (32-36); MEAN CORPUSCULAR VOLUME 95 fL (80-99); MEAN PLATELET VOLUME 9.7 fL (9.0-12.2); MONOCYTES % (AUTO) 7 % (0-12); NEUTROPHILS # (AUTO) 11.2 10^3/uL (1.8-7.8); NEUTROPHILS % (AUTO) 84 % (42-75); PLATELET COUNT 239 10^3/uL (130-400); WHITE BLOOD COUNT 13.3 10^3/uL (4.3-11.0)
[2022-04-24 06:02] LABS: POTASSIUM 4.4 MMOL/L (3.6-5.0)
[2022-04-24 06:03] LABS: CALCIUM 8.5 MG/DL (8.5-10.1)
[2022-04-24 06:04] LABS: TOTAL PROTEIN 5.5 GM/DL (6.4-8.2)
[2022-04-24 06:06] LABS: BILIRUBIN,TOTAL 1.3 MG/DL (0.1-1.0)
[2022-04-24 06:08] LABS: CREATININE SERUM 2.49 MG/DL (0.60-1.30)
[2022-04-24] MEDS ORDERED: ALPRAZolam 0.5 MG (XANAX) TAB PO PRN (06:45)
[2022-04-24 07:23] VITALS: BP 135/64
[2022-04-24] MEDS: DOCUSATE SODIUM 100 MG (COLACE) CAP PO SCH ×2 (08:14→20:34)
[2022-04-24] MEDS: amLODIPine 5 MG (NORVASC) TAB PO SCH (08:15)
[2022-04-24] MEDS: SENNA W/DOCUSATE (SENOKOT S) TABLET PO SCH ×2 (08:15→20:34)
[2022-04-24] MEDS: polyethylene glycoL POWDER 17 GM (MIRALAX) PACK PO SCH ×2 (08:19→19:38)
--- NOTE | 2022-04-24 08:33 | Diagnostic Imaging Report ---
INDICATION: Follow-up pneumonia. COMPARISON: 04/23/2022 FINDINGS: Single frontal radiographic view of the chest was obtained and again demonstrates mild cardiomegaly. Pulmonary vasculature, however is within normal limits. Lungs remain clear. There is no focal consolidation, large effusion, nor pneumothorax. Osseous structures show no gross acute abnormalities. IMPRESSION: 1. Persistent cardiomegaly, but no evidence of new failure or focal infiltrate. Dictated by: Dictated on workstation # [id number]
--- NOTE | 2022-04-24 08:55 | PM&R Progress Note ---
Subjective HPI/CC On Admission Date Seen by Provider: Apr 24, 2022 Time Seen by Provider: 09:00 Subjective/Events-last exam 04/24/2022: Doing much better No pain reported No falls Breathing better RLL rales noted but cleared with deep breath CXR negative but early PNA RLL is the diagnosis 04/23/2022: Patient doing well Labs reviewed Pain is pretty well controlled Daughter concerned about confusion but does have advanced age having a significant decompensation Later in the evening started a fever of 102 so we will perform septic work-up 04/22/2022: Patient doing well Daughter at bedside and she works in [employer] as a nurse No pain Weaned off O2 04/21/2022: Doing well Repeats himself O2 will be weaned Pain controlled 04/20/2022: Pt a bit hypoxic today due to narcotics decreasing respiratory drive Oxygen maintained Suppository will be given today, no bowel movement for 4 days 04/19/2022: Pt is doing a lot better Pain is well controlled but hates to use pain pills Bowels moved 3 days ago so we'll get aggressive with that Creatinine is 2.6, that is his baseline Review of Systems General: Fatigue, Malaise Pulmonary: Dyspnea Focused Exam Lactate Level 04/23/22 20:53: Lactic Acid Level 1.34 Objective Exam Vital Signs Vital Signs Date Time Temp Pulse Resp B/P (MAP) Pulse Ox O2 Delivery O2 Flow Rate FiO2 04/24/22 20:38 Room Air 04/24/22 19:34 36.8 65 20 117/68 (84) 96 04/24/22 19:15 0.00 Capillary Refill : General Appearance: No Apparent Distress, WD/WN, Chronically ill HEENT: PERRL/EOMI, Normal ENT Inspection, Pharynx Normal Neck: Full Range of Motion, Normal Inspection, Non Tender, Supple, Carotid Bruit Respiratory: Chest Non Tender, Lungs Clear, Normal Breath Sounds, No Accessory Muscle Use, No Respiratory Distress Cardiovascular: Regular Rate, Rhythm, No Edema, No Gallop, No JVD, No Murmur, Normal Peripheral Pulses Gastrointestinal: Normal Bowel Sounds, No Organomegaly, No Pulsatile Mass, Non Tender, Soft Back: Normal Inspection, No CVA Tenderness, No Vertebral Tenderness Extremity: Normal Capillary Refill, Normal Inspection, Normal Range of Motion, Non Tender, No Calf Tenderness, No Pedal Edema Neurologic/Psychiatric: Alert, Oriented x3, Normal Mood/Affect, Abnormal Gait, Motor Weakness Skin: Normal Color, Warm/Dry Lymphatic: No Adenopathy Results/Procedures Lab Laboratory Tests 04/25/22 05:45 Patient resulted labs reviewed. FIM Transfers Therapy Code Descriptions/Definitions Functional [place] Measure: 0=Not Assessed/NA 4=Minimal Assistance 1=Total Assistance 5=Supervision or Setup 2=Maximal Assistance 6=Modified [place] 3=Moderate Assistance 7=Complete IndependenceSCALE: Activities may be completed with or without assistive devices. 8-Pglvfvrwoj-czdqcah completes the activity by him/herself with no assistance from a helper. 5-Set-up or Clean-up Assistance-helper sets up or cleans up; patient completes activity. [place] assists only prior to or following the activity. 4-Supervision or Touching Assistance-helper provides verbal cues and/or touching/steadying and/or contact guard assistance as patient completes activity. Assistance may be provided throughout the activity or intermittently. 3-Partial/Moderate Assistance-helper does LESS THAN HALF the effort. [place] lifts, holds or supports trunk or limbs, but provides less than half the effort. 2-Substantial/Maximal Assistance-helper does MORE THAN HALF the effort. [place] lifts or holds trunk or limbs and provides more than half the effort. 8-Eqaalraub-fhhktd does ALL the effort. Patient does none of the effort to complete the activity. Or, the assistance of 2 or more helpers is required for t he patient to complete the activity. If activity was not attempted, code reason: 7-Patient Refused. 9-Not Applicable-not attempted and the patient did not perform the activity before the current illness, exacerbation or injury. 10-Not Attempted due to Environmental Limitations-(lack of equipment, weather restraints, etc.). 88-Not Attempted due to Medical Conditions or Safety Concerns. Roll Left to Right (QC): 3 Sit to Lying (QC): 3 Sit to Stand (QC): 4 Chair/Khr-ap-Jeerv Xfer(QC): 3 Car Transfer (QC): 3 Gait Training Does the Patient Walk?: Yes Distance: 225' Walk 10 feet (QC): 4 Walk 50 ft with 2 Turns(QC): 4 Walk 150 ft (QC): 4 Walking 10ft/uneven surface-QC: 4 Gait Persons Needed: 1 Gait Assistive Device: FWW Wheelchair Training Does the Pt Use a Wheelchair?: Yes Distance: 50' Wheel 50 ft with 2 turns (QC): 3 Wheel 150 ft (QC): 88 Type of Wheelchair: Manual Stair Training 1 Step (curb) (QC): 88 4 Steps (QC): 88 12 Steps (QC): 88 Balance Picking up an Object (QC): 4 (CGA with a diet consultant) ADL-Treatment Eating (QC): 6 (Per pt report) Oral Hygiene (QC): 4 (CGA standing at sink) Shower/Bathe Self (QC): 4 (SBA for standing balance) Upper Body Dressing (QC): 3 (Min A overall. Able to doff/don tshirt but required assistance to don dress shirt.) Lower Body Dressing (QC): 5 On/Off Footwear (QC): 3 (Min A to thread B feet and tie shoes) Toileting Hygiene (QC): 5 (with urinal) Assessment/Plan Assessment and Plan Assess & Plan/Chief Complaint Assessment: Fall from standing Right side pelvic fracture Chest wall hematoma PAF Valvular heart disease OAC HTN CKD Advanced age HLP Hypoxia 04/20/22 Fever 04/23/2022 due to RLL PNA even though CXR normal Plan: PT OT protocol Monitor BP Fall risk Monitor creatinine 04/19/2022: Monitor pain 04/20/2022: O2 Monitor closely Limit narcs 04/21/2022: Wean O2 Pain control 04/22/2022: Weaned O2 04/23/2022: Continue supportive care Monitor fever 04/24/2022: Abx renal dosed (1) Fall from standing Status: Acute (2) Fracture of right pelvis Status: Acute (3) Contusion of right chest wall Status: Acute (4) Chronic kidney disease Status: Acute (5) Congestive heart failure Status: Acute (6) Atrial fibrillation Status: Acute (7) Acute on chronic diastolic (congestive) heart failure Status: Resolved Resolution Date/Time: 10/31/20 @ 08:38 (8) CKD (chronic kidney disease), stage IV (9) Primary hypertension Status: Chronic (10) Mixed hyperlipidemia Status: Chronic (11) Mitral regurgitation ROSALINDA SONI DO Apr 24, 2022 08:54
[2022-04-24] MEDS: RT-ALBUTEROL SULF 2.5 MG/3 ML PRE-MIX VIAL INH SCH ×3 (09:03→19:15)
--- NOTE | 2022-04-24 09:04 | Occupational Ther Daily Note ---
OT Current Status-Daily Note Subjective Pt sitting in bed upon OT arrival, agreeable to tx. He reports no pain during tx, but was noticeably SOB with increased exertion. He says that he has always been a heavy breather, but SPO2 levels were still checked throughout session. Mental Status/Objective Patient Orientation: Person, Place, Situation Attachments: IV, Oxygen (2L via NC) ADL-Treatment Therapy Code Descriptions/Definitions Functional [place] Measure: 0=Not Assessed/NA 4=Minimal Assistance 1=Total Assistance 5=Supervision or Setup 2=Maximal Assistance 6=Modified [place] 3=Moderate Assistance 7=Complete IndependenceSCALE: Activities may be completed with or without assistive devices. 2-Yvxqecucox-pdzplae completes the activity by him/herself with no assistance from a helper. 5-Set-up or Clean-up Assistance-helper sets up or cleans up; patient completes activity. [place] assists only prior to or following the activity. 4-Supervision or Touching Assistance-helper provides verbal cues and/or touching/steadying and/or contact guard assistance as patient completes activity. Assistance may be provided throughout the activity or intermittently. 3-Partial/Moderate Assistance-helper does LESS THAN HALF the effort. [place] lifts, holds or supports trunk or limbs, but provides less than half the effort. 2-Substantial/Maximal Assistance-helper does MORE THAN HALF the effort. [place] lifts or holds trunk or limbs and provides more than half the effort. 9-Iolezvysu-johmwt does ALL the effort. Patient does none of the effort to complete the activity. Or, the assistance of 2 or more helpers is required for the patient to complete the activity. If activity was not attempted, code reason: 7-Patient Refused. 9-Not Applicable-not attempted and the patient did not perform the activity before the current illness, exacerbation or injury. 10-Not Attempted due to Environmental Limitations-(lack of equipment, weather restraints, etc.). 88-Not Attempted due to Medical Conditions or Safety Concerns. Oral Hygiene (QC): 6 (seated at sink) Lower Body Dressing (QC): 3 (Mod A overall. CGA to maintain seated balance while threading BLEs and Mod A for balance when hiking pants) On/Off Footwear: 2 (Max A to thread and tie both shoes) Toileting Hygiene (QC): 5 (with urinal) Other Treatment Pt required SBA to transfer supine to seated EOB. Once seated, bed was found to be soiled. He completed LBD, footwear, and periarea hygiene while seated EOB, nursing staff wiped buttocks when pt stood to hike pants. Pt was noticeably SOB with bending forward for dressing, SPO2 levels checked and were found to be 92, increased to 95 with pursed lip breathing. He required v/c's to pace himself and take deep breaths when he noticed he was SOB throughout remainder of self-care activities. Pt stood from bed with min A, SPT with FWW to w/c, then was pushed into bathroom to complete oral hygiene/grooming tasks seated at the sink. He was pushed back to recliner, SPT with FWW, min A. He focused on increasing fine motor coordination and strength through retrieving beads from green Theraputty (medium-heavy resistance). Post tx, pt left in recliner with call light in reach and all needs met. Education OT Patient Education: Correct positioning, Energy conservation, Exercise program, Modified ADL techniques, Progress toward Goal/Update tx plan, Purpose of tx/functional activities, Rehab process, Safety issues, W/C management Teaching Recipient: Patient Teaching Methods: Discussion Response to Teaching: Verbalize Understanding OT Short Term Goals Short Term Goals Time Frame: May 02, 2022 Toileting hygiene: 4 Shower/bathe self: 4 Lower body dressin OT Residential Goals [employer] Estimator Goals Time Frame: May 18, 2022 Eating (QC): 6 Oral Hygiene (QC): 6 Toileting Hygiene (QC): 6 Shower/Bathe Self (QC): 6 Upper Body Dressing (QC): 6 Lower Body Dressing (QC): 6 On/Off Footwear (QC): 6 Additional Goals: 1-Demonstrate ADL Tasks, 2-Verbalize Understanding, 3-ImproveStrength/Carlos A 1=Demonstrate adherence to instructed precautions during ADL tasks. 2=Patient will verbalize/demonstrate understanding of assistive devices/modifications for ADL. 3=Patient will improve strength/tolerance for activity to enable patient to per form ADL's. OT Education/Plan Problem List/Assessment Assessment: Decreased Activ Tolerance, Decreased UE Strength, Impaired Funct Balance, Impaired I ADL's, Impaired Self-Care Skills Discharge Recommendations Plan/Recommendations: Continue POC Treatment Plan/Plan of Care Patient would benefit from OT for education, treatment and training to promote independence in ADL's, mobility, safety and/or upper extremity function for ADL's. Plan of Care: ADL Retraining, Functional Mobility, Group Exercise/Act as Ind, UE Funct Exercise/Act Treatment Duration: May 18, 2022 Frequency: At least 5 of 7 days/Wk (IRF) Estimated Hrs Per Day: 1.5 hours per day Agreement: Yes Rehab Potential: Fair Time/GCodes Start Time: 08:00 Stop Time: 09:00 Total Time Billed (hr/min): 60 Billed Treatment Time 1, ADL 3 (45'), FA (15') REINALDO SANCHEZ OT Apr 24, 2022 09:04
--- NOTE | 2022-04-24 11:23 | Physical Therapy Daily Note ---
PT Daily Note-Current Subjective Pt sitting in recliner upon arrival. Pt asked to order lunch to start tx as well as use urinal. Pt agrees to PT. Pain Numeric Pain Scale: 4 Location: Right Location Body Site: Pelvic Pain Description: Pressure Mental Status Patient Orientation: Person, Confused, Place O2 monitored and was 97% to start tx so O2 not needed. Upon return for tx, O2 is 87% to start but quickly recovers to 94%. Transfers SCALE: Activities may be completed with or without assistive devices. 3-Kxlfceammf-mkcacsq completes the activity by him/herself with no assistance from a helper. 5-Set-up or Clean-up Assistance-helper sets up or cleans up; patient completes activity. [place] assists only prior to or following the activity. 4-Supervision or Touching Assistance-helper provides verbal cues and/or touching/steadying and/or contact guard assistance as patient completes activity. Assistance may be provided throughout the activity or intermittently. 3-Partial/Moderate Assistance-helper does LESS THAN HALF the effort. [place] lifts, holds or supports trunk or limbs, but provides less than half the effort. 2-Substantial/Maximal Assistance-helper does MORE THAN HALF the effort. [place] lifts or holds trunk or limbs and provides more than half the effort. 1-Wpgajfgwj-ewgclr does ALL the effort. Patient does none of the effort to complete the activity. Or, the assistance of 2 or more helpers is required for the patient to complete the activity. If activity was not attempted, code reason: 7-Patient Refused. 9-Not Applicable-not attempted and the patient did not perform the activity before the current illness, exacerbation or injury. 10-Not Attempted due to Environmental Limitations-(lack of equipment, weather restraints, etc.). 88-Not Attempted due to Medical Conditions or Safety Concerns. Sit to Stand (QC): 4 Weight Bearing Right Lower Extremity: Right Weight Bearing/Tolerated Gait Training Does the Patient Walk?: Yes Distance: 150' x2 Walk 10 feet (QC): 4 Walk 50 ft with 2 Turns(QC): 4 Walk 150 ft (QC): 4 Gait Persons Needed: 1 Gait Assistive Device: FWW Antalgic gait pattern Exercises NuStep Minutes: 22 NuStep Workload: 7 Treatments Pt uses urinal and O2 is checked. Pt amb. in hallway before taking RB. Pt uses NuStep for 10m at WL 6 before asking to turn it up then increased to WL 7 for remainder of time. Pt takes short RB before amb. back to room to rest in recliner. O2 monitored throughout tx. All needs met, call light in hand. Assessment Current Status: Fair Progress Pt demonstrates confusion with some directions given during task as well as when pt talking to staff, difficulty w/word finding. Nursing aware. PT Short Term Goals Short Term Goals Time Frame: Apr 25, 2022 Roll Left & Right: 4 (SBA) Sit to lyin (Yenny) Lying to sitting on side of be: 3 (Yenny) Sit to stand: 4 (CGA) Chair/zka-no-lrtrj transfer: 4 (SBA) Walk 10 feet: 4 (CGA) Walk 50 feet with two turns: 4 (CGA) PT Collaborative Teacher Goals Long-Term Goals PT Collaborative Teacher Goals Time Frame: May 09, 2022 Roll Left & Right (QC): 6 Sit to Lying (QC): 4 (SBA) Lying-Sitting on Side/Bed(QC): 4 (SBA) Sit to Stand (QC): 6 Chair/Rwc-cy-[place]gal[place] Xfer(QC): 6 Toilet Transfer (QC): 6 Car Transfer (QC): 4 (SBA) Does the Patient Walk: Yes Walk 10 feet (QC): 6 Walk 50ft with 2 Turns (QC): 6 Walk 150 ft (QC): 6 Walking 10ft on Uneven Surface: 6 1 Step (curb) (QC): 4 (CGA) 4 Steps (QC): 4 (CGA) 12 Steps (QC): 88 Picking up an Object (QC): 4 (SBA with open claims representative) Wheel 50 feet with 2 turns (QC: 9 Wheel 150 feet: 9 PT Plan Problem List Problem List: Activity Tolerance, Gait Treatment/Plan Treatment Plan: Continue Plan of Care Treatment Plan: Bed Mobility, Concurrent Therapy, Education, Functional Activity Carlos A, Functional Strength, Group Therapy, Gait, Safety, Therapeutic Exercise, Transfers Treatment Duration: May 09, 2022 Frequency: At least 5 of 7 days/Wk (IRF) Estimated Hrs Per Day: 1.5 hours per day Patient and/or Family Agrees t: Yes Safety Risks/Education Patient Education: Gait Training Teaching Recipient: Patient Teaching Methods: Discussion Response to Teaching: Verbalize Understanding Time/GCodes Time In: 1000 Time Out: 1100 Total Billed Treatment Time: 60 Total Billed Treatment 1, GT (20m), FA (15m) & EX x2 (25m) CHERIE ASTUDILLO [employer] CODER Apr 24, 2022 11:23
--- NOTE | 2022-04-24 12:33 | Progress Note - Cardiology ---
Cardiology SOAP Progress Note Subjective: Sitting up in recliner at the bedside Reports had a bad night with increasing SOB, fever and generally not feeling well He reports he is back to his baseline at this time He reports he has a UTI Objective: I&O/Vital Signs 04/25/22 04/25/22 07:43 08:02 Temp 37.2 Pulse 60 Resp 18 B/P (MAP) 145/69 (94) Pulse Ox 92 91 O2 Delivery Room Air Room Air Weight (Pounds): 180 Weight (Calculated Kilograms): 81.873408 Constitutional: AAO x 3, well-developed Respiratory: No accessory muscle use; other (fair to good, bilat air entry) Cardiovascular: regular rate-rhythm, S1 and S2, systolic murmur (2/6 HSM) Gastrointestional: No tender; soft; No guarding, No rebound; audible bowel sounds Extremities: No clubbing, No cyanosis, No significant edema Neurologic/Psychiatric: oriented x 3, other (moves all limbs equally) Skin: No rash on exposed areas, No ulcerations on exposed areas Results/Procedures: Labs Laboratory Tests 04/25/22 05:45: White Blood Count 8.9, Red Blood Count 3.14L, Hemoglobin 9.8L, Hematocrit 30L, Mean Corpuscular Volume 95, Mean Corpuscular Hemoglobin 31, Mean Corpuscular Hemoglobin Concent 33, Red Cell Distribution Width 14.1, Platelet Count 239, Mean Platelet Volume 9.3, Immature Granulocyte % (Auto) 1, Neutrophils (%) (Auto) 73, Lymphocytes (%) (Auto) 16, Monocytes (%) (Auto) 7, Eosinophils (%) (Auto) 2, Basophils (%) (Auto) 0, Neutrophils # (Auto) 6.5, Lymphocytes # (Auto) 1.4, Monocytes # (Auto) 0.6, Eosinophils # (Auto) 0.2, Basophils # (Auto) 0.0, Immature Granulocyte # (Auto) 0.1, Sodium Level 139, Potassium Level 4.0, Chloride Level 106, Carbon Dioxide Level 19L, Anion Gap 14, Blood Urea Nitrogen 39H, Creatinine 2.52H, Estimat Glomerular Filtration Rate 24, BUN/Creatinine Ratio 15, Glucose Level 92, Calcium Level 8.8, Corrected Calcium 9.5, Total Bilirubin 1.4H, Aspartate Amino Transf (AST/SGOT) 32, Alanine Aminotransferase (ALT/SGPT) 25, Alkaline Phosphatase 102, Total Protein 5.8L, Albumin 3.1L Microbiology 04/23/22 Blood Culture - Preliminary, Resulted No growth Procedures NAME: MAGO WELLS [facility] REC#: [id number] PT STATUS: ADM IN : 1935 PHYSICIAN: ROSALINDA SONI DO ADMIT DATE: 04/18/22/IRF Draft Date of Exam:04/24/22 CHEST 1 VIEW, AP/PA ONLY INDICATION: Follow-up pneumonia. COMPARISON: 04/23/2022 FINDINGS: Single frontal radiographic view of the chest was obtained and again demonstrates mild cardiomegaly. Pulmonary vasculature, however is within normal limits. Lungs remain clear. There is no focal consolidation, large effusion, nor pneumothorax. Osseous structures show no gross acute abnormalities. IMPRESSION: 1. Persistent cardiomegaly, but no evidence of new failure or focal infiltrate. Dictated on workstation # [id number] Dict: 04/24/22 0824 Trans: 04/24/22 0833 [id number] Interpreted by: RIP RANDOLPH MD Electronically signed by: A/P: Assessment: S/P non-syncopal fall - Likely nondisplaced fractures involving the right superior and inferior pubic rami. Per hip and pelvis x-ray on 04-16-22 - managed by orthopedic services ?Amiodarone toxicity - CT of abd/pelvis on 04-16-22: Dense liver, which can be seen with amiodarone toxicity, hemosiderosis, Chris's disease, and glycogen storage diseases. Recommend correlation with patient history and LFTs. A fib - with a controlled ventricular response, first diagnosed Oct 11, 2019 - maintained on Amiodarone that was stopped on 04/17/22 because of the suspicion that it may be causing hepatotoxicity - OAC with Eliquis - Sinus marlon on ECG of 07/06/21 - 24 HR Holter of 08-10-21 showed NSR with av HR 52 bpm. One 3.5 sec pause without symptoms. 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 LVEF 60%. Normal LVEDP. Severe mitral regurg (4+). 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 Vargas - Echo in Oct 2020: LVEF 65-70%, RV and biatrial enlargement, RV vol overload, PASP 40-45 mmHg - Echocardiogram of 07-18-21 showed LVEF 55-65%. LA and RA mildly dilated. Mod calcification of mitral valve with mild to mod regurg. Mild to mod AoV regurg. 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 Tolerating low-dose bb * Monitor labs from time to time TORY MAXWELL Apr 24, 2022 12:33
--- NOTE | 2022-04-24 13:44 | Occupational Ther Daily Note ---
OT Current Status-Daily Note Subjective Pt seated in recliner finishing lunch upon OT arrival, agreeable to tx. Mental Status/Objective Patient Orientation: Person, Place, Situation ADL-Treatment Therapy Code Descriptions/Definitions Functional [place] Measure: 0=Not Assessed/NA 4=Minimal Assistance 1=Total Assistance 5=Supervision or Setup 2=Maximal Assistance 6=Modified [place] 3=Moderate Assistance 7=Complete IndependenceSCALE: Activities may be completed with or without assistive devices. 5-Weyhvpttwt-gomatxt completes the activity by him/herself with no assistance from a helper. 5-Set-up or Clean-up Assistance-helper sets up or cleans up; patient completes activity. [place] assists only prior to or following the activity. 4-Supervision or Touching Assistance-helper provides verbal cues and/or touching/steadying and/or contact guard assistance as patient completes activity. Assistance may be provided throughout the activity or intermittently. 3-Partial/Moderate Assistance-helper does LESS THAN HALF the effort. [place] lifts, holds or supports trunk or limbs, but provides less than half the effort. 2-Substantial/Maximal Assistance-helper does MORE THAN HALF the effort. [place] lifts or holds trunk or limbs and provides more than half the effort. 1-Qzaqfdlti-gdvkjv does ALL the effort. Patient does none of the effort to complete the activity. Or, the assistance of 2 or more helpers is required for the patient to complete the activity. If activity was not attempted, code reason: 7-Patient Refused. 9-Not Applicable-not attempted and the patient did not perform the activity before the current illness, exacerbation or injury. 10-Not Attempted due to Environmental Limitations-(lack of equipment, weather restraints, etc.). 88-Not Attempted due to Medical Conditions or Safety Concerns. Eating (QC): 6 Other Treatment Pt used FWW to SPT to w/c, Min A. He was pushed down to therapy gym to participate in functional activities with the goal of increasing standing activity tolerance. He stood at the therapy mat and completed two pipe tree designs (yellow, simple design) with taking a seated RB in between designs. Longest standing time included 4:23. No LOB during task. SPO2 levels were checked during activity, dropped to 90 but increased to 94 within seconds post cues for PLB. Post tx, pt left with PT in therapy gym. Education OT Patient Education: Correct positioning, Energy conservation, Progress toward Goal/Update tx plan, Purpose of tx/functional activities, Rehab process Teaching Recipient: Patient Teaching Methods: Demonstration, Discussion Response to Teaching: Verbalize Understanding, Return Demonstration OT Short Term Goals Short Term Goals Time Frame: May 02, 2022 Toileting hygiene: 4 Shower/bathe self: 4 Lower body dressin OT Supervisor Tree Trimming Goals Supervisor Tree Trimming Goals Time Frame: May 18, 2022 Eating (QC): 6 Oral Hygiene (QC): 6 Toileting Hygiene (QC): 6 Shower/Bathe Self (QC): 6 Upper Body Dressing (QC): 6 Lower Body Dressing (QC): 6 On/Off Footwear (QC): 6 Additional Goals: 1-Demonstrate ADL Tasks, 2-Verbalize Understanding, 3- ImproveStrength/Carlos A 1=Demonstrate adherence to instructed precautions during ADL tasks. 2=Patient will verbalize/demonstrate understanding of assistive devices/modifications for ADL. 3=Patient will improve strength/tolerance for activity to enable patient to perform ADL's. OT Education/Plan Problem List/Assessment Assessment: Decreased Activ Tolerance, Decreased UE Strength, Impaired I ADL's, Impaired Self-Care Skills Discharge Recommendations Plan/Recommendations: Continue POC Treatment Plan/Plan of Care Treatment,Training & Education: Yes Patient would benefit from OT for education, treatment and training to promote independence in ADL's, mobility, safety and/or upper extremity function for ADL's. Plan of Care: ADL Retraining, Functional Mobility, Group Exercise/Act as Ind, UE Funct Exercise/Act Treatment Duration: May 18, 2022 Frequency: At least 5 of 7 days/Wk (IRF) Estimated Hrs Per Day: 1.5 hours per day Agreement: Yes Rehab Potential: Fair Time/GCodes Start Time: 13:00 Stop Time: 13:30 Total Time Billed (hr/min): 30 Billed Treatment Time 1, FA 2 (30') Magdalena Gardner OT Apr 24, 2022 13:44
--- NOTE | 2022-04-24 15:00 | Physical Therapy Daily Note ---
PT Daily Note-Current Subjective Pt sitting in [facility] in Therapy Gym finishing OT tx upon arrival. Pt agrees to PT and wants to push self for progress. Pain Numeric Pain Scale: 5-Moderate Pain Location: Right Location Body Site: Pelvic Pain Description: Ache Mental Status Patient Orientation: Person, Confused, Place, Situation Transfers SCALE: Activities may be completed with or without assistive devices. 6-Xyqjttftyd-vbbgwyv completes the activity by him/herself with no assistance from a helper. 5-Set-up or Clean-up Assistance-helper sets up or cleans up; patient completes activity. [place] assists only prior to or following the activity. 4-Supervision or Touching Assistance-helper provides verbal cues and/or touching/steadying and/or contact guard assistance as patient completes activ ity. Assistance may be provided throughout the activity or intermittently. 3-Partial/Moderate Assistance-helper does LESS THAN HALF the effort. [place] lifts, holds or supports trunk or limbs, but provides less than half the effort. 2-Substantial/Maximal Assistance-helper does MORE THAN HALF the effort. [place] lifts or holds trunk or limbs and provides more than half the effort. 4-Cjyiyctqu-jchazb does ALL the effort. Patient does none of the effort to complete the activity. Or, the assistance of 2 or more helpers is required for the patient to complete the activity. If activity was not attempted, code reason: 7-Patient Refused. 9-Not Applicable-not attempted and the patient did not perform the activity before the current illness, exacerbation or injury. 10-Not Attempted due to Environmental Limitations-(lack of equipment, weather restraints, etc.). 88-Not Attempted due to Medical Conditions or Safety Concerns. Sit to Stand (QC): 4 Weight Bearing Right Lower Extremity: Right Weight Bearing/Tolerated Gait Training Does the Patient Walk?: Yes Distance: 150' Walk 10 feet (QC): 4 Walk 50 ft with 2 Turns(QC): 4 Walk 150 ft (QC): 4 Gait Persons Needed: 1 Gait Assistive Device: FWW Wheelchair Training Does the Pt Use a Wheelchair?: Yes Type of Wheelchair: Manual Exercises Seated Therapy Exercises: Ankle pumps, Long arc quads, Hip flexion Seated Reps: 10 Standing: Hip Abduction, Hamstring curls, Marching Standing Reps: 20 Treatments Pt completes Seated EX before asking to try Standing Ex instead due to pain w/sitting. Pt ambulates in hallway, returning to room to rest in recliner. All needs met, call light in hand. Assessment Current Status: Good Progress Pt's mobility is improving although pt reports increased pain gee. in pelvis w/WB. PT Short Term Goals Short Term Goals Time Frame: Apr 25, 2022 Roll Left & Right: 4 (SBA) Sit to lyin (Yenny) Lying to sitting on side of be: 3 (Yenny) Sit to stand: 4 (CGA) Chair/gpf-ya-buafa transfer: 4 (SBA) Walk 10 feet: 4 (CGA) Walk 50 feet with two turns: 4 (CGA) PT Energy Sales Broker Goals Energy Sales Broker Goals PT Nursing Home Goals Time Frame: May 09, 2022 Roll Left & Right (QC): 6 Sit to Lying (QC): 4 (SBA) Lying-Sitting on Side/Bed(QC): 4 (SBA) Sit to Stand (QC): 6 Chair/Qzm-is-Rgcoi Xfer(QC): 6 Toilet Transfer (QC): 6 Car Transfer (QC): 4 (SBA) Does the Patient Walk: Yes Walk 10 feet (QC): 6 Walk 50ft with 2 Turns (QC): 6 Walk 150 ft (QC): 6 Walking 10ft on Uneven Surface: 6 1 Step (curb) (QC): 4 (CGA) 4 Steps (QC): 4 (CGA) 12 Steps (QC): 88 Picking up an Object (QC): 4 (SBA with general utility maintenance repairer) Wheel 50 feet with 2 turns (QC: 9 Wheel 150 feet: 9 PT Plan Problem List Problem List: Functional Strength, Transfer Treatment/Plan Treatment Plan: Continue Plan of Care Treatment Plan: Bed Mobility, Concurrent Therapy, Education, Functional Activity Carlos A, Functional Strength, Group Therapy, Gait, Safety, Therapeutic Exercise, Transfers Treatment Duration: May 09, 2022 Frequency: At least 5 of 7 days/Wk (IRF) Estimated Hrs Per Day: 1.5 hours per day Patient and/or Family Agrees t: Yes Safety Risks/Education Patient Education: Transfer Techniques, Correct Positioning Teaching Recipient: Patient Teaching Methods: Discussion Response to Teaching: Verbalize Understanding Time/GCodes Time In: 1330 Time Out: 1400 Total Billed Treatment Time: 30 Total Billed Treatment 1, EX (15m) & GT (15m) CHERIE ASTUDILLO PTA Apr 24, 2022 15:00
[2022-04-24 19:34] VITALS: BP 117/68
[2022-04-24] MEDS: RIVAROXABAN 15 MG TABLET (XARELTO) PO SCH (20:34)
[2022-04-24] MEDS: ROSUVASTATIN 10 MG (CRESTOR) TABLET PO SCH (20:34)
[2022-04-25 05:54] LABS: BASOPHILS % (AUTO) 0 % (0-10); EOSINOPHILS # (AUTO) 0.2 10^3/uL (0.0-0.3); EOSINOPHILS % (AUTO) 2 % (0-10); HEMATOCRIT 30 % (40-54); HEMOGLOBIN 9.8 g/dL (13.3-17.7); LYMPHOCYTES # (AUTO) 1.4 10^3/uL (1.0-4.0); LYMPHOCYTES % (AUTO) 16 % (12-44); MEAN CORPUSCULAR HEMOGLOBIN 31 pg (25-34); MEAN CORPUSCULAR HGB CONC 33 g/dL (32-36); MEAN CORPUSCULAR VOLUME 95 fL (80-99); MEAN PLATELET VOLUME 9.3 fL (9.0-12.2); MONOCYTES # (AUTO) 0.6 10^3/uL (0.0-1.0); MONOCYTES % (AUTO) 7 % (0-12); NEUTROPHILS # (AUTO) 6.5 10^3/uL (1.8-7.8); NEUTROPHILS % (AUTO) 73 % (42-75); PLATELET COUNT 239 10^3/uL (130-400); WHITE BLOOD COUNT 8.9 10^3/uL (4.3-11.0)
[2022-04-25 06:01] LABS: ALBUMIN 3.1 GM/DL (3.2-4.5)
[2022-04-25 06:03] LABS: CALCIUM 8.8 MG/DL (8.5-10.1)
[2022-04-25 06:04] LABS: TOTAL PROTEIN 5.8 GM/DL (6.4-8.2)
[2022-04-25 06:06] LABS: BILIRUBIN,TOTAL 1.4 MG/DL (0.1-1.0)
[2022-04-25 06:08] LABS: CREATININE SERUM 2.52 MG/DL (0.60-1.30)
--- NOTE | 2022-04-25 07:12 | PM&R Progress Note ---
Subjective HPI/CC On Admission Date Seen by Provider: Apr 25, 2022 Time Seen by Provider: 09:00 Subjective/Events-last exam 04/25/2022: Pt did really well last night Slept okay Blood cultures are no growth today Nebulizer treatments ordered No pain pills for the last 2 days Bowels are moving Maintain on Levaquin for pneumonia 04/24/2022: Doing much better No pain reported No falls Breathing better RLL rales noted but cleared with deep breath CXR negative but early PNA RLL is the diagnosis 04/23/2022: Patient doing well Labs reviewed Pain is pretty well controlled Daughter concerned about confusion but does have advanced age having a significant decompensation Later in the evening started a fever of 102 so we will perform septic work-up 04/22/2022: Patient doing well Daughter at bedside and she works in [employer] as a nurse No pain Weaned off O2 04/21/2022: Doing well Repeats himself O2 will be weaned Pain controlled 04/20/2022: Pt a bit hypoxic today due to narcotics decreasing respiratory drive Oxygen maintained Suppository will be given today, no bowel movement for 4 days 04/19/2022: Pt is doing a lot better Pain is well controlled but hates to use pain pills Bowels moved 3 days ago so we'll get aggressive with that Creatinine is 2.6, that is his baseline Review of Systems General: Fatigue, Malaise Focused Exam Lactate Level 04/23/22 20:53: Lactic Acid Level 1.34 Objective Exam Vital Signs Vital Signs Date Time Temp Pulse Resp B/P (MAP) Pulse Ox O2 Delivery O2 Flow Rate FiO2 04/25/22 20:53 96 Room Air 04/25/22 20:00 36.8 60 18 124/60 (81) 04/24/22 19:15 0.00 Capillary Refill : General Appearance: No Apparent Distress, WD/WN, Chronically ill HEENT: PERRL/EOMI, Normal ENT Inspection, Pharynx Normal Neck: Full Range of Motion, Normal Inspection, Non Tender, Supple, Carotid Bruit Respiratory: Chest Non Tender, Lungs Clear, Normal Breath Sounds, No Accessory Muscle Use, No Respiratory Distress Cardiovascular: Regular Rate, Rhythm, No Edema, No Gallop, No JVD, No Murmur, Normal Peripheral Pulses Gastrointestinal: Normal Bowel Sounds, No Organomegaly, No Pulsatile Mass, Non Tender, Soft Back: Normal Inspection, No CVA Tenderness, No Vertebral Tenderness Extremity: Normal Capillary Refill, Normal Inspection, Normal Range of Motion, Non Tender, No Calf Tenderness, No Pedal Edema Neurologic/Psychiatric: Alert, Oriented x3, Normal Mood/Affect, Abnormal Gait, Motor Weakness Skin: Normal Color, Warm/Dry Lymphatic: No Adenopathy Results/Procedures Lab Laboratory Tests 04/25/22 05:45 Patient resulted labs reviewed. FIM Transfers Therapy Code Descriptions/Definitions Functional [place] Measure: 0=Not Assessed/NA 4=Minimal Assistance 1=Total Assistance 5=Supervision or Setup 2=Maximal Assistance 6=Modified [place] 3=Moderate Assistance 7=Complete IndependenceSCALE: Activities may be completed with or without assistive devices. 2-Vxnxxpmgva-eapjsea completes the activity by him/herself with no assistance from a helper. 5-Set-up or Clean-up Assistance-helper sets up or cleans up; patient completes activity. [place] assists only prior to or following the activity. 4-Supervision or Touching Assistance-helper provides verbal cues and/or touching/steadying and/or contact guard assistance as patient completes activity. Assistance may be provided throughout the activity or intermittently. 3-Partial/Moderate Assistance-helper does LESS THAN HALF the effort. [place] lifts, holds or supports trunk or limbs, but provides less than half the effort. 2-Substantial/Maximal Assistance-helper does MORE THAN HALF the effort. [place] lifts or holds trunk or limbs and provides more than half the effort. 6-Czjnzrtva-brhzkl does ALL the effort. Patient does none of the effort to complete the activity. Or, the assistance of 2 or more helpers is required for the patient to complete the activity. If activity was not attempted, code reason: 7-Patient Refused. 9-Not Applicable-not attempted and the patient did not perform the activity before the current illness, exacerbation or injury. 10-Not Attempted due to Environmental Limitations-(lack of equipment, weather restraints, etc.). 88-Not Attempted due to Medical Conditions or Safety Concerns. Roll Left to Right (QC): 3 Sit to Lying (QC): 3 Sit to Stand (QC): 4 Chair/Cfp-qt-Xiaep Xfer(QC): 3 Car Transfer (QC): 3 Gait Training Does the Patient Walk?: Yes Distance: 150' Walk 10 feet (QC): 4 Walk 50 ft with 2 Turns(QC): 4 Walk 150 ft (QC): 4 Walking 10ft/uneven surface-QC: 4 Gait Persons Needed: 1 Gait Assistive Device: FWW Wheelchair Training Does the Pt Use a Wheelchair?: No Distance: 50' Wheel 50 ft with 2 turns (QC): 3 Wheel 150 ft (QC): 88 Type of Wheelchair: N/A Stair Training 1 Step (curb) (QC): 88 4 Steps (QC): 88 12 Steps (QC): 88 Balance Picking up an Object (QC): 4 (CGA with a risk developer) ADL-Treatment Eating (QC): 6 Oral Hygiene (QC): 6 (seated at sink) Shower/Bathe Self (QC): 4 (SBA for standing balance) Upper Body Dressing (QC): 3 (Min A overall. Able to doff/don tshirt but requir ed assistance to don dress shirt.) Lower Body Dressing (QC): 3 (Mod A overall. CGA to maintain seated balance while threading BLEs and Mod A for balance when hiking pants) On/Off Footwear (QC): 2 (Max A to thread and tie both shoes) Toileting Hygiene (QC): 5 (with urinal) Assessment/Plan Assessment and Plan Assess & Plan/Chief Complaint Assessment: Fall from standing Right side pelvic fracture Chest wall hematoma PAF Valvular heart disease OAC HTN CKD Advanced age HLP Hypoxia 04/20/22 Fever 04/23/2022 due to RLL PNA even though CXR normal Plan: PT OT protocol Monitor BP Fall risk Monitor creatinine 04/19/2022: Monitor pain 04/20/2022: O2 Monitor closely Limit narcs 04/21/2022: Wean O2 Pain control 04/22/2022: Weaned O2 04/23/2022: Continue supportive care Monitor fever 04/24/2022: Abx renal dosed 04/25/2022: Levaquin (1) Fall from standing Status: Acute (2) Fracture of right pelvis Status: Acute (3) Contusion of right chest wall Status: Acute (4) Chronic kidney disease Status: Acute (5) Congestive heart failure Status: Acute (6) Atrial fibrillation Status: Acute (7) Acute on chronic diastolic (congestive) heart failure Status: Resolved Resolution Date/Time: 10/31/20 @ 08:38 (8) CKD (chronic kidney disease), stage IV (9) Primary hypertension Status: Chronic (10) Mixed hyperlipidemia Status: Chronic (11) Mitral regurgitation ROSALINDA SONI DO Apr 25, 2022 07:12
[2022-04-25 07:43] VITALS: BP 145/69
[2022-04-25] MEDS: RT-ALBUTEROL SULF 2.5 MG/3 ML PRE-MIX VIAL INH SCH ×3 (08:01→20:53)
[2022-04-25] MEDS: DOCUSATE SODIUM 100 MG (COLACE) CAP PO SCH ×2 (08:02→20:51)
[2022-04-25] MEDS: amLODIPine 5 MG (NORVASC) TAB PO SCH (08:02)
[2022-04-25] MEDS: SENNA W/DOCUSATE (SENOKOT S) TABLET PO SCH ×2 (08:02→20:51)
--- NOTE | 2022-04-25 09:05 | Occupational Ther Daily Note ---
OT Current Status-Daily Note Subjective Pt sitting in bed receiving breathing tx upon OT arrival, agreeable to tx. Pt rates pain 10/16. Mental Status/Objective Patient Orientation: Person, Place, Situation ADL-Treatment Therapy Code Descriptions/Definitions Functional [place] Measure: 0=Not Assessed/NA 4=Minimal Assistance 1=Total Assistance 5=Supervision or Setup 2=Maximal Assistance 6=Modified [place] 3=Moderate Assistance 7=Complete IndependenceSCALE: Activities may be completed with or without assistive devices. 5-Ixvlyeuesi-wjxitqr completes the activity by him/herself with no assistance from a helper. 5-Set-up or Clean-up Assistance-helper sets up or cleans up; patient completes activity. [place] assists only prior to or following the activity. 4-Supervision or Touching Assistance-helper provides verbal cues and/or touching/steadying and/or contact guard assistance as patient completes activity. Assistance may be provided throughout the activity or intermittently. 3-Partial/Moderate Assistance-helper does LESS THAN HALF the effort. [place] lifts, holds or supports trunk or limbs, but provides less than half the effort. 2-Substantial/Maximal Assistance-helper does MORE THAN HALF the effort. [place] lifts or holds trunk or limbs and provides more than half the effort. 2-[place]-eqeweg does ALL the effort. Patient does none of the effort to complete the activity. Or, the assistance of 2 or more helpers is required for the patient to complete the activity. If activity was not attempted, code reason: 7-Patient Refused. 9-Not Applicable-not attempted and the patient did not perform the activity before the current illness, exacerbation or injury. 10-Not Attempted due to Environmental Limitations-(lack of equipment, weather restraints, etc.). 88-Not Attempted due to Medical Conditions or Safety Concerns. Eating (QC): 6 Oral Hygiene (QC): 4 (CGA-SBA with standing balance at sink) Shower/Bathe Self (QC): 4 (SBA for standing balance during periarea and buttocks hygiene) Upper Body Dressing (QC): 5 Lower Body Dressing (QC): 5 On/Off Footwear: 3 (Min A to tie shoes) Toileting Hygiene (QC): 4 (CGA for standing balance during pant hike) Other Treatment Pt required min A to transfer supine to seated EOB, CGA to stand to FWW. He walked to bathroom to complete toileting, showering, dressing, and oral care/grooming tasks. Pt educated on body awareness and acknowledging when he feels SOB during tasks, pt verbalized understanding but still required cuing for pursed lip breathing throughout tasks. His SPO2 levels were monitored during tx and read 93 before shower, 89 after showering and dressing, and 94 during oral care/grooming tasks. He completed dressing while seated at SC but stood at the sink to complete oral care/grooming tasks. Pt required one seated RB during oral care/grooming tasks. Afterwards, he used FWW to walk back to recliner. Post tx, pt left in recliner with call light in reach and all needs met. Education OT Patient Education: Correct positioning, Energy conservation, Modified ADL te chniques, Progress toward Goal/Update tx plan, Purpose of tx/functional activities, Rehab process Teaching Recipient: Patient Teaching Methods: Discussion Response to Teaching: Verbalize Understanding OT Short Term Goals Short Term Goals Time Frame: May 02, 2022 Toileting hygiene: 4 Shower/bathe self: 4 Lower body dressin OT Half-Way Goals Half-Way Goals Time Frame: May 18, 2022 Eating (QC): 6 Oral Hygiene (QC): 6 Toileting Hygiene (QC): 6 Shower/Bathe Self (QC): 6 Upper Body Dressing (QC): 6 Lower Body Dressing (QC): 6 On/Off Footwear (QC): 6 Additional Goals: 1-Demonstrate ADL Tasks, 2-Verbalize Understanding, 3- ImproveStrength/Carlos A 1=Demonstrate adherence to instructed precautions during ADL tasks. 2=Patient will verbalize/demonstrate understanding of assistive devices/modifications for ADL. 3=Patient will improve strength/tolerance for activity to enable patient to perform ADL's. OT Education/Plan Problem List/Assessment Assessment: Decreased Activ Tolerance, Decreased UE Strength, Impaired I ADL's, Impaired Self-Care Skills Discharge Recommendations Plan/Recommendations: Continue POC Treatment Plan/Plan of Care Patient would benefit from OT for education, treatment and training to promote independence in ADL's, mobility, safety and/or upper extremity function for ADL's. Plan of Care: ADL Retraining, Functional Mobility, Group Exercise/Act as Ind, UE Funct Exercise/Act Treatment Duration: May 18, 2022 Frequency: At least 5 of 7 days/Wk (IRF) Estimated Hrs Per Day: 1.5 hours per day Agreement: Yes Rehab Potential: Fair Time/GCodes Start Time: 08:00 Stop Time: 09:00 Total Time Billed (hr/min): 60 Billed Treatment Time 1, ADL 4 (60') REINALDO SANCHEZ OT Apr 25, 2022 09:05
[2022-04-25] MEDS: polyethylene glycoL POWDER 17 GM (MIRALAX) PACK PO SCH ×3 (09:58→20:51)
--- NOTE | 2022-04-25 11:25 | Progress Note - Cardiology ---
Cardiology SOAP Progress Note Subjective: Sitting up in recliner at the bedside States overall he is feeling well Objective: I&O/Vital Signs 04/26/22 04/26/22 04/26/22 06:52 07:21 09:13 Temp 36.9 Pulse 63 Resp 22 B/P (MAP) 142/65 (90) Pulse Ox 96 93 O2 Delivery Room Air Room Air Nasal Cannula 04/25/22 23:59 Intake Total 150 ml Balance 150 ml Weight (Pounds): 180 Weight (Calculated Kilograms): 81.537719 Constitutional: AAO x 3, well-developed Respiratory: No accessory muscle use; other (fair to good, bilat air entry) Cardiovascular: regular rate-rhythm, S1 and S2, systolic murmur (2/6 HSM) Gastrointestional: No tender; soft; No guarding, No rebound; audible bowel sounds Extremities: No clubbing, No cyanosis, No significant edema Neurologic/Psychiatric: oriented x 3, other (moves all limbs equally) Skin: No rash on exposed areas, No ulcerations on exposed areas Results/Procedures: Labs Microbiology 04/23/22 Blood Culture - Preliminary, Resulted No growth A/P: Assessment: S/P non-syncopal fall - Likely nondisplaced fractures involving the right superior and inferior pubic rami. Per hip and pelvis x-ray on 04-16-22 - managed by orthopedic services ?Amiodarone toxicity - CT of abd/pelvis on 04-16-22: Dense liver, which can be seen with amiodarone toxicity, hemosiderosis, Chris's disease, and glycogen storage diseases. Recommend correlation with patient history and LFTs. A fib - with a controlled ventricular response, first diagnosed Oct 11, 2019 - maintained on Amiodarone that was stopped on 04/17/22 because of the suspicion that it may be causing hepatotoxicity - OAC with Eliquis - Sinus marlon on ECG of 07/06/21 - 24 HR Holter of 08-10-21 showed NSR with av HR 52 bpm. One 3.5 sec pause without symptoms. 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 LVEF 60%. Normal LVEDP. Severe mitral regurg (4+). 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 Vargas - Echo in Oct 2020: LVEF 65-70%, RV and biatrial enlargement, RV vol overload, PASP 40-45 mmHg - Echocardiogram of 07-18-21 showed LVEF 55-65%. LA and RA mildly dilated. Mod calcification of mitral valve with mild to mod regurg. Mild to mod AoV regurg. 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 Tolerating low-dose bb * Monitor labs from time to time TORY MAXWELL Apr 25, 2022 11:25
--- NOTE | 2022-04-25 12:09 | Physical Therapy Daily Note ---
PT Daily Note-Current Subjective Pt siting in recliner upon arrival. Pt agrees to PT. ASSIGNER knows pt from outside of ARU and pt demonstrates improved cognition and demeanor more like baseline. Pain Numeric Pain Scale: 7 Location: Right Location Body Site: Pelvic Pain Description: Ache, Tightness Mental Status Patient Orientation: Person, Place, Time, Situation Transfers SCALE: Activities may be completed with or without assistive devices. 6-Kclvpzsbce-flmumll completes the activity by him/herself with no assistance from a helper. 5-Set-up or Clean-up Assistance-helper sets up or cleans up; patient completes activity. [place] assists only prior to or following the activity. 4-Supervision or Touching Assistance-helper provides verbal cues and/or touching/steadying and/or contact guard assistance as patient completes activity. Assistance may be provided throughout the activity or intermittently. 3-Partial/Moderate Assistance-helper does LESS THAN HALF the effort. [place] lifts, holds or supports trunk or limbs, but provides less than half the effort. 2-Substantial/Maximal Assistance-helper does MORE THAN HALF the effort. [place] lifts or holds trunk or limbs and provides more than half the effort. 8-Yryyxbtkn-fpkxxc does ALL the effort. Patient does none of the effort to complete the activity. Or, the assistance of 2 or more helpers is required for the patient to complete the activity. If activity was not attempted, code reason: 7-Patient Refused. 9-Not Applicable-not attempted and the patient did not perform the activity before the current illness, exacerbation or injury. 10-Not Attempted due to Environmental Limitations-(lack of equipment, weather restraints, etc.). 88-Not Attempted due to Medical Conditions or Safety Concerns. Sit to Stand (QC): 5 Weight Bearing Right Lower Extremity: Right Weight Bearing/Tolerated Gait Training Does the Patient Walk?: Yes Distance: 150' x2 Walk 10 feet (QC): 4 Walk 50 ft with 2 Turns(QC): 4 Walk 150 ft (QC): 4 Gait Persons Needed: 1 Gait Assistive Device: FWW Pt walks w/antalgic gait pattern. Exercises Standing: Hip Abduction, Hamstring curls, Heel/toe raises, Marching Standing Reps: 15 NuStep Minutes: 15 NuStep Workload: 7 Treatments TF to standing, declines need for BR. Pt amb. in hallway then uses NuStep. After short RB, Pt completes Standing EX at //bars. Pt amb. in hallway and returns to room at end of tx. All needs met, call light in hand as pt sits in recliner. Assessment Current Status: Good Progress Pt's mobility is improving although pt is still working through pain at ribs & R side of pelvis. Pain in pelvis lessens a little with walking as it stretches & helps tightness felt by pt. PT Short Term Goals Short Term Goals Time Frame: Apr 25, 2022 Roll Left & Right: 4 (SBA) Sit to lyin (Yenny) Lying to sitting on side of be: 3 (Yenny) Sit to stand: 4 (CGA) Chair/dxt-ao-fyrvf transfer: 4 (SBA) Walk 10 feet: 4 (CGA) Walk 50 feet with two turns: 4 (CGA) PT Graphic Specialist Goals Graphic Specialist Goals PT Graphic Specialist Goals Time Frame: May 09, 2022 Roll Left & Right (QC): 6 Sit to Lying (QC): 4 (SBA) Lying-Sitting on Side/Bed(QC): 4 (SBA) Sit to Stand (QC): 6 Chair/Ynz-wy-Purhq Xfer(QC): 6 Toilet Transfer (QC): 6 Car Transfer (QC): 4 (SBA) Does the Patient Walk: Yes Walk 10 feet (QC): 6 Walk 50ft with 2 Turns (QC): 6 Walk 150 ft (QC): 6 Walking 10ft on Uneven Surface: 6 1 Step (curb) (QC): 4 (CGA) 4 Steps (QC): 4 (CGA) 12 Steps (QC): 88 Picking up an Object (QC): 4 (SBA with superintendent track) Wheel 50 feet with 2 turns (QC: 9 Wheel 150 feet: 9 PT Plan Problem List Problem List: Activity Tolerance, Gait Treatment/Plan Treatment Plan: Continue Plan of Care Treatment Plan: Bed Mobility, Concurrent Therapy, Education, Functional Activity Carlos A, Functional Strength, Group Therapy, Gait, Safety, Therapeutic Exercise, Transfers Treatment Duration: May 09, 2022 Frequency: At least 5 of 7 days/Wk (IRF) Estimated Hrs Per Day: 1.5 hours per day Patient and/or Family Agrees t: Yes Safety Risks/Education Patient Education: Gait Training Teaching Recipient: Patient Teaching Methods: Discussion Response to Teaching: Verbalize Understanding Time/GCodes Time In: 1000 Time Out: 1100 Total Billed Treatment Time: 60 Total Billed Treatment 1, GT (15m), FA (15m) & EX x2 (30m) CHERIE ASTUDILLO ASSIGNER Apr 25, 2022 12:09
--- NOTE | 2022-04-25 13:55 | Occupational Ther Daily Note ---
OT Current Status-Daily Note Subjective Pt agreeable to OT tx. Mental Status/Objective Patient Orientation: Person, Place, Situation ADL-Treatment Therapy Code Descriptions/Definitions Functional [place] Measure: 0=Not Assessed/NA 4=Minimal Assistance 1=Total Assistance 5=Supervision or Setup 2=Maximal Assistance 6=Modified [place] 3=Moderate Assistance 7=Complete IndependenceSCALE: Activities may be completed with or without assistive devices. 6-Pymmgyabij-aitdqem completes the activity by him/herself with no assistance from a helper. 5-Set-up or Clean-up Assistance-helper sets up or cleans up; patient completes activity. [place] assists only prior to or following the activity. 4-Supervision or Touching Assistance-helper provides verbal cues and/or touching/steadying and/or contact guard assistance as patient completes activity. Assistance may be provided throughout the activity or intermittently. 3-Partial/Moderate Assistance-helper does LESS THAN HALF the effort. [place] lifts, holds or supports trunk or limbs, but provides less than half the effort. 2-Substantial/Maximal Assistance-helper does MORE THAN HALF the effort. [place] lifts or holds trunk or limbs and provides more than half the effort. 8-Lnsguamqg-gsrkbx does ALL the effort. Patient does none of the effort to complete the activity. Or, the assistance of 2 or more helpers is required for the patient to complete the activity. If activity was not attempted, code reason: 7-Patient Refused. 9-Not Applicable-not attempted and the patient did not perform the activity before the current illness, exacerbation or injury. 10-Not Attempted due to Environmental Limitations-(lack of equipment, weather restraints, etc.). 88-Not Attempted due to Medical Conditions or Safety Concerns. Eating (QC): 6 Upper Body Dressing (QC): 4 (SBA for standing balance when donning dress shirt) Toileting Hygiene (QC): 5 (seated with urinal) Other Treatment Pt requested to use urinal and put dress shirt on before leaving room. He stood from recliner, SBA, and used FWW [facility]. Pt stood at raised table top for 30min, no RB, and played card game with OT and recreation therapy aides teacher. This functional activity addressed standing activity tolerance in addition to cognition as pt explained the rules and kept score. Pt also practiced body awareness during tx, monitoring for SOB or fatigue. Pt handled tx well and reported no pain or SOB during or after activity. Post tx, pt walked back to room, SBA, and returned to recliner. Call light left within reach and all needs met. Education OT Patient Education: Correct positioning, Energy conservation, Progress toward Goal/Update tx plan, Purpose of tx/functional activities, Rehab process Teaching Recipient: Patient Teaching Methods: Discussion Response to Teaching: Verbalize Understanding OT Short Term Goals Short Term Goals Time Frame: May 02, 2022 Toileting hygiene: 4 Shower/bathe self: 4 Lower body dressin OT [facility] Goals Tissue Recovery Technician Goals Time Frame: May 18, 2022 Eating (QC): 6 Oral Hygiene (QC): 6 Toileting Hygiene (QC): 6 Shower/Bathe Self (QC): 6 Upper Body Dressing (QC): 6 Lower Body Dressing (QC): 6 On/Off Footwear (QC): 6 Additional Goals: 1-Demonstrate ADL Tasks, 2-Verbalize Understanding, 3- ImproveStrength/Carlos A 1=Demonstrate adherence to instructed precautions during ADL tasks. 2=Patient will verbalize/demonstrate understanding of assistive devices/modifications for ADL. 3=Patient will improve strength/tolerance for activity to enable patient to perform ADL's. OT Education/Plan Problem List/Assessment Assessment: Decreased Activ Tolerance, Decreased UE Strength, Impaired Funct Balance, Impaired I ADL's, Impaired Self-Care Skills Discharge Recommendations Plan/Recommendations: Continue POC Treatment Plan/Plan of Care Patient would benefit from OT for education, treatment and training to promote independence in ADL's, mobility, safety and/or upper extremity function for ADL's. Plan of Care: ADL Retraining, Functional Mobility, Group Exercise/Act as Ind, UE Funct Exercise/Act Treatment Duration: May 18, 2022 Frequency: At least 5 of 7 days/Wk (IRF) Estimated Hrs Per Day: 1.5 hours per day Agreement: Yes Rehab Potential: Fair Time/GCodes Start Time: 13:00 Stop Time: 13:30 Total Time Billed (hr/min): 30 Billed Treatment Time 1, FA 2 (30') REINALDO SANCHEZ OT Apr 25, 2022 13:55
--- NOTE | 2022-04-25 15:35 | Physical Therapy Daily Note ---
PT Daily Note-Current Subjective Pt sitting in recliner upon arrival. Pt agrees to PT. Pain Numeric Pain Scale: 4 Location: Right Location Body Site: Pelvic Pain Description: Ache, Tightness Mental Status Patient Orientation: Person, Place, Time, Situation Transfers SCALE: Activities may be completed with or without assistive devices. 4-Mxoikkyadq-zyiijli completes the activity by him/herself with no assistance from a helper. 5-Set-up or Clean-up Assistance-helper sets up or cleans up; patient completes activity. [place] assists only prior to or following the activity. 4-Supervision or Touching Assistance-helper provides verbal cues and/or touching/steadying and/or contact guard assistance as patient completes activity. Assistance may be provided throughout the activity or intermittently. 3-Partial/Moderate Assistance-helper does LESS THAN HALF the effort. [place] lifts, holds or supports trunk or limbs, but provides less than half the effort. 2-Substantial/Maximal Assistance-helper does MORE THAN HALF the effort. [place] lifts or holds trunk or limbs and provides more than half the effort. 0-Hwfswztpk-onlakd does ALL the effort. Patient does none of the effort to complete the activity. Or, the assistance of 2 or more helpers is required for the patient to complete the activity. If activity was not attempted, code reason: 7-Patient Refused. 9-Not Applicable-not attempted and the patient did not perform the activity before the current illness, exacerbation or injury. 10-Not Attempted due to Environmental Limitations-(lack of equipment, weather restraints, etc.). 88-Not Attempted due to Medical Conditions or Safety Concerns. Sit to Stand (QC): 5 Weight Bearing Right Lower Extremity: Right Weight Bearing/Tolerated Gait Training Does the Patient Walk?: Yes Distance: 150' x2 Walk 10 feet (QC): 5 Walk 50 ft with 2 Turns(QC): 5 Walk 150 ft (QC): 4 Gait Persons Needed: 1 Gait Assistive Device: FWW Stair Training Stair Training: Handrails/: 2 handrails #of Steps: 4 1 Step (curb) (QC): 4 4 Steps (QC): 4 Stairs: Pattern: Step to Treatments TF to standing and amb. in hallway. Pt completes 1 set of 4 steps followed by RB then amb. in hallway, returning to room. Pt resting in recliner with all needs met, call light in hand. Assessment Current Status: Good Progress Pt starts out stiff/tightness in R pelvis which shows to loosen up with extended walking. PT Short Term Goals Short Term Goals Time Frame: Apr 25, 2022 Roll Left & Right: 4 (SBA) Sit to lyin (Yenny) Lying to sitting on side of be: 3 (Yenny) Sit to stand: 4 (CGA) Chair/ods-my-oeyrw transfer: 4 (SBA) Walk 10 feet: 4 (CGA) Walk 50 feet with two turns: 4 (CGA) PT Care Home Goals Nca Certified Concierge Goals PT Nca Certified Concierge Goals Time Frame: May 09, 2022 Roll Left & Right (QC): 6 Sit to Lying (QC): 4 (SBA) Lying-Sitting on Side/Bed(QC): 4 (SBA) Sit to Stand (QC): 6 Chair/Iqn-qe-Ihodm Xfer(QC): 6 Toilet Transfer (QC): 6 Car Transfer (QC): 4 (SBA) Does the Patient Walk: Yes Walk 10 feet (QC): 6 Walk 50ft with 2 Turns (QC): 6 Walk 150 ft (QC): 6 Walking 10ft on Uneven Surface: 6 1 Step (curb) (QC): 4 (CGA) 4 Steps (QC): 4 (CGA) 12 Steps (QC): 88 Picking up an Object (QC): 4 (SBA with racket stringer) Wheel 50 feet with 2 turns (QC: 9 Wheel 150 feet: 9 PT Plan Problem List Problem List: Activity Tolerance Treatment/Plan Treatment Plan: Continue Plan of Care Treatment Plan: Bed Mobility, Concurrent Therapy, Education, Functional Activity Carlos A, Functional Strength, Group Therapy, Gait, Safety, Therapeutic Exercise, Transfers Treatment Duration: May 09, 2022 Frequency: At least 5 of 7 days/Wk (IRF) Estimated Hrs Per Day: 1.5 hours per day Patient and/or Family Agrees t: Yes Safety Risks/Education Patient Education: Steps, Correct Positioning Teaching Recipient: Patient Teaching Methods: Discussion Response to Teaching: Verbalize Understanding Time/GCodes Time In: 1400 Time Out: 1430 Total Billed Treatment Time: 30 Total Billed Treatment 1, GT (15m) & FA (15m) CHERIE ASTUDILLO DIRECTOR OF CAREER SERVICES Apr 25, 2022 15:35
[2022-04-25 20:00] VITALS: BP_SYST 124; BP_SYST 126; BP_DIAS 59; BP_DIAS 60
[2022-04-25] MEDS: ROSUVASTATIN 10 MG (CRESTOR) TABLET PO SCH (20:31)
[2022-04-25] MEDS: RIVAROXABAN 15 MG TABLET (XARELTO) PO SCH (20:31)
--- NOTE | 2022-04-26 05:58 | PM&R Progress Note ---
Subjective HPI/CC On Admission Date Seen by Provider: Apr 26, 2022 Time Seen by Provider: 10:30 Subjective/Events-last exam 04/26/2022: Patient doing well No pain reported No cough No fever Urination good 04/25/2022: Pt did really well last night Slept okay Blood cultures are no growth today Nebulizer treatments ordered No pain pills for the last 2 days Bowels are moving Maintain on Levaquin for pneumonia 04/24/2022: Doing much better No pain reported No falls Breathing better RLL rales noted but cleared with deep breath CXR negative but early PNA RLL is the diagnosis 04/23/2022: Patient doing well Labs reviewed Pain is pretty well controlled Daughter concerned about confusion but does have advanced age having a significant decompensation Later in the evening started a fever of 102 so we will perform septic work-up 04/22/2022: Patient doing well Daughter at bedside and she works in [employer] as a nurse No pain Weaned off O2 04/21/2022: Doing well Repeats himself O2 will be weaned Pain controlled 04/20/2022: Pt a bit hypoxic today due to narcotics decreasing respiratory drive Oxygen maintained Suppository will be given today, no bowel movement for 4 days 04/19/2022: Pt is doing a lot better Pain is well controlled but hates to use pain pills Bowels moved 3 days ago so we'll get aggressive with that Creatinine is 2.6, that is his baseline Review of Systems General: Fatigue, Malaise Focused Exam Lactate Level 04/23/22 20:53: Lactic Acid Level 1.34 Objective Exam Vital Signs Vital Signs Date Time Temp Pulse Resp B/P (MAP) Pulse Ox O2 Delivery O2 Flow Rate FiO2 04/26/22 20:19 Room Air 04/26/22 20:02 36.7 61 16 140/65 (90) 97 04/24/22 19:15 0.00 Capillary Refill : General Appearance: No Apparent Distress, WD/WN, Chronically ill HEENT: PERRL/EOMI, Normal ENT Inspection, Pharynx Normal Neck: Full Range of Motion, Normal Inspection, Non Tender, Supple, Carotid Bruit Respiratory: Chest Non Tender, Lungs Clear, Normal Breath Sounds, No Accessory Muscle Use, No Respiratory Distress Cardiovascular: Regular Rate, Rhythm, No Edema, No Gallop, No JVD, No Murmur, Normal Peripheral Pulses Gastrointestinal: Normal Bowel Sounds, No Organomegaly, No Pulsatile Mass, Non Tender, Soft Back: Normal Inspection, No CVA Tenderness, No Vertebral Tenderness Extremity: Normal Capillary Refill, Normal Inspection, Normal Range of Motion, Non Tender, No Calf Tenderness, No Pedal Edema Neurologic/Psychiatric: Alert, Oriented x3, Normal Mood/Affect, Abnormal Gait, Motor Weakness Skin: Normal Color, Warm/Dry Lymphatic: No Adenopathy Results/Procedures Lab Patient resulted labs reviewed. FIM Transfers Therapy Code Descriptions/Definitions Functional [place] Measure: 0=Not Assessed/NA 4=Minimal Assistance 1=Total Assistance 5=Supervision or Setup 2=Maximal Assistance 6=Modified [place] 3=Moderate Assistance 7=Complete IndependenceSCALE: Activities may be completed with or without assistive devices. 8-Hjujlagvau-bvvukbo completes the activity by him/herself with no assistance from a helper. 5-Set-up or Clean-up Assistance-helper sets up or cleans up; patient completes activity. [place] assists only prior to or following the activity. 4-Supervision or Touching Assistance-helper provides verbal cues and/or touching/steadying and/or contact guard assistance as patient completes activity. Assistance may be provided throughout the activity or intermittently. 3-Partial/Moderate Assistance-helper does LESS THAN HALF the effort. [place] lifts, holds or supports trunk or limbs, but provides less than half the effort. 2-Substantial/Maximal Assistance-helper does MORE THAN HALF the effort. [place] lifts or holds trunk or limbs and provides more than half the effort. 9-Esovrocov-qkuayq does ALL the effort. Patient does none of the effort to complete the activity. Or, the assistance of 2 or more helpers is required for the patient to complete the activity. If activity was not attempted, code reason: 7-Patient Refused. 9-Not Applicable-not attempted and the patient did not perform the activity before the current illness, exacerbation or injury. 10-Not Attempted due to Environmental Limitations-(lack of equipment, weather restraints, etc.). 88-Not Attempted due to Medical Conditions or Safety Concerns. Roll Left to Right (QC): 3 Sit to Lying (QC): 3 Sit to Stand (QC): 5 Chair/Tca-eb-Yhcmn Xfer(QC): 3 Car Transfer (QC): 3 Gait Training Does the Patient Walk?: Yes Distance: 150' x2 Walk 10 feet (QC): 5 Walk 50 ft with 2 Turns(QC): 5 Walk 150 ft (QC): 4 Walking 10ft/uneven surface-QC: 4 Gait Persons Needed: 1 Gait Assistive Device: FWW Wheelchair Training Does the Pt Use a Wheelchair?: No Distance: 50' Wheel 50 ft with 2 turns (QC): 3 Wheel 150 ft (QC): 88 Type of Wheelchair: N/A Stair Training Stair Training: Handrails/: 2 handrails #of Steps: 4 1 Step (curb) (QC): 4 4 Steps (QC): 4 12 Steps (QC): 88 Stairs: Pattern: Step to Balance Picking up an Object (QC): 4 (CGA with a hydrogen braze furnace operator) ADL-Treatment Eating (QC): 6 Oral Hygiene (QC): 4 (CGA-SBA with standing balance at sink) Shower/Bathe Self (QC): 4 (SBA for standing balance during periarea and buttocks hygiene) Upper Body Dressing (QC): 4 (SBA for standing balance when donning dress shirt) Lower Body Dressing (QC): 5 On/Off Footwear (QC): 3 (Min A to tie shoes) Toileting Hygiene (QC): 5 (seated with urinal) Assessment/Plan Assessment and Plan Assess & Plan/Chief Complaint Assessment: Fall from standing Right side pelvic fracture Chest wall hematoma PAF Valvular heart disease OAC HTN CKD Advanced age HLP Hypoxia 04/20/22 Fever 04/23/2022 due to RLL PNA even though CXR normal Plan: PT OT protocol Monitor BP Fall risk Monitor creatinine 04/19/2022: Monitor pain 04/20/2022: O2 Monitor closely Limit narcs 04/21/2022: Wean O2 Pain control 04/22/2022: Weaned O2 04/23/2022: Continue supportive care Monitor fever 04/24/2022: Abx renal dosed 04/25/2022: Levaquin 04/26/2022: Complete abx Monitor closely (1) Fall from standing Status: Acute (2) Fracture of right pelvis Status: Acute (3) Contusion of right chest wall Status: Acute (4) Chronic kidney disease Status: Acute (5) Congestive heart failure Status: Acute (6) Atrial fibrillation Status: Acute (7) Acute on chronic diastolic (congestive) heart failure Status: Resolved Resolution Date/Time: 10/31/20 @ 08:38 (8) CKD (chronic kidney disease), stage IV (9) Primary hypertension Status: Chronic (10) Mixed hyperlipidemia Status: Chronic (11) Mitral regurgitation ROSALINDA SONI DO Apr 26, 2022 05:58
[2022-04-26] MEDS: RT-ALBUTEROL SULF 2.5 MG/3 ML PRE-MIX VIAL INH SCH ×3 (06:52→19:21)
[2022-04-26 07:21] VITALS: BP 142/65
[2022-04-26] MEDS: amLODIPine 5 MG (NORVASC) TAB PO SCH (08:10)
--- NOTE | 2022-04-26 09:00 | Occupational Ther Daily Note ---
OT Current Status-Daily Note Subjective Pt laying in bed upon OT arrival, agreeable to tx. Pt says his RLE "is moving better today" and rated his pain 1/10 at beginning of session and 3/10 at end of session. Mental Status/Objective Patient Orientation: Person, Place, Situation ADL-Treatment Therapy Code Descriptions/Definitions Functional [place] Measure: 0=Not Assessed/NA 4=Minimal Assistance 1=Total Assistance 5=Supervision or Setup 2=Maximal Assistance 6=Modified [place] 3=Moderate Assistance 7=Complete IndependenceSCALE: Activities may be completed with or without assistive devices. 1-Msnnaqhfqw-ipkuhlo completes the activity by him/herself with no assistance from a helper. 5-Set-up or Clean-up Assistance-helper sets up or cleans up; patient completes activity. [place] assists only prior to or following the activity. 4-Supervision or Touching Assistance-helper provides verbal cues and/or touching/steadying and/or contact guard assistance as patient completes activity. Assistance may be provided throughout the activity or intermittently. 3-Partial/Moderate Assistance-helper does LESS THAN HALF the effort. [place] lifts, holds or supports trunk or limbs, but provides less than half the effort. 2-Substantial/Maximal Assistance-helper does MORE THAN HALF the effort. [place] lifts or holds trunk or limbs and provides more than half the effort. 5-Yjeqcgekd-pegkig does ALL the effort. Patient does none of the effort to complete the activity. Or, the assistance of 2 or more helpers is required for the patient to complete the activity. If activity was not attempted, code reason: 7-Patient Refused. 9-Not Applicable-not attempted and the patient did not perform the activity before the current illness, exacerbation or injury. 10-Not Attempted due to Environmental Limitations-(lack of equipment, weather restraints, etc.). 88-Not Attempted due to Medical Conditions or Safety Concerns. Eating (QC): 6 Oral Hygiene (QC): 4 (Standing balance at sink) Shower/Bathe Self (QC): 4 (Standing balance when washing periarea/buttocks) Upper Body Dressing (QC): 5 Lower Body Dressing (QC): 5 On/Off Footwear: 3 (Min A to tie both shoes) Other Treatment Pt transferred supine to seated EOB, SBA, and walked to bathroom with FWW, SBA. He completed showering, dressing, and footwear seated on SC, and he stood at the sink for oral care/grooming tasks. OT noticed two raised spots on pt's buttocks during shower, nurse notified. Pt did not appear to be as SOB during session today, but SPO2 levels were still monitored throughout tx and OT provided min v/c's for PLB. His SPO2 level was at 95 after showering and dressing. After completing ADLs in bathroom, pt returned to recliner, SBA. Post tx, pt left in recliner with call light in reach and all needs met. Education OT Patient Education: Correct positioning, Energy conservation, Modified ADL techniques, Progress toward Goal/Update tx plan, Purpose of tx/functional activi ties, Rehab process, Transfer techniques Teaching Recipient: Patient Teaching Methods: Discussion Response to Teaching: Verbalize Understanding OT Short Term Goals Short Term Goals Time Frame: May 02, 2022 Toileting hygiene: 4 Shower/bathe self: 4 Lower body dressin OT [place] Inspector Repairer Goals Alf Goals Time Frame: May 18, 2022 Eating (QC): 6 Oral Hygiene (QC): 6 Toileting Hygiene (QC): 6 Shower/Bathe Self (QC): 6 Upper Body Dressing (QC): 6 Lower Body Dressing (QC): 6 On/Off Footwear (QC): 6 Additional Goals: 1-Demonstrate ADL Tasks, 2-Verbalize Understanding, 3- ImproveStrength/Carlos A 1=Demonstrate adherence to instructed precautions during ADL tasks. 2=Patient will verbalize/demonstrate understanding of assistive devices/modifications for ADL. 3=Patient will improve strength/tolerance for activity to enable patient to perform ADL's. OT Education/Plan Problem List/Assessment Assessment: Decreased Activ Tolerance, Decreased UE Strength, Impaired I ADL's, Impaired Self-Care Skills Discharge Recommendations Plan/Recommendations: Continue POC Treatment Plan/Plan of Care Patient would benefit from OT for education, treatment and training to promote independence in ADL's, mobility, safety and/or upper extremity function for ADL's. Plan of Care: ADL Retraining, Functional Mobility, Group Exercise/Act as Ind, UE Funct Exercise/Act Treatment Duration: May 18, 2022 Frequency: At least 5 of 7 days/Wk (IRF) Estimated Hrs Per Day: 1.5 hours per day Agreement: Yes Rehab Potential: Fair Time/GCodes Start Time: 08:00 Stop Time: 09:00 Total Time Billed (hr/min): 60 Billed Treatment Time 1, ADL 4 (60') REINALDO SANCHEZ OT Apr 26, 2022 09:00
[2022-04-26] MEDS: DOCUSATE SODIUM 100 MG (COLACE) CAP PO SCH ×2 (09:17→20:18)
[2022-04-26] MEDS: SENNA W/DOCUSATE (SENOKOT S) TABLET PO SCH ×2 (09:17→20:18)
--- NOTE | 2022-04-26 11:52 | Physical Therapy Daily Note ---
PT Daily Note-Current Subjective Upon arrival, pts RN was talking with pt. Pt reports that he has no pain with sitting. Pt states that he slept fine. Pt agrees to PT. Mental Status Patient Orientation: Person, Place, Situation Transfers SCALE: Activities may be completed with or without assistive devices. 5-Liqnfeoeoa-qsrzoql completes the activity by him/herself with no assistance from a helper. 5-Set-up or Clean-up Assistance-helper sets up or cleans up; patient completes activity. [place] assists only prior to or following the activity. 4-Supervision or Touching Assistance-helper provides verbal cues and/or touching/steadying and/or contact guard assistance as patient completes activity. Assistance may be provided throughout the activity or intermittently. 3-Partial/Moderate Assistance-helper does LESS THAN HALF the effort. [place] lifts, holds or supports trunk or limbs, but provides less than half the effort. 2-Substantial/Maximal Assistance-helper does MORE THAN HALF the effort. [place] lifts or holds trunk or limbs and provides more than half the effort. 1-Lwedpywpd-tdiffv does ALL the effort. Patient does none of the effort to complete the activity. Or, the assistance of 2 or more helpers is required for the patient to complete the activity. If activity was not attempted, code reason: 7-Patient Refused. 9-Not Applicable-not attempted and the patient did not perform the activity before the current illness, exacerbation or injury. 10-Not Attempted due to Environmental Limitations-(lack of equipment, weather restraints, etc.). 88-Not Attempted due to Medical Conditions or Safety Concerns. Sit to Stand (QC): 3 Pt transferred from recliner to standing with partial assistance due to some pain in the pelvic area, but once standing was able to stay up right and balanced. Weight Bearing Right Lower Extremity: Right Weight Bearing/Tolerated Gait Training Does the Patient Walk?: Yes Distance: 220' Walk 10 feet (QC): 4 Walk 50 ft with 2 Turns(QC): 4 Walk 150 ft (QC): 4 Gait Persons Needed: 1 Gait Assistive Device: FWW Pt amb. with an antalgic GT pattern, when transferring from sitting to standing. Once pt had taken a few steps, his GT was less antalgic. Pt amb. from room around 2nd floor lobby, to the gym then back to room. Pt demonstrated no LOB. Exercises Seated Therapy Exercises: Ankle pumps, Long arc quads, Hip flexion, Hip abd/add Seated Reps: 15 NuStep Minutes: 10 NuStep Workload: 6 Treatments Pt performed and completed all Exs listed above. Pt ambulated from room around 2nd floor lobby to the gym, where he completed 10min on the Nustep and back to room. Once PT was concluded, pt was seated in recliner with call light and tray in reach and all needs met. Assessment Current Status: Good Progress Pt had some difficulty with the Exs hip abd and LAQ and required steady assistance to complete Exs. Pt would benefit from continued PT to improve on strength, activity tolerance and GT. PT Short Term Goals Short Term Goals Time Frame: Apr 25, 2022 Roll Left & Right: 4 (SBA) Sit to lyin (Yenny) Lying to sitting on side of be: 3 (Yenny) Sit to stand: 4 (CGA) Chair/rqn-ti-fspsk transfer: 4 (SBA) Walk 10 feet: 4 (CGA) Walk 50 feet with two turns: 4 (CGA) PT Websphere Commerce Developer Goals Websphere Commerce Developer Goals PT Websphere Commerce Developer Goals Time Frame: May 09, 2022 Roll Left & Right (QC): 6 Sit to Lying (QC): 4 (SBA) Lying-Sitting on Side/Bed(QC): 4 (SBA) Sit to Stand (QC): 6 Chair/Ing-zx-Ntzyi Xfer(QC): 6 Toilet Transfer (QC): 6 Car Transfer (QC): 4 (SBA) Does the Patient Walk: Yes Walk 10 feet (QC): 6 Walk 50ft with 2 Turns (QC): 6 Walk 150 ft (QC): 6 Walking 10ft on Uneven Surface: 6 1 Step (curb) (QC): 4 (CGA) 4 Steps (QC): 4 (CGA) 12 Steps (QC): 88 Picking up an Object (QC): 4 (SBA with tire builder operator) Wheel 50 feet with 2 turns (QC: 9 Wheel 150 feet: 9 PT Plan Problem List Problem List: Activity Tolerance, Functional Strength, Gait Treatment/Plan Treatment Plan: Continue Plan of Care Treatment Plan: Bed Mobility, Concurrent Therapy, Education, Functional Activity Carlos A, Functional Strength, Group Therapy, Gait, Safety, Therapeutic Exercise, Transfers Treatment Duration: May 09, 2022 Frequency: At least 5 of 7 days/Wk (IRF) Estimated Hrs Per Day: 1.5 hours per day Patient and/or Family Agrees t: Yes Safety Risks/Education Patient Education: Transfer Techniques Teaching Recipient: Patient Teaching Methods: Discussion Response to Teaching: Verbalize Understanding Time/GCodes Time In: 900 Time Out: 1000 Total Billed Treatment Time: 60 Total Billed Treatment 1, Ex (3) 40, GT 20 GELY COVINGTON RETURNED ITEM CLERK Apr 26, 2022 11:52
--- NOTE | 2022-04-26 13:45 | Occupational Ther Daily Note ---
OT Current Status-Daily Note Subjective Pt sitting in recliner visiting with friend upon OT arrival, agreeable to tx. Pt still pleased with how well his RLE is moving, reports minimum amount of pain at beginning of session. Mental Status/Objective Patient Orientation: Person, Place, Situation ADL-Treatment Therapy Code Descriptions/Definitions Functional [place] Measure: 0=Not Assessed/NA 4=Minimal Assistance 1=Total Assistance 5=Supervision or Setup 2=Maximal Assistance 6=Modified [place] 3=Moderate Assistance 7=Complete IndependenceSCALE: Activities may be completed with or without assistive devices. 4-Tchddyaevd-dhxbcgq completes the activity by him/herself with no assistance from a helper. 5-Set-up or Clean-up Assistance-helper sets up or cleans up; patient completes activity. [place] assists only prior to or following the activity. 4-Supervision or Touching Assistance-helper provides verbal cues and/or touching/steadying and/or contact guard assistance as patient completes activity. Assistance may be provided throughout the activity or intermittently. 3-Partial/Moderate Assistance-helper does LESS THAN HALF the effort. [place] lifts, holds or supports trunk or limbs, but provides less than half the effort. 2-Substantial/Maximal Assistance-helper does MORE THAN HALF the effort. [place] lifts or holds trunk or limbs and provides more than half the effort. 6-Ewitkgcln-mcbyuf does ALL the effort. Patient does none of the effort to complete the activity. Or, the assistance of 2 or more helpers is required for the patient to complete the activity. If activity was not attempted, code reason: 7-Patient Refused. 9-Not Applicable-not attempted and the patient did not perform the activity bef ore the current illness, exacerbation or injury. 10-Not Attempted due to Environmental Limitations-(lack of equipment, weather r estraints, etc.). 88-Not Attempted due to Medical Conditions or Safety Concerns. Other Treatment Pt declined any ADLs at this time. He stood from recliner, SBA, and walked to laundry room for simulated IADL task. The purpose of this activity was to increase pt's functional activity tolerance and provide skilled instruction about FWW placement and safety during IADL tasks, pt verbalized understanding of education. Afterwards, pt walked to [facility] to participate in standing card game to increase functional standing endurance, standing without RBs for 20min. Pt handled activities well, reporting no increased pain or SOB. Post tx, pt returned to recliner, call light left in reach and all needs met. Education OT Patient Education: Energy conservation, Progress toward Goal/Update tx plan, Purpose of tx/functional activities, Rehab process, Safety issues, Transfer techniques Teaching Recipient: Patient Teaching Methods: Demonstration, Discussion Response to Teaching: Verbalize Understanding, Return Demonstration OT Short Term Goals Short Term Goals Time Frame: May 02, 2022 Toileting hygiene: 4 Shower/bathe self: 4 Lower body dressin OT Radiation Control Specialist Goals Fdc Goals Time Frame: May 18, 2022 Eating (QC): 6 Oral Hygiene (QC): 6 Toileting Hygiene (QC): 6 Shower/Bathe Self (QC): 6 Upper Body Dressing (QC): 6 Lower Body Dressing (QC): 6 On/Off Footwear (QC): 6 Additional Goals: 1-Demonstrate ADL Tasks, 2-Verbalize Understanding, 3-ImproveStrength/Carlos A 1=Demonstrate adherence to instructed precautions during ADL tasks. 2=Patient will verbalize/demonstrate understanding of assistive devices/modifications for ADL. 3=Patient will improve strength/tolerance for activity to enable patient to per form ADL's. OT Education/Plan Problem List/Assessment Assessment: Decreased Activ Tolerance, Decreased UE Strength, Impaired I ADL's, Impaired Self-Care Skills Discharge Recommendations Plan/Recommendations: Continue POC Treatment Plan/Plan of Care Patient would benefit from OT for education, treatment and training to promote independence in ADL's, mobility, safety and/or upper extremity function for ADL's. Plan of Care: ADL Retraining, Functional Mobility, Group Exercise/Act as Ind, UE Funct Exercise/Act Treatment Duration: May 18, 2022 Frequency: At least 5 of 7 days/Wk (IRF) Estimated Hrs Per Day: 1.5 hours per day Agreement: Yes Rehab Potential: Fair Time/GCodes Start Time: 13:00 Stop Time: 13:30 Total Time Billed (hr/min): 30 Billed Treatment Time 1, FA 2 (30') REINALDO SANCHEZ OT Apr 26, 2022 13:45
--- NOTE | 2022-04-26 15:33 | Physical Therapy Daily Note ---
PT Daily Note-Current Subjective Upon arrival, pt was seated in recliner. Pt agrees to PT. Mental Status Patient Orientation: Person, Place, Situation Transfers SCALE: Activities may be completed with or without assistive devices. 3-Sbwpmvfzhh-bgtjjek completes the activity by him/herself with no assistance from a helper. 5-Set-up or Clean-up Assistance-helper sets up or cleans up; patient completes activity. [place] assists only prior to or following the activity. 4-Supervision or Touching Assistance-helper provides verbal cues and/or touching/steadying and/or contact guard assistance as patient completes activity. Assistance may be provided throughout the activity or intermittently. 3-Partial/Moderate Assistance-helper does LESS THAN HALF the effort. [place] lifts, holds or supports trunk or limbs, but provides less than half the effort. 2-Substantial/Maximal Assistance-helper does MORE THAN HALF the effort. [place] lifts or holds trunk or limbs and provides more than half the effort. 5-Sbiqszhyl-wshjro does ALL the effort. Patient does none of the effort to complete the activity. Or, the assistance of 2 or more helpers is required for the patient to complete the activity. If activity was not attempted, code reason: 7-Patient Refused. 9-Not Applicable-not attempted and the patient did not perform the activity before the current illness, exacerbation or injury. 10-Not Attempted due to Environmental Limitations-(lack of equipment, weather restraints, etc.). 88-Not Attempted due to Medical Conditions or Safety Concerns. Weight Bearing Right Lower Extremity: Right Weight Bearing/Tolerated Gait Training Does the Patient Walk?: Yes Distance: 80' Walk 10 feet (QC): 4 Walk 50 ft with 2 Turns(QC): 4 Gait Persons Needed: 1 Gait Assistive Device: FWW Pt transferred from sit to stand, with partial assistance, due to affected pelvis. Once stood up, and walking pt does better. Wheelchair Training Does the Pt Use a Wheelchair?: No Exercises Seated Therapy Exercises: Ankle pumps, Long arc quads, Hip flexion Seated Reps: 10 NuStep Minutes: 11 NuStep Workload: 6 Treatments Pt performed and completed all Exs listed above. Pt worked on Nustep for 11 min, and amb. from room to gym and back to room. Once PT was concluded, pt had a visitor, and call light and tray were in reach, with all needs met. Visitor was present as PT exited room. Assessment Current Status: Good Progress Pt would benefit from continued PT to improve on strength, activity tolerance, and GT. PT Short Term Goals Short Term Goals Time Frame: Apr 25, 2022 Roll Left & Right: 4 (SBA) Sit to lyin (Yenny) Lying to sitting on side of be: 3 (Yenny) Sit to stand: 4 (CGA) Chair/dri-ni-uzkem transfer: 4 (SBA) Walk 10 feet: 4 (CGA) Walk 50 feet with two turns: 4 (CGA) PT Web Page Designer Goals Longterm Goals PT Longterm Goals Time Frame: May 09, 2022 Roll Left & Right (QC): 6 Sit to Lying (QC): 4 (SBA) Lying-Sitting on Side/Bed(QC): 4 (SBA) Sit to Stand (QC): 6 Chair/Ksh-gp-Lbkzb Xfer(QC): 6 Toilet Transfer (QC): 6 Car Transfer (QC): 4 (SBA) Does the Patient Walk: Yes Walk 10 feet (QC): 6 Walk 50ft with 2 Turns (QC): 6 Walk 150 ft (QC): 6 Walking 10ft on Uneven Surface: 6 1 Step (curb) (QC): 4 (CGA) 4 Steps (QC): 4 (CGA) 12 Steps (QC): 88 Picking up an Object (QC): 4 (SBA with flat lock machine operator) Wheel 50 feet with 2 turns (QC: 9 Wheel 150 feet: 9 PT Plan Problem List Problem List: Activity Tolerance, Functional Strength, Gait Treatment/Plan Treatment Plan: Continue Plan of Care Treatment Plan: Bed Mobility, Concurrent Therapy, Education, Functional Activity Carlos A, Functional Strength, Group Therapy, Gait, Safety, Therapeutic Exercise, Transfers Treatment Duration: May 09, 2022 Frequency: At least 5 of 7 days/Wk (IRF) Estimated Hrs Per Day: 1.5 hours per day Patient and/or Family Agrees t: Yes Time/GCodes Time In: 1420 Time Out: 1450 Total Billed Treatment Time: 30 Total Billed Treatment 1, Ex (2) 30 GELY COVINGTON PTA Apr 26, 2022 15:33
[2022-04-26] MEDS: polyethylene glycoL POWDER 17 GM (MIRALAX) PACK PO SCH (19:18)
[2022-04-26 20:02] VITALS: BP 140/65
[2022-04-26] MEDS: ROSUVASTATIN 10 MG (CRESTOR) TABLET PO SCH (20:18)
[2022-04-26] MEDS: RIVAROXABAN 15 MG TABLET (XARELTO) PO SCH (20:18)
--- NOTE | 2022-04-27 06:25 | PM&R Progress Note ---
Subjective HPI/CC On Admission Date Seen by Provider: Apr 27, 2022 Time Seen by Provider: 12:30 Subjective/Events-last exam 04/27/2022: Pt is ready for discharge tomorrow Weaned off oxygen BP is stable at 160/71 Tramadol initiated for pain 04/26/2022: Patient doing well No pain reported No cough No fever Urination good 04/25/2022: Pt did really well last night Slept okay Blood cultures are no growth today Nebulizer treatments ordered No pain pills for the last 2 days Bowels are moving Maintain on Levaquin for pneumonia 04/24/2022: Doing much better No pain reported No falls Breathing better RLL rales noted but cleared with deep breath CXR negative but early PNA RLL is the diagnosis 04/23/2022: Patient doing well Labs reviewed Pain is pretty well controlled Daughter concerned about confusion but does have advanced age having a significant decompensation Later in the evening started a fever of 102 so we will perform septic work-up 04/22/2022: Patient doing well Daughter at bedside and she works in [employer] as a nurse No pain Weaned off O2 04/21/2022: Doing well Repeats himself O2 will be weaned Pain controlled 04/20/2022: Pt a bit hypoxic today due to narcotics decreasing respiratory drive Oxygen maintained Suppository will be given today, no bowel movement for 4 days 04/19/2022: Pt is doing a lot better Pain is well controlled but hates to use pain pills Bowels moved 3 days ago so we'll get aggressive with that Creatinine is 2.6, that is his baseline Review of Systems General: Fatigue, Malaise Objective Exam Vital Signs Vital Signs Date Time Temp Pulse Resp B/P (MAP) Pulse Ox O2 Delivery O2 Flow Rate FiO2 04/27/22 20:10 37.1 54 16 157/68 (97) 97 Room Air 04/24/22 19:15 0.00 Capillary Refill : General Appearance: No Apparent Distress, WD/WN, Chronically ill HEENT: PERRL/EOMI, Normal ENT Inspection, Pharynx Normal Neck: Full Range of Motion, Normal Inspection, Non Tender, Supple, Carotid Bruit Respiratory: Chest Non Tender, Lungs Clear, Normal Breath Sounds, No Accessory Muscle Use, No Respiratory Distress Cardiovascular: Regular Rate, Rhythm, No Edema, No Gallop, No JVD, No Murmur, Normal Peripheral Pulses Gastrointestinal: Normal Bowel Sounds, No Organomegaly, No Pulsatile Mass, Non Tender, Soft Back: Normal Inspection, No CVA Tenderness, No Vertebral Tenderness Extremity: Normal Capillary Refill, Normal Inspection, Normal Range of Motion, Non Tender, No Calf Tenderness, No Pedal Edema Neurologic/Psychiatric: Alert, Oriented x3, Normal Mood/Affect, Abnormal Gait, Motor Weakness Skin: Normal Color, Warm/Dry Lymphatic: No Adenopathy Results/Procedures Lab Patient resulted labs reviewed. FIM Transfers Therapy Code Descriptions/Definitions Functional [place] Measure: 0=Not Assessed/NA 4=Minimal Assistance 1=Total Assistance 5=Supervision or Setup 2=Maximal Assistance 6=Modified [place] 3=Moderate Assistance 7=Complete IndependenceSCALE: Activities may be completed with or without assistive devices. 9-Dhrnnxczdv-jkrqkut completes the activity by him/herself with no assistance from a helper. 5-Set-up or Clean-up Assistance-helper sets up or cleans up; patient completes activity. [place] assists only prior to or following the activity. 4-Supervision or Touching Assistance-helper provides verbal cues and/or touching/steadying and/or contact guard assistance as patient completes activity. Assistance may be provided throughout the activity or intermittently. 3-Partial/Moderate Assistance-helper does LESS THAN HALF the effort. [place] lifts, holds or supports trunk or limbs, but provides less than half the effort. 2-Substantial/Maximal Assistance-helper does MORE THAN HALF the effort. [place] lifts or holds trunk or limbs and provides more than half the effort. 4-Pmtydsbfp-dyfceb does ALL the effort. Patient does none of the effort to complete the activity. Or, the assistance of 2 or more helpers is required for the patient to complete the activity. If activity was not attempted, code reason: 7-Patient Refused. 9-Not Applicable-not attempted and the patient did not perform the activity before the current illness, exacerbation or injury. 10-Not Attempted due to Environmental Limitations-(lack of equipment, weather restraints, etc.). 88-Not Attempted due to Medical Conditions or Safety Concerns. Roll Left to Right (QC): 3 Sit to Lying (QC): 3 Sit to Stand (QC): 3 Chair/Ezf-ha-Ciuwl Xfer(QC): 3 Car Transfer (QC): 3 Gait Training Does the Patient Walk?: Yes Distance: 80' Walk 10 feet (QC): 4 Walk 50 ft with 2 Turns(QC): 4 Walk 150 ft (QC): 4 Walking 10ft/uneven surface-QC: 4 Gait Persons Needed: 1 Gait Assistive Device: FWW Wheelchair Training Does the Pt Use a Wheelchair?: No Distance: 50' Wheel 50 ft with 2 turns (QC): 3 Wheel 150 ft (QC): 88 Type of Wheelchair: N/A Stair Training Stair Training: Handrails/: 2 handrails #of Steps: 4 1 Step (curb) (QC): 4 4 Steps (QC): 4 12 Steps (QC): 88 Stairs: Pattern: Step to Balance Picking up an Object (QC): 4 (CGA with a workforce development program director) ADL-Treatment Eating (QC): 6 Oral Hygiene (QC): 4 (Standing balance at sink) Shower/Bathe Self (QC): 4 (Standing balance when washing periarea/buttocks) Upper Body Dressing (QC): 5 Lower Body Dressing (QC): 5 On/Off Footwear (QC): 3 (Min A to tie both shoes) Toileting Hygiene (QC): 5 (seated with urinal) Assessment/Plan Assessment and Plan Assess & Plan/Chief Complaint Assessment: Fall from standing Right side pelvic fracture Chest wall hematoma PAF Valvular heart disease OAC HTN CKD Advanced age HLP Hypoxia 04/20/22 Fever 04/23/2022 due to RLL PNA even though CXR normal Plan: PT OT protocol Monitor BP Fall risk Monitor creatinine 04/19/2022: Monitor pain 04/20/2022: O2 Monitor closely Limit narcs 04/21/2022: Wean O2 Pain control 04/22/2022: Weaned O2 04/23/2022: Continue supportive care Monitor fever 04/24/2022: Abx renal dosed 04/25/2022: Levaquin 04/26/2022: Complete abx Monitor closely 04/27/2022: Monitor pain (1) Fall from standing Status: Acute (2) Fracture of right pelvis Status: Acute (3) Contusion of right chest wall Status: Acute (4) Chronic kidney disease Status: Acute (5) Congestive heart failure Status: Acute (6) Atrial fibrillation Status: Acute (7) Acute on chronic diastolic (congestive) heart failure Status: Resolved Resolution Date/Time: 10/31/20 @ 08:38 (8) CKD (chronic kidney disease), stage IV (9) Primary hypertension Status: Chronic (10) Mixed hyperlipidemia Status: Chronic (11) Mitral regurgitation ROSALINDA SONI DO Apr 27, 2022 06:24
[2022-04-27] MEDS: RT-ALBUTEROL SULF 2.5 MG/3 ML PRE-MIX VIAL INH SCH ×3 (06:43→21:23)
[2022-04-27 08:00] VITALS: BP 160/71
[2022-04-27] MEDS: DOCUSATE SODIUM 100 MG (COLACE) CAP PO SCH ×2 (08:33→21:37)
[2022-04-27] MEDS: SENNA W/DOCUSATE (SENOKOT S) TABLET PO SCH ×2 (08:33→21:38)
[2022-04-27] MEDS: amLODIPine 5 MG (NORVASC) TAB PO SCH (08:33)
--- NOTE | 2022-04-27 09:00 | Occupational Ther Daily Note ---
OT Current Status-Daily Note Subjective Pt sitting in bed eating breakfast upon OT arrival, agreeable to tx. Pt states several times during tx that he is anxious to go home because he does not believe his can help him in her condition. He reports no hip pain today but minimal pain in ribs. Mental Status/Objective Patient Orientation: Person, Place, Situation ADL-Treatment Therapy Code Descriptions/Definitions Functional [place] Measure: 0=Not Assessed/NA 4=Minimal Assistance 1=Total Assistance 5=Supervision or Setup 2=Maximal Assistance 6=Modified [place] 3=Moderate Assistance 7=Complete IndependenceSCALE: Activities may be completed with or without assistive devices. 6-Vqnblqixkt-pkyizor completes the activity by him/herself with no assistance from a helper. 5-Set-up or Clean-up Assistance-helper sets up or cleans up; patient completes activity. [place] assists only prior to or following the activity. 4-Supervision or Touching Assistance-helper provides verbal cues and/or touching/steadying and/or contact guard assistance as patient completes activity. Assistance may be provided throughout the activity or intermittently. 3-Partial/Moderate Assistance-helper does LESS THAN HALF the effort. [place] lifts, holds or supports trunk or limbs, but provides less than half the effort. 2-Substantial/Maximal Assistance-helper does MORE THAN HALF the effort. [place] lifts or holds trunk or limbs and provides more than half the effort. 6-Gkcuetcym-rlcoon does ALL the effort. Patient does none of the effort to complete the activity. Or, the assistance of 2 or more helpers is required for the patient to complete the activity. If activity was not attempted, code reason: 7-Patient Refused. 9-Not Applicable-not attempted and the patient did not perform the activity before the current illness, exacerbation or injury. 10-Not Attempted due to Environmental Limitations-(lack of equipment, weather restraints, etc.). 88-Not Attempted due to Medical Conditions or Safety Concerns. Eating (QC): 6 Oral Hygiene (QC): 6 (standing at sink) Shower/Bathe Self (QC): 4 (SBA for standing balance when cleaning buttocks/periarea) Upper Body Dressing (QC): 6 Lower Body Dressing (QC): 4 (for standing balance when hiking pants) On/Off Footwear: 6 (tennis shoes) Toileting Hygiene (QC): 5 (with urinal) Other Treatment Pt requested to use urinal before getting out of bed. Then he got out of bed and walked with FWW to closet to retrieve clothes. He walked to bathroom to complete showering, dressing, and oral care/grooming tasks. Pt appeared to be moving ar ound easier and tolerating tasks better today, only becoming SOB with prolonged leaning forward with tying shoelaces. OT provided education on alternative ways to don footwear to decreases SOB, pt verbalized understanding but stated he wanted to "continue doing it the way I usually do." SPO2 levels were at 95 after showering and dressing. He stood at sink to complete oral care/grooming tasks without RB or noticeable SOB. Afterwards, pt walked back to recliner with FWW, SBA. Post tx, pt was left in recliner with call light in hand and all needs met. Education OT Patient Education: Correct positioning, Energy conservation, Modified ADL techniques, Progress toward Goal/Update tx plan, Purpose of tx/functional activities, Rehab process, Safety issues, Transfer techniques Teaching Recipient: Patient Teaching Methods: Discussion Response to Teaching: Verbalize Understanding OT Short Term Goals Short Term Goals Time Frame: May 02, 2022 Toileting hygiene: 4 Shower/bathe self: 4 Lower body dressin OT Splash Line Operator Goals Splash Line Operator Goals Time Frame: May 18, 2022 Eating (QC): 6 (met) Oral Hygiene (QC): 6 (met) Toileting Hygiene (QC): 6 (not met) Shower/Bathe Self (QC): 6 (not met) Upper Body Dressing (QC): 6 (met) Lower Body Dressing (QC): 6 (not met) On/Off Footwear (QC): 6 (met) Additional Goals: 1-Demonstrate ADL Tasks, 2-Verbalize Understanding, 3- ImproveStrength/Carlos A 1=Demonstrate adherence to instructed precautions during ADL tasks. 2=Patient will verbalize/demonstrate understanding of assistive devices/modifications for ADL. 3=Patient will improve strength/tolerance for activity to enable patient to perform ADL's. OT Education/Plan Problem List/Assessment Assessment: Decreased Activ Tolerance, Impaired I ADL's, Impaired Self-Care Skills Discharge Recommendations Plan/Recommendations: Continue POC Treatment Plan/Plan of Care Patient would benefit from OT for education, treatment and training to promote independence in ADL's, mobility, safety and/or upper extremity function for ADL's. Plan of Care: ADL Retraining, Functional Mobility, Group Exercise/Act as Ind, UE Funct Exercise/Act Treatment Duration: May 18, 2022 Frequency: At least 5 of 7 days/Wk (IRF) Estimated Hrs Per Day: 1.5 hours per day Agreement: Yes Rehab Potential: Fair Time/GCodes Start Time: 08:00 Stop Time: 09:00 Total Time Billed (hr/min): 60 Billed Treatment Time 1, ADL 4 (60') REINALDO SANCHEZ OT Apr 27, 2022 09:00
[2022-04-27] MEDS: polyethylene glycoL POWDER 17 GM (MIRALAX) PACK PO SCH ×3 (09:34→20:04)
--- NOTE | 2022-04-27 14:30 | Physical Therapy Daily Note ---
PT Daily Note-Current Subjective Upon arrival, pt was seated in recliner. Pt states he slept fine. Pt reports no pain with sitting. Pt agrees to PT. Mental Status Patient Orientation: Person, Place, Situation Transfers SCALE: Activities may be completed with or without assistive devices. 3-Erweanprco-htywubc completes the activity by him/herself with no assistance from a helper. 5-Set-up or Clean-up Assistance-helper sets up or cleans up; patient completes activity. [place] assists only prior to or following the activity. 4-Supervision or Touching Assistance-helper provides verbal cues and/or touching/steadying and/or contact guard assistance as patient completes activity. Assistance may be provided throughout the activity or intermittently. 3-Partial/Moderate Assistance-helper does LESS THAN HALF the effort. [place] lifts, holds or supports trunk or limbs, but provides less than half the effort. 2-Substantial/Maximal Assistance-helper does MORE THAN HALF the effort. [place] lifts or holds trunk or limbs and provides more than half the effort. 1-Uwofxgdgt-oaxgxj does ALL the effort. Patient does none of the effort to complete the activity. Or, the assistance of 2 or more helpers is required for the patient to complete the activity. If activity was not attempted, code reason: 7-Patient Refused. 9-Not Applicable-not attempted and the patient did not perform the activity before the current illness, exacerbation or injury. 10-Not Attempted due to Environmental Limitations-(lack of equipment, weather restraints, etc.). 88-Not Attempted due to Medical Conditions or Safety Concerns. Sit to Stand (QC): 4 Pt is CGA with sit to stand. Pt may become Min A at times due to pain and stiffness in pelvic area. Weight Bearing Right Lower Extremity: Right Weight Bearing/Tolerated Gait Training Does the Patient Walk?: Yes Distance: 160' Walk 10 feet (QC): 4 Walk 50 ft with 2 Turns(QC): 4 Walk 150 ft (QC): 4 Gait Persons Needed: 1 Gait Assistive Device: FWW Pt is CGA with ambulation. Pt has difficulty moving his R side with ambulation at first, but after a few steps, pt is able to amb. without difficulty. Exercises Standing: Hamstring curls (1x), 3 way Ex=Flex, Abd, Ext (2x), Marching (1x) Standing Reps: 10 NuStep Minutes: 10 NuStep Workload: 6 Assessment Current Status: Good Progress Pt would benefit from continued PT to improve in strength, and activity tolerance. PT Short Term Goals Short Term Goals Time Frame: Apr 25, 2022 Roll Left & Right: 4 (SBA) Sit to lyin (Yenny) Lying to sitting on side of be: 3 (Yenny) Sit to stand: 4 (CGA) Chair/uiu-mq-nuqed transfer: 4 (SBA) Walk 10 feet: 4 (CGA) Walk 50 feet with two turns: 4 (CGA) PT Leather Lacer Goals Residential Goals PT Leather Lacer Goals Time Frame: May 09, 2022 Roll Left & Right (QC): 6 Sit to Lying (QC): 4 (SBA) Lying-Sitting on Side/Bed(QC): 4 (SBA) Sit to Stand (QC): 6 Chair/Rek-me-Sgzxm Xfer(QC): 6 Toilet Transfer (QC): 6 Car Transfer (QC): 4 (SBA) Does the Patient Walk: Yes Walk 10 feet (QC): 6 Walk 50ft with 2 Turns (QC): 6 Walk 150 ft (QC): 6 Walking 10ft on Uneven Surface: 6 1 Step (curb) (QC): 4 (CGA) 4 Steps (QC): 4 (CGA) 12 Steps (QC): 88 Picking up an Object (QC): 4 (SBA with rn pacu) Wheel 50 feet with 2 turns (QC: 9 Wheel 150 feet: 9 PT Plan Problem List Problem List: Activity Tolerance, Functional Strength Treatment/Plan Treatment Plan: Continue Plan of Care Treatment Plan: Bed Mobility, Concurrent Therapy, Education, Functional Activity Carlos A, Functional Strength, Group Therapy, Gait, Safety, Therapeutic Exercise, Transfers Treatment Duration: May 09, 2022 Frequency: At least 5 of 7 days/Wk (IRF) Estimated Hrs Per Day: 1.5 hours per day Patient and/or Family Agrees t: Yes Time/GCodes Time In: 1100 Time Out: 1200 Total Billed Treatment Time: 60 Total Billed Treatment 1, EX (3) 40, GT 20 GELY C[place]INGTON [employer]ILD[employer] Apr 27, 2022 14:30
--- NOTE | 2022-04-27 14:39 | Therapy Group Daily Note ---
Therapy Daily Group Note Patient Education Topic Home Safety Exercises LE Seated Exercise, UE Exercise Session Ratio (pt:therapist): 8:2 Goal of Session: Home Safety Strategies, UE/LE Strengthing Goal Met for this Session: Yes Pt Benefit of Group: Contributions to Others, F/U Use of Strategies @Home, Increased Functional Safety, Increased Functional Strength, Improved Cognition, Recognition of Peers, Socialization Other/Notes Pt ambulated to therapy gym for OT/PT group. Group consisted of introductions (name, place living, xouq-b-ennonvyh), socialization, B UE/LE exercises and educational topic of home safety. Pt actively listened to peers and introduced self appropriately. Pt was able to complete B UE/LE seated exercises without difficulty. Pt verbalized understanding of educational topic and gave personal strategies used in home environment. After session, pt in recliner with call light/phone in reach. All needs met in room. Start Time: 13:00 Stop Time: 14:10 Total Billed Treatment Time: 70 Total Billed Treatment 1-LUIS ENRIQUE HARTLEY Apr 27, 2022 14:39
[2022-04-27 20:10] VITALS: BP 157/68
[2022-04-27] MEDS ORDERED: LEVO750T39 PO (21:09)
[2022-04-27] MEDS ORDERED: FURO20TA4 PO (21:09)
[2022-04-27] MEDS ORDERED: MTP25TSR PO (21:09)
[2022-04-27] MEDS ORDERED: TRM50T PO (21:09)
--- NOTE | 2022-04-27 21:10 | D/C HH Face to Face Order ---
D/C Face to Face Orders Reconcile Patient Problems Problems Reviewed?: Yes Instructions for Patient Via [facility], Patient Instructions/FollowUp: PCP 1 week Physician to follow Patient: Brandyn Discharge Diet for Home: No Restrictions Patient Problems: Pelvic fracture PNA Patient Data-Allergies,Ht & Wt Patient Allergies: Coded Allergies: Penicillins (Verified Allergy, Mild, RASH, 09/07/14) Height (Feet): 5 Height (Inches): 9.50 Weight (Pounds): 180 Home Health Need/Face to Face Date of Face to Face: Apr 27, 2022 Clinical Findings: Muscle weakness, Shortness of breath I have seen Pt fwkx-vs-yoev: Yes Discharged To: Home Diagnosis/Conditions: PNA Patient is Homebound due to: [place] fall risk due to instabilty, Muscle weakness Homebound Status Due to the above stated illness, injury or surgical procedure (medical condition or diagnosis) and associated clinical findings, the patient is homebound because of his/her inability to leave home except with aid of a supportive device and/or person AND leaving the home requires a considerable and taxing effort or is medically contraindicated. Pt req the following assistanc: Walker Home Health Nursing Orders Home Health Services Order: Nursing Services, Stage Director-Evaluate & Treat, Other (bath aide) Certify Stmt I certify that this patient is under my care and that I, a nurse practitioner or a physician; a patent legal assistant working with me, had a face to face encounter that - meets the physician face to face encounter requirements with this patient as dated. ROSALINDA SONI DO Apr 27, 2022 21:10
[2022-04-27] MEDS: ROSUVASTATIN 10 MG (CRESTOR) TABLET PO SCH (21:33)
[2022-04-27] MEDS: RIVAROXABAN 15 MG TABLET (XARELTO) PO SCH (21:33)
--- NOTE | 2022-04-28 07:15 | Discharge Summary ---
Diagnosis/Chief Complaint Date of Admission Apr 18, 2022 at 09:55 Date of Discharge Discharge Date: Apr 28, 2022 Discharge Diagnosis Assessment: Fall from standing Right side pelvic fracture Chest wall hematoma PAF Valvular heart disease OAC HTN CKD Advanced age HLP Hypoxia 04/20/22 Fever 04/23/2022 due to RLL PNA even though CXR normal Plan: PT OT protocol Monitor BP Fall risk Monitor creatinine 04/19/2022: Monitor pain 04/20/2022: O2 Monitor closely Limit narcs 04/21/2022: Wean O2 Pain control 04/22/2022: Weaned O2 04/23/2022: Continue supportive care Monitor fever 04/24/2022: Abx renal dosed 04/25/2022: Levaquin 04/26/2022: Complete abx Monitor closely 04/27/2022: Monitor pain (1) Fall from standing Status: Acute (2) Fracture of right pelvis Status: Acute (3) Contusion of right chest wall Status: Acute (4) Chronic kidney disease Status: Acute (5) Congestive heart failure Status: Acute (6) Atrial fibrillation Status: Acute (7) Acute on chronic diastolic (congestive) heart failure Status: Resolved Resolution Date/Time: 10/31/20 @ 08:38 (8) CKD (chronic kidney disease), stage IV (9) Primary hypertension Status: Chronic (10) Mixed hyperlipidemia Status: Chronic (11) Mitral regurgitation Discharge Summary Discharge Physical Examination Allergies: Coded Allergies: Penicillins (Verified Allergy, Mild, RASH, 09/07/14) Vitals & I&Os Vital Signs Date Time Temp Pulse Resp B/P (MAP) Pulse Ox O2 Delivery O2 Flow Rate FiO2 04/28/22 12:00 36.8 61 18 129/61 98 Room Air 0.00 General Appearance: Alert, Oriented X3, Cooperative Respiratory: Clear to Auscultation Cardiovascular: Regular Rate Neuro: Normal Gait, Normal Speech, Strength at 5/5 X4 Ext Psych/Mental Status: Mental Status NL Hospital Course Was the Problem List Reviewed?: Yes Lengthy course after admitted for debility from pelvic fracture and labs remained stable with CKD. Patient did have an episode of fever and patient was dx with PNA and abx initiated empirically with resolution of the infectious episode. Patient was deemed stable and DC home. Labs (last 24 hrs) Laboratory Tests 04/19/22 06:11: White Blood Count 11.1H, Red Blood Count 3.60L, Hemoglobin 11.3L, Hematocrit 35L , Mean Corpuscular Volume 98, Mean Corpuscular Hemoglobin 31, Mean Corpuscular Hemoglobin Concent 32, Red Cell Distribution Width 13.9, Platelet Count 172, Mean Platelet Volume 10.7, Immature Granulocyte % (Auto) 1, Neutrophils (%) (Auto) 70, Lymphocytes (%) (Auto) 17, Monocytes (%) (Auto) 11, Eosinophils (%) (Auto) 1, Basophils (%) (Auto) 1, Neutrophils # (Auto) 7.8, Lymphocytes # (Auto) 1.9, Monocytes # (Auto) 1.2H, Eosinophils # (Auto) 0.2, Basophils # (Auto) 0.1, Immature Granulocyte # (Auto) 0.1, Sodium Level 135, Potassium Level 4.8, Chloride Level 101, Carbon Dioxide Level 24, Anion Gap 10, Blood Urea Nitrogen 32H, Creatinine 2.67H, Estimat Glomerular Filtration Rate 22, BUN/Creatinine Ratio 12, Glucose Level 98, Calcium Level 9.1, Corrected Calcium 9.4, Total Bilirubin 1.6H, Aspartate Amino Transf (AST/SGOT) 36H, Alanine Aminotransferase (ALT/SGPT) 23, Alkaline Phosphatase 87, Total Protein 6.2L, Albumin 3.6 04/23/22 06:02: White Blood Count 7.1, Red Blood Count 3.35L, Hemoglobin 10.4L, Hematocrit 32L, Mean Corpuscular Volume 96, Mean Corpuscular Hemoglobin 31, Mean Corpuscular Hemoglobin Concent 33, Red Cell Distribution Width 13.7, Platelet Count 244, Mean Platelet Volume 10.0, Immature Granulocyte % (Auto) 1, Neutrophils (%) (Auto) 59, Lymphocytes (%) (Auto) 27, Monocytes (%) (Auto) 9, Eosinophils (%) (Auto) 4, Basophils (%) (Auto) 1, Neutrophils # (Auto) 4.2, Lymphocytes # (Auto) 1.9, Monocytes # (Auto) 0.6, Eosinophils # (Auto) 0.3, Basophils # (Auto) 0.0, Immature Granulocyte # (Auto) 0.1, Sodium Level 133L, Potassium Level 4.2, Chloride Level 102, Carbon Dioxide Level 20L, Anion Gap 11, Blood Urea Nitrogen 45H, Creatinine 2.66H, Estimat Glomerular Filtration Rate 22, BUN/Creatinine Ratio 17, Glucose Level 92, Calcium Level 9.5, Corrected Calcium 10.1, Total Bilirubin 1.4H, Aspartate Amino Transf (AST/SGOT) 37H, Alanine Aminotransferase (ALT/SGPT) 34, Alkaline Phosphatase 121, Total Protein 6.0L, Albumin 3.3 04/23/22 20:53: White Blood Count 13.4H, Red Blood Count 3.53L, Hemoglobin 11.1L, Hematocrit 34L , Mean Corpuscular Volume 95, Mean Corpuscular Hemoglobin 31, Mean Corpuscular Hemoglobin Concent 33, Red Cell Distribution Width 13.9, Platelet Count 274, Mean Platelet Volume 9.9, Immature Granulocyte % (Auto) 0, Neutrophils (%) (Auto) 85H, Lymphocytes (%) (Auto) 6L, Monocytes (%) (Auto) 8, Eosinophils (%) (Auto) 0, Basophils (%) (Auto) 0, Neutrophils # (Auto) 11.4H, Lymphocytes # (Auto) 0.8L, Monocytes # (Auto) 1.0, Eosinophils # (Auto) 0.0, Basophils # (Auto) 0.0, Immature Granulocyte # (Auto) 0.1, Sodium Level 135, Potassium Level 4.2, Chloride Level 101, Carbon Dioxide Level 18L, Anion Gap 16H, Blood Urea Nitrogen 42H, Creatinine 2.53H, Estimat Glomerular Filtration Rate 24, BUN /Creatinine Ratio 17, Glucose Level 104, Calcium Level 9.2, Corrected Calcium 9.4, Total Bilirubin 1.8H, Aspartate Amino Transf (AST/SGOT) 47H, Alanine Aminotransferase (ALT/SGPT) 38, Alkaline Phosphatase 133, Total Protein 6.7, Albumin 3.8, Neutrophils % (Manual) 87, Lymphocytes % (Manual) 7, Monocytes % (Manual) 6, Polychromasia MODERATE, Harjeet Cells MARKED, Elliptocytes MARKED, Acanthocytes MARKED, Lactic Acid Level 1.34, Procalcitonin 0.41H 04/23/22 21:14: Urine Color YELLOW, Urine Clarity CLEAR, Urine pH 6.5, Urine Specific [place] 1.010L, Urine Protein TRACEH, Urine Glucose (UA) NEGATIVE, Urine Ketones NEGATIVE, Urine Nitrite NEGATIVE, Urine Bilirubin NEGATIVE, Urine Urobilinogen 4.0, Urine Leukocyte Esterase NEGATIVE, Urine RBC (Auto) 1+H, Urine RBC NONE, Urine WBC 2-5, Urine Squamous Epithelial Cells 0-2, Urine Renal Epithelial Cells NONE, Urine Crystals NONE, Urine Bacteria FEWH, Urine Casts NONE, Urine Mucus NEGATIVE, Urine Culture Indicated NO 04/23/22 21:20: Influenza Type A (RT-PCR) Not Detected, Influenza Type B (RT-PCR) Not Detected, SARS-CoV-2 RNA (RT-PCR) Not Detected 04/24/22 05:28: White Blood Count 13.3H, Red Blood Count 3.17L, Hemoglobin 9.7L, Hematocrit 30L, Mean Corpuscular Volume 95, Mean Corpuscular Hemoglobin 31, Mean Corpuscular Hemoglobin Concent 32, Red Cell Distribution Width 13.8, Platelet Count 239, Mean Platelet Volume 9.7, Immature Granulocyte % (Auto) 1, Neutrophils (%) (Auto) 84H, Lymphocytes (%) (Auto) 8L, Monocytes (%) (Auto) 7, Eosinophils (%) (Auto) 0, Basophils (%) (Auto) 0, Neutrophils # (Auto) 11.2H, Lymphocytes # (Auto) 1.1, Monocytes # (Auto) 1.0, Eosinophils # (Auto) 0.0, Basophils # (Auto) 0.0, Immature Granulocyte # (Auto) 0.1, Sodium Level 134L, Potassium Level 4.4, Chloride Level 105, Carbon Dioxide Level 19L, Anion Gap 10, Blood Urea Nitrogen 40H, Creatinine 2.49H, Estimat Glomerular Filtration Rate 24, BUN/Creatinine Ratio 16, Glucose Level 94, Calcium Level 8.5, Corrected Calcium 9.3, Total Bilirubin 1.3H, Aspartate Amino Transf (AST/SGOT) 33, Alanine Aminotransferase (ALT/SGPT) 31, Alkaline Phosphatase 100, Total Protein 5.5L, Albumin 3.0L 04/25/22 05:45: White Blood Count 8.9, Red Blood Count 3.14L, Hemoglobin 9.8L, Hematocrit 30L, Mean Corpuscular Volume 95, Mean Corpuscular Hemoglobin 31, Mean Corpuscular Hemoglobin Concent 33, Red Cell Distribution Width 14.1, Platelet Count 239, Mean Platelet Volume 9.3, Immature Granulocyte % (Auto) 1, Neutrophils (%) (Auto) 73, Lymphocytes (%) (Auto) 16, Monocytes (%) (Auto) 7, Eosinophils (%) (Auto) 2, Basophils (%) (Auto) 0, Neutrophils # (Auto) 6.5, Lymphocytes # (Auto) 1.4, Monocytes # (Auto) 0.6, Eosinophils # (Auto) 0.2, Basophils # (Auto) 0.0, Immature Granulocyte # (Auto) 0.1, Sodium Level 139, Potassium Level 4.0, Chloride Level 106, Carbon Dioxide Level 19L, Anion Gap 14, Blood Urea Nitrogen 39H, Creatinine 2.52H, Estimat Glomerular Filtration Rate 24, BUN/Creatinine Ratio 15, Glucose Level 92, Calcium Level 8.8, Corrected Calcium 9.5, Total Bilirubin 1.4H, Aspartate Amino Transf (AST/SGOT) 32, Alanine Aminotransferase (ALT/SGPT) 25, Alkaline Phosphatase 102, Total Protein 5.8L, Albumin 3.1L Microbiology 04/23/22 Blood Culture - Preliminary, Resulted No growth Pending Labs Microbiology Date/Time Source Procedure Growth Status 04/23/22 20:53 Peripheral Lt Ac Blood Culture - Preliminary No growth Resulted 04/23/22 20:53 Peripheral Rt Ac Blood Culture - Preliminary No growth Resulted Laboratory Tests 04/19/22 06:11: White Blood Count 11.1, Red Blood Count 3.60, Hemoglobin 11.3, Hematocrit 35, Mean Corpuscular Volume 98, Mean Corpuscular Hemoglobin 31, Mean Corpuscular Hemoglobin Concent 32, Red Cell Distribution Width 13.9, Platelet Count 172, Mean Platelet Volume 10.7, Immature Granulocyte % (Auto) 1, Neutrophils (%) (Auto) 70, Lymphocytes (%) (Auto) 17, Monocytes (%) (Auto) 11, Eosinophils (%) (Auto) 1, Basophils (%) (Auto) 1, Neutrophils # (Auto) 7.8, Lymphocytes # (Auto) 1.9, Monocytes # (Auto) 1.2, Eosinophils # (Auto) 0.2, Basophils # (Auto) 0.1, Immature Granulocyte # (Auto) 0.1, Sodium Level 135, Potassium Level 4.8, Chloride Level 101, Carbon Dioxide Level 24, Anion Gap 10, Blood Urea Nitrogen 32, Creatinine 2.67, Estimat Glomerular Filtration Rate 22, BUN/Creatinine Ratio 12, Glucose Level 98, Calcium Level 9.1, Corrected Calcium 9.4, Total Bilirubin 1.6, Aspartate Amino Transf (AST/SGOT) 36, Alanine Aminotransferase (ALT/SGPT) 23, Alkaline Phosphatase 87, Total Protein 6.2, Albumin 3.6 04/23/22 06:02: White Blood Count 7.1, Red Blood Count 3.35, Hemoglobin 10.4, Hematocrit 32, Mean Corpuscular Volume 96, Mean Corpuscular Hemoglobin 31, Mean Corpuscular Hemoglobin Concent 33, Red Cell Distribution Width 13.7, Platelet Count 244, M leroy Platelet Volume 10.0, Immature Granulocyte % (Auto) 1, Neutrophils (%) (Auto) 59, Lymphocytes (%) (Auto) 27, Monocytes (%) (Auto) 9, Eosinophils (%) (Auto) 4, Basophils (%) (Auto) 1, Neutrophils # (Auto) 4.2, Lymphocytes # (Auto) 1.9, Monocytes # (Auto) 0.6, Eosinophils # (Auto) 0.3, Basophils # (Auto) 0.0, Immature Granulocyte # (Auto) 0.1, Sodium Level 133, Potassium Level 4.2, Chloride Level 102, Carbon Dioxide Level 20, Anion Gap 11, Blood Urea Nitrogen 45, Creatinine 2.66, Estimat Glomerular Filtration Rate 22, BUN/Creatinine Ratio 17, Glucose Level 92, Calcium Level 9.5, Corrected Calcium 10.1, Total Bilirubin 1.4, Aspartate Amino Transf (AST/SGOT) 37, Alanine Aminotransferase (ALT/SGPT) 34, Alkaline Phosphatase 121, Total Protein 6.0, Albumin 3.3 04/23/22 20:53: White Blood Count 13.4, Red Blood Count 3.53, Hemoglobin 11.1, Hematocrit 34, Mean Corpuscular Volume 95, Mean Corpuscular Hemoglobin 31, Mean Corpuscular Hemoglobin Concent 33, Red Cell Distribution Width 13.9, Platelet Count 274, Mean Platelet Volume 9.9, Immature Granulocyte % (Auto) 0, Neutrophils (%) (Auto) 85, Lymphocytes (%) (Auto) 6, Monocytes (%) (Auto) 8, Eosinophils (%) (Auto) 0, Basophils (%) (Auto) 0, Neutrophils # (Auto) 11.4, Lymphocytes # (Auto) 0.8, Monocytes # (Auto) 1.0, Eosinophils # (Auto) 0.0, Basophils # (Auto) 0.0, Immature Granulocyte # (Auto) 0.1, Sodium Level 135, Potassium Level 4.2, Chloride Level 101, Carbon Dioxide Level 18, Anion Gap 16, Blood Urea Nitrogen 42, Creatinine 2.53, Estimat Glomerular Filtration Rate 24, BUN/Creatinine Ratio 17, Glucose Level 104, Calcium Level 9.2, Corrected Calcium 9.4, Total Bilirubin 1.8, Aspartate Amino Transf (AST/SGOT) 47, Alanine Aminotransferase (ALT/SGPT) 38, Alkaline Phosphatase 133, Total Protein 6.7, Albumin 3.8, Neutrophils % (Manual) 87, Lymphocytes % (Manual) 7, Monocytes % (Manual) 6, Polychromasia MODERATE, Harjeet Cells MARKED, Elliptocytes MARKED, Acanthocytes MARKED, Lactic Acid Level 1.34, Procalcitonin 0.41 04/23/22 21:14: Urine Color YELLOW, Urine Clarity CLEAR, Urine pH 6.5, Urine Specific [place] 1.010, Urine Protein TRACE, Urine Glucose (UA) NEGATIVE, Urine Ketones NEGATIVE, Urine Nitrite NEGATIVE, Urine Bilirubin NEGATIVE, Urine Urobilinogen 4.0, Urine Leukocyte Esterase NEGATIVE, Urine RBC (Auto) 1+, Urine RBC NONE, Urine WBC 2-5, Urine Squamous Epithelial Cells 0-2, Urine Renal Epithelial Cells NONE, Urine Crystals NONE, Urine Bacteria FEW, Urine Casts NONE, Urine Mucus NEGATIVE, Urine Culture Indicated NO 04/23/22 21:20: Influenza Type A (RT-PCR) Not Detected, Influenza Type B (RT-PCR) Not Detected, SARS-CoV-2 RNA (RT-PCR) Not Detected 04/24/22 05:28: White Blood Count 13.3, Red Blood Count 3.17, Hemoglobin 9.7, Hematocrit 30, Mean Corpuscular Volume 95, Mean Corpuscular Hemoglobin 31, Mean Corpuscular Hemoglobin Concent 32, Red Cell Distribution Width 13.8, Platelet Count 239, Mean Platelet Volume 9.7, Immature Granulocyte % (Auto) 1, Neutrophils (%) (Auto) 84, Lymphocytes (%) (Auto) 8, Monocytes (%) (Auto) 7, Eosinophils (%) (Auto) 0, Basophils (%) (Auto) 0, Neutrophils # (Auto) 11.2, Lymphocytes # (Au to) 1.1, Monocytes # (Auto) 1.0, Eosinophils # (Auto) 0.0, Basophils # (Auto) 0.0, Immature Granulocyte # (Auto) 0.1, Sodium Level 134, Potassium Level 4.4, Chloride Level 105, Carbon Dioxide Level 19, Anion Gap 10, Blood Urea Nitrogen 40, Creatinine 2.49, Estimat Glomerular Filtration Rate 24, BUN/Creatinine Ratio 16, Glucose Level 94, Calcium Level 8.5, Corrected Calcium 9.3, Total Bilirubin 1.3, Aspartate Amino Transf (AST/SGOT) 33, Alanine Aminotransferase (ALT/SGPT) 31, Alkaline Phosphatase 100, Total Protein 5.5, Albumin 3.0 04/25/22 05:45: White Blood Count 8.9, Red Blood Count 3.14, Hemoglobin 9.8, Hematocrit 30, Mean Corpuscular Volume 95, Mean Corpuscular Hemoglobin 31, Mean Corpuscular Hemoglobin Concent 33, Red Cell Distribution Width 14.1, Platelet Count 239, Mean Platelet Volume 9.3, Immature Granulocyte % (Auto) 1, Neutrophils (%) (Auto) 73, Lymphocytes (%) (Auto) 16, Monocytes (%) (Auto) 7, Eosinophils (%) (Auto) 2, Basophils (%) (Auto) 0, Neutrophils # (Auto) 6.5, Lymphocytes # (Auto) 1.4, Monocytes # (Auto) 0.6, Eosinophils # (Auto) 0.2, Basophils # (Auto) 0.0, Immature Granulocyte # (Auto) 0.1, Sodium Level 139, Potassium Level 4.0, Chloride Level 106, Carbon Dioxide Level 19, Anion Gap 14, Blood Urea Nitrogen 39, Creatinine 2.52, Estimat Glomerular Filtration Rate 24, BUN/Creatinine Ratio 15, Glucose Level 92, Calcium Level 8.8, Corrected Calcium 9.5, Total Bilirubin 1.4, Aspartate Amino Transf (AST/SGOT) 32, Alanine Aminotransferase (ALT/SGPT) 25, Alkaline Phosphatase 102, Total Protein 5.8, Albumin 3.1 Discharge Home Medications: Active Scripts Active Tramadol HCl 50 Mg Tablet 50 Mg PO Q12H PRN Metoprolol Succinate 25 Mg Tab.er.24h 25 Mg PO DAILY Levofloxacin 750 Mg Tablet 750 Mg PO Q48H Next dose 04/29/22 Furosemide 20 Mg Tablet 20 Mg PO DAILY 14 Days Reported Xarelto (Rivaroxaban) 15 Mg Tablet 15 Mg PO HS Flomax (Tamsulosin HCl) 0.4 Mg Cap 0.4 Mg PO HS Calcitriol 0.25 Mcg Capsule 0.25 Mcg PO HS Xalatan (Latanoprost) 0.005 % Drops 1 Drop OU HS Amlodipine Besylate 5 Mg Tablet 5 Mg PO DAILY Rosuvastatin Calcium 10 Mg Tablet 10 Mg PO HS Instructions to patient/family Please see electronic discharge instructions given to patient. Diagnosis/Problems Diagnosis/Problems (1) Fall from standing Status: Acute (2) Fracture of right pelvis Status: Acute (3) Contusion of right chest wall Status: Acute (4) Chronic kidney disease Status: Acute (5) Congestive heart failure Status: Acute (6) Atrial fibrillation Status: Acute (7) Acute on chronic diastolic (congestive) heart failure Status: Resolved Resolution Date/Time: 10/31/20 @ 08:38 (8) CKD (chronic kidney disease), stage IV (9) Primary hypertension Status: Chronic (10) Mixed hyperlipidemia Status: Chronic (11) Mitral regurgitation ROSALINDA SONI DO Apr 28, 2022 07:15
[2022-04-28] MEDS: RT-ALBUTEROL SULF 2.5 MG/3 ML PRE-MIX VIAL INH SCH (07:23)
[2022-04-28 07:30] VITALS: BP 129/61
[2022-04-28] MEDS: amLODIPine 5 MG (NORVASC) TAB PO SCH (08:31)
[2022-04-28] MEDS: DOCUSATE SODIUM 100 MG (COLACE) CAP PO SCH (08:31)
[2022-04-28] MEDS: SENNA W/DOCUSATE (SENOKOT S) TABLET PO SCH (09:13)
[2022-04-28 12:00] VITALS: BP 129/61
--- NOTE | 2022-04-30 14:38 | Therapy Team Discharge Summary ---
Therapy Discharge Summary Discharge Recommendations Date of Discharge Apr 28, 2022 at 12:15 Physical Therapy Roll Left to Right (QC): 3 Sit to Lying (QC): 3 Lying to Sitting/Side of Bed(Q: 3 Sit to Stand (QC): 4 Chair/Mrk-rl-Aswus Xfer(QC): 3 Toilet Transfer (QC): 4 Car Transfer (QC): 3 Does the Patient Walk: Yes Mode of Locomotion: Walk Anticipated Mode of Locomotion: Walk Walk 10 feet (QC): 4 Walk 50 ft with 2 Turns(QC): 4 Walk 150 ft (QC): 4 Walking 10ft on uneven surface: 4 Distance: 10'x2 Gait Assistive Device: FWW Does the Pt Use a Wheelchair: No Wheelchair Distance: 50' Wheel 50 ft with 2 turns (QC): 3 Wheel 150 ft (QC): 88 Type of Wheelchair: N/A #of Steps: 4 1 Step (curb) (QC): 4 4 Steps (QC): 4 12 Steps (QC): 88 Balance Sitting Static: Fair Balance Sitting Dynamic: Fair Balance-Standing Static: Fair Picking up an Object (QC): 4 (CGA with a edge brusher) Occupational Therapy Pt presented to ARU with pelvic fx. At PLOF, pt was IND with all ADLs with no DME, AE, or AD. At evaluation, he scored IND with eating, IND with oral care when seated at the sink, min A with showering, set up with UBD, min A with LBD, mid-mod A with footwear, and min A with toileting. OT tx focused on increasing IND in ADLs, functional mobility, activity tolerance, and BUE strength and endurance. Pt made function progress towards goals, meeting 4/7 goals. OT does not have any recommendations for DME or AE at this time. Pt is being discharged home to spouse. OT recommends pt continued skilled OT services with a home health agency. D/c from OT at this time. Decreased Activ Tolerance, Impaired I ADL's, Impaired Self-Care Skills Eating (QC): 6 Oral Hygiene (QC): 6 (standing at sink) Shower/Bathe Self (QC): 4 (SBA for standing balance when cleaning buttocks/periarea) Upper Body Dressing (QC): 6 Lower Body Dressing (QC): 4 (for standing balance when hiking pants) On/Off Footwear (QC): 6 (tennis shoes) Toileting Hygiene (QC): 5 (with urinal) PT [employer] Goals Prison Goals PT Web Weaver Goals Time Frame: May 09, 2022 Roll Left to Right (QC): 6 Sit to Lying (QC): 4 (SBA) Lying-Sitting on Side/Bed(QC): 4 (SBA) Sit to Stand (QC): 6 Chair/Lgq-ca-Glmmm Xfer(QC): 6 Car Transfer (QC): 4 (SBA) Does the Patient Walk: Yes Walk 10 feet (QC): 6 Walk 10ft-Uneven Surface(QC): 6 Walk 50ft with 2 Turns (QC): 6 Walk 150 ft (QC): 6 Wheel 50 feet with 2 turns (QC: 9 1 Step (curb) (QC): 4 (CGA) 4 Steps (QC): 4 (CGA) 12 Steps (QC): 88 Picking up an Object (QC): 4 (SBA with edge brusher) OT Web Weaver Goals Web Weaver Goals Time Frame: May 18, 2022 Eating (QC): 6 (met) Oral Hygiene (QC): 6 (met) Shower/Bathe Self (QC): 6 (not met) Upper Body Dressing (QC): 6 (met) Lower Body Dressing (QC): 6 (not met) On/Off Footwear (QC): 6 (met) Toileting Hygiene (QC): 6 (not met) Toilet/Commode Transfer (QC): 6 Additional Goals: 1-Demonstrate ADL Tasks, 2-Verbalize Understanding, 3- ImproveStrength/Carlos A 1=Demonstrate adherence to instructed precautions during ADL tasks. 2=Patient will verbalize/demonstrate understanding of assistive devices/modifications for ADL. 3=Patient will improve strength/tolerance for activity to enable patient to perform ADL's. REINALDO SANCHEZ OT Apr 30, 2022 14:38
== END 2022-04-28 12:15 | disposition home health service (06) | DRG 559 ==
PROVIDERS: ADMIT Internal Medicine; ATTEND Internal Medicine
DX: S32.591D Other specified fracture of right pubis, subsequent encounter for fracture with routine healing (principal); J18.9 Pneumonia, unspecified organism; I13.0 Hypertensive heart and chronic kidney disease with heart failure and stage 1 through stage 4 chronic kidney disease, or unspecified chronic kidney disease; N18.4 Chronic kidney disease, stage 4 (severe); I50.32 Chronic diastolic (congestive) heart failure; S20.211D Contusion of right front wall of thorax, subsequent encounter; I48.0 Paroxysmal atrial fibrillation; E78.2 Mixed hyperlipidemia; Z20.822 Contact with and (suspected) exposure to COVID-19; I08.0 Rheumatic disorders of both mitral and aortic valves; I27.20 Pulmonary hypertension, unspecified; D63.1 Anemia in chronic kidney disease; I87.2 Venous insufficiency (chronic) (peripheral); Z79.01 Long term (current) use of anticoagulants; Z88.0 Allergy status to penicillin; W18.39XD Other fall on same level, subsequent encounter
CPT/HCPCS: 36415; 71045; 80053; 81000; 83605; 84145; 85007; 85025; 85027; 87040; 87636; 94640; 94760

== ENCOUNTER → 2022-05-22 | Outpatient (CLI) | payer MEDICARE, OTHER ==
[~2022-05-22] MED LIST changes: -ALPRAZolam 0.25 MG (XANAX) TAB PO PRN; -CALCIUM CARBONATE 500 MG (TUMS) TAB.CHEW PO PRN; -DOCUSATE SODIUM 100 MG (COLACE) CAP PO PRN; -FLEET ENEMA ADULT 1 EA BTL PR PRN; -LACTULOSE SYRUP 10GM/15ML (ENULOSE) 30ML UDC PO PRN; +LEVO750T39 PO; -LOPERAMIDE 2 MG (IMODIUM) TABLET PO PRN; -MELATONIN 3 MG TABLET PO PRN; +MTP25TSR PO; -ONDANSETRON 4 MG (ZOFRAN) ORAL DISSOLVE TAB PO PRN; +TRM50T PO; -diphenhydrAMINE 25 MG TAB (BENADRYL) PO PRN; -guaiFENesin/CODEINE (ROBITUSSIN AC) 10ML UDC PO PRN
--- NOTE | 2022-05-22 17:46 | Diagnostic Imaging Report ---
EXAMINATION: Pelvis radiograph EXAM DATE: 05/22/2022 3:07 PM COMPARISON: 04/16/2022 HISTORY: Postoperative evaluation TECHNIQUE: 1 views FINDINGS: Stable cortical irregularity along the right superior and inferior pubic rami. No other acute fracture is seen. There is symmetric bilateral joint space narrowing and small osteophytes. Stable surgical clips overlying the right hip. Vascular calcifications are seen. IMPRESSION: 1. Degenerative changes of the hips. 2. Redemonstrated fractures along the right superior and inferior pubic rami. Dictated by: Dictated on workstation # [id number]
== END ==
LOC: ORTHO 15:00
PROVIDERS: ATTEND Orthopaedic Surgery
DX: S32.82XA Multiple fractures of pelvis without disruption of pelvic ring, initial encounter for closed fracture (principal); M16.0 Bilateral primary osteoarthritis of hip
CPT/HCPCS: 72170; G0463; 99213

== ENCOUNTER 2022-06-10 18:55 | Emergency (ER) | payer MEDICARE, OTHER ==
[~2022-06-10] VITALS: Ht 175.2 cm; Wt 70.3 kg
[~2022-06-10 18:55] MED LIST changes: +LEVO750T PO; -LEVO750T39 PO
[2022-06-10] MEDS ORDERED: fentaNYL INJ 100 MCG/2 ML AMP IVP STA (19:07)
--- NOTE | 2022-06-10 19:12 | ED Fall/Injury ---
General Stated Complaint: FALL/RIGHT SHOULDER INJURY Source: patient History of Present Illness Date Seen by Provider: Jun 10, 2022 Time Seen by Provider: 19:07 Initial Comments PT ARRIVES VIA POV FROM HOME, NEEDS WHEELCHAIR ON ARRIVAL STATES HIS NEIGHBOR BROUGHT HIM HERE--PT LIVES AT HOME WITH HIS . DAUGHTER ARRIVES LATER. 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--AND LOST HIS BALANCE AND FELL, LANDING DIRECTLY ON HIS RIGHT SHOULDER C/O PAIN TO RIGHT SHOULDER DENIES ANY PAIN ANYWHERE ELSE ADAMANTLY DENIES HITTING HIS HEAD AND NO LOSS OF CONSCIOUSNESS DENIES NECK OR BACK PAIN DENIES CHEST PAIN OR ABDOMINAL PAIN NO SHORTNESS OF BREATH DENIES HIP OR LEG PAIN NO PARESTHESIAS OR DISTAL MOTOR DEFICITS PT IS RIGHT HANDED NO PRIOR INJURIES OR PROBLEMS WITH THIS SHOULDER OR ARM PT HAS ABRASION TO RIGHT ELBOW, BUT DENIES ELBOW PAIN ALSO HAS TINY ABRASION TO LEFT MIDDLE FINGER, BUT DENIES ANY FINGER OR HAND PAIN LAST TETANUS IS UNKNOWN PT IS ON XARELTO PT WAS ADMITTED IN APRIL AFTER A FALL, AND HE SUSTAINED A FRACTURED PELVIS. IS SEEING DR. ARCHER, ORTHOPEDIC SURGEON FOR THIS. HAS ANOTHER FOLLOW UP APPOINTMENT IN A FEW WEEKS PT NO LONGER USES ANY ASSISTIVE DEVICES SUCH A WALKER OR CANE, AND HAS BEEN HAVING HOME HEALTH/HOME PT WEEKLY PT WAS STILL WORKING AND DRIVING UP TO THAT INJURY, BUT HAS NOT ATTEMPTED TO DRIVE OR RETURN TO WORK SINCE THEN. PCP: DR. WILLIAM REICH Allergies and Home Medications Allergies Coded Allergies: Penicillins (Verified Allergy, Mild, RASH, 09/07/14) Patient Home Medication List Amlodipine Besylate (Amlodipine Besylate) 5 Mg Tablet, 5 MG PO DAILY, (Reported) Entered as Reported by: RAMA PATEL on 04/17/22 135 Calcitriol (Calcitriol) 0.25 Mcg Capsule, 0.25 MCG PO HS, (Reported) Entered as Reported by: RAMA PATEL on 04/17/22 135 Furosemide (Furosemide) 20 Mg Tablet, 20 MG PO DAILY Prescribed by: ROSALINDA SONI on 04/27/222108 Latanoprost (Xalatan) 0.005 % Drops, 1 DROP OU HS, (Reported) Entered as Reported by: RMAA PATEL on 04/17/22 135 Levofloxacin (Levofloxacin) 750 Mg Tablet, 750 MG PO Q48H Prescribed by: ROSALINDA SONI on 04/27/222108 Metoprolol Succinate (Metoprolol Succinate) 25 Mg Tab.er.24h, 25 MG PO DAILY Prescribed by: ROSALINDA SONI on 04/27/222108 Rivaroxaban (Xarelto) 15 Mg Tablet, 15 MG PO HS, (Reported) Entered as Reported by: RAMA PATEL on 04/17/22 1410 Rosuvastatin Calcium (Rosuvastatin Calcium) 10 Mg Tablet, 10 MG PO HS, (Reporte d) Entered as Reported by: JUDY HARRY on 08/17/20 1437 Tamsulosin HCl (Flomax) 0.4 Mg Cap, 0.4 MG PO HS, (Reported) Entered as Reported by: RAMA PATEL on 04/17/22 1352 Tramadol HCl (Tramadol HCl) 50 Mg Tablet, 50 MG PO Q12H PRN for PAIN-MODERATE (5-7) Prescribed by: ROSALINDA SONI on 04/27/222108 Review of Systems Review of Systems Constitutional: no symptoms reported Respiratory: no symptoms reported Cardiovascular: no symptoms reported Gastrointestinal: no symptoms reported Genitourinary: no symptoms reported Musculoskeletal: see HPI Skin: see HPI Psychiatric/Neurological: No Symptoms Reported Past [id number]-[id number] Hx Immunizations Up To Date First/Initial COVID19 Vaccinat: JANUARY 2021 Second COVID19 Vaccination Marco Antonio: FEBRUARY 2021 Third COVID19 Vaccination Date: JANUARY 2021 Seasonal Allergies Seasonal Allergies: No Past Medical History Surgeries: Yes (mitral value repaired 10/2013, angelique perkins, ) Cardiac, Orthopedic Respiratory: No Cardiac: Yes (mitral valve tear repaired robotic, 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 oz. 81.644947kn; 22.43 BMI Method: General Appearance: WD/WN, no apparent distress, thin Neck: non-tender, full range of motion, supple, normal inspection Cardiovascular: normal peripheral pulses, no edema, no JVD, no murmur, irregularly irregular Respiratory: chest non-tender, normal breath sounds, no respiratory distress, no accessory muscle use Peripheral Pulses: 2+ Dorsalis Pedis (R), 2+ Left Dors-Pedis (L), 2+ Radial Pu lses (R), 2+ Radial Pulses (L) Gastrointestinal: non tender, soft Back: normal inspection, no CVA tenderness, no vertebral tenderness Extremities: no pedal edema, no calf tenderness, normal capillary refill, other (DEFORMITY AND TENDERNESS AND LIMITED ROM TO RIGHT SHOULDER AND DISTAL CLAVICLE AREA. DISTAL MOTOR/SENSORY/VASCULAR INTACT . 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 member II-XII nml as tested, no motor/sensory deficits, alert, normal mood/affect, oriented x 3 Skin: normal color, warm/dry, other (MINOR ABRASION/SKIN TEAR TO RIGHT ELBOW, TINY ABRASION TO LEFT MIDDLE FINGER) [place] Coma Score Best Eye Response: (4) Open Spontaneously Best Verbal Response: (5) Oriented Best Motor Response: (6) Obeys Commands [place] Total: 15 Procedures/Interventions Splinting and Joint Reduction : Immobilizers: Large Shoulder Progress/Results/Core Measures Results/Orders Lab Results Laboratory Tests Test 06/10/22 19:26 Range/Units White Blood Count 7.8 4.3-11.0 10^3/uL Red Blood Count 3.95 L 4.30-5.52 10^6/uL Hemoglobin 12.2 L 13.3-17.7 g/dL Hematocrit 37 L 40-54 % Mean Corpuscular Volume 95 80-99 fL Mean Corpuscular Hemoglobin 31 25-34 pg Mean Corpuscular Hemoglobin Concent 33 32-36 g/dL Red Cell Distribution Width 14.6 H 10.0-14.5 % Platelet Count 185 130-400 10^3/uL Mean Platelet Volume 10.1 9.0-12.2 fL Immature Granulocyte % (Auto) 0 % Neutrophils (%) (Auto) 59 42-75 % Lymphocytes (%) (Auto) 30 12-44 % Monocytes (%) (Auto) 7 0-12 % Eosinophils (%) (Auto) 3 0-10 % Basophils (%) (Auto) 1 0-10 % Neutrophils # (Auto) 4.6 1.8-7.8 10^3/uL Lymphocytes # (Auto) 2.3 1.0-4.0 10^3/uL Monocytes # (Auto) 0.5 0.0-1.0 10^3/uL Eosinophils # (Auto) 0.3 0.0-0.3 10^3/uL Basophils # (Auto) 0.1 0.0-0.1 10^3/uL Immature Granulocyte # (Auto) 0.0 0.0-0.1 10^3/uL Prothrombin Time 20.6 H 12.2-14.7 SEC INR Comment 1.7 H 0.8-1.4 Activated Partial Thromboplast Time 48 H 24-35 SEC Sodium Level 142 135-145 MMOL/L Potassium Level 4.3 3.6-5.0 MMOL/L Chloride Level 109 H 98-107 MMOL/L Carbon Dioxide Level 20 L 21-32 MMOL/L Anion Gap 13 5-14 MMOL/L Blood Urea Nitrogen 28 H 7-18 MG/DL Estimat Glomerular Filtration Rate 23 BUN/Creatinine Ratio 11 Glucose Level 96 70-105 MG/DL Calcium Level 9.7 8.5-10.1 MG/DL My Orders Orders - OFE ESTRADA DO Ed Iv/Invasive Line Start (06/10/22 19:07) Wound Dressing-Ed (06/10/22 19:07) Monitor-Rhythm Ecg Trace Only (06/10/22 19:07) Shoulder, Right, 3 Views (06/10/22 19:07) Humerus, Right, 2 Views (06/10/22 19:07) Basic Metabolic Panel (06/10/22 19:07) Cbc With Automated Diff (06/10/22 19:07) Protime With Inr (06/10/22 19:07) Partial Thromboplastin Time (06/10/22 19:07) Dipht,Pertuss(Acell),Tet Adult (Boostrix (06/10/22 19:15) Fentanyl Inj (Sublimaze Injection) (06/10/22 19:07) Ct Head/Cervical Spine Wo (06/10/22 19:17) Shoulder Immoblizer (06/10/22 20:16) Wound Dressing-Ed (06/10/22 20:16) Medications Given in ED Current Medications Medications Dose Ordered Sig/Moose Route Start Time Stop Time Status Last Admin Dose Admin Diphtheria/ Tetanus/Acell Pertussis 0.5 ml ONCE ONCE IM 06/10/22 19:15 06/10/22 19:16 DC 06/10/22 19:27 0.5 ML Vital Signs/I&O 06/10/22 19:35 Temp 36.8 Pulse 75 Resp 20 B/P (MAP) 153/93 (113) Pulse Ox 96 O2 Delivery Room Air Progress Progress Note : Progress Note NO DETERIORATION IN PT'S CONDITION DURING ER STAY PT VERY TALKATIVE AND ANIMATED THROUGHOUT ER STAY PT STATES HE NEVER TOOK ANY PAIN MEDICATION AFTER HE WAS DISMISSED FROM THE HOSPITAL AFTER HIS PELVIS FRACTURE, AND DOES NOT KNOW IF HE HAS A PRESCRIPTION OR NOT AT HOME Diagnostic Imaging Comments XRAYS--PER RADIOLOGIST REPORT AT 2008 LEFT SHOULDER-- FINDINGS: There is a comminuted displaced fracture involving the lateral aspect of the right clavicle. The lateral aspect of the right clavicle is displaced inferiorly with foreshortening. There are degenerative spurs involving the right acromioclavicular region. The glenohumeral joint is grossly intact, as visualized. There is no other fracture. IMPRESSION: There is a displaced comminuted fracture involving the lateral aspect of the right clavicle. Unable to exclude injury to the right AC joint as well. LEFT HUMERUS-- FINDINGS AND IMPRESSION: 1: Again seen comminuted displaced fracture of the lateral aspect of the right clavicle. There is spurring and amorphous calcifications involving the right AC joint region. 2: There is no other fracture seen involving the right humerus. CT HEAD--PER RADIOLOGIST REPORT AT 2029 Findings: Head CT: There is no evidence of acute intracranial process. There is no intracranial hemorrhage. Stable area of encephalomalacia involving the left parietal lobe. Stable diffuse confluent areas of low-density involving the white matter of both cerebral hemispheres. There is brain parenchymal volume loss again seen. There is no hydrocephalus, brain herniation or midline shift. The extracranial soft tissues, skull and orbits are unremarkable. There is no skull fracture. Paranasal sinuses and mastoid air cells are clear. Cervical spine CT: There is no evidence of acute cervical spine fracture or dislocation. There are cervical spine vertebral body spurs. The visualized upper lung chow and neck soft tissue structures show no significant abnormality. Impression: 1: Stable CT scan of the brain with no evidence of acute intracranial process. There is no skull fracture. 2: There is no acute cervical spine fracture or dislocation. Reviewed: Reviewed by Me Departure Impression Primary Impression: Fall from standing Additional Impressions: CLOSED RIGHT CLAVICLE FRACTURE SUSPECTED RIGHT AC JOINT INJURY Disposition: HOME, SELF-CARE Condition: Stable Departure-Patient Inst. Decision time for Depature: 20:30 Referrals: GEORGIE ARCHER MD, CHAD C MD (PCP/Family) Primary Care Physician Patient Instructions: Clavicle Fracture, Preventing Falls ED, Preventing Falls in Older Adults Add. Discharge Instructions: ICE TO AREA AT 20 MINUTE INTERVALS WEAR SHOULDER IMMOBILIZER AT ALL TIMES FOLLOW UP WITH DR. GREGORIO, ORTHOPEDIC SURGEON, IN 2-3 DAYS FOR FURTHER CARE--CALL ON SATURDAY TO SCHEDULE APPOINTMENT RETURN TO ER IF YOU HAVE ANY PROBLEMS Scripts Tramadol HCl (Ultram) 50 Mg Tablet 50 MG PO Q4H for Pain, #20 TAB Prov: OFE ESTRADA DO 06/10/22 OFE ESTRADA DO Jun 10, 2022 19:12
[2022-06-10] MEDS ORDERED: TETANUS,DIPTH,PERTUSS P/F (BOOSTRIX) 0.5 ML VIAL IM ONE (19:15)
[2022-06-10 19:32] LABS: BASOPHILS # (AUTO) 0.1 10^3/uL (0.0-0.1); BASOPHILS % (AUTO) 1 % (0-10); EOSINOPHILS # (AUTO) 0.3 10^3/uL (0.0-0.3); EOSINOPHILS % (AUTO) 3 % (0-10); HEMATOCRIT 37 % (40-54); HEMOGLOBIN 12.2 g/dL (13.3-17.7); LYMPHOCYTES # (AUTO) 2.3 10^3/uL (1.0-4.0); LYMPHOCYTES % (AUTO) 30 % (12-44); MEAN CORPUSCULAR HEMOGLOBIN 31 pg (25-34); MEAN CORPUSCULAR HGB CONC 33 g/dL (32-36); MEAN CORPUSCULAR VOLUME 95 fL (80-99); MEAN PLATELET VOLUME 10.1 fL (9.0-12.2); MONOCYTES # (AUTO) 0.5 10^3/uL (0.0-1.0); MONOCYTES % (AUTO) 7 % (0-12); NEUTROPHILS # (AUTO) 4.6 10^3/uL (1.8-7.8); NEUTROPHILS % (AUTO) 59 % (42-75); PLATELET COUNT 185 10^3/uL (130-400); WHITE BLOOD COUNT 7.8 10^3/uL (4.3-11.0)
--- NOTE | 2022-06-10 20:02 | Diagnostic Imaging Report ---
CLINICAL INDICATION: Patient status post fall with shoulder injury. EXAM: X-ray of the right shoulder, multiple views. COMPARISON: None. FINDINGS: There is a comminuted displaced fracture involving the lateral aspect of the right clavicle. The lateral aspect of the right clavicle is displaced inferiorly with foreshortening. There are degenerative spurs involving the right acromioclavicular region. The glenohumeral joint is grossly intact, as visualized. There is no other fracture. IMPRESSION: There is a displaced comminuted fracture involving the lateral aspect of the right clavicle. Unable to exclude injury to the right AC joint as well. Dictated by: Dictated on workstation # [id number]
[2022-06-10 20:03] LABS: CALCIUM 9.7 MG/DL (8.5-10.1); CREATININE SERUM 2.58 MG/DL (0.60-1.30); POTASSIUM 4.3 MMOL/L (3.6-5.0)
--- NOTE | 2022-06-10 20:03 | Diagnostic Imaging Report ---
CLINICAL INDICATION: Patient status post fall with shoulder injury. EXAM: X-ray of the right humerus, 2 views. COMPARISON: X-ray of the right shoulder dated 06/10/2022. FINDINGS AND IMPRESSION: 1: Again seen comminuted displaced fracture of the lateral aspect of the right clavicle. There is spurring and amorphous calcifications involving the right AC joint region. 2: There is no other fracture seen involving the right humerus. Dictated by: Dictated on workstation # [id number]
[2022-06-10 20:07] LABS: INR 1.7 (0.8-1.4); PROTHROMBIN TIME PATIENT 20.6 SEC (12.2-14.7)
--- NOTE | 2022-06-10 20:28 | Diagnostic Imaging Report ---
Clinical indication: Patient status post fall earlier today. Exam: Head CT without IV contrast with sagittal and coronal reformations. Axial CT scan of the cervical spine with sagittal and coronal reformations. Auto Exposure Controls were utilized during the CT exam to meet ALARA standards for radiation dose reduction. Comparison: Head CT without contrast dated 08/16/2021. Findings: Head CT: There is no evidence of acute intracranial process. There is no intracranial hemorrhage. Stable area of encephalomalacia involving the left parietal lobe. Stable diffuse confluent areas of low-density involving the white matter of both cerebral hemispheres. There is brain parenchymal volume loss again seen. There is no hydrocephalus, brain herniation or midline shift. The extracranial soft tissues, skull and orbits are unremarkable. There is no skull fracture. Paranasal sinuses and mastoid air cells are clear. Cervical spine CT: There is no evidence of acute cervical spine fracture or dislocation. There are cervical spine vertebral body spurs. The visualized upper lung chow and neck soft tissue structures show no significant abnormality. Impression: 1: Stable CT scan of the brain with no evidence of acute intracranial process. There is no skull fracture. 2: There is no acute cervical spine fracture or dislocation. Dictated by: Dictated on workstation # [id number]
[2022-06-10] MEDS ORDERED: TRAM-42 PO (20:31)
[2022-06-10 20:37] VITALS: BP 161/106
== END 2022-06-10 20:44 | disposition home or self-care (01) ==
LOC: EDUNIT# 18:55 → ER 18:58
DX: S42.031A Displaced fracture of lateral end of right clavicle, initial encounter for closed fracture (principal); S60.413A Abrasion of left middle finger, initial encounter; Z23 Encounter for immunization; W01.0XXA Fall on same level from slipping, tripping and stumbling without subsequent striking against object, initial encounter; Y99.0 Civilian activity done for income or pay; Y92.096 Garden or yard of other non-institutional residence as the place of occurrence of the external cause
CPT/HCPCS: 36415; 70450; 72125; 73030; 73060; 80048; 85025; 85610; 85730; 90715; 93041

== ENCOUNTER → 2022-06-14 | Outpatient (CLI) | payer MEDICARE, OTHER ==
[~2022-06-14] MED LIST changes: +TRAM-42 PO
== END ==
LOC: ORTHO 09:00
PROVIDERS: ATTEND Orthopaedic Surgery
DX: S42.001A Fracture of unspecified part of right clavicle, initial encounter for closed fracture (principal); X58.XXXA Exposure to other specified factors, initial encounter
CPT/HCPCS: 99213

== ENCOUNTER → 2022-06-28 | Outpatient (CLI) | payer MEDICARE, OTHER ==
--- NOTE | 2022-06-28 13:12 | Diagnostic Imaging Report ---
EXAMINATION: Right clavicle radiographs, 2 views. COMPARISON: Chest radiograph April 24, 2022. HISTORY: 87-year-old male, fall. Right clavicle pain. FINDINGS: There is an acute displaced fracture of the middle and lateral third of the right clavicle. The primary lateral fracture fragment is inferiorly displaced by 10 mm. The acromioclavicular joint is unremarkable in alignment. There is chondrocalcinosis. IMPRESSION: 1. Displaced fracture involving the middle and lateral third of the right clavicle. 2. Normally aligned acromioclavicular joint. Dictated by: Dictated on workstation # [id number]
--- NOTE | 2022-06-28 15:28 | Diagnostic Imaging Report ---
INDICATION: Follow-up of fall. COMPARISON: 05/22/2022. FINDINGS: The fractures of the superior and inferior pubic ramus on the right are again noted. Alignment remains good. Pubic symphysis appears intact. SI joints are symmetrical. Femoral heads are in normal articulation bilaterally. IMPRESSION: Nondisplaced right pubic rami fractures again demonstrated. Dictated by: Dictated on workstation # [id number]
== END ==
LOC: ORTHO 11:09
PROVIDERS: ATTEND Orthopaedic Surgery
DX: Z47.89 Encounter for other orthopedic aftercare (principal); S32.511D Fracture of superior rim of right pubis, subsequent encounter for fracture with routine healing; X58.XXXD Exposure to other specified factors, subsequent encounter
CPT/HCPCS: 72170; 73000; G0463; 99213

== ENCOUNTER → 2022-07-12 | Outpatient (CLI) | payer MEDICARE, OTHER | LOC: ORTHO 09:42 | PROVIDERS: ATTEND Orthopaedic Surgery | DX: S42.001D Fracture of unspecified part of right clavicle, subsequent encounter for fracture with routine healing (principal); I10 Essential (primary) hypertension; X58.XXXD Exposure to other specified factors, subsequent encounter | CPT/HCPCS: 99213 ==

== ENCOUNTER → 2022-08-02 | Outpatient (CLI) | payer MEDICARE, OTHER ==
--- NOTE | 2022-08-02 14:27 | Diagnostic Imaging Report ---
INDICATION: Right clavicular pain. FINDINGS: The clavicular shaft fracture is again demonstrated. This has not changed in position. No solid bony callus has developed yet. The AC joint remains in good alignment. IMPRESSION: Displaced fracture of the mid clavicle showing no significant overall change. Dictated by: Dictated on workstation # [id number]
== END ==
LOC: ORTHO 10:17
PROVIDERS: ATTEND Orthopaedic Surgery
DX: S42.021A Displaced fracture of shaft of right clavicle, initial encounter for closed fracture (principal); X58.XXXA Exposure to other specified factors, initial encounter
CPT/HCPCS: 73000; G0463; 99213

== ENCOUNTER → 2022-09-12 | Outpatient (CLI) | payer MEDICARE, OTHER ==
--- NOTE | 2022-09-12 16:17 | Diagnostic Imaging Report ---
INDICATION: Bilateral hip pain. COMPARISON: 06/28/2022. FINDINGS: Multiple radiographic views of bilateral hips were obtained. Frontal radiographic view of the pelvis is also provided. There is no new acute fracture or dislocation of either hip. Femoral acetabular joint spaces are maintained, bilaterally. Included portions of the proximal femurs are intact. Nonacute nondisplaced fractures of the right inferior and superior pubic rami are again noted. SI joints are symmetric. Pubic symphysis is within normal limits. No unexpected radiopaque foreign bodies are seen. IMPRESSION: 1. No new acute fracture of the hips. 2. Redemonstration of nonacute nondisplaced right pubic rami fractures. Dictated by: Dictated on workstation # [id number]
--- NOTE | 2022-09-12 16:33 | Diagnostic Imaging Report ---
INDICATION: Follow-up right clavicular fracture. COMPARISON: 08/02/2022. Distal oblique clavicular shaft flexure is again demonstrated. Overall position is not changed significantly. There has been some bony callus formation though there is no evidence of solid bony bridging. The AC joint remains in good alignment. Coracoid and acromion are intact. IMPRESSION: Minimally displaced fracture of the distal clavicular shaft showing some callus formation without solid bony bridging. Dictated by: Dictated on workstation # [id number]
== END ==
LOC: ORTHO 09:44
PROVIDERS: ATTEND Orthopaedic Surgery
DX: Z47.89 Encounter for other orthopedic aftercare (principal); S42.031D Displaced fracture of lateral end of right clavicle, subsequent encounter for fracture with routine healing; M16.12 Unilateral primary osteoarthritis, left hip; I10 Essential (primary) hypertension; X58.XXXD Exposure to other specified factors, subsequent encounter
CPT/HCPCS: 73000; 73523; G0463; 99213

== ENCOUNTER → 2022-11-01 | Outpatient (CLI) | payer MEDICARE, OTHER | LOC: CARD 09:16 | PROVIDERS: ATTEND Internal Medicine Cardiovascular Disease | DX: I08.3 Combined rheumatic disorders of mitral, aortic and tricuspid valves (principal) | CPT/HCPCS: 93306 ==